=== PATIENT | female | born 1945 | race Caucasian/White ===

== ENCOUNTER 2016-10-07 10:53 | Emergency (ER) | payer MEDICARE ==
[~2016-10-07 10:53] MED LIST: BACL20TA PO; Baclofen PO; CARV3.12 PO; CARV6.252 PO; CHOL4POW2 PO; CHOL5POW MC; CIPR500T PO; DABI150C PO; ENOX60DI3 SQ; FURO40TA4 PO; HYDR-2758 PO; LEVE500T56 PO; LISI-338 PO; MAGN400T22 PO; METH5TAB4 PO; MICONAZOLE NITRATE TOP; Nicotine TD; OLAN2.5T3 PO; OLAN5TAB9 PO; PARO20TA99 PO; PARO40TA61 PO; POTA20TA12 PO; POTA20TA4 PO; RIVA10TA PO; TIOT18CA IH; VANC125S PO; VANC250C11 PO; VANC500V PO; Vancomycin Hcl PO; eloquist; vancomycin susp PO
--- NOTE | 2016-10-07 11:57 | PHYS DOC ---
Past History Past Medical History: Hypertension, UTI, Other Past Surgical History: Other Alcohol Use: None Drug Use: None Adult General Chief Complaint Chief Complaint: URINE CATHETER PROBLEM HPI HPI 70-year-old female with a history of multiple sclerosis presenting to the emergency department after her urinary catheter fell out. This occurred at most 6 hours ago. She presents today to have it replaced. Onset today. Location tract. Duration intermittent. No alleviating factors present. She reports having a placed approximately 2 years ago and thinks it may have been a 16 Georgian catheter. Review of systems is negative for chest pain abdominal pain nausea vomiting fevers or chills. All other review of systems is negative unless otherwise noted in history of present illness. Review of Systems Review of Systems SEE ABOVE. Allergies Allergies Allergies Coded Allergies Type Severity Reaction Last Updated Verified I S O L A T I O N *CONTACT* Allergy Unknown 11/24/15 Yes NKMA Allergy Unknown 11/24/15 Yes Physical Exam Physical Exam Constitutional: Well developed, well nourished, no acute distress, non-toxic appearance. HENT: Normocephalic, atraumatic, bilateral external ears normal, oropharynx moist, no oral exudates, nose normal. [] Eyes: PERRLA, EOMI, conjunctiva normal, no discharge. Neck: Normal range of motion, no tenderness, supple, no stridor. [] Cardiovascular:Heart rate regular rhythm, no murmur Lungs & Thorax: Bilateral breath sounds clear to auscultation [] Abdomen: Bowel sounds normal, soft, no tenderness, no masses, no pulsatile masses. Suprapubic ostomy present without evidence of cellulitis or erythema. Skin: Warm, dry, no erythema, no rash. Back: No tenderness, no CVA tenderness. [] Extremities: No tenderness, no cyanosis, no clubbing, ROM intact, no edema. [] Neurologic: Alert and oriented X 3, normal motor function, normal sensory function, no focal deficits noted. Psychologic: Affect normal, judgement normal, mood normal. [] Current Patient Data Vital Signs Vital Signs Date Time Temp Pulse Resp B/P (MAP) Pulse Ox O2 Delivery O2 Flow Rate FiO2 10/07/16 10:53 97.4 63 18 96 Room Air EKG EKG [] Radiology/Procedures Radiology/Procedures [] Course & Med Decision Making Course & Med Decision Making Pertinent Labs and Imaging studies reviewed. (See chart for details) [] 70-year-old female presenting to the emergency department after having her urinary catheter fall out. Unfortunately we're unable to place a 16 Georgian urinary catheter in the suprapubic ostomy site however we were able to place a 12 Georgian urinary catheter. Upon placement of the catheter clear urine came out. 10 mL of saline was placed in the balloon and the catheter was connected to a leg bag. She was subsequent discharged home to follow-up with her primary care physician for possibly serial increasing in size of the catheters. The patient was then discharged home in stable condition to follow up with their primary care physician over the next 2-3 days. They were to return if their symptoms worsened or if they were concerned for any reason. [id number] discharge instructions and return precautions were given. Patient's questions were answered to their satisfaction. Patient is comfortable plan. Dragon Disclaimer Dragon Disclaimer This chart was dictated in whole or in part using Voice Recognition software in a busy, high-work load, and often noisy Emergency Department environment. It may contain unintended and wholly unrecognized errors or omissions. Departure Departure: Impression: Primary Impression: Suprapubic catheter dysfunction Disposition: 01 HOME, SELF-CARE Condition: STABLE Referrals: GRACIE OLIVARES MD (PCP) Patient Instructions: Suprapubic Catheter Home Guide, Suprapubic Catheter Replacement, Care After Additional Instructions: Thank you for allowing us to participate in your care today. Follow-up with your primary care provider or urologist for replacement of the urinary catheter. You will likely need a larger catheter size which can be changed in clinic. Followup with your primary care physician in 3 days if your symptoms do not improve. If you do not have a primary care provider you can ask for a list of our primary care providers. Return to the emergency department you have any new or concerning findings. This should be evaluated by the primary care physician and any necessary consulting services for continued management within a few days after discharge. Return to emergency room if you have any new or concerning symptoms including but not limited to fever, chills, nausea, vomiting, intractable pain, any new rashes, chest pain, shortness of air, uncontrolled bleeding, difficulty breathing, and/or vision loss. MARGARET MURILLO MD October 07, 2016 11:57
[2016-10-07 12:13] VITALS: BP 143/86
== END 2016-10-07 12:13 | disposition home or self-care (01) ==
LOC: ER 10:53
DX: T83.028A Displacement of other urinary catheter, initial encounter (principal); I10 Essential (primary) hypertension; Z87.440 Personal history of urinary (tract) infections; Z91.041 Radiographic dye allergy status
CPT/HCPCS: 51702; 99284-25

== ENCOUNTER 2016-11-29 16:15 | Inpatient (IN) | payer MEDICARE ==
[~2016-11-29] VITALS: Ht 177.8 cm; Wt 60.0 kg
[2016-11-29] MEDS ORDERED: IV NORMAL SALINE 1,000ML 1,000 ML IV SCH (16:30)
[2016-11-29] MEDS ORDERED: 0.9 % SODIUM CHLORIDE 10 ML DISP.SYRIN. IV PRN (16:30)
[2016-11-29] MEDS ORDERED: ONDANSETRON PF 4 MG/2 ML VIAL. IV ONE (16:30)
--- NOTE | 2016-11-29 16:30 | PHYS DOC ---
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 Patient is presently living by herself as her family is out of town on vacation she noted increased bouts of nausea with retching. She is attempted to take meclizine at home without much in the way of improvement symptoms. She is also noted increased stooling frequency described as watery, malodorous, and mucousy which is very reminiscent of her prior C. difficile colitis. She does have a history of prior fecal transplantation 2. She denies any fevers, chills, recent antibiotics, sick contacts or travel. She denies any consumption of raw foods handling of poultry or reptiles. Patient admits she has minimal abdominal pain only pain when she attempts to retch. She denies any blood in her stool blood in her vomit or other symptoms. Review of Systems Review of Systems Constitutional: Denies fever or chills [] Eyes: Denies change in visual acuity, redness, or eye pain [] HENT: Denies nasal congestion or sore throat [] Respiratory: Denies cough or shortness of breath [] Cardiovascular: No additional information not addressed in HPI [] GI: He does complain of abdominal pain with retching nausea without vomiting she has diarrhea with mucus and a malodorous discharge. : Denies dysuria or hematuria [] Musculoskeletal: Denies back pain or joint pain [] Integument: Denies rash or skin lesions [] Neurologic: Denies headache, generally her legs feel weak below the knee which is chronic for her MS. Endocrine: Denies polyuria or polydipsia [] Allergies Allergies Allergies Coded Allergies Type Severity Reaction Last Updated Verified I S O L A T I O N *CONTACT* Allergy Unknown 11/24/15 Yes NKMA Allergy Unknown 11/24/15 Yes Physical Exam Physical Exam Vital signs reviewed. Noted hypertension without hypoxia. She is not hypoxic or tachypnea. Constitutional: Well developed, well nourished, no acute distress, non-toxic appearance. [] HENT: Normocephalic, atraumatic, bilateral external ears normal, mucous murmurings no oral exudates. Eyes: PERRLA, EOMI, conjunctiva normal, no discharge. [] Neck: Normal range of motion, no tenderness, supple, no stridor. [] Cardiovascular:Heart rate regular rhythm, no murmur [] Lungs & Thorax: Bilateral breath sounds clear to auscultation [] Abdomen: Bowel sounds normal, soft, no tenderness, no masses, no pulsatile masses. No guarding rebound or organomegaly. [] Skin: Warm, dry, no erythema, no rash. [] Back: No tenderness, no CVA tenderness. [] Extremities: No tenderness, no cyanosis, no clubbing, ROM intact, no edema. [] Neurologic: Alert and oriented X 3, normal motor function, normal sensory function, no focal deficits noted. [] Psychologic: Affect normal, judgement normal, mood normal. [] Current Patient Data Vital Signs Laboratory Tests Test 11/29/16 17:10 11/30/16 05:15 White Blood Count 9.9 x10^3/uL (4.0-11.0) 8.1 x10^3/uL (4.0-11.0) Red Blood Count 5.30 x10^6/uL (3.50-5.40) 4.94 x10^6/uL (3.50-5.40) Hemoglobin 15.4 g/dL (12.0-15.5) 14.3 g/dL (12.0-15.5) Hematocrit 45.9 % (36.0-47.0) 42.9 % (36.0-47.0) Mean Corpuscular Volume 87 fL (79-100) 87 fL (79-100) Mean Corpuscular Hemoglobin 29 pg (25-35) 29 pg (25-35) Mean Corpuscular Hemoglobin Concent 34 g/dL (31-37) 33 g/dL (31-37) Red Cell Distribution Width 17.2 % (11.5-14.5) H 17.0 % (11.5-14.5) H Platelet Count 385 x10^3/uL (140-400) 362 x10^3/uL (140-400) Neutrophils (%) (Auto) 72 % (31-73) 63 % (31-73) Lymphocytes (%) (Auto) 19 % (24-48) L 25 % (24-48) Monocytes (%) (Auto) 6 % (0-9) 8 % (0-9) Eosinophils (%) (Auto) 2 % (0-3) 3 % (0-3) Basophils (%) (Auto) 1 % (0-3) 1 % (0-3) Neutrophils # (Auto) 7.1 x10^3uL (1.8-7.7) 5.1 x10^3uL (1.8-7.7) Lymphocytes # (Auto) 1.9 x10^3/uL (1.0-4.8) 2.0 x10^3/uL (1.0-4.8) Monocytes # (Auto) 0.6 x10^3/uL (0.0-1.1) 0.6 x10^3/uL (0.0-1.1) Eosinophils # (Auto) 0.2 x10^3/uL (0.0-0.7) 0.3 x10^3/uL (0.0-0.7) Basophils # (Auto) 0.1 x10^3/uL (0.0-0.2) 0.1 x10^3/uL (0.0-0.2) Urine Collection Type Unknown Urine Color Roseann Urine Clarity Cloudy Urine pH 6.5 Urine Specific [place] 1.010 Urine Protein Trace (NEG-TRACE) Urine Glucose (UA) Neg mg/dL (NEG) Urine Ketones (Stick) Neg mg/dL (NEG) Urine Blood Large (NEG) Urine Nitrite Neg (NEG) Urine Bilirubin Neg (NEG) Urine Urobilinogen Dipstick 0.2 mg/dL (0.2 mg/dL) Urine Leukocyte Esterase Mod (NEG) Urine RBC 11-20 /HPF (0-2) Urine WBC 11-20 /HPF (0-4) Urine Squamous Epithelial Cells None /LPF Urine Bacteria Few /HPF (0-FEW) Urine Yeast Present /HPF Sodium Level 135 mmol/L (136-145) L 139 mmol/L (136-145) Potassium Level 3.6 mmol/L (3.5-5.1) 3.8 mmol/L (3.5-5.1) Chloride Level 100 mmol/L (98-107) 104 mmol/L (98-107) Carbon Dioxide Level 26 mmol/L (21-32) 27 mmol/L (21-32) Anion Gap 9 (6-14) 8 (6-14) Blood Urea Nitrogen 9 mg/dL (7-20) 12 mg/dL (7-20) Creatinine 0.6 mg/dL (0.6-1.0) 0.5 mg/dL (0.6-1.0) L Estimated GFR (Cockcroft-Gault) 98.3 121.3 Glucose Level 96 mg/dL (70-99) 88 mg/dL (70-99) Calcium Level 8.6 mg/dL (8.5-10.1) 8.0 mg/dL (8.5-10.1) L Magnesium Level 1.9 mg/dL (1.8-2.4) Total Bilirubin 0.4 mg/dL (0.2-1.0) 0.4 mg/dL (0.2-1.0) Direct Bilirubin 0.1 mg/dL (0.0-0.2) Aspartate Amino Transferase (AST) 24 U/L (15-37) 19 U/L (15-37) Alanine Aminotransferase (ALT) 40 U/L (14-59) 32 U/L (14-59) Alkaline Phosphatase 91 U/L (46-116) 80 U/L (46-116) Troponin I Quantitative < 0.017 ng/mL (0-0.055) Total Protein 6.5 g/dL (6.4-8.2) 5.8 g/dL (6.4-8.2) L Albumin 3.4 g/dL (3.4-5.0) 2.9 g/dL (3.4-5.0) L Lipase 152 U/L (73-393) BUN/Creatinine Ratio 24 (6-20) H Albumin/Globulin Ratio 1.0 (1.0-1.7) EKG EKG EKG timed 5:40 PM 11/29/2016 demonstrates normal sinus rhythm with a heart rate of 68 is a low voltage EKG with there is a decreased QRS, but is voltage with as well as some T-wave flattening in the inferior leads. There is no obvious evidence of acute coronary ischemia with ST segment elevation. Read by Dr. Hernandez. [] Radiology/Procedures Radiology/Procedures [] Course & Med Decision Making Course & Med Decision Making Pertinent Labs and Imaging studies reviewed. (See chart for details) she presents living by herself at this time as her family's, vacation. I'm concerned with her history of MS as well as increased weakness in her lower extremities bilaterally which is typical for her MS exacerbations also been dehydrated, no appetite, any history due to C. difficile colitis increasing stool volume. Asked to be admitted to the hospital given her generalized weakness and her inability tolerate food and fluids given her decreased appetite. I will screen her for status or colitis other infectious diarrheas as well as ischemic bowel. She will also have a screening for cardiac ischemia to ensure that nausea and weakness is not from some other issue. This point she is receiving antiemetics, pain meds if needed and fluids. We will attempt to collect a stool sample if she produces one here in the ER. Spoke with at 5:30 pm who says that he does not admit his own patients. Please Call security professionals hospitalist Locomotive Oiler note: Internal medicine Locomotive Oiler called at of the service: Dr. Lentz initially called at 1534 Consult called back at 1535 Discussed the case I presented and they agreed with admission. Time of acceptance of 1536 Impression: Diarrhea likely C. difficile colitis, nausea, dehydration, UTI Disposition: Admission to the hospital for IV therapy and observation. [] Dragon Disclaimer Dragon Disclaimer This chart was dictated in whole or in part using Voice Recognition software in a busy, high-work load, and often noisy Emergency Department environment. It may contain unintended and wholly unrecognized errors or omissions. Departure Departure: Impression: Primary Impression: Dehydration Additional Impressions: Nausea & vomiting Recurrent Clostridium difficile diarrhea UTI (urinary tract infection) Disposition: ADMITTED INPATIENT Admitting Physician: Kristi Lentz Condition: GUARDED Referrals: GRACIE OLIVARES MD (PCP) Problem Qualifiers MEGAN HERNANDEZ MD Nov 29, 2016 16:30
[2016-11-29 17:32] LABS: BASO # 0.1 x10^3/uL (0.0-0.2); BASO % 1 % (0-3); EOS # 0.2 x10^3/uL (0.0-0.7); EOS % 2 % (0-3); HEMATOCRIT 45.9 % (36.0-47.0); HEMOGLOBIN 15.4 g/dL (12.0-15.5); LYMPH # 1.9 x10^3/uL (1.0-4.8); LYMPH % 19 % (24-48); MEAN CORPUSCULAR HEMOGLOBIN 29 pg (25-35); MEAN CORPUSCULAR HGB CONC 34 g/dL (31-37); MEAN CORPUSCULAR VOLUME 87 fL (79-100); MONO # 0.6 x10^3/uL (0.0-1.1); MONO % 6 % (0-9); NEUT # 7.1 x10^3uL (1.8-7.7); NEUT % 72 % (31-73); PLATELET COUNT 385 x10^3/uL (140-400); RED CELL DISTRIBUTION WIDTH 17.2 % (11.5-14.5); WHITE BLOOD COUNT 9.9 x10^3/uL (4.0-11.0)
[2016-11-29 17:35] LABS: COLOR,URINE AMBER
[2016-11-29 17:36] LABS: BACTERIA,URINE FEW /HPF (0-FEW); BILIRUBIN,URINE NEG (NEG); CLARITY,URINE CLOUDY; GLUCOSE,URINE NEG (NEG); NITRITE,URINE NEG (NEG); UROBILINOGEN,URINE 0.2 mg/dL (0.2 mg/dL)
[2016-11-29 17:38] LABS: YEAST,URINE PRESENT /HPF
[2016-11-29] MEDS: IV NORMAL SALINE 1,000ML 1,000 ML IV SCH (17:39)
[2016-11-29 17:43] LABS: ALBUMIN 3.4 g/dL (3.4-5.0); CALCIUM 8.6 mg/dL (8.5-10.1); CREATININE 0.6 mg/dL (0.6-1.0); DIRECT BILIRUBIN 0.1 mg/dL (0.0-0.2); GFR 98.3; POTASSIUM 3.6 mmol/L (3.5-5.1); TOTAL BILIRUBIN 0.4 mg/dL (0.2-1.0); TOTAL PROTEIN 6.5 g/dL (6.4-8.2)
--- NOTE | 2016-11-29 17:43 | EKG ---
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
[2016-11-29] MEDS ORDERED: fentaNYL PF 100 MCG/2 ML VIAL IV PRN (17:45)
[2016-11-29 18:58] VITALS: BP 135/75
[2016-11-29] MEDS ORDERED: HYDROcodone/APAP 5/325MG 1 TAB TABLET PO PRN (22:30)
[2016-11-30] MEDS: IV NORMAL SALINE 1,000ML 1,000 ML IV SCH ×2 (03:39→17:54)
[2016-11-30] MEDS: VANCOMYCIN 125 MG/2.5 ML ORAL SOLUTION. PO SCH ×4 (04:51→22:05)
[2016-11-30] MEDS: BACLOFEN 20 MG TABLET PO SCH ×3 (04:52→22:03)
[2016-11-30 05:41] LABS: BASO # 0.1 x10^3/uL (0.0-0.2); BASO % 1 % (0-3); EOS # 0.3 x10^3/uL (0.0-0.7); EOS % 3 % (0-3); HEMATOCRIT 42.9 % (36.0-47.0); HEMOGLOBIN 14.3 g/dL (12.0-15.5); LYMPH % 25 % (24-48); MEAN CORPUSCULAR HEMOGLOBIN 29 pg (25-35); MEAN CORPUSCULAR HGB CONC 33 g/dL (31-37); MEAN CORPUSCULAR VOLUME 87 fL (79-100); MONO # 0.6 x10^3/uL (0.0-1.1); MONO % 8 % (0-9); NEUT # 5.1 x10^3uL (1.8-7.7); NEUT % 63 % (31-73); PLATELET COUNT 362 x10^3/uL (140-400); RED BLOOD COUNT 4.94 x10^6/uL (3.50-5.40); WHITE BLOOD COUNT 8.1 x10^3/uL (4.0-11.0)
[2016-11-30 05:52] LABS: ALBUMIN 2.9 g/dL (3.4-5.0); CREATININE 0.5 mg/dL (0.6-1.0); GFR 121.3; POTASSIUM 3.8 mmol/L (3.5-5.1); TOTAL BILIRUBIN 0.4 mg/dL (0.2-1.0); TOTAL PROTEIN 5.8 g/dL (6.4-8.2)
[2016-11-30 06:27] VITALS: BP 125/65
[2016-11-30] MEDS ORDERED: PANTOPRAZOLE 40 MG TABLET. PO SCH (07:30)
[2016-11-30] MEDS: PARoxetine 20 MG TABLET PO SCH (08:09)
[2016-11-30] MEDS: CARVEDILOL 6.25 MG TABLET PO SCH ×2 (08:10→19:53)
[2016-11-30] MEDS: POTASSIUM CHLORIDE 20 MEQ TABLET.ER. PO SCH (08:10)
[2016-11-30] MEDS: MVI, ADULT NO.4 WITH VIT K 10 ML, FOLIC ACID 1 MG, THIAMINE 100 MG in IV DEXTROSE 5 %-0... IV SCH ×4 (08:17)
[2016-11-30] MEDS: NICOTINE 21MG PATCH. TD SCH (08:26)
[2016-11-30] MEDS ORDERED: FAMOTIDINE 20 MG/2 ML VIAL IVP ONE (09:00)
[2016-11-30] MEDS ORDERED: LISINOPRIL 5 MG TABLET. PO SCH (09:00)
[2016-11-30] MEDS ORDERED: FUROSEMIDE 40 MG TABLET PO SCH (09:00)
[2016-11-30] MEDS ORDERED: FAMOTIDINE 20 MG/2 ML VIAL IVP SCH (09:00)
[2016-11-30] MEDS ORDERED: NICOTINE 21MG PATCH. TD ONE (09:15)
[2016-11-30] MEDS: ONDANSETRON PF 4 MG/2 ML VIAL. IV PRN ×2 (09:21→13:16)
[2016-11-30] MEDS ORDERED: FLUCONAZOLE 100 MG TABLET. PO SCH (11:15)
[2016-11-30] MEDS: HYDROcodone/APAP 5/325MG 1 TAB TABLET PO SCH ×4 (12:05→23:53)
[2016-11-30] MEDS ORDERED: HYDROcodone/APAP 5/325MG 1 TAB TABLET PO PRN (13:00)
--- NOTE | 2016-11-30 13:11 | PDOC1 ---
History of Present Illness Reason for Visit: nausea, diarrhea History of Present Illness This is a 71-year-old female long-standing history of C. difficile colitis. She presented to the emergency room yesterday with a 3 day history of nausea and diarrhea which she describes as watery and mucousy. She took some meclizine without relief. No vomiting just nausea. 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 See HPI for pertinent positives and negative responses, other reis all other systems are negative, non pertinent or non contributory Constitutional: Weakness, Malaise Eyes: No: Blurry vision, Decreased vision, Double vision, Dry eyes, Excessive tearing, Eye Pain, Itchy Eyes, Loss of vision, Photophobia, Scotomata, Uses contacts, Uses glasses ENT: No: Ear pain, Ear discharge, Nose pain, Nose discharge, Nose congestion, Mouth pain, Mouth swelling, Throat pain, Throat swelling Respiratory: No: Cough, Hemoptysis, Orthopnea, Pleuritic Pain, Shortness of breath, SOB with excertion, Sputum Changes, Stridor, Tachypnea, Wheezing Gastrointestinal: YES: Nausea, Diarrhea Genitourinary: No: Change in Menstrual Cycle, Dysmenorrhea, Dyspareunia, Dysuria, Flank Pain, Genital Discharge, Genital Ulcers, Henaturia, Incontinence , Irregular/heavy Menses, Nocturia, Pelvic Pain, Scrotal Mass/pain, Slowing Urinary Stream, Urinary Frequency/urgency, Vulvar/vaginal Symptoms Musculoskeletal: YES: Muscular Weakness Neurological: YES: Weakness Allergies: Coded Allergies: I S O L A T I O N *CONTACT* (Verified Allergy, Unknown, 11/24/15) chronic C.diff NKMA (Verified Allergy, Unknown, 11/24/15) Medications Current Medications Sodium Chloride 1,000 ml @ 1,000 mls/hr Q1H IV Last administered on 11/29/16 17:20; Start 11/29/16 at 16:30; Stop 11/29/16 at 17:29; Status DC Sodium Chloride (Normal Saline Flush) 10 ml QSHIFT PRN IV AFTER MEDS AND BLOOD DRAWS; Start 11/29/16 at 16:30 Ondansetron HCl (Zofran) 4 mg 1X ONCE IV Last administered on 11/29/16 17:20; Start 11/29/16 at 16:30; Stop 11/29/16 at 16:36; Status DC Ondansetron HCl (Zofran) 4 mg PRN Q4HRS PRN IV NAUSEA/VOMITING Last administered on 11/30/16 09:21; Start 11/29/16 at 17:45; Stop 11/30/16 at 17:44 Fentanyl Citrate (Fentanyl 2ml Vial) 50 mcg PRN Q2HR PRN IV PAIN; Start at 17:45; Stop 11/30/16 at 17:44 Sodium Chloride 1,000 ml @ 100 mls/hr Q10H IV ; Start 11/29/16 at 17:39; Stop at 17:38 Baclofen (Lioresal) 20 mg Q8HRS PO Last administered on 11/30/16 08:15; Start 11/30/16 at 06:00 Carvedilol (Coreg) 6.25 mg BID PO Last administered on 11/30/16 08:10; Start at 09:00 Furosemide (Lasix) 40 mg DAILY PO ; Start 11/30/16 at 09:00; Status Future Hold Lisinopril (Prinivil) 80 mg DAILY PO ; Start 11/30/16 at 09:00; Status Future Hold Potassium Chloride (Klor-Con) 20 meq DAILY PO Last administered on 11/30/16 08: 10; Start 11/30/16 at 09:00 Paroxetine HCl (Paxil) 40 mg DAILY PO Last administered on 11/30/16 08:09; Start 11/30/16 at 09:00 Vancomycin HCl 125 mg Q6HRS PO Last administered on 11/30/16 12:06; Start at 06:00 Nicotine (Nicoderm Cq 21mg) 1 patch DAILY TD ; Start 11/30/16 at 09:00 Acetaminophen/ Hydrocodone Bitart (Lortab 5/325) 1 tab PRN QID PRN PO PAIN Last administered on 11/30/16 08:15; Start 11/29/16 at 22:30; Stop 11/30/16 at 12: 00; Status DC Multivitamins/ Minerals 10 ml/ Folic Acid 1 mg/ Thiamine HCl 100 mg/Dextrose/ Sodium Chloride 1,011.2 ml @ 100.009 mls/hr DAILY IV Last administered on 08:17; Start 11/30/16 at 09:00 Pantoprazole Sodium (Protonix) 40 mg DAILYAC PO ; Start 11/30/16 at 07:30; Stop 11/30/16 at 07:36; Status DC Famotidine (Pepcid) 20 mg BID IVP ; Start 11/30/16 at 09:00; Stop 11/30/16 at 09: 00; Status DC Famotidine (Pepcid) 20 mg 1X ONCE IVP Last administered on 11/30/16 08:09; Start 11/30/16 at 09:00; Stop 11/30/16 at 09:01; Status DC Nicotine (Nicoderm Cq 21mg) 1 patch 1X ONCE TD Last administered on 11/30/16 09:21; Start 11/30/16 at 09:15; Stop 11/30/16 at 09:16; Status DC Acetaminophen/ Hydrocodone Bitart (Lortab 5/325) 1 tab Q4HRS PO Last administered on 11/30/16 12:05; Start 11/30/16 at 12:00 Fluconazole (Diflucan) 100 mg DAILY PO Last administered on 11/30/16 12:05; Start 11/30/16 at 11:15; Stop 12/08/16 at 11:14 Famotidine (Pepcid) 20 mg BID PO ; Start 11/30/16 at 21:00 Active Scripts Active Ciprofloxacin Hcl 500 Mg Tablet 1 Tab PO BID [Nicotine] 1 PATCH Patch 1 Patch TD DAILY Mag-Oxide (Magnesium Oxide) 400 Mg Tablet 400 Mg PO DAILY Reported Vancomycin HCl 125 Mg/2.5 Ml Syringe 125 Mg PO Q6HRS LAST DOSE GIVEN: DATE: TODAY TIME: 1PM NEXT DOSE DUE: DATE: TODAY TIME: 7PM Klor-Con M20 (Potassium Chloride) 20 Meq Tab.er.prt 1 Tab PO DAILY LAST DOSE GIVEN: DATE: TIME: AM NEXT DOSE DUE: DATE: TOMORROW TIME: AM Furosemide 40 Mg Tablet 1 Tab PO DAILY LAST DOSE GIVEN: DATE: TODAY TIME: AM NEXT DOSE DUE: DATE: TOMORROW TIME: AM Carvedilol 6.25 Mg Tablet 1 Tab PO BID LAST DOSE GIVEN: DATE: TIME: AM NEXT DOSE DUE: DATE: TODAY TIME: PM Lisinopril 5 Mg Tablet 80 Mg PO DAILY High blood pressure LAST DOSE GIVEN: DATE: TIME: AM NEXT DOSE DUE: DATE: ORR TIME: AM Hydrocodone-Apap 5-325 (Hydrocodone Bit/Acetaminophen) 1 Each Tablet 1 Tab PO Q6HRS PRN As needed for pain LAST DOSE GIVEN: DATE: TODAY TIME: 2:30 PM NEXT DOSE DUE: DATE: TODAY TIME: AFTER 8:30 PM Paxil (Paroxetine Hcl) 40 Mg Tablet 40 Mg PO DAILY Depression LAST DOSE GIVEN: DATE: TODAY TIME: AM NEXT DOSE DUE: DATE: TOMORROW TIME: AM Baclofen 20 Mg Tablet 20 Mg PO Q8HRS Muscle spasm LAST DOSE GIVEN: DATE: TIME: 2PM NEXT DOSE DUE: DATE: TODAY TIME: 8PM Exam Vital Signs Vital Signs Date Time Temp Pulse Resp B/P (MAP) Pulse Ox O2 Delivery O2 Flow Rate FiO2 11/30/16 12:05 16 95 11/30/16 09:15 Room Air 11/30/16 08:26 75 125/65 11/30/16 06:27 98.6 General Appearance: Other (fatigued) HEENT: Atraumatic, PERRLA, Mucous membr. moist/pink Respiratory: Clear to auscultation, Normal air movement Heart: Regular rate, Normal S1, Normal S2, No murmurs BREASTS: Not examined Abdominal: Normal bowel sounds, No tenderness Extremities: No clubbing, No tenderness/swelling Skin: No rashes, No breakdown, No significant lesion Neuro: Other (paraplegic-functional) Psych/Mental Status: Mental status NL, Mood NL Assessment/Plan Assessment/Plan #1 nausea and diarrhea that has not had diarrhea since hospitalization will do a C. difficile if it recurs #2 multiple sclerosis with functional paraplegia #3 tobacco use disorder #4 multiple episodes of C differential colitis including 2 fecal transplants #5 hypertension #6 protein calorie malnutrition #7 chronic use of narcotics #8History of DVT 9 yeast UTI Plan: IV fluids, Diflucan for yeast uti, await the results of the urinary culture before starting any more antibiotics in lieu of her risk of C. difficile. Get a C. difficile if she should have any more diarrhea. She seems to be doing well now after some IV fluids., She continues on her Vancomycin po chronically. she will not quit smoking.Will use nicotine patch. COURSE Allergies Coded Allergies Type Severity Reaction Last Updated Verified I S O L A T I O N *CONTACT* Allergy Unknown 11/24/15 Yes NKMA Allergy Unknown 11/24/15 Yes Laboratory Tests Test 11/29/16 17:10 11/30/16 05:15 White Blood Count 9.9 x10^3/uL (4.0-11.0) 8.1 x10^3/uL (4.0-11.0) Red Blood Count 5.30 x10^6/uL (3.50-5.40) 4.94 x10^6/uL (3.50-5.40) Hemoglobin 15.4 g/dL (12.0-15.5) 14.3 g/dL (12.0-15.5) Hematocrit 45.9 % (36.0-47.0) 42.9 % (36.0-47.0) Mean Corpuscular Volume 87 fL (79-100) 87 fL (79-100) Mean Corpuscular Hemoglobin 29 pg (25-35) 29 pg (25-35) Mean Corpuscular Hemoglobin Concent 34 g/dL (31-37) 33 g/dL (31-37) Red Cell Distribution Width 17.2 % (11.5-14.5) 17.0 % (11.5-14.5) Platelet Count 385 x10^3/uL (140-400) 362 x10^3/uL (140-400) Neutrophils (%) (Auto) 72 % (31-73) 63 % (31-73) Lymphocytes (%) (Auto) 19 % (24-48) 25 % (24-48) Monocytes (%) (Auto) 6 % (0-9) 8 % (0-9) Eosinophils (%) (Auto) 2 % (0-3) 3 % (0-3) Basophils (%) (Auto) 1 % (0-3) 1 % (0-3) Neutrophils # (Auto) 7.1 x10^3uL (1.8-7.7) 5.1 x10^3uL (1.8-7.7) Lymphocytes # (Auto) 1.9 x10^3/uL (1.0-4.8) 2.0 x10^3/uL (1.0-4.8) Monocytes # (Auto) 0.6 x10^3/uL (0.0-1.1) 0.6 x10^3/uL (0.0-1.1) Eosinophils # (Auto) 0.2 x10^3/uL (0.0-0.7) 0.3 x10^3/uL (0.0-0.7) Basophils # (Auto) 0.1 x10^3/uL (0.0-0.2) 0.1 x10^3/uL (0.0-0.2) Urine Collection Type Unknown Urine Color Roseann Urine Clarity Cloudy Urine pH 6.5 Urine Specific Crowell 1.010 Urine Protein Trace (NEG-TRACE) Urine Glucose (UA) Neg mg/dL (NEG) Urine Ketones (Stick) Neg mg/dL (NEG) Urine Blood Large (NEG) Urine Nitrite Neg (NEG) Urine Bilirubin Neg (NEG) Urine Urobilinogen Dipstick 0.2 mg/dL (0.2 mg/dL) Urine Leukocyte Esterase Mod (NEG) Urine RBC 11-20 /HPF (0-2) Urine WBC 11-20 /HPF (0-4) Urine Squamous Epithelial Cells None /LPF Urine Bacteria Few /HPF (0-FEW) Urine Yeast Present /HPF Sodium Level 135 mmol/L (136-145) 139 mmol/L (136-145) Potassium Level 3.6 mmol/L (3.5-5.1) 3.8 mmol/L (3.5-5.1) Chloride Level 100 mmol/L (98-107) 104 mmol/L (98-107) Carbon Dioxide Level 26 mmol/L (21-32) 27 mmol/L (21-32) Anion Gap 9 (6-14) 8 (6-14) Blood Urea Nitrogen 9 mg/dL (7-20) 12 mg/dL (7-20) Creatinine 0.6 mg/dL (0.6-1.0) 0.5 mg/dL (0.6-1.0) Estimated GFR (Cockcroft-Gault) 98.3 121.3 Glucose Level 96 mg/dL (70-99) 88 mg/dL (70-99) Calcium Level 8.6 mg/dL (8.5-10.1) 8.0 mg/dL (8.5-10.1) Magnesium Level 1.9 mg/dL (1.8-2.4) Total Bilirubin 0.4 mg/dL (0.2-1.0) 0.4 mg/dL (0.2-1.0) Direct Bilirubin 0.1 mg/dL (0.0-0.2) Aspartate Amino Transf (AST/SGOT) 24 U/L (15-37) 19 U/L (15-37) Alanine Aminotransferase (ALT/SGPT) 40 U/L (14-59) 32 U/L (14-59) Alkaline Phosphatase 91 U/L (46-116) 80 U/L (46-116) Troponin I Quantitative < 0.017 ng/mL (0-0.055) Total Protein 6.5 g/dL (6.4-8.2) 5.8 g/dL (6.4-8.2) Albumin 3.4 g/dL (3.4-5.0) 2.9 g/dL (3.4-5.0) Lipase 152 U/L (73-393) BUN/Creatinine Ratio 24 (6-20) Albumin/Globulin Ratio 1.0 (1.0-1.7) Current Medications Medications (Trade) Dose Ordered Sig/Riki Route PRN Reason Start Time Stop Time Status Last Admin Dose Admin Sodium Chloride 1,000 ml @ 1,000 mls/hr Q1H IV 11/29/16 16:30 11/29/16 17:29 DC 11/29/16 17:20 Sodium Chloride (Normal Saline Flush) 10 ml QSHIFT PRN IV AFTER MEDS AND BLOOD DRAWS 11/29/16 16:30 Ondansetron HCl (Zofran) 4 mg 1X ONCE IV 11/29/16 16:30 11/29/16 16:36 DC 11/29/16 17:20 Ondansetron HCl (Zofran) 4 mg PRN Q4HRS PRN IV NAUSEA/VOMITING 11/29/16 17:45 11/30/16 17:44 11/30/16 09:21 Fentanyl Citrate (Fentanyl 2ml Vial) 50 mcg PRN Q2HR PRN IV PAIN 11/29/16 17:45 11/30/16 17:44 Sodium Chloride 1,000 ml @ 100 mls/hr Q10H IV 11/29/16 17:39 11/30/16 17:38 Baclofen (Lioresal) 20 mg Q8HRS PO 11/30/16 06:00 11/30/16 08:15 Carvedilol (Coreg) 6.25 mg BID PO 11/30/16 09:00 11/30/16 08:10 Furosemide (Lasix) 40 mg DAILY PO 11/30/16 09:00 Future Hold Lisinopril (Prinivil) 80 mg DAILY PO 11/30/16 09:00 Future Hold Potassium Chloride (Klor-Con) 20 meq DAILY PO 11/30/16 09:00 11/30/16 08:10 Paroxetine HCl (Paxil) 40 mg DAILY PO 11/30/16 09:00 11/30/16 08:09 Vancomycin HCl 125 mg Q6HRS PO 11/30/16 06:00 11/30/16 12:06 Nicotine (Nicoderm Cq 21mg) 1 patch DAILY TD 11/30/16 09:00 Acetaminophen/ Hydrocodone Bitart (Lortab 5/325) 1 tab PRN QID PRN PO PAIN 11/29/16 22:30 11/30/16 12:00 DC 11/30/16 08:15 Multivitamins/ Minerals 10 ml/ Folic Acid 1 mg/ Thiamine HCl 100 mg/Dextrose/ Sodium Chloride 1,011.2 ml @ 100.009 mls/hr DAILY IV 11/30/16 09:00 11/30/16 08:17 Pantoprazole Sodium (Protonix) 40 mg DAILYAC PO 11/30/16 07:30 11/30/16 07:36 DC Famotidine (Pepcid) 20 mg BID IVP 11/30/16 09:00 11/30/16 09:00 DC Famotidine (Pepcid) 20 mg 1X ONCE IVP 11/30/16 09:00 11/30/16 09:01 DC 11/30/16 08:09 Nicotine (Nicoderm Cq 21mg) 1 patch 1X ONCE TD 11/30/16 09:15 11/30/16 09:16 DC 11/30/16 09:21 Acetaminophen/ Hydrocodone Bitart (Lortab 5/325) 1 tab Q4HRS PO 11/30/16 12:00 11/30/16 12:05 Fluconazole (Diflucan) 100 mg DAILY PO 11/30/16 11:15 12/08/16 11:14 11/30/16 12:05 Famotidine (Pepcid) 20 mg BID PO 11/30/16 21:00 I & O 11/30/16 00:00 Intake Total 1001 ml Balance 1001 ml Orders Procedure Category Date Status Time Vital Signs ER 11/29/16 Transmitted 16:30 Saline Lock ER 11/29/16 Transmitted 16:30 Cbc W Autodiff LAB 11/29/16 Complete 16:30 Ua, Cult If Indicated LAB 11/29/16 Complete 16:30 Lipase LAB 11/29/16 Complete 16:30 Basic Metabolic Panel LAB 11/29/16 Complete 16:30 Hepatic Panel LAB 11/29/16 Complete 16:30 Troponin I LAB 11/29/16 Complete 16:30 12 Lead Ekg EKG 11/29/16 Complete 16:30 Pulse Oximetry: FITO 11/29/16 In Process Standing Order 16:30 Iv Normal Saline PHA 11/29/16 Complete 1,000ml (Iv Sodium 16:30 0.9 % Sodium Chloride PHA 11/29/16 In Process (Normal Saline Flu 16:30 Ondansetron Pf PHA 11/29/16 Complete (Zofran) 16:30 Stool (Fecal) Culture CINTHYA 11/29/16 Uncollected 16:30 Stool Collect: FITO 11/29/16 In Process Standing Order 16:30 [place] Order ADT 11/29/16 Transmitted 17:39 Code Status CODE 11/29/16 Transmitted 17:39 Vital Signs, Per FITO 11/29/16 In Process Protocol 17:39 Advance Diet As FITO 11/29/16 In Process Tolerated 17:39 Ambulate With FITO 11/29/16 In Process Assistance 17:39 Ondansetron Pf PHA 11/29/16 In Process (Zofran) 17:45 Fentanyl Pf (Fentanyl PHA 11/29/16 In Process 2ml Vial) 17:45 Iv Normal Saline PHA 11/29/16 In Process 1,000ml (Iv Sodium 17:39 Urine Culture CINTHYA 11/29/16 In Process 17:50 Magnesium LAB 11/29/16 Complete 18:31 Baclofen (Lioresal) PHA 11/30/16 In Process 06:00 Carvedilol (Coreg) PHA 11/30/16 In Process 09:00 Furosemide Tablet PHA 11/30/16 In Process (Lasix) 09:00 Lisinopril (Prinivil) PHA 11/30/16 In Process 09:00 Potassium Chloride PHA 11/30/16 In Process (Klor-Con) 09:00 Paroxetine (Paxil) PHA 11/30/16 In Process 09:00 Vancomycin Oral PHA 11/30/16 In Process Solution 06:00 Nicotine 21mg PHA 11/30/16 In Process (Nicoderm Cq 21mg) 09:00 Hydrocodone/Apap PHA 11/29/16 Complete 5/325mg (Lortab 5/325) 22:30 Cbc W Autodiff LAB 11/30/16 Complete 01:25 Comprehensive LAB 11/30/16 Complete Metabolic Panel 01:25 Mvi, Adult No.4 With PHA 11/30/16 In Process Vit K (Infuvite Jonah 09:00 Pantoprazole PHA 11/30/16 Complete (Protonix) 07:30 Famotidine Pf (Pepcid) PHA 11/30/16 Complete 09:00 Famotidine Pf (Pepcid) PHA 11/30/16 Complete 09:00 Nicotine 21mg PHA 11/30/16 Complete (Nicoderm Cq 21mg) 09:15 Hydrocodone/Apap PHA 11/30/16 In Process 5/325mg (Lortab 5/325) 12:00 Famotidine (Pepcid) PHA 11/30/16 In Process 21:00 Fluconazole (Diflucan) PHA 11/30/16 In Process 11:15 Hydrocodone/Apap PHA 11/30/16 Transmitted 5/325mg (Lortab 5/325) 13:00 Magnesium Oxide PHA 12/01/16 Transmitted (Magnesium Oxide) 09:00 Vital Signs Date Time Temp Pulse Resp B/P (MAP) Pulse Ox O2 Delivery O2 Flow Rate FiO2 11/30/16 12:05 16 95 11/30/16 09:15 Room Air 11/30/16 08:26 75 125/65 11/30/16 06:27 98.6 MOISES DON DO Nov 30, 2016 13:11
--- NOTE | 2016-11-30 14:16 | ACF ---
Admission Criteria Forms GENERAL ADMISSION CRITERIA (Place 'X' for any and all applicable criteria): Admission is indicated for ANY ONE of the following: [ ]I. Hemodynamic instability as indicated by ANY ONE of the following(1)(2) (3)(4)(5): [ ]a) Vital sign abnormality not readily corrected by appropriate treatment within 12 to 24 hours indicated by ANY ONE of the following: [ ]i) Hypotension [ ]ii) Symptomatic Tachycardia unresponsive to treatment (eg , analgesia, fluids, sedation as indicated) [ ]iii) Orthostatic vital sign changes unresponsive to treatment (eg, fluids) [ ]b) Vital sign abnormality that is severe indicated by ANY ONE of the following: [ ]i) Inadequate perfusion indicated by ANY ONE of the following: [ ]1) Lactic acidosis (greater than 2 mmol/L) [ ]2) New abnormal capillary refill (greater than 3 seconds) [ ]3) Other metabolic acidosis (arterial pH less than 7.35) not otherwise explained [ ]4) Reduced urine output [ ]5) Altered mental status [ ]6) Myocardial Ischemia [ ]v) Mean arterial pressure[A] less than 60 mm Hg [ ]vi) Mean arterial pressure[A] less than 70 mm Hg after 30 minutes of appropriate treatment (eg, fluid resuscitation) [ ]vii) IV inotropic or vasopressor medication required to maintain adequate blood pressure or perfusion [ ]viii) Sustained heart rate greater than 120 beats per minute in adult or child 6 years or older[B]] [ ]II. Hypertension requiring inpatient treatment as indicated by ANY ONE of the following(6)(7)(8): [ ]a) SBP greater than 220 mm Hg or DBP greater than 120 mm Hg despite treatment [ ]b) SBP greater than 140 mm Hg or DBP greater than 100 mm Hg with evidence of acute end organ damage as indicated by ANY ONE of the following: [ ]i) Encephalopathy [ ]ii) Acute renal failure as indicated by new onset of ANY ONE of the following(9)(10)(11)(12)(13): [ ]1) A 3-fold rise in serum creatinine from baseline [ ]2) Serum creatinine greater than 4 mg/dL ( 354 micromoles/L) with acute rise greater than 0.5 mg/dL (44.2 micromoles/L) [ ]3) Reduction of more than 75% in estimated glomerular filtration rate from baseline [ ]4) Estimated glomerular filtration rate less than 35 mL/min/1.73m2 (0.59 mL/sec/1.73m2) in child up to 18 years of age [ ]5) Cessation of urine output indicated by ALL of the following: [ ]A. Adequate volume status [ ]B. Inadequate urine output as indicated by ANY ONE of the following: [ ]a. Urine output less than 0.3 mL/kg/hr for 24 hours [ ]b. Anuria (urine output less than 0.1 mL/kg/hr) for 12 hours [ ]iii) Aortic dissection [ ]iv) Myocardial ischemia [ ]v) Left ventricular heart failure [ ]vi) Retinal hemorrhage [ ]vii) Other significant finding [ ]c) Hypertension in child requiring inpatient treatment as indicated by ALL of the following(14)(15)(16): [ ]i) Outpatient treatment not effective, not available, or not appropriate [ ]ii) SBP or DBP greater than 95th percentile for age [ ]iii) Evidence of acute end organ damage as indicated by ANY ONE of the following: [ ]1) Altered mental status [ ]2) Acute renal failure as indicated by new onset of ANY ONE of the following(9)(10)(11)(12)(13): [ ]A. A 3-fold rise in serum creatinine from baseline [ ]B. Serum creatinine greater than 4 mg/dL (354 micromoles/L) with acute rise greater than 0.5 mg/dL (44.2 micromoles/L) [ ]C. Reduction of more than 75% in estimated glomerular filtration rate from baseline [ ]D. Estimated glomerular filtration rate less than 35 mL/min/1.73m2 (0.59 mL/sec/1.73m2)in child up to 18 years of age [ ]E. Cessation of urine output indicated by ALL of the following: [ ]a. Adequate volume status [ ]b. Inadequate urine output as indicated by ANY ONE of the following: [ ]1) Urine output less than 0.3 mL/kg/hr for 24 hours [ ]2) Anuria (urine output less than 0.1 mL/kg/hr) for 12 hours [ ]3) Severe headache [ ]4) Visual disturbance [ ]5) Retinal hemorrhage [ ]6) Other significant finding [ ]III. Acute cardiac or peripheral ischemia as indicated by ANY ONE of the following: [ ]a) Acute coronary syndrome(17)(18) [ ]b) Acute peripheral ischemia (eg, pulseless, cool, mottled, or cyanotic extremity)(19) [ ]IV. Cardiac arrhythmias or findings of immediate concern indicated by ANY ONE of the following(20)(21): [ ]a) Heart rhythms that are inherently dangerous or unstable indicated by ANY ONE of the following(22)(23)(24): [ ]i) Resuscitated ventricular fibrillation or cardiac arrest [ ]ii) Ventricular escape rhythm [ ]iii) Sustained ventricular tachycardia (30 seconds or more of ventricular rhythm at greater than 100 beats per minute) [ ]iv) Nonsustained ventricular tachycardia and ANY ONE of the following: [ ]1) Suspected cardiac ischemia as cause or consequence of ventricular tachycardia [ ]2) In setting of acute myocarditis [ ]b) Unstable cardiac conduction defects indicated by ANY ONE of the following(24)(25)(26): [ ]i) Type II second-degree atrioventricular block [ ]ii) Third-degree atrioventricular block [ ]iii) New-onset left bundle branch block with suspected myocardial ischemia [ ]c) Any heart rhythm and ANY ONE of the following(22)(23)(27)(28)( 29): [ ] i) Continuous long-term ECG monitoring needed (eg, initiation of drug requiring monitoring for more than 24 hours) [ ] ii) Patient has automatic implanted cardioverter defibrillator that is repeatedly firing, malfunctioning, or in need of immediate adjustment of settings beyond the scope of ambulatory or observation care. [ ]d) Heart rhythms of concern due to ANY ONE of the following: [ ]i) Hypotension [ ]ii) Respiratory distress [ ]iii) Association with other significant symptoms (eg, bradycardia with syncope or ongoing dizziness, supraventricular tachycardia with chest pain) (27)(28) (30) [ ] V. Severe heart failure as indicated by ANY ONE of the following ( 31)(32): [ ]a) Respiratory distress [ ]b) Hypotension [ ]c) Anasarca (refractory to outpatient therapy) [ ]d) Cardiac arrhythmias of immediate concern [ ]e) Myocardial ischemia [ ]. Respiratory abnormalities, including ANY ONE of the following(33)(34) (35)(36): [ ]a) Respiratory rate greater than 30 breaths per minute unresponsive to treatment [A] [ ]b) New saturation of arterial oxygen less than 90% [ ]c) New partial pressure of carbon dioxide greater than 44 mm Hg ( 5.9 kPa) [ ]d) Supplemental oxygen or respiratory treatments needed that are new or not performable at other levels of care [ ]e) New-onset cyanosis [ ]f) Inability to protect airway [ ]g) Chronic lung disease with severe deterioration (not responsive to emergency and observation care treatment as appropriate) as indicated by ANY ONE of the following(34)(36 ): [ ]i) SaO2 5% below baseline in patient with chronic hypoxemia [ ]ii) New requirement for supplemental oxygen to keep SaO2 at baseline or acceptable level [ ]iii) Required supplemental oxygen performable only in acute inpatient setting [ ]iv) Severe airflow or ventilation abnormalities [ ]v) Previously mobile patient unable to walk between rooms [ ]vi Inability to eat or sleep due to dyspnea [ ]vii) Rapid rate of exacerbation onset [ ]viii) Altered mental status ]VII. Severe airflow or ventilation abnormalities (not responsive to emergency and observation care treatment as appropriate) as indicated by ANY ONE of the following(33)(34)(35)(37): [ ]a) PCO2 greater than 42 mm Hg (5.6 kPa) and pH less than 7.35 (new ) [ ]b) Documented PCO2 increased more than 5 mm Hg (0.7 kPa) from disease baseline [ ]c) Airflow measurements [B] less than 60% of previous best or predicted (eg, peak expiratory flow rate less than 300 L/minute) despite intensive emergent treatment [C] [ ]d) Required respiratory treatments that are performable only in acute inpatient setting [ ]VIII. Impending or actual respiratory arrest ( Also use Respiratory Failure GRG for severe respiratory disease and long-term mechanical ventilation patients) [ ]IX. Neurologic abnormalities, including ANY ONE of the following: [ ]a) New findings that suggest ANY ONE of the following: [ ]i) BOTTLE CLEANER infection(38) [ ]ii) Cerebral bleeding, ischemia, or vasospasm(39)(40) [ ]iii) Increased intracranial pressure, hydrocephalus, or cerebral edema(41)(42)(43) [ ]iv) Spinal cord injury(44) [ ]b) Uncontrolled seizures(45) [ ]c) New-onset coma (eg, Vivek coma scale score less than 9) or unexplained abnormal mental status (eg, Vivek coma scale score less than 14) [D](41)(46)(47) [ ]X. New-onset severe neurologic findings requiring inpatient care; examples include(42)(48)(49): [ ]a) Papilledema [ ]b) Cerebral edema [ ]c) Mass effect on CT scan [ ]XI. Suspected acute intra-abdominal process with peritoneal signs, abdominal mass, or similar findings (50)(51)(52) [X]XII. Severe physiologic disorder remaining after emergency or observation level care (as appropriate) as indicated by ANY ONE of the following (53): [X]a) Significant dehydration [ ]b) Diabetic ketoacidosis [ ]c) Hyperglycemic hyperosmolar state (eg, osmolality greater than 320 mOsm/kg (mmol/kg) [ ]d) Hypoglycemia [ ]e) Other (new) acid-base disorder with pH less than 7.35 or greater than 7.5(54) [ ]f) Thyroid storm (55) [ ]g) Myxedema coma (55) [ ]XIII. Abdominal abnormalities with ANY ONE of the following(56)(57): [ ]a) Absent bowel sounds with complete ileus [ ]b) Signs of intestinal obstruction or peritonitis [E] [ ]c) Nausea and vomiting that cannot be controlled with outpatient or observation care [ ]XIV. Acute renal failure as indicated by new onset of ANY ONE of the following(9)(10)(11)(12)(13): [ ]a) A 3-fold rise in serum creatinine from baseline [ ]b) Serum creatinine greater than 4 mg/dL (354 micromoles/L) with acute rise greater than 0.5 mg/dL (44.2 micromoles/L) [ ]c) Reduction of more than 75% in estimated glomerular filtration rate from baseline [ ]d) Estimated glomerular filtration rate less than 35 mL/min/ 1.73m2 (0.59 mL/sec/1.73m2) in child up to 18 years of age [ ]e) Cessation of urine output indicated by ALL of the following: [ ]i) Adequate volume status [ ]ii) Inadequate urine output as indicated by ANY ONE of the following: [ ]1) Urine output less than 0.3 mL/kg/hr for 24 hours [ ]2) Anuria (urine output less than 0.1 mL/kg/hr) for 12 hours [ ]XV. Significant uremic complications as indicated by ANY ONE of the following(58)(59)(60): [ ]a) Outpatient therapy is ineffective or not feasible for ANY ONE of the following: [ ]i) Severe heart failure [ ]ii) Severehypertension [ ]iii) Pleural effusion [ ]iv) Pericarditis or pericardial effusion [ ]b) Cardiac arrhythmias of immediate concern [ ]c) Intractable nausea or vomiting [ ]d) Recurrent seizures [ ]e) Encephalopathy [ ]f) Bleeding abnormalities (eg, platelet dysfunction) with active (eg, gastrointestinal) bleeding [ ]g) Dialysis indicated before long-term access or ambulatory arrangements can be made [ ]h) Significant metabolic or electrolyte abnormalities (eg, severe acidosis or hyperkalemia) [ ]XVI. High fever or other high-risk infection situation as indicated by ANY ONE of the following(61)(62)(63)(64): [ ]a) Outpatient and observation care antimicrobial treatment unavailable, not effective, or not appropriate [ ]b) Documented bacteremia [ ]c) Temperature greater than 40.5 degrees C (104.9 degrees F) ( oral) [ ]d) Temperature greater than 39.5 degrees C (103.1 degrees F) ( oral) or less than 36 degrees C (96.8 degrees F) (rectal) that does not respond to e treatment and observation care [ ] XVII. Temperature less than 95 degrees F (35 degrees C)(rectal)(65) [ ] XVIII. Severe nutritional abnormalities as indicated by ALL of the following (66)(67): [ ]a) Inability to tolerate or establish sufficient oral or other enteral nutrition in outpatient setting [ ]b) Parenteral nutrition regimen need that must be implemented on inpatient basis [ ] XIX. Severe electrolyte abnormalities indicated by ALL of the following(68) (69)(70): [ ]a) Electrolytes and associated findings are not as expected for patient baseline or acceptable treatment effects. [ ]b) Severe abnormalities indicated by ANY ONE of the following: [ ]i) Sodium less than 130 mEq/L (mmol/L) (new) [ ]ii)Sodium less than 135 mEq/L (mmol/L) with ANY ONE of the following: [ ]1) Uncorrectable (to near normal or chronic baseline) after trial of outpatient and emergency treatment [ ]2) Altered mental status [ ]3) Seizures [ ]4) Severe medical etiology requiring inpatient management (eg, heart failure, hypovolemia) [ ]iii) Sodium greater than 155 mEq/L (mmol/L) [ ]iv) Sodium greater than 150 mEq/L (mmol/L) with ANY ONE of the following: [ ]1) Uncorrectable (to near normal or chronic baseline) with outpatient and emergency treatment [ ]2) Altered mental status [ ]3) Seizures [ ]4) Severe medical etiology (eg, hypovolemia, diabetes insipidus) [ ]v) Potassium less than 2.5 mEq/L (mmol/L) despite outpatient and emergency treatment [ ]vi) Potassium less than 3 mEq/L (mmol/L) with ANY ONE of the following: [ ]1) Weakness [ ]2) Cardiac abnormality (eg, arrhythmia, conduction disturbance) [ ]3) Cardiac ischemia [ ]4) Ileus [ ]5) Ongoing medical cause requiring inpatient management (eg, acute renal wasting or SIADH) [ ]6) Other severe symptoms [ ]vii) Potassium greater than 6.5 mEq/L (mmol/L) [ ]viii) Potassium greater than 5 mEq/L (mmol/L) with ANY ONE of the following: [ ]1) Uncorrectable (to near normal or chronic baseline) with outpatient and emergency treatment [ ]2) Severe ECG findings [F] [ ]3) Acute worsening of renal failure (creatinine greater than 2.5 mg/dL (221 micromoles/L) or significant elevation for age and size) [ ]4) Severe weakness [ ]5) Severe medical etiology (eg, hemolysis, infection, drug overdose) [ ]ix) Calcium less than 7 mg/dL (1.75 mmol/L) despite outpatient and emergency treatment (72) [ ]x) Calcium less than 8 mg/dL (2 mmol/L) with significant symptoms or findings; examples include(72): [ ]1) Altered mental status [ ]2) Muscle spasms [ ]3) Seizures [ ]4) Breathing difficulty [ ]5) Cardiac abnormality (eg, arrhythmia or conduction disturbance) [ ]xi) Calcium greater than 14 mg/dL (3.5 mmol/L)(72) [ ]xii) Calcium greater than 12 mg/dL (3 mmol/L) with ANY ONE of the following(72): [ ]1) Uncorrectable (to near normal or chronic baseline) with outpatient and emergency treatment [ ]2) Significant dehydration or hypovolemia as indicated by ALL of the following(70)(73)(74): [ ]A. Not resolved with initial treatments [ ]B. Clinically significant dehydration as indicated by ANY ONE of the following: [ ]a. Vomiting refractory to outpatient treatment (ie, precluding oral rehydration) [ ]b. Inability to drink [ ]c. Hypernatremia or other electrolyte abnormality unable to be corrected with outpatient and emergency treatment [ ]d. Failure to remain hydrated with outpatient therapy [ ]e. Reduced urine output [ ]f. Hypotension [ ]g. Serious cause for dehydration requiring acute hospitalization (eg, bowel obstruction, increased intracranial pressure, infectious cause) [ ]h. Child with ANY ONE of the following(75): [ ]1) Severe abdominal tenderness [ ]2) Adequate care not available at home [ ]3) Severe dehydration ( greater than 9% loss of body weight) [ ]4) Significant symptoms or findings; examples include: [ ]A. Altered mental status [ ]B. Cardiac abnormality (eg, arrhythmia, conduction disturbance) [ ]C. Malignant etiology requiring inpatient treatment [ ]xiii) Phosphorus less than 1 mg/dL (0.32 mmol/L) [ ]xiv) Phosphorus less than 1.5 mg/dL (0.48 mmol/L) with ANY ONE of the following: [ ]1) Patient unresponsive to outpatient and emergency treatment [ ]2) Significant symptoms or findings; examples include: [ ]A. Weakness [ ]B. Altered mental status [ ]C. Breathing difficulty [ ]D. Seizures [ ]E. Rhabdomyolysis [ ]xv) Phosphorus greater than 10 mg/dL (3.2 mmol/L) [ ]xvi) Phosphorus greater than 4.5 mg/dL (1.45 mmol/L) (new) with ANY ONE of the following: [ ]1) Severe medical etiology (eg, crush injury, acute renal failure) [ ]2) Associated hypocalcemia with significant findings; examples include: [ ]A. Neurologic symptoms [ ]B. Altered mental status [ ]C. Muscle spasms [ ]D. Seizures [ ]E. Breathing difficulty [ ]F. Cardiac abnormality (eg, arrhythmia, conduction disturbance) [ ]xvii) Magnesium less than 1 mg/dL (0.41 mmol/L) [ ]xviii) Magnesium less than 1.5 mg/dL (0.62 mmol/L) with ANY ONE of the following: [ ]1) Patient unresponsive to outpatient and emergency treatment [ ]2) Associated hypocalcemia with significant findings; examples include: [ ]A. Altered mental status [ ]B. Muscle spasms [ ]C. Seizures [ ]D. Breathing difficulty [ ]E. Cardiac abnormality (eg, arrhythmia , conduction disturbance) [ ]3) Associated hypokalemia (potassium less than 3 mEq/L (mmol/L)) with risk of arrhythmia [ ]xix) Magnesium greater than 4 mEq/L (2 mmol/L) [ ]xx) Magnesium greater than 2.5 mEq/L (1.25 mmol/L) with significant symptoms or findings; examples include: [ ]1) Weakness [ ]2) Altered mental status [ ]3) Cardiac abnormality (eg, arrhythmia, conduction disturbance) [ ]4) Breathing difficulty [ ]5) Severe medical etiology (eg, renal failure, hypovolemia) [ ]xxi) Uric acid greater than 20 mg/dL (1190 micromoles/L)(76) [ ]xxii) Uric acid greater than 8 mg/dL (476 micromoles/L) with significant symptoms or findings of tumor lysis syndrome; examples include(76): [ ]1) Creatinine greater than 1.5 times upper limit of normal [ ]2) Cardiac abnormality (eg, arrhythmia, conduction disturbance) [ ]3) Seizure [ ]XX. Acute blood loss causing significant abnormality as indicated by ANY ONE of the following(77)(78): [ ]a) Hemoglobin less than 10 g/dL (100 g/L) (not baseline) [ ]b) Hematocrit less than 30% (0.30) (not baseline) [ ]c) Repeat hematocrit decreased more than 2% (0.02) [ ]d) Uncontrolled bleeding [ ]XXI. Severe anemia indicated by ANY ONE of the following(78)(79): [ ]a) Altered mental status [ ]b) Chest pain [ ]c) Exertional dyspnea [ ]d) Syncope [ ]e) Other findings suggesting inadequate perfusion [ ]f) Treatment with transfusion or volume replacement is ineffective at resolving ANY ONE of the following [G]: [ ]i) Tachycardia for age [ ]ii) Orthostatic vital sign changes as indicated by ANY ONE of the following(80): [ ]1) Fall in SBP of 20 mm Hg or more 1 to 3 minutes after patient sits or stands from recumbent position [ ]2) Fall in DBP of 10 mm Hg or more 1 to 3 minutes after patient sits or stands from recumbent position [ ]XXII. High-risk low platelet count as indicated by ANY ONE of the following( 81)(82): [ ]a) Severe or life-threatening bleeding (eg, intracranial, major gastrointestinal, or extensive mucosal bleeding), with any reduced platelet count [ ]b) Platelet count less than 20,000/mm3 (20 x109/L) with any active bleeding [ ]c) Platelet count less than 10,000/mm3 (10 x109/L) with minor purpura or petechiae [ ]d) Platelet count less than 5000/mm3 (5 x109/L) [ ]e) Low platelet count with hemolytic anemia [ ]XXIII. Disseminated intravascular coagulation(77)(83) [ ]XXIV. Severe adverse drug or systemic toxin reaction requiring inpatient treatment; examples include(84)(85): [ ]a) Serotonin syndrome(86) [ ]b) Neuroleptic malignant syndrome(86) [ ]c) Cholinergic syndrome with severe symptoms (eg, bronchorrhea, weakness, mental status changes, seizures) [ ]d) Sympathetic syndrome with severe symptoms (eg, seizures, mental status changes, cardiac dysrhythmias) [ ]e) Anticholinergic syndrome [ ]XXV. Severe pain requiring acute inpatient management as indicated by ALL of the following (87)(88)(89): [ ]a) Continuous or frequent (eg, every 2 to 4 hours) parenteral analgesics required [H] [ ]b) Rapid improvement expected from treatment or acute intervention (eg, surgery, anesthesia procedure) [ ]XXVI.Severe behavioral health issues judged unmanageable at a lower level of care (eg, residential) in a patient who is ANY ONE of the following(91) [ ]a) Acutely suicidal [ ]b) A danger to self (eg, self-mutilating or suicidal behavior) [ ]c) A danger to others (eg, assaultive or homicidal behavior) [ ]d) Incapacitated because of grave disability (eg, inability to provide for self at lower level of care) (92) [ ]XXVII. Inpatient monitoring needed; examples include(1)(3)(87)(93)(94)(95)(96 ): [ ]a) Vital signs, neurologic signs, or vascular checks more frequently than every 4 hours [ ]b) Cardiac or respiratory monitoring beyond the scope (eg, over 24 hours) of observation care [ ]c) Pulmonary artery catheter monitoring [ ]d) Suspected compartment syndrome(97) (98) [ ]e) Cerebral bleeding, hydrocephalus, or vasospasm monitoring [ ]f) Increased intracranial pressure or cerebral edema monitoring [ ]g) monitoring [ ]XXVIII. Treatment requiring inpatient care; examples include: [ ]a) IV fluid to replace significant ongoing losses (greater than 3 L/m2 per day)(53) [ ]b) High concentration oxygen (greater than 40%)(33)(99)(100) [ ]c) Frequent respiratory therapy (more frequently than every 4 hours) to maintain airflow rates greater than 60% of baseline(33)(99)(100) [ ]d) Epidural analgesia(87) [ ]e) IV anticoagulation, vasoactive, or antiarrhythmic medication(19 )(23) [ ]f) Acute thrombolytics (generally require 24 hours of observation )(101)(102) [ ]XXIX. Emergency procedures needed; examples include: [ ]a) Emergency inpatient surgery [ ]b) Temporary pacemaker placement(103) [ ]c) Chest tube placement with active evacuation (eg, suction, drainage)(104) [ ]d) Emergent cardioversion(105) [ ]e) Emergent cardiac or vascular procedures (eg, cardiac catheterization, angioplasty) (17)(18) [ ]f) Emergent dialysis access placement and institution(10)(106) [ ]g) Emergent pericardiocentesis(107) [ ]h) Emergent plasmapheresis or leukapheresis(83) [ ]i) Emergent tracheostomy The original [employer] content created by [employer] has been revised. The portions of the content which have been revised are identified through the use of italic text or in bold, and [employer] has neither reviewed nor approved the modified material. All other unmodified content is copyright [employer]. Please see references footnoted in the original [employer] edition 2016 Admission Criteria Met?: Yes DONATO ANGELES Nov 30, 2016 14:16
[2016-11-30 15:58] VITALS: BP 127/72
[2016-11-30] MEDS ORDERED: PYRIDOXINE 100 MG/ML VIAL. IV ONE (17:00)
[2016-11-30 19:08] VITALS: BP 146/73
[2016-11-30] MEDS: FAMOTIDINE 20 MG TABLET PO SCH (19:53)
[2016-11-30 22:22] VITALS: BP 132/70
[2016-12-01] MEDS: HYDROcodone/APAP 5/325MG 1 TAB TABLET PO SCH ×4 (04:00→16:45)
[2016-12-01 05:13] VITALS: BP 171/72
[2016-12-01] MEDS: BACLOFEN 20 MG TABLET PO SCH ×2 (05:47→14:20)
[2016-12-01] MEDS: VANCOMYCIN 125 MG/2.5 ML ORAL SOLUTION. PO SCH ×3 (05:47→16:47)
[2016-12-01 06:14] LABS: BASO # 0.1 x10^3/uL (0.0-0.2); BASO % 1 % (0-3); EOS # 0.4 x10^3/uL (0.0-0.7); EOS % 4 % (0-3); HEMATOCRIT 41.2 % (36.0-47.0); HEMOGLOBIN 13.7 g/dL (12.0-15.5); LYMPH # 2.5 x10^3/uL (1.0-4.8); LYMPH % 26 % (24-48); MEAN CORPUSCULAR HEMOGLOBIN 29 pg (25-35); MEAN CORPUSCULAR HGB CONC 33 g/dL (31-37); MEAN CORPUSCULAR VOLUME 87 fL (79-100); MONO # 0.7 x10^3/uL (0.0-1.1); MONO % 7 % (0-9); NEUT # 5.7 x10^3uL (1.8-7.7); NEUT % 61 % (31-73); PLATELET COUNT 334 x10^3/uL (140-400); RED BLOOD COUNT 4.73 x10^6/uL (3.50-5.40); RED CELL DISTRIBUTION WIDTH 17.2 % (11.5-14.5); WHITE BLOOD COUNT 9.4 x10^3/uL (4.0-11.0)
[2016-12-01 06:32] LABS: ALBUMIN 2.7 g/dL (3.4-5.0); CREATININE 0.7 mg/dL (0.6-1.0); GFR 82.3; MAGNESIUM 1.8 mg/dL (1.8-2.4); POTASSIUM 4.3 mmol/L (3.5-5.1); TOTAL BILIRUBIN 0.3 mg/dL (0.2-1.0); TOTAL PROTEIN 5.5 g/dL (6.4-8.2)
[2016-12-01] MEDS ORDERED: MAGNESIUM OXIDE 400 MG TABLET PO SCH (09:00)
[2016-12-01] MEDS: MVI, ADULT NO.4 WITH VIT K 10 ML, FOLIC ACID 1 MG, THIAMINE 100 MG in IV DEXTROSE 5 %-0... IV SCH ×4 (09:13)
[2016-12-01] MEDS: CARVEDILOL 6.25 MG TABLET PO SCH (09:15)
[2016-12-01] MEDS: POTASSIUM CHLORIDE 20 MEQ TABLET.ER. PO SCH (09:15)
[2016-12-01] MEDS: PARoxetine 20 MG TABLET PO SCH (09:16)
[2016-12-01] MEDS: FAMOTIDINE 20 MG TABLET PO SCH (09:16)
[2016-12-01] MEDS: NICOTINE 21MG PATCH. TD SCH (09:16)
[2016-12-01 10:59] VITALS: BP 160/78
[2016-12-01 14:40] VITALS: BP 143/72
--- NOTE | 2016-12-01 15:21 | PDOC3 ---
Discharge Summary Visit Information Date of Admission: Nov 29, 2016 Date of Discharge: Dec 01, 2016 Admitting Diagnosis: acute gastroenteritis Final Diagnosis Problems Medical Problems: (1) Dehydration Status: Acute (2) Nausea & vomiting Status: Acute (3) Recurrent Clostridium difficile diarrhea Status: Acute (4) UTI (urinary tract infection) Status: Acute Problems: Brief Hospital Course Allergies Allergies Coded Allergies Type Severity Reaction Last Updated Verified I S O L A T I O N *CONTACT* Allergy Unknown 11/24/15 Yes NKMA Allergy Unknown 11/24/15 Yes Vital Signs Vital Signs Date Time Temp Pulse Resp B/P (MAP) Pulse Ox O2 Delivery O2 Flow Rate FiO2 12/01/16 14:40 98.5 67 20 143/72 (95) 98 Room Air Lab Results Laboratory Tests Test 11/29/16 17:10 11/30/16 05:15 12/01/16 05:35 White Blood Count 9.9 x10^3/uL (4.0-11.0) 8.1 x10^3/uL (4.0-11.0) 9.4 x10^3/uL (4.0-11.0) Red Blood Count 5.30 x10^6/uL (3.50-5.40) 4.94 x10^6/uL (3.50-5.40) 4.73 x10^6/uL (3.50-5.40) Hemoglobin 15.4 g/dL (12.0-15.5) 14.3 g/dL (12.0-15.5) 13.7 g/dL (12.0-15.5) Hematocrit 45.9 % (36.0-47.0) 42.9 % (36.0-47.0) 41.2 % (36.0-47.0) Mean Corpuscular Volume 87 fL (79-100) 87 fL (79-100) 87 fL (79-100) Mean Corpuscular Hemoglobin 29 pg (25-35) 29 pg (25-35) 29 pg (25-35) Mean Corpuscular Hemoglobin Concent 34 g/dL (31-37) 33 g/dL (31-37) 33 g/dL (31-37) Red Cell Distribution Width 17.2 % (11.5-14.5) 17.0 % (11.5-14.5) 17.2 % (11.5-14.5) Platelet Count 385 x10^3/uL (140-400) 362 x10^3/uL (140-400) 334 x10^3/uL (140-400) Neutrophils (%) (Auto) 72 % (31-73) 63 % (31-73) 61 % (31-73) Lymphocytes (%) (Auto) 19 % (24-48) 25 % (24-48) 26 % (24-48) Monocytes (%) (Auto) 6 % (0-9) 8 % (0-9) 7 % (0-9) Eosinophils (%) (Auto) 2 % (0-3) 3 % (0-3) 4 % (0-3) Basophils (%) (Auto) 1 % (0-3) 1 % (0-3) 1 % (0-3) Neutrophils # (Auto) 7.1 x10^3uL (1.8-7.7) 5.1 x10^3uL (1.8-7.7) 5.7 x10^3uL (1.8-7.7) Lymphocytes # (Auto) 1.9 x10^3/uL (1.0-4.8) 2.0 x10^3/uL (1.0-4.8) 2.5 x10^3/uL (1.0-4.8) Monocytes # (Auto) 0.6 x10^3/uL (0.0-1.1) 0.6 x10^3/uL (0.0-1.1) 0.7 x10^3/uL (0.0-1.1) Eosinophils # (Auto) 0.2 x10^3/uL (0.0-0.7) 0.3 x10^3/uL (0.0-0.7) 0.4 x10^3/uL (0.0-0.7) Basophils # (Auto) 0.1 x10^3/uL (0.0-0.2) 0.1 x10^3/uL (0.0-0.2) 0.1 x10^3/uL (0.0-0.2) Urine Collection Type Unknown Urine Color Roseann Urine Clarity Cloudy Urine pH 6.5 Urine Specific Isabella 1.010 Urine Protein Trace (NEG-TRACE) Urine Glucose (UA) Neg mg/dL (NEG) Urine Ketones (Stick) Neg mg/dL (NEG) Urine Blood Large (NEG) Urine Nitrite Neg (NEG) Urine Bilirubin Neg (NEG) Urine Urobilinogen Dipstick 0.2 mg/dL (0.2 mg/dL) Urine Leukocyte Esterase Mod (NEG) Urine RBC 11-20 /HPF (0-2) Urine WBC 11-20 /HPF (0-4) Urine Squamous Epithelial Cells None /LPF Urine Bacteria Few /HPF (0-FEW) Urine Yeast Present /HPF Sodium Level 135 mmol/L (136-145) 139 mmol/L (136-145) 140 mmol/L (136-145) Potassium Level 3.6 mmol/L (3.5-5.1) 3.8 mmol/L (3.5-5.1) 4.3 mmol/L (3.5-5.1) Chloride Level 100 mmol/L (98-107) 104 mmol/L (98-107) 107 mmol/L (98-107) Carbon Dioxide Level 26 mmol/L (21-32) 27 mmol/L (21-32) 29 mmol/L (21-32) Anion Gap 9 (6-14) 8 (6-14) 4 (6-14) Blood Urea Nitrogen 9 mg/dL (7-20) 12 mg/dL (7-20) 9 mg/dL (7-20) Creatinine 0.6 mg/dL (0.6-1.0) 0.5 mg/dL (0.6-1.0) 0.7 mg/dL (0.6-1.0) Estimated GFR (Cockcroft-Gault) 98.3 121.3 82.3 Glucose Level 96 mg/dL (70-99) 88 mg/dL (70-99) 86 mg/dL (70-99) Calcium Level 8.6 mg/dL (8.5-10.1) 8.0 mg/dL (8.5-10.1) 8.0 mg/dL (8.5-10.1) Magnesium Level 1.9 mg/dL (1.8-2.4) 1.8 mg/dL (1.8-2.4) Total Bilirubin 0.4 mg/dL (0.2-1.0) 0.4 mg/dL (0.2-1.0) 0.3 mg/dL (0.2-1.0) Direct Bilirubin 0.1 mg/dL (0.0-0.2) Aspartate Amino Transf (AST/SGOT) 24 U/L (15-37) 19 U/L (15-37) 18 U/L (15-37) Alanine Aminotransferase (ALT/SGPT) 40 U/L (14-59) 32 U/L (14-59) 26 U/L (14-59) Alkaline Phosphatase 91 U/L (46-116) 80 U/L (46-116) 67 U/L (46-116) Troponin I Quantitative < 0.017 ng/mL (0-0.055) Total Protein 6.5 g/dL (6.4-8.2) 5.8 g/dL (6.4-8.2) 5.5 g/dL (6.4-8.2) Albumin 3.4 g/dL (3.4-5.0) 2.9 g/dL (3.4-5.0) 2.7 g/dL (3.4-5.0) Lipase 152 U/L (73-393) BUN/Creatinine Ratio 24 (6-20) 13 (6-20) Albumin/Globulin Ratio 1.0 (1.0-1.7) 1.0 (1.0-1.7) Brief Hospital Course Ms. Rey is a 71 old [sex] who presented with [ ] Discharge Information Condition at Discharge: Improved Follow Up: As Needed Disposition/Orders: D/C to Home w/ HH Dischare Medications Current Medications Sodium Chloride 1,000 ml @ 1,000 mls/hr Q1H IV Last administered on 11/29/16 17:20; Start 11/29/16 at 16:30; Stop 11/29/16 at 17:29; Status DC Sodium Chloride (Normal Saline Flush) 10 ml QSHIFT PRN IV AFTER MEDS AND BLOOD DRAWS; Start 11/29/16 at 16:30 Ondansetron HCl (Zofran) 4 mg 1X ONCE IV Last administered on 11/29/16 17:20; Start 11/29/16 at 16:30; Stop 11/29/16 at 16:36; Status DC Ondansetron HCl (Zofran) 4 mg PRN Q4HRS PRN IV NAUSEA/VOMITING Last administered on 11/30/16 13:16; Start 11/29/16 at 17:45; Stop 11/30/16 at 17:44; Status DC Fentanyl Citrate (Fentanyl 2ml Vial) 50 mcg PRN Q2HR PRN IV PAIN; Start at 17:45; Stop 11/30/16 at 17:44; Status DC Sodium Chloride 1,000 ml @ 100 mls/hr Q10H IV Last administered on 11/30/16 17 :54; Start 11/29/16 at 17:39; Stop 11/30/16 at 17:38; Status DC Baclofen (Lioresal) 20 mg Q8HRS PO Last administered on 12/01/16 14:20; Start 11/30/16 at 06:00 Carvedilol (Coreg) 6.25 mg BID PO Last administered on 12/01/16 09:15; Start at 09:00 Furosemide (Lasix) 40 mg DAILY PO ; Start 11/30/16 at 09:00; Status Future Hold Lisinopril (Prinivil) 80 mg DAILY PO ; Start 11/30/16 at 09:00; Status Future Hold Potassium Chloride (Klor-Con) 20 meq DAILY PO Last administered on 12/01/16 09: 15; Start 11/30/16 at 09:00 Paroxetine HCl (Paxil) 40 mg DAILY PO Last administered on 12/01/16 09:16; Start 11/30/16 at 09:00 Vancomycin HCl 125 mg Q6HRS PO Last administered on 12/01/16 11:43; Start at 06:00 Nicotine (Nicoderm Cq 21mg) 1 patch DAILY TD Last administered on 12/01/16 09: 16; Start 11/30/16 at 09:00 Acetaminophen/ Hydrocodone Bitart (Lortab 5/325) 1 tab PRN QID PRN PO PAIN Last administered on 11/30/16 08:15; Start 11/29/16 at 22:30; Stop 11/30/16 at 12: 00; Status DC Multivitamins/ Minerals 10 ml/ Folic Acid 1 mg/ Thiamine HCl 100 mg/Dextrose/ Sodium Chloride 1,011.2 ml @ 100.009 mls/hr DAILY IV Last administered on 09:13; Start 11/30/16 at 09:00 Pantoprazole Sodium (Protonix) 40 mg DAILYAC PO ; Start 11/30/16 at 07:30; Stop 11/30/16 at 07:36; Status DC Famotidine (Pepcid) 20 mg BID IVP ; Start 11/30/16 at 09:00; Stop 11/30/16 at 09: 00; Status DC Famotidine (Pepcid) 20 mg 1X ONCE IVP Last administered on 11/30/16 08:09; Start 11/30/16 at 09:00; Stop 11/30/16 at 09:01; Status DC Nicotine (Nicoderm Cq 21mg) 1 patch 1X ONCE TD Last administered on 11/30/16 09:21; Start 11/30/16 at 09:15; Stop 11/30/16 at 09:16; Status DC Acetaminophen/ Hydrocodone Bitart (Lortab 5/325) 1 tab Q4HRS PO Last administered on 12/01/16 11:42; Start 11/30/16 at 12:00 Fluconazole (Diflucan) 100 mg DAILY PO Last administered on 11/30/16 12:05; Start 11/30/16 at 11:15; Stop 11/30/16 at 15:54; Status DC Famotidine (Pepcid) 20 mg BID PO Last administered on 12/01/16 09:16; Start 11/30/16 at 21:00 Acetaminophen/ Hydrocodone Bitart (Lortab 5/325) 1 tab PRN Q6HRS PRN PO PAIN Last administered on 12/01/16 05:51; Start 11/30/16 at 13:00 Magnesium Oxide (Magnesium Oxide) 400 mg DAILY PO Last administered on 09:16; Start 12/01/16 at 09:00 Pyridoxine HCl (Vitamin B6) 100 mg 1X ONCE IV Last administered on 11/30/16 17 :55; Start 11/30/16 at 17:00; Stop 11/30/16 at 17:01; Status DC Active Scripts Active Ciprofloxacin Hcl 500 Mg Tablet 1 Tab PO BID [Nicotine] 1 PATCH Patch 1 Patch TD DAILY Mag-Oxide (Magnesium Oxide) 400 Mg Tablet 400 Mg PO DAILY Reported Vancomycin HCl 125 Mg/2.5 Ml Syringe 125 Mg PO Q6HRS LAST DOSE GIVEN: DATE: TODAY TIME: 1PM NEXT DOSE DUE: DATE: TODAY TIME: 7PM Klor-Con M20 (Potassium Chloride) 20 Meq Tab.er.prt 1 Tab PO DAILY LAST DOSE GIVEN: DATE: TODAY TIME: AM NEXT DOSE DUE: DATE: TOMORROW TIME: AM Furosemide 40 Mg Tablet 1 Tab PO DAILY LAST DOSE GIVEN: DATE: TODAY TIME: AM NEXT DOSE DUE: DATE: TOMORROW TIME: AM Carvedilol 6.25 Mg Tablet 1 Tab PO BID LAST DOSE GIVEN: DATE: TODAY TIME: AM NEXT DOSE DUE: DATE: TODAY TIME: PM Lisinopril 5 Mg Tablet 80 Mg PO DAILY High blood pressure LAST DOSE GIVEN: DATE: TIME: AM NEXT DOSE DUE: DATE: TOMORROW TIME: AM Hydrocodone-Apap 5-325 (Hydrocodone Bit/Acetaminophen) 1 Each Tablet 1 Tab PO Q6HRS PRN As needed for pain LAST DOSE GIVEN: DATE: TODAY TIME: 2:30 PM NEXT DOSE DUE: DATE: TODAY TIME: AFTER 8:30 PM Paxil (Paroxetine Hcl) 40 Mg Tablet 40 Mg PO DAILY Depression LAST DOSE GIVEN: DATE: TODAY TIME: AM NEXT DOSE DUE: DATE: TOMORROW TIME: AM Baclofen 20 Mg Tablet 20 Mg PO Q8HRS Muscle spasm LAST DOSE GIVEN: DATE: TODAY TIME: 2PM NEXT DOSE DUE: DATE: TODAY TIME: 8PM Patient Instructions Patient Instuctions continue all home medications Given a prescription for TERESE Purdy MD Dec 01, 2016 15:21
[2016-12-01] MEDS ORDERED: ONDA4TAB12 PO (15:23)
--- NOTE | 2016-12-01 17:35 | NUR ---
Pt's IV removed w/out incident, catheter tip intact, direct pressure applied, Pt given d/c instructions, all personal belongings, pt discharged via w/c A&Ox4 with family member
== END 2016-12-01 17:30 | disposition home health service (06) | DRG 641 ==
LOC: ER 16:15 → 1 SOUTH 17:39
PROVIDERS: ADMIT Family Medicine; ATTEND Family Medicine
DX: E86.0 Dehydration (principal); Z68.1 Body mass index [BMI] 19.9 or less, adult; N39.0 Urinary tract infection, site not specified; E44.1 Mild protein-calorie malnutrition; K52.9 Noninfective gastroenteritis and colitis, unspecified; F44.4 Conversion disorder with motor symptom or deficit; I10 Essential (primary) hypertension; G35 Multiple sclerosis; F17.210 Nicotine dependence, cigarettes, uncomplicated; Z79.891 Long term (current) use of opiate analgesic; Z86.19 Personal history of other infectious and parasitic diseases
CPT/HCPCS: 36415; 80048; 80053; 80076; 81001; 83690; 83735; 84484; 85027; 87086; 87186; 93005; 96361; 96374; J2405; J3415; S0028; 99285-25; J7030

== ENCOUNTER → 2018-07-01 | Outpatient (CLI) | payer MEDICARE ==
[~2018-07-01] MED LIST changes: +APIX5TAB3 PO; +ASPI-630 PO; -CARV6.252 PO; +CARV6.2541 PO; +GUAI600T47 PO; +HYDR-2155 PO; -HYDR-2758 PO; +HYDR-2868 PO; +LISI20TA PO; +LOPE2CAP PO; +MECL12.52 PO; +MIRT15TA PO; +MULT1TAB52 PO; +NYST15CR TP; +ONDA4TAB12 PO; +SILV20CR14 TP; +TRAZ-85 PO; +VANC250C2 PO
--- NOTE | 2018-07-01 16:18 | RAD ---
Right Lower extremity venous Doppler. 07/01/2018 HISTORY: Right calf swelling and edema, history of DVT. COMPARISON: Bilateral lower extremity venous Doppler 06/18/2016 FINDINGS: Grayscale, Color and Doppler analysis of the Right Lower extremity deep venous system was performed with serial graded compression and augmentation. Linear echogenic, partially occlusive, filling defect in the common femoral vein which is new from the prior examination. No focal expansion to suggest acute thrombus. Visualized portions of the deep femoral vein are patent with normal color Doppler imaging. The femoral and popliteal veins are patent with normal color Doppler imaging. Evaluation of the right calf is significantly limited due to some today's edema, however no evidence of DVT. There is moderate diffuse subcutaneous edema throughout the right lower extremity, greatest in the calf. IMPRESSION: 1. Development of linear echogenic filling defects in the right common femoral vein most consistent with chronic nonocclusive thrombus. 2. Otherwise, no evidence of acute DVT in the right lower extremity. 3. Right lower extremity subcutaneous edema. Electronically signed by: Willi Nicholson MD (07/01/2018 4:13 PM) [facility]
== END | disposition home or self-care (01) ==
LOC: RAD 12:56
PROVIDERS: ATTEND Family Medicine
DX: R60.0 Localized edema (principal); Z86.718 Personal history of other venous thrombosis and embolism
CPT/HCPCS: 93971

== ENCOUNTER 2018-07-02 13:27 | Inpatient (IN) | payer MEDICARE ==
[~2018-07-02] VITALS: Ht 175.3 cm; Wt 62.7 kg
[~2018-07-02 13:27] MED LIST changes: -APIX5TAB3 PO; -ASPI-630 PO; -GUAI600T47 PO; -HYDR-2868 PO; -LISI20TA PO; -LOPE2CAP PO; -MECL12.52 PO; -MIRT15TA PO; -MULT1TAB52 PO; -NYST15CR TP; -SILV20CR14 TP; -TRAZ-85 PO; -VANC250C2 PO
--- NOTE | 2018-07-02 14:00 | EKG ---
[address] [address] Test Date: 2018-07-02 Test Time: 13:53:42 Pat Name: SERGIO PISANO Department: Room: Gender: F Supervisor Loading: : 1945 Requested By: ROEL BEE Order Number: [id number] Reading MD: Topher Arroyo Measurements Intervals Lapel Rate: 72 P: 0 MT: 122 QRS: 20 QRSD: 90 T: 84 QT: 420 QTc: 462 Interpretive Statements SINUS RHYTHM ATRIAL PREMATURE COMPLEX(ES) NONSPECIFIC ST-T WAVE CHANGES. Electronically Signed On 07-05-2018 9:50:24 SUPERVISOR QUILTING by Topher Arroyo
--- NOTE | 2018-07-02 14:01 | RAD ---
EXAM: Chest, single view. HISTORY: Edema. COMPARISON: 07/01/2016 FINDINGS: A frontal view of the chest is obtained. There is stable diffuse increased interstitial opacity. There is no consolidation, pleural effusion or pneumothorax. The heart is normal in size. IMPRESSION: Stable mild diffuse increased initial opacity suggesting trace congestion. This may be superimposed on chronic interstitial changes. Electronically signed by: Xiomara Suh MD (07/02/2018 1:57 PM) [place] [id number]
[2018-07-02 14:12] LABS: BASO # 0.1 x10^3/uL (0.0-0.2); BASO % 1 % (0-3); EOS # 0.2 x10^3/uL (0.0-0.7); EOS % 3 % (0-3); HEMATOCRIT 39.4 % (36.0-47.0); HEMOGLOBIN 12.7 g/dL (12.0-15.5); LYMPH # 1.2 x10^3/uL (1.0-4.8); LYMPH % 13 % (24-48); MEAN CORPUSCULAR HEMOGLOBIN 28 pg (25-35); MEAN CORPUSCULAR HGB CONC 32 g/dL (31-37); MEAN CORPUSCULAR VOLUME 88 fL (79-100); MONO # 0.8 x10^3/uL (0.0-1.1); MONO % 9 % (0-9); NEUT % 75 % (31-73); PLATELET COUNT 555 x10^3/uL (140-400); RED CELL DISTRIBUTION WIDTH 15.5 % (11.5-14.5); WHITE BLOOD COUNT 9.3 x10^3/uL (4.0-11.0)
--- NOTE | 2018-07-02 14:19 | PHYS DOC ---
Past History Past Medical History: DVT, Hypertension, Seizure, UTI, Other Past Surgical History: Other Alcohol Use: None Drug Use: None Adult General Chief Complaint Chief Complaint: LOWER EXTREMITY EDEMA HPI HPI 72-year-old female presents with right lower extremity swelling and erythema. Patient states she has had worsening edema for the last 2 weeks. Last few days it is much worse and she noticed that the skin is very erythematous. Patient is not sure when the redness started. She was ultrasounded for DVT yesterday and was reported to be negative. She was placed on an oral antibiotic but is unsure which one. She denies fever or chills. He has had some nausea. She is also reporting very loose stools but they are loose baseline. She has a chronic suprapubic catheter. Review of Systems Review of Systems Constitutional: Denies fever or chills [] Eyes: Denies change in visual acuity, redness, or eye pain [] HENT: Denies nasal congestion or sore throat [] Respiratory: Denies cough or shortness of breath [] Cardiovascular: No additional information not addressed in HPI [] GI: Denies abdominal pain, nausea, vomiting, bloody stools or diarrhea [] : Denies dysuria or hematuria [] Musculoskeletal: Denies back pain or joint pain [] Integument: Erythematous right lower extremity[] Neurologic: Denies headache, focal weakness or sensory changes [] Endocrine: Denies polyuria or polydipsia [] All other systems were reviewed and found to be within normal limits, except as documented in this note. Allergies Allergies Allergies Coded Allergies Type Severity Reaction Last Updated Verified I S O L A T I O N *CONTACT* Allergy Unknown 11/24/15 Yes NKMA Allergy Unknown 11/24/15 Yes Physical Exam Physical Exam Constitutional: Well developed, well nourished, no acute distress, non-toxic appearance. [] HENT: Normocephalic, atraumatic, bilateral external ears normal, oropharynx moist, no oral exudates, nose normal. [] Eyes: PERRLA, EOMI, conjunctiva normal, no discharge. [] Neck: Normal range of motion, no tenderness, supple, no stridor. [] Cardiovascular:Heart rate regular rhythm, no murmur [] Lungs & Thorax: Bilateral breath sounds clear to auscultation [] Abdomen: Bowel sounds normal, soft, no tenderness, no masses, no pulsatile masses. [] Skin: Grade 2 decubitus ulcers on the buttocks bilaterally. Erythematous, warm lower extremity on the right below the knee. [] Back: No tenderness, no CVA tenderness. [] Extremities: No tenderness, no cyanosis, no clubbing, ROM intact. 3+ pitting edema on the right below the knee.[] Neurologic: Alert and oriented X 3, normal motor function, normal sensory function, no focal deficits noted. [] Psychologic: Affect normal, judgement normal, mood normal. [] Current Patient Data Vital Signs Vital Signs Date Time Temp Pulse Resp B/P (MAP) Pulse Ox O2 Delivery O2 Flow Rate FiO2 07/02/18 13:48 97.9 74 18 93 Room Air EKG EKG [] Radiology/Procedures Radiology/Procedures [] Course & Med Decision Making Course & Med Decision Making Pertinent Labs and Imaging studies reviewed. (See chart for details) Patient appears to have cellulitis of the right lower extremity. I will treat her with vancomycin and Zosyn. She also has stage II ulcers on her buttocks the need to be managed by wound care and follow-up care plan needs to be established for her at home. I discussed the patient with Dr. Nuno and he has accepted the patient for admission. [] Dragon Disclaimer Dragon Disclaimer This electronic medical record was generated, in whole or in part, using a voice recognition dictation system. Departure Departure: Impression: Primary Impression: Cellulitis of lower extremity Additional Impressions: Pressure ulcer of left buttock, stage 2 Pressure ulcer of right buttock, stage 2 Disposition: 09 ADMITTED INPATIENT Condition: STABLE Referrals: GRACIE OLIVARES MD (PCP) Problem Qualifiers Primary Impression: Cellulitis of lower extremity Laterality: right Qualified Codes: L03.115 - Cellulitis of right lower limb ROEL BEE DO Jul 02, 2018 14:19
[2018-07-02 14:33] LABS: ALBUMIN 2.8 g/dL (3.4-5.0); ALBUMIN/GLOBULIN RATIO 0.7 (1.0-1.7); CALCIUM 8.7 mg/dL (8.5-10.1); CREATININE 0.7 mg/dL (0.6-1.0); POTASSIUM 4.6 mmol/L (3.5-5.1); TOTAL BILIRUBIN 0.5 mg/dL (0.2-1.0); TOTAL PROTEIN 6.6 g/dL (6.4-8.2)
[2018-07-02 14:35] LABS: BILIRUBIN,URINE NEG (NEG); CLARITY,URINE CLOUDY; COLOR,URINE YELLOW; GLUCOSE,URINE NEG (NEG); NITRITE,URINE NEG (NEG); UROBILINOGEN,URINE 1 mg/dL (0.2 mg/dL)
[2018-07-02] MEDS ORDERED: VANCOMYCIN 1.5 GM in IV NORMAL SALINE 500ML 500 ML IV ONE (15:00)
[2018-07-02] MEDS ORDERED: IV NORMAL SALINE 50ML 50 ML ONE (15:00)
[2018-07-02] MEDS ORDERED: PIPERACILLIN/TAZOBACTAM 3.375 GM in IV NORMAL SALINE 50ML 50 ML IV ONE (15:00)
[2018-07-02] MEDS ORDERED: PIPERACILLIN/TAZOBACTAM 3.375 GM VIAL IV ONE (15:01)
[2018-07-02] MEDS ORDERED: ONDANSETRON PF 4 MG/2 ML VIAL. IV PRN (16:00)
[2018-07-02 19:14] VITALS: BP 96/52
[2018-07-02] MEDS ORDERED: MECL12.52 PO (19:45)
[2018-07-02] MEDS ORDERED: MIRT15TA PO (19:45)
[2018-07-02] MEDS ORDERED: TRAZ-120 PO (19:45)
[2018-07-02] MEDS ORDERED: LISI20TA PO (19:45)
[2018-07-02] MEDS ORDERED: APIX5TAB3 PO (19:45)
[2018-07-02] MEDS ORDERED: LOPE2CAP PO (19:45)
[2018-07-02] MEDS ORDERED: SILV20CR14 TP (19:45)
[2018-07-02] MEDS ORDERED: ASPI-630 PO (19:45)
[2018-07-02] MEDS ORDERED: VANC250C3 PO (19:45)
[2018-07-02] MEDS ORDERED: HYDR-2868 PO (19:45)
[2018-07-02] MEDS ORDERED: MULT1TAB52 PO (19:45)
[2018-07-02] MEDS ORDERED: GUAI600T47 PO (19:45)
[2018-07-02] MEDS ORDERED: NYST15CR TP (19:45)
[2018-07-02] MEDS: HYDROcodone/APAP 5/325MG 1 TAB TABLET PO PRN (20:17)
[2018-07-02] MEDS ORDERED: LOPERAMIDE 2 MG CAPSULE PO PRN (20:30)
[2018-07-02] MEDS ORDERED: MECLIZINE 12.5 MG TABLET. PO PRN (20:30)
[2018-07-02] MEDS: VANCOMYCIN PER PHARMACY MC PRN (20:32)
[2018-07-02] MEDS: hydrALAZINE 25 MG TABLET PO SCH (20:52)
[2018-07-02] MEDS: traZODone 50 MG TABLET. PO SCH (20:52)
[2018-07-02] MEDS: NICOTINE 21MG PATCH. TD SCH (20:52)
[2018-07-02] MEDS: BACLOFEN 20 MG TABLET PO SCH (20:52)
[2018-07-02] MEDS: APIXABAN 5 MG TABLET. PO SCH (20:52)
[2018-07-02] MEDS: MIRTAZAPINE 15 MG TABLET PO SCH (20:52)
[2018-07-02] MEDS: CARVEDILOL 6.25 MG TABLET PO SCH (20:52)
[2018-07-02] MEDS: VANCOMYCIN 125 MG/2.5 ML ORAL SOLUTION. PO SCH (21:00)
[2018-07-02] MEDS: NYSTATIN 100,000 UNIT/GM TOPICAL CREAM 15GM TUBE. TP SCH (21:00)
[2018-07-02] MEDS: silver sulfADIAZINE 1% CREAM 50GM JAR. TP SCH (21:00)
[2018-07-02 22:17] VITALS: BP 95/56
[2018-07-02] MEDS: PIPERACILLIN/TAZOBACTAM 3.375 GM in IV NORMAL SALINE 50ML 50 ML IV SCH (22:33)
[2018-07-03] MEDS: oxyCODONE IR 5 MG TABLET PO PRN ×3 (02:31→21:22)
[2018-07-03] MEDS: PIPERACILLIN/TAZOBACTAM 3.375 GM in IV NORMAL SALINE 50ML 50 ML IV SCH ×3 (05:16→21:22)
[2018-07-03] MEDS: BACLOFEN 20 MG TABLET PO SCH ×3 (05:16→21:22)
[2018-07-03 05:44] VITALS: BP 129/72
[2018-07-03] MEDS: PARoxetine 20 MG TABLET PO SCH (08:37)
[2018-07-03] MEDS: APIXABAN 5 MG TABLET. PO SCH ×2 (08:37→21:30)
[2018-07-03] MEDS: NICOTINE 21MG PATCH. TD SCH (08:37)
[2018-07-03] MEDS: ASCORBIC ACID 500 MG TABLET PO SCH (08:37)
[2018-07-03] MEDS: ASPIRIN 81 MG TAB.CHEW PO SCH (08:38)
[2018-07-03] MEDS: MULTIVITAMIN with MINERAL TABLET. PO SCH (08:38)
[2018-07-03] MEDS: VANCOMYCIN 125 MG/2.5 ML ORAL SOLUTION. PO SCH ×4 (08:46→21:23)
[2018-07-03] MEDS: CARVEDILOL 6.25 MG TABLET PO SCH ×2 (08:46→21:08)
[2018-07-03] MEDS: hydrALAZINE 25 MG TABLET PO SCH ×3 (08:46→21:09)
[2018-07-03] MEDS: POTASSIUM CHLORIDE 20 MEQ TABLET.ER. PO SCH (08:46)
[2018-07-03] MEDS: LISINOPRIL 20 MG TABLET PO SCH (08:46)
[2018-07-03] MEDS: FUROSEMIDE 40 MG TABLET PO SCH (08:46)
[2018-07-03] MEDS: HYDROcodone/APAP 5/325MG 1 TAB TABLET PO PRN ×2 (08:53→17:03)
[2018-07-03] MEDS: silver sulfADIAZINE 1% CREAM 50GM JAR. TP SCH ×2 (09:00→21:24)
[2018-07-03] MEDS: NYSTATIN 100,000 UNIT/GM TOPICAL CREAM 15GM TUBE. TP SCH ×3 (09:00→21:24)
[2018-07-03] MEDS ORDERED: NICOTINE TD SCH (09:00)
[2018-07-03 10:41] VITALS: BP 110/61
--- NOTE | 2018-07-03 12:11 | PN ---
DATE: 07/03/2018 SUBJECTIVE: The patient is resting flat, comfortably, in no apparent distress. On questioning her, she continued to complain of pain in her right leg that is definitely more swollen with a lump in the outer aspect of her right leg that reflect indicating that she might either has subcutaneous hematoma and/or an abscess. Her right foot definitely more swollen than the left and she has also some scabbing wounds some of the toes of her right foot. She also has erythema obviously and was admitted for right lower extremity cellulitis; however, I am concerned that she might broke her right tibia and fibula. PHYSICAL EXAMINATION: GENERAL: When I examined her this afternoon, she looked well and was clearly in no apparent respiratory distress. She was somewhat pale, very cachectic, but no jaundice, cyanosis, or thyromegaly. No jugular venous distension. She does have bilateral limb edema, more so on the right than left. VITAL SIGNS: Her heart rate was 86, blood pressure was 110/61, temperature was 98.4, respiratory rate 20, and oxygen saturation was 89%. HEAD, EYES, EARS, NOSE AND THROAT: Showed normocephalic, atraumatic. NECK: Supple. HEART: Showed normal first and second heart sounds. No gallop, rub or murmur. CHEST: Clear to auscultation. No crepitation or rhonchi. ABDOMEN: Distended, soft, nontender. NEUROLOGIC: She is awake, alert, responding appropriately. All cranial nerves intact. She moves all extremities without difficulty. She has functional paraplegia, neurogenic bladder requiring suprapubic catheter. She has multiple wounds in both stage 2 gluteal decubitus ulcer on both sides. Her right lower extremity is definitely more swollen than left with some scabbing wounds on some of her toes. The right lower extremity is also more swollen than left with a lump on the outer aspect of the right leg that is fluctuant indicating either subcutaneous hematoma or an abscess. PLAN: We will continue obviously with oral and IV antibiotic. I will arrange for her to have x-ray of her right tibia and fibula as well as x-ray of the right foot. We might have to do also CT scan of the right lower extremity and eventually we might have to discontinue her Eliquis. She almost certain that she must have bled there. If she has a fracture, then we might have to transfer her to [facility] to consult the orthopedic surgeon. TERESE ALEMAN MD DR: MADELINE/beata JOB#: [id number] / [id number]
--- NOTE | 2018-07-03 12:42 | RAD ---
EXAM: AP, oblique and lateral views of the right foot DATE: 07/03/2018 11:01 AM INDICATION: right foot pain with swelling x 3-4 days COMPARISON: No Prior FINDINGS: Decreased bone mineral density.No evidence of acute fracture or dislocation. Mild periosteal reaction along the fourth metatarsal. Moderate soft tissue swelling about the right midfoot and hindfoot. Soft tissue swelling seen about the right lower leg as well. IMPRESSION: 1. No evidence of acute fracture or dislocation. 2. Periosteal thickening about the fourth metatarsal may be seen with chronic stress reaction. 3. Decreased bone mineral density. 4. Diffuse soft tissue swelling about the right lower leg and foot. Electronically signed by: Abhijit Cooley MD (07/03/2018 12:37 PM) [facility]
--- NOTE | 2018-07-03 12:47 | RAD ---
EXAM: AP and lateral views of the right lower leg DATE: 07/03/2018 11:05 AM INDICATION: right tib/fib pain and swelling 3-4 days COMPARISON: No Prior FINDINGS: There is no evidence for acute fracture or dislocation. Diffusely decreased bone mineral density. Marked soft tissue swelling overlying the proximal shaft of the right lower leg. IMPRESSION: 1. No evidence of acute fracture or dislocation. 2. Diffuse right lower cavity swelling with focal swelling at the proximal anterior aspect of the right lower leg. If this needs to be further characterized, MRI is recommended. Electronically signed by: Abhijit Cooley MD (07/03/2018 12:42 PM) [facility]
--- NOTE | 2018-07-03 13:18 | HP ---
ADMIT DATE: 07/02/2018 HISTORY OF PRESENT ILLNESS: The patient is a 72-year-old female patient who came to the Emergency Room with a complaint of right lower extremity swelling and erythema. She stated that she has had worsening erythema over the last 2 weeks and over the last few days, it is much worse and she noted that her skin is very erythematous. She is not sure when the redness started. She was ultrasounded for DVT yesterday and reported to be negative. She was placed on oral antibiotic, but is unsure which one. She denied any fever or chills. She has some nausea. She is also reporting very loose stools. She is known to have chronic C. diff colitis. She was evaluated in the Emergency Room and was admitted with right lower extremity cellulitis. She also has a pressure ulcer on her left buttock stage 2 and pressure ulcer in the right buttock stage 2, and was admitted to continue with IV vancomycin and Zosyn. When I asked, the patient said that she might have trauma to her right foot with laceration with scabbed wound on multiple toes in her right foot. She also has marked swelling of her right lower extremity compared to the left with a lump on the outer aspect of the right leg consistent either with a hematoma or an abscess. PAST MEDICAL HISTORY: Significant for longstanding multiple sclerosis with functional paraplegia. She is mostly wheelchair bound, but she used to manage to transfer. She lives at the basement of her son's house. She is also known to have recurrent continuous chronic Clostridium difficile colitis, for which she is on continuous treatment with vancomycin. 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 She has known chronic pain syndrome, chronic spasticity, in bed mobility and functionality. She has suprapubic catheter for neurogenic bladder. She also COPD, has also stroke and seizure. PAST SURGICAL HISTORY: Significant for suprapubic catheter placement and IVC filter placement. FAMILY HISTORY: Positive for breast cancer in her mother and her mother at the age of 51. Her father of myocardial infarction at the age of 76. She has 2 brothers that are older and apparently healthy. SOCIAL HISTORY: She is , lives at her son's basement. She has 2 sons. She smokes a pack a day for more than 20 years. She does not drink alcohol or use any recreational drugs. REVIEW OF SYSTEMS: As per history of present illness. MEDICATIONS: She is currently on following medications: She is on vancomycin 250 mg p.o. 4 times a day, baclofen 20 mg every 8 hours, apixaban 5 mg twice a day, hydralazine 25 mg 3 times a day, carvedilol 6.25 mg twice a day, lisinopril 20 mg once a day, aspirin 81 mg once a day, hydrocodone/APAP 5/325 one tablet every 6 hours, mirtazapine 50 mg at bedtime, paroxetine for Paxil 40 mg daily, trazodone 50 mg at bedtime, potassium chloride 20 mEq once a day, furosemide 40 mg daily. She is on Mucinex 600 mg every 12 hours, magnesium oxide 400 mg daily. She is on loperamide 2 mg every 4 hours as needed for diarrhea. She is on meclizine 12.5 mg 3 times a day, ondansetron 4 mg every 6-8 hours, nystatin cream topically 3 times a day, silver sulfadiazine cream applied topically twice a day, multivitamin 1 tablet once a day, and Nicoderm patch topically daily. PHYSICAL EXAMINATION: GENERAL: On arrival to the Emergency Room, the patient was somewhat pale, but no jaundice, cyanosis, or thyromegaly. No jugular venous distension. No lower limb edema. VITAL SIGNS: Her heart rate was 74, blood pressure was 130/78, temperature was 97.9, respiratory rate was 18 and oxygen saturation was 93% on room air. HEAD, EYES, EARS, NOSE AND THROAT: Showed normocephalic, atraumatic. NECK: Supple. HEART: Showed normal first and second sounds. No gallop, rub or murmur. CHEST: Clear to auscultation. No crepitation or rhonchi. ABDOMEN: Distended, soft, nontender. NEUROLOGIC: She was awake, alert, responding appropriately. Cranial nerves are intact. She moves upper extremities without difficulty. She has functional paraplegia with neurogenic bladder requiring catheter. She is mostly bed bound, wheelchair bound. EXTREMITIES: Examination of the left lower extremity showed that it is much more swollen than the ____ lower extremity, has some scabbing of the wounds on multiple toes in the right foot and she has a lump in the outer aspect of the right leg that is fluctuant. LABORATORY AND DIAGNOSTIC DATA: On admission showed a white cell count of 9300, hemoglobin 12.7, hematocrit 39, MCV 88 and platelet count 555,000. Her chemistry showed serum sodium 138, potassium 4.6, chloride 103, bicarbonate 27, anion gap of 8, BUN 15, creatinine 0.7, estimated GFR was 82 mL per minute. Her glucose was 93, calcium was 8.7. Total bilirubin, AST, ALT were normal. Alkaline phosphatase slightly elevated. Troponin was less than 0.017. Her beta natriuretic peptide was 476. Total protein was 6.6 and albumin was 2.8. Her urinalysis was essentially unremarkable. The urine was yellow, cloudy with a pH of 7, specific gravity of 1.020. There was trace of protein, negative for glucose, ketones, blood, nitrite, and leukocyte esterase. Her chest x-ray showed there is stable diffuse increased interstitial opacity. There is no consolidation, pleural effusion or pneumothorax. Heart size is normal. ASSESSMENT AND PLAN: In summary, this is a 72-year-old female patient with longstanding multiple sclerosis with functional paraplegia, neurogenic bladder requiring suprapubic catheter. She has chronic Clostridium difficile colitis. She has apparently sustained some trauma to her right foot with markedly swollen erythematous right lower extremity for which she has had an ultrasound done the day before that showed no evidence of deep vein thrombosis. She was started on IV vancomycin and Zosyn; continued with all other medications including oral vancomycin. We did start her also on her Nicoderm patch, as she is a heavy smoker. TERESE ALEMAN MD DR: MADELINE/beata JOB#: [id number] / [id number]
[2018-07-03 15:45] VITALS: BP 133/62
[2018-07-03] MEDS: VANCOMYCIN 1 GM in IV NORMAL SALINE 250ML 250 ML IV SCH (17:04)
[2018-07-03 19:38] VITALS: BP 114/62
--- NOTE | 2018-07-03 20:46 | RAD ---
CT right calf without contrast dated 07/03/2018. Comparison made to ultrasound dated same day. Clinical indication: Redness and swelling.. TECHNIQUE: Contiguous axial imaging of the right calf performed without the administration of intravenous contrast. Thin cut coronal and sagittal reconstructions obtained. One or more of the following individualized dose reduction techniques were utilized for this examination: 1. Automated exposure control 2. Adjustment of the mA and/or kV according to patient size 3. Use of iterative reconstruction technique. FINDINGS: There is extensive edema throughout the subcutaneous tissues of the right calf. A large curvilinear hyperdense subcutaneous fluid collection extends along the fascial plane of the lateral aspect of the calf musculature. The collection is somewhat heterogeneous and measures approximately 7.8 x 2.9 x 13.3 cm AP, transverse and craniocaudal dimensions. No associated soft tissue gas. There is generalized muscle atrophy. No intramuscular fluid collection is identified. There is a small joint effusion at the knee. Small popliteal cyst. Mild tricompartmental degenerative changes at the knee. The ligaments and menisci are not well evaluated. Diffuse vascular calcinosis. IMPRESSION: 1. Large hyperdense fluid collection along the fascial margin of the lateral musculature of the mid calf measuring up to 13.3 cm maximum dimension. This is indeterminate in etiology but most likely represents a hematoma. Underlying hemorrhagic mass or other complex fluid collection considered less likely. Correlate clinically. Follow-up imaging may be warranted to ensure resolution. 2. Extensive edema throughout the subcutaneous tissues, nonspecific. This could be related to generalized cellulitis. Neurological or vascular causes of edema are also possible. 3. Small knee joint effusion and small popliteal cyst. Electronically signed by: Eliceo Wylie MD (07/03/2018 8:41 PM) [place] [id number]
[2018-07-03] MEDS: traZODone 50 MG TABLET. PO SCH (21:07)
[2018-07-03] MEDS: LACTOBACILLUS RHAMNOSUS GG 1 CAPSULE. PO SCH (21:07)
[2018-07-03] MEDS: MIRTAZAPINE 15 MG TABLET PO SCH (21:09)
[2018-07-03 22:58] VITALS: BP 87/45
--- NOTE | 2018-07-03 23:16 | RAD ---
Right lower extremity arterial Doppler dated 07/03/2018. No comparison available. CLINICAL INDICATION: Right lower leg pain and swelling. Can't find pulse. FINDINGS: Grayscale, color-flow and spectral waveform analysis performed. Mild luminal irregularity consistent with atherosclerotic plaquing. There is triphasic flow within the common femoral artery, superficial femoral artery and popliteal artery. Monophasic flow within the posterior tibial artery, peroneal artery and anterior tibial arteries of the calf. No focal velocity elevation is demonstrated. IMPRESSION: There is monophasic flow within the calf arteries and triphasic flow proximally. A discrete stenosis is not visualized on this exam but given the waveform pattern, a stenosis of the popliteal artery cannot be excluded. If indicated, a CTA could better evaluate. Electronically signed by: Eliceo Wylie MD (07/03/2018 11:11 PM) [facility]
[2018-07-04] MEDS: BACLOFEN 20 MG TABLET PO SCH ×3 (05:15→22:30)
[2018-07-04] MEDS: PIPERACILLIN/TAZOBACTAM 3.375 GM in IV NORMAL SALINE 50ML 50 ML IV SCH ×3 (05:16→22:31)
[2018-07-04] MEDS: HYDROcodone/APAP 5/325MG 1 TAB TABLET PO PRN ×4 (05:16→18:06)
[2018-07-04 05:58] VITALS: BP 129/80
[2018-07-04 07:48] LABS: BASO # 0.1 x10^3/uL (0.0-0.2); BASO % 1 % (0-3); EOS # 0.5 x10^3/uL (0.0-0.7); EOS % 5 % (0-3); HEMATOCRIT 35.5 % (36.0-47.0); HEMOGLOBIN 11.6 g/dL (12.0-15.5); LYMPH # 1.9 x10^3/uL (1.0-4.8); LYMPH % 21 % (24-48); MEAN CORPUSCULAR HEMOGLOBIN 29 pg (25-35); MEAN CORPUSCULAR HGB CONC 33 g/dL (31-37); MEAN CORPUSCULAR VOLUME 88 fL (79-100); MONO # 0.7 x10^3/uL (0.0-1.1); MONO % 8 % (0-9); NEUT # 5.8 x10^3uL (1.8-7.7); NEUT % 65 % (31-73); PLATELET COUNT 548 x10^3/uL (140-400); RED BLOOD COUNT 4.04 x10^6/uL (3.50-5.40); RED CELL DISTRIBUTION WIDTH 15.1 % (11.5-14.5); WHITE BLOOD COUNT 8.8 x10^3/uL (4.0-11.0)
[2018-07-04 08:02] LABS: ALBUMIN 2.1 g/dL (3.4-5.0); ALBUMIN/GLOBULIN RATIO 0.7 (1.0-1.7); CALCIUM 7.9 mg/dL (8.5-10.1); CREATININE 0.7 mg/dL (0.6-1.0); POTASSIUM 4.2 mmol/L (3.5-5.1); TOTAL BILIRUBIN 0.3 mg/dL (0.2-1.0); TOTAL PROTEIN 5.3 g/dL (6.4-8.2)
[2018-07-04] MEDS: ASCORBIC ACID 500 MG TABLET PO SCH (08:39)
[2018-07-04] MEDS: PARoxetine 20 MG TABLET PO SCH (08:39)
[2018-07-04] MEDS: CARVEDILOL 6.25 MG TABLET PO SCH ×2 (08:39→21:08)
[2018-07-04] MEDS: hydrALAZINE 25 MG TABLET PO SCH ×3 (08:39→21:08)
[2018-07-04] MEDS: ASPIRIN 81 MG TAB.CHEW PO SCH (08:39)
[2018-07-04] MEDS: LACTOBACILLUS RHAMNOSUS GG 1 CAPSULE. PO SCH ×2 (08:40→21:07)
[2018-07-04] MEDS: LISINOPRIL 20 MG TABLET PO SCH (08:40)
[2018-07-04] MEDS: NICOTINE 21MG PATCH. TD SCH (08:40)
[2018-07-04] MEDS: FUROSEMIDE 40 MG TABLET PO SCH (08:40)
[2018-07-04] MEDS: POTASSIUM CHLORIDE 20 MEQ TABLET.ER. PO SCH (08:40)
[2018-07-04] MEDS: silver sulfADIAZINE 1% CREAM 50GM JAR. TP SCH ×2 (08:41→21:12)
[2018-07-04] MEDS: NYSTATIN 100,000 UNIT/GM TOPICAL CREAM 15GM TUBE. TP SCH ×3 (08:41→21:12)
[2018-07-04] MEDS: MULTIVITAMIN with MINERAL TABLET. PO SCH (08:43)
[2018-07-04] MEDS: oxyCODONE IR 5 MG TABLET PO PRN ×3 (10:36→22:30)
[2018-07-04] MEDS: VANCOMYCIN 125 MG/2.5 ML ORAL SOLUTION. PO SCH ×4 (10:37→21:07)
[2018-07-04 11:04] VITALS: BP 118/55
--- NOTE | 2018-07-04 11:36 | RAD ---
KUB supine: Reason for examination: IVC filter placement. Abdominal pain. IVC filter is present to the right of vertebral bodies at the level of the L3 and L4 vertebral bodies. There is no gross organomegaly. Psoas muscles are symmetric. Bowel gas pattern is nonspecific with large amount of air present in the small and large bowel. No obstruction is evident. No abnormal calcifications are seen. IMPRESSION: IVC filter present at the level of the L3 and L4 vertebral bodies. Nonspecific gas pattern with diffuse small and large intestinal air but no apparent obstruction. Electronically signed by: Elmira Carrillo MD (07/04/2018 11:32 AM) [facility] [place]
--- NOTE | 2018-07-04 14:17 | PN ---
DATE: 07/04/2018 SUBJECTIVE: The patient is resting, slightly propped up in bed, in no apparent respiratory distress. Awake, alert, denied any complaint. The nursing staff did not voice any concern and stated that she had an uneventful night. We did x-ray of her foot and showed no evidence of acute fracture or dislocation. There is periosteal thickening about the fourth metatarsal may be seen with chronic stress reaction, decreased bone mineral density, diffuse soft tissue swelling about the right lower leg and foot. Her arterial duplex ultrasound showed there is no monophasic flow within the calf arteries on triphasic flow approximately discrete stenosis, not visualized in this exam, but given the waveform pattern, ____ artery cannot be excluded. If indicated, CT angio could better evaluate. She did have a CT scan of her right leg, which showed that the patient has large hyperdense fluid collection along the fascial margin of the lateral musculature of the mid calf measuring up to 13.3 cm in maximum dimension. This is indeterminate etiology, but most likely represents a hematoma. Underlying hemorrhagic mass or other complex fluid collection considered less likely. Correlate clinically. Followup imaging may be warranted to ensure resolution, extensive edema throughout the subcutaneous tissue, nonspecific, this could be related to generalized cellulitis. Neurological or vascular causes of edema are also possible, small knee joint effusion and small popliteal cyst. PHYSICAL EXAMINATION: GENERAL: When I examined her this morning, she looked well and was clearly in no apparent respiratory distress. No pallor, jaundice, cyanosis or thyromegaly. No jugular venous distention. Marked bilateral lower limb edema, more so on the right than left. VITAL SIGNS: Her heart rate was 71, blood pressure was 129/80, temperature was 98.4, respiratory rate was 20, and oxygen saturation was 91% on room air. HEAD, EYES, EARS, NOSE AND THROAT: Showed normocephalic, atraumatic. NECK: Supple. HEART: Showed normal first and second heart sounds with no gallop, rub or murmur. CHEST: Clear to auscultation. No crepitation or rhonchi. ABDOMEN: Scaphoid, soft, nontender. NEUROLOGIC: She is awake, alert, responding appropriately. Cranial nerves intact. She moves all extremities without difficulty. She has longstanding multiple sclerosis with paraplegia and neurogenic bladder requiring suprapubic catheter. She has multiple wounds in her both gluteal areas and wounds of the toes of her right foot as well as hematoma on the outer aspect of the right leg with generalized cellulitis. Her intake over the last 24 hours was 650, output was 750. LABORATORY DATA: As of this morning showed a white cell count of 8800, hemoglobin 11.6, hematocrit 35.5, MCV 88 and platelet count of 548,000. Her chemistry showed serum sodium 142, potassium 4.2, chloride 108, bicarbonate 27, anion gap of 7, BUN 13, creatinine 0.7, estimated GFR was 82 mL per minute. Her glucose was 76, calcium was 7.9. Total bilirubin, AST, ALT, alkaline phosphatase were normal. Her total protein was 5.3, albumin was 2.1. ASSESSMENT: 1. Right lower extremity cellulitis. 2. Stage 2 gluteal decubitus ulcer on both sides. 3. Subcutaneous hematoma on the outer aspect of the right leg. 4. Longstanding multiple sclerosis. 5. Functional paraplegia with neurogenic bladder, requiring suprapubic catheter. 6. Chronic obstructive pulmonary disease with continued tobacco abuse disorder. 7. Cerebrovascular accident as well as seizure disorder. PLAN: My plan is to continue with IV antibiotic. I will arrange for her to have a KUB to confirm that the patient has an inferior vena cava as I discontinued her Eliquis. I would also consult the orthopedic surgeon regarding drainage of the subcutaneous hematoma. TERESE ALEMAN MD DR: MADELINE/beata JOB#: [id number] / [id number]
[2018-07-04 15:04] VITALS: BP 107/65
[2018-07-04 18:47] LABS: VANC TR 5.4 mcg/mL (10.0-20.0)
[2018-07-04 19:46] VITALS: BP 145/75
[2018-07-04] MEDS: MIRTAZAPINE 15 MG TABLET PO SCH (21:08)
[2018-07-04] MEDS: traZODone 50 MG TABLET. PO SCH (21:08)
[2018-07-04] MEDS: VANCOMYCIN 1 GM in IV NORMAL SALINE 250ML 250 ML IV SCH (21:10)
[2018-07-04 23:23] VITALS: BP 88/45
[2018-07-04] MEDS: VANCOMYCIN PER PHARMACY MC PRN (23:58)
[2018-07-05] MEDS: HYDROcodone/APAP 5/325MG 1 TAB TABLET PO PRN ×3 (00:38→17:22)
[2018-07-05 05:39] VITALS: BP 122/66
[2018-07-05] MEDS: BACLOFEN 20 MG TABLET PO SCH ×3 (06:13→21:59)
[2018-07-05] MEDS: PIPERACILLIN/TAZOBACTAM 3.375 GM in IV NORMAL SALINE 50ML 50 ML IV SCH ×3 (06:14→23:10)
[2018-07-05] MEDS: silver sulfADIAZINE 1% CREAM 50GM JAR. TP SCH ×3 (09:00→21:00)
[2018-07-05] MEDS: NYSTATIN 100,000 UNIT/GM TOPICAL CREAM 15GM TUBE. TP SCH ×4 (09:00→21:00)
[2018-07-05] MEDS: VANCOMYCIN 1 GM in IV NORMAL SALINE 250ML 250 ML IV SCH ×2 (09:26→21:58)
[2018-07-05] MEDS: PARoxetine 20 MG TABLET PO SCH (09:26)
[2018-07-05] MEDS: ASPIRIN 81 MG TAB.CHEW PO SCH (09:26)
[2018-07-05] MEDS: hydrALAZINE 25 MG TABLET PO SCH ×3 (09:27→22:00)
[2018-07-05] MEDS: NICOTINE 21MG PATCH. TD SCH (09:28)
[2018-07-05] MEDS: POTASSIUM CHLORIDE 20 MEQ TABLET.ER. PO SCH (09:28)
[2018-07-05] MEDS: CARVEDILOL 6.25 MG TABLET PO SCH ×2 (09:28→21:59)
[2018-07-05] MEDS: ASCORBIC ACID 500 MG TABLET PO SCH (09:29)
[2018-07-05] MEDS: MULTIVITAMIN with MINERAL TABLET. PO SCH (09:29)
[2018-07-05] MEDS: FUROSEMIDE 40 MG TABLET PO SCH (09:29)
[2018-07-05] MEDS: LACTOBACILLUS RHAMNOSUS GG 1 CAPSULE. PO SCH ×2 (09:30→21:59)
[2018-07-05] MEDS: LISINOPRIL 20 MG TABLET PO SCH (09:30)
[2018-07-05] MEDS: VANCOMYCIN 125 MG/2.5 ML ORAL SOLUTION. PO SCH ×4 (09:33→21:58)
[2018-07-05 11:00] VITALS: BP 114/66
[2018-07-05] MEDS: oxyCODONE IR 5 MG TABLET PO PRN ×2 (14:12→21:58)
[2018-07-05 15:00] VITALS: BP 100/57
--- NOTE | 2018-07-05 16:47 | PN ---
DATE: 07/05/2018 SUBJECTIVE: The patient is resting, slightly propped up in bed, in no apparent respiratory distress. She is awake, alert. On questioning her, denied any complaint. I did speak with Dr. Foster regarding the large hematoma on the outer aspect of the right leg and he did not recommend any surgical intervention or drainage unless it becomes infected. OBJECTIVE: GENERAL: When I examined her, she looked pale, cachectic, but no jaundice, cyanosis, or thyromegaly. No jugular venous distention, but bilateral lower limb edema, right more than left. VITAL SIGNS: Her heart rate was 63, blood pressure 122/66, temperature was 98.5, respiratory rate 20, and oxygen saturation was 92% on room air. The rest of clinical examination is unremarkable. Her intake over the last 24 hours was 1650, output was 1725. LABORATORY DATA: Showed a white cell count of 8800, hemoglobin 11.6, hematocrit 35.5, MCV 88 and platelet count 548,000. Her chemistry showed serum sodium of 142, potassium 4.2, chloride 108, bicarbonate 27, anion gap of 7, BUN 13, creatinine 0.7, estimated GFR was 82 mL per minute. Her glucose was 76, calcium was 7.9. Total bilirubin, AST, ALT, alkaline phosphatase were normal. Her total protein 5.3, albumin 2.1. Urinalysis is unremarkable. Her urine culture showed yeast isolated and her wound culture was so far negative. ASSESSMENT: 1. Right lower extremity cellulitis. 2. Stage II gluteal decubitus ulcer on both sides. 3. Subcutaneous hematoma on the outer aspect of the right leg for which she consulted the orthopedic surgeon who did not recommend any surgical intervention. 4. Longstanding multiple sclerosis. 5. Functional paraplegia with neurogenic bladder requiring suprapubic catheter. 6. Chronic obstructive pulmonary disease with continued tobacco use disorder. 7. Cerebrovascular accident as well as seizure disorder. 8. Chronic C. diff colitis. PLAN: Continue with IV antibiotic. Continue with oral vancomycin. Continue with Lactobacillus acidophilus. Continue with all her other medications. TERESE ALEMAN MD DR: MADELINE/beata JOB#: [id number] / [id number]
[2018-07-05 19:10] VITALS: BP 160/74
[2018-07-05] MEDS: MIRTAZAPINE 15 MG TABLET PO SCH (21:59)
[2018-07-05] MEDS: traZODone 50 MG TABLET. PO SCH (21:59)
[2018-07-05 23:05] VITALS: BP 103/54
[2018-07-06] MEDS: BACLOFEN 20 MG TABLET PO SCH ×3 (05:21→22:15)
[2018-07-06] MEDS: HYDROcodone/APAP 5/325MG 1 TAB TABLET PO PRN ×3 (05:22→20:37)
[2018-07-06] MEDS: PIPERACILLIN/TAZOBACTAM 3.375 GM in IV NORMAL SALINE 50ML 50 ML IV SCH ×3 (06:06→22:16)
[2018-07-06 06:13] VITALS: BP 164/64
[2018-07-06] MEDS: POTASSIUM CHLORIDE 20 MEQ TABLET.ER. PO SCH (08:15)
[2018-07-06] MEDS: ASPIRIN 81 MG TAB.CHEW PO SCH (08:15)
[2018-07-06] MEDS: LACTOBACILLUS RHAMNOSUS GG 1 CAPSULE. PO SCH ×2 (08:15→20:37)
[2018-07-06] MEDS: MULTIVITAMIN with MINERAL TABLET. PO SCH (08:15)
[2018-07-06] MEDS: hydrALAZINE 25 MG TABLET PO SCH ×3 (08:16→20:37)
[2018-07-06] MEDS: LISINOPRIL 20 MG TABLET PO SCH (08:16)
[2018-07-06] MEDS: PARoxetine 20 MG TABLET PO SCH (08:16)
[2018-07-06] MEDS: ASCORBIC ACID 500 MG TABLET PO SCH (08:16)
[2018-07-06] MEDS: FUROSEMIDE 40 MG TABLET PO SCH (08:16)
[2018-07-06] MEDS: VANCOMYCIN 125 MG/2.5 ML ORAL SOLUTION. PO SCH ×4 (08:17→20:35)
[2018-07-06] MEDS: NICOTINE 21MG PATCH. TD SCH (08:17)
[2018-07-06 08:56] LABS: VANC TR 16.5 mcg/mL (10.0-20.0)
[2018-07-06] MEDS: CARVEDILOL 6.25 MG TABLET PO SCH ×2 (09:00→20:37)
[2018-07-06] MEDS: VANCOMYCIN 1 GM in IV NORMAL SALINE 250ML 250 ML IV SCH ×2 (09:45→20:36)
[2018-07-06] MEDS: silver sulfADIAZINE 1% CREAM 50GM JAR. TP SCH ×2 (09:46→20:38)
[2018-07-06] MEDS: NYSTATIN 100,000 UNIT/GM TOPICAL CREAM 15GM TUBE. TP SCH ×3 (09:46→20:38)
[2018-07-06] MEDS: VANCOMYCIN PER PHARMACY MC PRN (10:09)
[2018-07-06 10:27] VITALS: BP 102/55
[2018-07-06 15:04] VITALS: BP 119/67
[2018-07-06] MEDS: oxyCODONE IR 5 MG TABLET PO PRN (16:37)
--- NOTE | 2018-07-06 18:40 | PDOC ---
Exam Note: Javier Note: Please also refer to the separate dictated note~for this date of service dictated separately.~Patient seen individually. Discussed the patient with Nursing staff reviewed the chart.~Reviewed interim history and current functioning. Reviewed vital signs,~Labs/ Radiology~and current medications noted below. Continue current treatment with the changes noted in the dictated addendum note Assessment: Vital Signs: Vital Signs Date Time Temp Pulse Resp B/P (MAP) Pulse Ox O2 Delivery O2 Flow Rate FiO2 07/06/18 15:04 98.6 88 20 119/67 (84) 92 Room Air I&O Intake and Output 07/06/18 07:01 Intake Total 1554.34 ml Output Total 2750 ml Balance -1195.66 ml Intake Oral 710 ml IV Total 844.34 ml Output Urine Total 2750 ml # Bowel Movements 1 Labs: Laboratory Tests Test 07/06/18 08:32 Vancomycin Level Trough 16.5 mcg/mL (10.0-20.0) Vancomycin Last Dose Date 07/05/18 Vancomycin Last Dose Time 2100 Current Medications: Meds: Current Medications Vancomycin HCl 1.5 gm/Sodium Chloride 500 ml @ 250 mls/hr 1X ONCE IV Last administered on 07/02/18at 18:40; Start 07/02/18 at 15:00; Stop 07/02/18 at 16:59; Status DC Piperacillin Sod/ Tazobactam Sod 3.375 gm/Sodium Chloride 50 ml @ 100 mls/hr 1X ONCE IV Last administered on 07/02/18at 15:05; Start 07/02/18 at 15:00; Stop 07/02/18 at 15:30; Status DC Sodium Chloride 50 ml @ As Directed STK-MED ONCE .ROUTE ; Start 07/02/18 at 15:00 ; Stop 07/02/18 at 15:02; Status DC Piperacillin Sod/ Tazobactam Sod (Zosyn) 3.375 gm STK-MED ONCE IV ; Start at 15:01; Stop 07/02/18 at 15:03; Status DC Ondansetron HCl (Zofran) 4 mg PRN Q4HRS PRN IV NAUSEA/VOMITING; Start 07/02/18 at 16:00; Stop 07/03/18 at 15:59; Status DC Ascorbic Acid (Vitamin C) 500 mg DAILY PO Last administered on 07/06/18 08:16; Start 07/03/18 at 09:00 Acetaminophen/ Hydrocodone Bitart (Lortab 5/325) 1 tab PRN Q6HRS PRN PO PAIN Last administered on 07/06/18 12:11; Start 07/02/18 at 20:00 Oxycodone HCl (Roxicodone) 10 mg PRN Q4HRS PRN PO PAIN Last administered on 07/06 16:37; Start 07/02/18 at 20:00 Vancomycin HCl (Vanco Per Pharmacy) 1 each PRN DAILY PRN MC SEE COMMENTS Last administered on 07/06/18 10:09; Start 07/02/18 at 20:00 Piperacillin Sod/ Tazobactam Sod 3.375 gm/Sodium Chloride 50 ml @ 100 mls/hr Q8HRS IV Last administered on 07/06/18 14:28; Start 07/02/18 at 22:00 Nicotine (Nicoderm Cq 21mg) 1 patch DAILY TD Last administered on 07/06/18 08: 17; Start 07/02/18 at 20:30 Baclofen (Lioresal) 20 mg Q8HRS PO Last administered on 07/06/18 14:29; Start 07/02/18 at 22:00 Carvedilol (Coreg) 6.25 mg BID PO Last administered on 07/05/18 21:59; Start at 21:00 Guaifenesin (Mucinex Er) 600 mg PRN Q12HR PRN PO CONGESTION; Start 07/02/18 at 20:00 Lisinopril (Prinivil) 20 mg DAILY PO Last administered on 07/06/18 08:16; Start 07/03/18 at 09:00 Potassium Chloride (Klor-Con) 20 meq DAILY PO Last administered on 07/06/18 08: 15; Start 07/03/18 at 09:00 Silver Sulfadiazine (Silvadene) 1 michael BID TP Last administered on 07/06/18 09: 46; Start 07/02/18 at 21:00 Apixaban (Eliquis) 5 mg BID PO Last administered on 07/03/18 08:37; Start at 21:00; Stop 07/03/18 at 21:32; Status DC Aspirin (Children'S Aspirin) 81 mg DAILYWBKFT PO Last administered on 07/06/18 08:15; Start 07/03/18 at 08:00 Furosemide (Lasix) 40 mg DAILY PO Last administered on 07/06/18 08:16; Start at 09:00 Hydralazine HCl (Apresoline) 25 mg TID PO Last administered on 07/06/18 08:16; Start 07/02/18 at 21:00 Loperamide HCl (Imodium) 2 mg PRN Q4HRS PRN PO DIARRHEA; Start 07/02/18 at 20:30 Meclizine HCl (Antivert) 12.5 mg PRN TID PRN PO DIZZINESS; Start 07/02/18 at 20: 30 Mirtazapine (Remeron) 15 mg QHS PO Last administered on 07/05/18 21:59; Start 07/02/18 at 21:00 Multivitamins/ Calcium (Thera-M Plus) 1 tab DAILY PO Last administered on 08:15; Start 07/03/18 at 09:00 Nystatin (Mycostatin) 1 michael TID TP Last administered on 07/03/18 09:00; Start 07/02/18 at 21:00; Stop 07/03/18 at 16:03; Status DC Paroxetine HCl (Paxil) 40 mg DAILY PO Last administered on 07/06/18 08:16; Start 07/03/18 at 09:00 Trazodone HCl (Desyrel) 50 mg QHS PO Last administered on 07/05/18 21:59; Start 07/02/18 at 21:00 Vancomycin HCl (Vancomycin Oral Solution) 250 mg [id number] PO Last administered on 07/06/18 17:26; Start 07/02/18 at 21:00 Non-Formulary Medication ([Nicotine] ) 1 patch DAILY TD ; Start 07/03/18 at 09:00 ; Stop 07/03/18 at 09:00; Status DC Vancomycin HCl 1 gm/Sodium Chloride 250 ml @ 250 mls/hr Q24H IV Last administered on 07/04/18 21:10; Start 07/03/18 at 18:30; Stop 07/05/18 at 01:00; Status DC Vancomycin HCl (Vancomycin Trough Level) 1 each 1X ONCE MC ; Start 07/04/18 at 18:00; Stop 07/04/18 at 18:01; Status DC Lactobacillus Rhamnosus (Culturelle) 1 cap BID PO Last administered on at 08:15; Start 07/03/18 at 21:00 Nystatin (Mycostatin) 1 michael TID TP Last administered on 07/06/18at 14:35; Start 07/03/18 at 16:03 Vancomycin HCl 1 gm/Sodium Chloride 250 ml @ 250 mls/hr Q12H IV Last administered on 07/06/18at 09:45; Start 07/05/18 at 09:00 Vancomycin HCl (Vancomycin Trough Level) 1 each 1X ONCE MC ; Start 07/06/18 at 08:30; Stop 07/06/18 at 08:32; Status DC Vancomycin HCl (Vancomycin Trough Level) 1 each 1X ONCE MC ; Start 07/08/18 at 08:30; Stop 07/08/18 at 08:31 Active Scripts Active Ondansetron Odt (Ondansetron) 4 Mg Tab.rapdis 1 Tab PO PRN Q6-8HRS 30 Days [Nicotine] 1 PATCH Patch 1 Patch TD DAILY Mag-Oxide (Magnesium Oxide) 400 Mg Tablet 400 Mg PO DAILY Reported Nystatin 15 Gm Cream..g. 1 Michael TP TID Silvadene (Silver Sulfadiazine) 20 Gm Cream..g. 1 Michael TP BID Loperamide (Loperamide Hcl) 2 Mg Capsule 2 Mg PO PRN Q4HRS PRN Meclizine Hcl 12.5 Mg Tablet 12.5 Mg PO PRN TID Mucinex (Guaifenesin) 600 Mg Tablet.er 600 Mg PO PRN Q12HR PRN Multivitamins (Multivitamin) 1 Each Tablet 1 Each PO DAILY Aspirin 81 Mg Tab.chew 81 Mg PO DAILY Hydralazine Hcl 25 Mg Tablet 25 Mg PO TID Remeron (Mirtazapine) 15 Mg Tablet 15 Mg PO QHS Eliquis (Apixaban) 5 Mg Tablet 5 Mg PO BID Trazodone Hcl 50 Mg Tablet 50 Mg PO QHS Prinivil (Lisinopril) 20 Mg Tablet 20 Mg PO DAILY PRN Vancomycin Hcl 250 Mg Capsule 250 Mg PO QID Klor-Con M20 (Potassium Chloride) 20 Meq Tab.er.prt 1 Tab PO DAILY LAST DOSE GIVEN: DATE: TODAY TIME: AM NEXT DOSE DUE: DATE: TOMORROW TIME: AM Furosemide 40 Mg Tablet 1 Tab PO DAILY LAST DOSE GIVEN: DATE: TODAY TIME: AM NEXT DOSE DUE: DATE: TOMORROW TIME: AM Carvedilol (Carvedilol) 6.25 Mg Tablet 1 Tab PO BID LAST DOSE GIVEN: DATE: TIME: AM NEXT DOSE DUE: DATE: TODAY TIME: PM Hydrocodone-Apap 5-325 (Hydrocodone Bit/Acetaminophen) 1 Each Tablet 1 Tab PO Q6HRS PRN As needed for pain LAST DOSE GIVEN: DATE: TODAY TIME: 2:30 PM NEXT DOSE DUE: DATE: TODAY TIME: AFTER 8:30 PM Paxil (Paroxetine Hcl) 40 Mg Tablet 40 Mg PO DAILY Depression LAST DOSE GIVEN: DATE: TIME: AM NEXT DOSE DUE: DATE: TOMORROW TIME: AM Baclofen 20 Mg Tablet 20 Mg PO Q8HRS Muscle spasm LAST DOSE GIVEN: DATE: TODAY TIME: 2PM NEXT DOSE DUE: DATE: TODAY TIME: 8PM I have reviewed the current psychotropics carefully including drug interactions. Risk benefit ratio favors no change other than as noted in my dictated progress note. Diagnosis: Problems: (1) Anxiety disorder (2) Major depressive disorder, recurrent episode (3) Multiple sclerosis LIZ LOMBARDI MD Jul 06, 2018 18:40
[2018-07-06] MEDS: traZODone 50 MG TABLET. PO SCH (20:36)
[2018-07-06] MEDS: MIRTAZAPINE 15 MG TABLET PO SCH (20:37)
[2018-07-06 20:50] VITALS: BP 133/72
--- NOTE | 2018-07-06 23:27 | PN ---
DATE: 07/06/2018 SUBJECTIVE: The patient is resting slightly propped up in bed, in no apparent distress, awake, alert. On questioning her, she wanted her antidepressant medication to be adjusted or increased as she is feeling very depressed. However, she denied any pain, shortness of breath, cough, phlegm or hemoptysis; denied chills, rigors, or fever. PHYSICAL EXAMINATION: GENERAL: When I examined her, she looked pale, not jaundiced, cyanosis, or thyromegaly. No jugular venous distention. No limb edema. VITAL SIGNS: Heart rate was 84, blood pressure was 102/55, temperature was 98.5, respiratory rate was 18, and oxygen saturation was 98% on room air. HEENT: Examination of the head, eyes, ears, nose, and throat was normocephalic, atraumatic. NECK: Supple. HEART: Showed normal first and second heart sounds. No gallop, rub, or murmur. CHEST: Clear to auscultation. No crepitation or rhonchi. ABDOMEN: Scaphoid, soft, nontender. NEUROLOGIC: She is awake, alert, responding appropriately. Her cranial nerves are intact. EXTREMITIES: She moves extremities without difficulty. She has longstanding multiple sclerosis with functional paraplegia and neurogenic bladder requiring a suprapubic catheter. She has multiple decubitus ulcers on her gluteal area, wounds in her toes, a large subcutaneous hematoma on the outer aspect of the right leg, and cellulitis of the right lower extremity. Her intake over the last 24 hours was 1550, output was ____. LABORATORY DATA: Her most recent lab work available showed serum sodium 142, potassium 4.2, chloride 108, bicarbonate 27, anion gap of 7, BUN 13, creatinine 0.7. Her white cell count was 8800, hemoglobin 11.6, hematocrit 35.5, MCV 88, and platelet count of 548,000. ASSESSMENT: 1. Right lower extremity cellulitis. 2. Stage 2 gluteal decubitus ulcer on both sides. 3. Subcutaneous hematoma on the outer aspect of the right leg for which we consulted the orthopedic surgeon who did not recommend any surgical intervention. 4. Longstanding multiple sclerosis. 5. Functional paraplegia with neurogenic bladder requiring suprapubic catheter. 6. Chronic obstructive pulmonary disease. Unfortunately, she continues to smoke. 7. Cerebrovascular accident as well as seizure disorder. 8. Chronic Clostridium difficile colitis. 9. Depression. PLAN: Plan is to continue IV antibiotic. Continue with oral vancomycin. Continue with lactobacillus acidophilus. Continue with all the medication. I will consult Dr. Loving to evaluate and adjust her antidepressant medication. TERESE ALEMAN MD DR: MADELINE/beata JOB#: [id number] / [id number]
[2018-07-06 23:35] VITALS: BP 100/61
[2018-07-07] MEDS: BACLOFEN 20 MG TABLET PO SCH (05:36)
[2018-07-07] MEDS: PIPERACILLIN/TAZOBACTAM 3.375 GM in IV NORMAL SALINE 50ML 50 ML IV SCH (05:36)
[2018-07-07] MEDS: oxyCODONE IR 5 MG TABLET PO PRN (05:37)
[2018-07-07 05:45] VITALS: BP 137/77
[2018-07-07] MEDS: VANCOMYCIN 1 GM in IV NORMAL SALINE 250ML 250 ML IV SCH (08:37)
[2018-07-07] MEDS: ASPIRIN 81 MG TAB.CHEW PO SCH (08:41)
[2018-07-07] MEDS: VANCOMYCIN 125 MG/2.5 ML ORAL SOLUTION. PO SCH (08:41)
[2018-07-07] MEDS: MULTIVITAMIN with MINERAL TABLET. PO SCH (08:41)
[2018-07-07] MEDS: FUROSEMIDE 40 MG TABLET PO SCH (08:42)
[2018-07-07] MEDS: POTASSIUM CHLORIDE 20 MEQ TABLET.ER. PO SCH (08:42)
[2018-07-07] MEDS: LACTOBACILLUS RHAMNOSUS GG 1 CAPSULE. PO SCH (08:42)
[2018-07-07] MEDS: hydrALAZINE 25 MG TABLET PO SCH (08:42)
[2018-07-07] MEDS: CARVEDILOL 6.25 MG TABLET PO SCH (08:42)
[2018-07-07] MEDS: PARoxetine 20 MG TABLET PO SCH (08:42)
[2018-07-07] MEDS: LISINOPRIL 20 MG TABLET PO SCH (08:42)
[2018-07-07] MEDS: ASCORBIC ACID 500 MG TABLET PO SCH (08:42)
[2018-07-07] MEDS: NYSTATIN 100,000 UNIT/GM TOPICAL CREAM 15GM TUBE. TP SCH (08:43)
[2018-07-07] MEDS: NICOTINE 21MG PATCH. TD SCH (08:43)
[2018-07-07] MEDS: silver sulfADIAZINE 1% CREAM 50GM JAR. TP SCH (08:43)
[2018-07-07 10:41] VITALS: BP 131/73
--- NOTE | 2018-07-08 01:41 | CONS ---
DATE OF CONSULTATION: 07/06/2018 This is a late entry for date of service 07/06/2018 and covers elements not covered in my initial note of 07/06/2018. IDENTIFYING DATA: The patient is a 72-year-old female who is seen in bed [address] [place] [address] for a psychiatric consult as requested by Dr. Nuno on account of the patient's depression. The patient was seen individually, discussed with nursing staff, reviewed the chart. Reportedly, the patient has a history of multiple sclerosis and has been admitted with cellulitis. She has been living at home in the basement of her son's home. She does have paraplegia and cares have been increasingly difficult lately. From a psychiatric standpoint, she has been noted to be depressed and that is the reason for this consult. CHIEF COMPLAINT: "Yes, I've been depressed." HISTORY OF PRESENT ILLNESS: The patient presented to the Emergency Room with complaint of right lower extremity swelling and erythema. This has been worsening for about 2 weeks. DVT ultrasound was negative. She was placed on oral antibiotics, admitted inpatient. From a psychiatric standpoint, she relates being increasingly depressed, feeling hopeless and worthless, somewhat more anxious, irritable at times. She states she has been treated outpatient by Dr. Butterfield and has been on Paxil for an extended period of time. No clear psychotic symptoms, suicidal or homicidal ideation. No clear symptoms of bipolar disorder. PAST PSYCHIATRIC HISTORY: As noted above. PAST MEDICAL HISTORY: Positive for multiple sclerosis, paraplegia. She is mainly wheelchair bound. She has recurrent continuous chronic C. diff colitis and is on continuous vancomycin for this. 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 She also has a chronic pain syndrome, chronic spasticity and suprapubic catheter for neurogenic bladder, COPD, history of CVA and seizure disorder. She has also had IVC placement. DRUG ALLERGIES: Negative. CURRENT PSYCHOTROPICS: Remeron 15 mg p.o. at bedtime, Paxil 40 mg a day, trazodone 50 mg p.o. at bedtime. FAMILY HISTORY: Noncontributory. 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 As noted above, she lives in the basement of her son's home. She states her son comes down to help her with the showers and to get her into the [employer]da chair during the day and the other son helps as well. No alcohol or drug abuse history. MENTAL STATUS EXAMINATION: The patient was seen individually evening of 07/06/2018. She is reasonably oriented, very pleasant, verbal. Speech is coherent. Abstraction fair, computation impaired, language function intact. Intellect average. Insight good. Judgment intact. Mood is somewhat depressed, anxious. Affect is mood congruent. No suicidal or homicidal ideation. IMPRESSION: Major depressive disorder, recurrent; anxiety disorder, unspecified. Rest diagnoses as above. PLAN: From a psychiatric standpoint, given her chronic pain and failure of treatment on Paxil, I feel she would do better on Cymbalta, which would help her pain symptoms as well. Additionally, this serotonin-norepinephrine reuptake inhibitor would be more effective antidepressant-antianxiety agent. Additionally, the some of the sedation she may experience on the Paxil would be helped by this as well. Would suggest reducing the Paxil by 10 mg a day every 7 days till it is discontinued and starting Cymbalta 30 mg a day for 2 weeks, increasing to 60 mg a day thereafter with a plan to increase to 90 mg a day if the lower dosage is ineffective. She could continue on the rest of the psychotropics. I leave this as suggestions for Dr. Nuno to consider. Dr. Nuno, thank you for the opportunity to participate in your patient's care. We will follow with you. LIZ LOMBARDI MD DR: MAGALY/beata JOB#: [id number] / [id number]
--- NOTE | 2018-07-08 11:42 | EKG ---
[address] [address] Test Date: 2018-07-02 Test Time: 13:53:42 Pat Name: SERGIO PISANO Department: Room: 122 A Gender: F Cook Pie: : 1945 Requested By: TERESE ALEMAN Order Number: [id number] Reading MD: Topher Arroyo Measurements Intervals [place] Rate: 72 P: 0 [place]: 122 QRS: 20 QRSD: 90 T: 84 QT: 420 QTc: 462 Interpretive Statements SINUS RHYTHM ATRIAL PREMATURE COMPLEX(ES) NONSPECIFIC ST-T WAVE CHANGES. Electronically Signed On 07-13-2018 18:34:18 [employer]EMMER by Topher Arroyo
--- NOTE | 2018-08-05 12:20 | DS ---
DATE OF DISCHARGE: 07/07/2018 DISCHARGE TRANSFER SUMMARY: HOSPITAL COURSE: The patient is a 72-year-old female patient who was admitted to [facility] complaining of pain, redness in her right leg that is definitely more swollen than the left leg. She has also a lump on the outer aspect of right leg that was investigated and found to have right subcutaneous hematoma. She was admitted with the right lower extremity cellulitis and we did x-ray of her right foot, and right tibia and fibula showed no evidence of fracture. She was started treatment with IV vancomycin and Zosyn. We discontinued her Xarelto. She has large hematoma following fall at her house and she required treatment with antibiotic and she has stage 3 sacral decubitus ulcer. She requires also nutritional support. She has severe protein-calorie malnutrition. A decision was made to discharge her to [facility] to continue with antibiotic, wound care and nutritional support. PHYSICAL EXAMINATION: GENERAL: On the day of discharge, she looked well and was clearly in no apparent respiratory distress. She was pale, cachectic, but no jaundice, cyanosis or thyromegaly. No jugular venous distension. No lower limb edema. VITAL SIGNS: Her heart rate was 75, blood pressure 131/73, temperature was 98.5, respiratory rate was 18 and oxygen saturation was 93%. HEAD, EYES, EARS, NOSE, AND THROAT: Showed normocephalic, atraumatic. NECK: Supple. CARDIAC: Normal first and second heart sounds. No gallop, rub or murmur. CHEST: Clear to auscultation. No crepitation or rhonchi. ABDOMEN: Scaphoid, soft with suprapubic catheter in place. NEUROLOGIC: She is awake, alert, responding appropriately. All cranial nerves intact. She moves all extremities without difficulty. She has progressive longstanding multiple sclerosis with functional paraplegia, neurogenic bladder. EXTREMITIES: She has stage 4 sacral decubitus ulcer. The wounds in her right foot are healing nicely. She has a large subcutaneous hematoma on the outer aspect of the right leg. LABORATORY DATA: Her lab work on the day of discharge showed a white cell count of 8800, hemoglobin 11, hematocrit 35, MCV 88 and platelet count 548,000. Her BUN is 13, creatinine 0.7. DISCHARGE MEDICATIONS: She was discharged to [facility] to continue with IV vancomycin as well as Zosyn. Continue with wound care. FINAL DISCHARGE DIAGNOSES: 1. Right lower extremity cellulitis. 2. Stage 3 gluteal decubitus ulcer. 3. Subcutaneous hematoma on the outer aspect of the right leg, which we consulted; the orthopedic surgeon did not recommend any surgical intervention. 4. Longstanding multiple sclerosis. 5. Functional paraplegia with neurogenic bladder requiring suprapubic catheter. 6. Chronic obstructive pulmonary disease. 7. Cerebrovascular accident as well as seizure disorder. 8. Chronic Clostridium difficile colitis. 9. Depression. TERESE ALEMAN MD DR: MADELINE/beata JOB#: [id number] / [id number]
== END 2018-07-07 11:38 | DRG 602 ==
LOC: ER 13:27 → UNDOADMIN 15:42 → 1 SOUTH 15:42
PROVIDERS: ADMIT Internal Medicine; ATTEND Internal Medicine
DX: L03.115 Cellulitis of right lower limb (principal); E43 Unspecified severe protein-calorie malnutrition; A04.72 Enterocolitis due to Clostridium difficile, not specified as recurrent; F33.9 Major depressive disorder, recurrent, unspecified; L89.322 Pressure ulcer of left buttock, stage 2; L89.312 Pressure ulcer of right buttock, stage 2; G40.909 Epilepsy, unspecified, not intractable, without status epilepticus; J44.9 Chronic obstructive pulmonary disease, unspecified; N31.9 Neuromuscular dysfunction of bladder, unspecified; F41.9 Anxiety disorder, unspecified; F17.210 Nicotine dependence, cigarettes, uncomplicated; G35 Multiple sclerosis; G89.4 Chronic pain syndrome; I10 Essential (primary) hypertension; M71.20 Synovial cyst of popliteal space [Baker], unspecified knee; Z80.3 Family history of malignant neoplasm of breast; Z82.49 Family history of ischemic heart disease and other diseases of the circulatory system; Z86.73 Personal history of transient ischemic attack (TIA), and cerebral infarction without residual deficits; Z99.3 Dependence on wheelchair; Z93.59 Other cystostomy status; Z87.440 Personal history of urinary (tract) infections; F44.4 Conversion disorder with motor symptom or deficit
CPT/HCPCS: 36415; 71045; 73590; 73630; 73700; 74018; 80053; 80202; 81003; 83880; 84484; 85025; 87071; 87075; 87086; 93005; 93926; 93971; 96365; 99406; J2543; J3370; J7040; J7050; 99285-25

== ENCOUNTER 2018-07-30 17:07 | Inpatient (IN) | payer MEDICARE ==
[~2018-07-30] VITALS: Ht 175.3 cm; Wt 56.5 kg
[~2018-07-30 17:07] MED LIST changes: +APIX5TAB3 PO; +ASPI-630 PO; +GUAI600T47 PO; +HYDR-2868 PO; +LISI20TA PO; +LOPE2CAP PO; +MECL12.52 PO; +MIRT15TA PO; +MULT1TAB52 PO; +NYST15CR TP; +SILV20CR14 TP; +TRAZ-120 PO; +VANC250C3 PO
--- NOTE | 2018-07-30 17:53 | PHYS DOC ---
Past History Past Medical History: DVT, Hypertension, Seizure, UTI, Other (REY VELASQUEZ MD) Past Surgical History: Other (REY VELASQUEZ MD) Alcohol Use: None Drug Use: None (REY VELASQUEZ MD) Adult General Chief Complaint Chief Complaint: WEAKNESS/GENERALIZED HPI HPI Patient is a 72 year old female who presents with feeling of generalized weakness and increasing episodes of diarrhea. Patient has history of MS and indwelling suprapubic catheter for more than 2 years and bedridden condition with recent hospitalization because of cellulitis. Patient also had chronic C.Diff on oral vancomycin. Patient discharged from rehabilitation and seen by home health care for the last 5 days. Patient complaining of increasing of generalized weakness without fever and chills, new focal neuro deficit, vomiting , chest pain, shortness of breath. (REY VELASQUEZ MD) Review of Systems Review of Systems Constitutional: Denies fever or chills [] Eyes: Denies change in visual acuity, redness, or eye pain [] HENT: Denies nasal congestion or sore throat [] Respiratory: Denies cough or shortness of breath [] Cardiovascular: No additional information not addressed in HPI [] GI: Denies abdominal pain, vomiting, reports nausea and diarrhea [] : Denies dysuria or hematuria [] Musculoskeletal: Denies back pain or joint pain [] Integument: Denies rash or skin lesions [] Neurologic: Denies headache, focal weakness or sensory changes [] Endocrine: Denies polyuria or polydipsia [] All other systems were reviewed and found to be within normal limits, except as documented in this note. (REY VELASQUEZ MD) Allergies Allergies Allergies Coded Allergies Type Severity Reaction Last Updated Verified I S O L A T I O N *CONTACT* Allergy Unknown 07/30/18 Yes NKMA Allergy Unknown 07/30/18 Yes (REY VELASQUEZ MD) Physical Exam Physical Exam Constitutional: Well developed, mild distress, non-toxic appearance. [] HENT: Normocephalic, atraumatic, oropharynx moist, no oral exudates, nose normal. [] Eyes: PERRLA, EOMI, conjunctiva normal, no discharge. [] Neck: Normal range of motion, no tenderness, supple, no stridor. [] Cardiovascular:Heart rate regular rhythm, no murmur [] Lungs & Thorax: Bilateral breath sounds clear to auscultation [] Abdomen: Bowel sounds normal, soft, no tenderness, no masses, no pulsatile masses, mild distention with air, indwelling suprapubic catheter in place with non-cloudy urine in the bag. Skin: Warm, dry, no erythema, no rash. [] Back: No tenderness, no CVA tenderness. [] Extremities: No tenderness, no cyanosis, no clubbing, ROM intact, no edema. [] Neurologic: Alert and oriented X 3, bilateral lower extremity weakness Psychologic: Affect normal, judgement normal, mood normal. [] (REY VELASQUEZ MD) EKG EKG [] (REY VELASQUEZ MD) Radiology/Procedures Radiology/Procedures [] (REY VELASQUEZ MD) Course & Med Decision Making Course & Med Decision Making Pertinent Labs are pending. Evaluation of patient in ER showed 72-year-old female patient with history of MS and several chronic medical problem brought in because of increasing chronic diarrhea and generalized weakness. Patient has indwelling suprapubic catheter concern for infection. Patient care transferred to Dr. Hunt at 1800. (REY VELASQUEZ MD) Course & Med Decision Making Impression: 1. Weakness 2. UTI 3. MS exacerbation 4. HTN 5. Hx Diarrhea ( Past Hx. of C-dif) Admitted to Dr. Nuno for further eval. and tx. (KIRSTY HUNT MD) Dragon Disclaimer Dragon Disclaimer This electronic medical record was generated, in whole or in part, using a voice recognition dictation system. (REY VELASQUEZ MD) Departure Departure: Impression: Primary Impression: Generalized weakness Referrals: GRACIE OLIVARES MD (PCP) Dragon Disclaimer This chart was dictated in whole or in part using Voice Recognition software in a busy, high-work load, and often noisy Emergency Department environment. It may contain unintended and wholly unrecognized errors or omissions. (KIRSTY HUNT MD) Discharge Summary Visit Information Final Diagnosis Problems Medical Problems: (1) Altered mental status Status: Acute (2) Generalized weakness Status: Acute (3) Urinary tract infection Status: Acute (KIRSTY HUNT MD) Brief Hospital Course Allergies Allergies Coded Allergies Type Severity Reaction Last Updated Verified I S O L A T I O N *CONTACT* Allergy Unknown 07/30/18 Yes NKMA Allergy Unknown 07/30/18 Yes Vital Signs Vital Signs Date Time Temp Pulse Resp B/P (MAP) Pulse Ox O2 Delivery O2 Flow Rate FiO2 07/30/18 22:20 97.8 73 20 108/65 (79) 95 Room Air Lab Results Laboratory Tests Test 07/30/18 17:40 07/30/18 17:48 White Blood Count 9.8 x10^3/uL (4.0-11.0) Red Blood Count 4.93 x10^6/uL (3.50-5.40) Hemoglobin 13.9 g/dL (12.0-15.5) Hematocrit 41.5 % (36.0-47.0) Mean Corpuscular Volume 84 fL (79-100) Mean Corpuscular Hemoglobin 28 pg (25-35) Mean Corpuscular Hemoglobin Concent 34 g/dL (31-37) Red Cell Distribution Width 16.0 % (11.5-14.5) Platelet Count 706 x10^3/uL (140-400) Neutrophils (%) (Auto) 66 % (31-73) Lymphocytes (%) (Auto) 21 % (24-48) Monocytes (%) (Auto) 8 % (0-9) Eosinophils (%) (Auto) 4 % (0-3) Basophils (%) (Auto) 1 % (0-3) Neutrophils # (Auto) 6.4 x10^3uL (1.8-7.7) Lymphocytes # (Auto) 2.0 x10^3/uL (1.0-4.8) Monocytes # (Auto) 0.8 x10^3/uL (0.0-1.1) Eosinophils # (Auto) 0.4 x10^3/uL (0.0-0.7) Basophils # (Auto) 0.1 x10^3/uL (0.0-0.2) Segmented Neutrophils % 63 % (35-66) Band Neutrophils % 1 % (0-9) Lymphocytes % 23 % (24-48) Atypical Lymphocytes % (Manual) 1 % (0-0) Monocytes % 8 % (0-10) Eosinophils % 1 % (0-5) Basophils % 3 % (0-3) Toxic Granulation Present Platelet Estimate Increased (ADEQUATE) Large Platelets Few Giant Platelets Occ Polychromasia Present Anisocytosis Present Erythrocyte Sedimentation Rate 15 (0-25) Prothrombin Time 10.6 SEC (9.4-11.4) Prothromb Time International Ratio 1.1 (0.9-1.1) Sodium Level 136 mmol/L (136-145) Potassium Level 3.9 mmol/L (3.5-5.1) Chloride Level 100 mmol/L (98-107) Carbon Dioxide Level 29 mmol/L (21-32) Anion Gap 7 (6-14) Blood Urea Nitrogen 16 mg/dL (7-20) Creatinine 0.6 mg/dL (0.6-1.0) Estimated GFR (Cockcroft-Gault) 98.0 BUN/Creatinine Ratio 27 (6-20) Glucose Level 94 mg/dL (70-99) Lactic Acid Level 1.0 mmol/L (0.4-2.0) Calcium Level 8.9 mg/dL (8.5-10.1) Total Bilirubin 0.3 mg/dL (0.2-1.0) Aspartate Amino Transf (AST/SGOT) 37 U/L (15-37) Alanine Aminotransferase (ALT/SGPT) 41 U/L (14-59) Alkaline Phosphatase 118 U/L (46-116) Creatine Kinase 321 U/L (26-192) Troponin I Quantitative < 0.017 ng/mL (0-0.055) Total Protein 6.9 g/dL (6.4-8.2) Albumin 3.0 g/dL (3.4-5.0) Albumin/Globulin Ratio 0.8 (1.0-1.7) Lipase 144 U/L (73-393) Urine Collection Type Unknown Urine Color Yellow Urine Clarity Cloudy Urine pH 7.0 Urine Specific Clay 1.010 Urine Protein Neg (NEG-TRACE) Urine Glucose (UA) Neg mg/dL (NEG) Urine Ketones (Stick) Neg mg/dL (NEG) Urine Blood Neg (NEG) Urine Nitrite Pos (NEG) Urine Bilirubin Neg (NEG) Urine Urobilinogen Dipstick 0.2 mg/dL (0.2 mg/dL) Urine Leukocyte Esterase Large (NEG) Urine RBC 1-2 /HPF (0-2) Urine WBC >40 /HPF (0-4) Urine Squamous Epithelial Cells Few /LPF Urine Transitional Epithelial Cells Occ /LPF Urine Bacteria Mod /HPF (0-FEW) Urine Mucus Slight /LPF Brief Hospital Course Ms. Rey is a 72 old female who presented with complaints to weakness. Admitted Dr. Nuno. (KIRSTY HUNT MD) Discharge Information Condition at Discharge: Improved, Stable Dischare Medications Current Medications Lactated Ringer's 1,000 ml @ 100 mls/hr 1X ONCE IV Last administered on at 19:07; Start 07/30/18 at 18:30; Stop 07/31/18 at 04:29 Oxycodone/ Acetaminophen (Percocet 5/325) 1 tab PRN Q6HRS PRN PO pain Last administered on 07/30/18at 19:12; Start 07/30/18 at 19:00 Ceftriaxone Sodium 1 gm/ Sodium Chloride 50 ml @ 100 mls/hr 1X ONCE IV Last administered on 07/30/18at 19:56; Start 07/30/18 at 20:00; Stop 07/30/18 at 20:29; Status DC Sodium Chloride 50 ml @ As Directed STK-MED ONCE .ROUTE ; Start 07/30/18 at 19:53 ; Stop 07/30/18 at 19:54; Status DC Ceftriaxone Sodium (Rocephin) 1 gm STK-MED ONCE .ROUTE ; Start 07/30/18 at 19:53 ; Stop 07/30/18 at 19:54; Status DC Active Scripts Active Ondansetron Odt (Ondansetron) 4 Mg Tab.rapdis 1 Tab PO PRN Q6-8HRS 30 Days [Nicotine] 1 PATCH Patch 1 Patch TD DAILY Mag-Oxide (Magnesium Oxide) 400 Mg Tablet 400 Mg PO DAILY Reported Nystatin 15 Gm Cream..g. 1 Michael TP TID Silvadene (Silver Sulfadiazine) 20 Gm Cream..g. 1 Michael TP BID Loperamide (Loperamide Hcl) 2 Mg Capsule 2 Mg PO PRN Q4HRS PRN Meclizine Hcl 12.5 Mg Tablet 12.5 Mg PO PRN TID Mucinex (Guaifenesin) 600 Mg Tablet.er 600 Mg PO PRN Q12HR PRN Multivitamins (Multivitamin) 1 Each Tablet 1 Each PO DAILY Aspirin 81 Mg Tab.chew 81 Mg PO DAILY Hydralazine Hcl 25 Mg Tablet 25 Mg PO TID Remeron (Mirtazapine) 15 Mg Tablet 15 Mg PO QHS Eliquis (Apixaban) 5 Mg Tablet 5 Mg PO BID Trazodone Hcl 50 Mg Tablet 50 Mg PO QHS Prinivil (Lisinopril) 20 Mg Tablet 20 Mg PO DAILY PRN Vancomycin Hcl 250 Mg Capsule 250 Mg PO QID Klor-Con M20 (Potassium Chloride) 20 Meq Tab.er.prt 1 Tab PO DAILY LAST DOSE GIVEN: DATE: TODAY TIME: AM NEXT DOSE DUE: DATE: TOMORROW TIME: AM Furosemide 40 Mg Tablet 1 Tab PO DAILY LAST DOSE GIVEN: DATE: TODAY TIME: AM NEXT DOSE DUE: DATE: TOMORROW TIME: AM Carvedilol (Carvedilol) 6.25 Mg Tablet 1 Tab PO BID LAST DOSE GIVEN: DATE: TODAY TIME: AM NEXT DOSE DUE: DATE: TODAY TIME: PM Hydrocodone-Apap 5-325 (Hydrocodone Bit/Acetaminophen) 1 Each Tablet 1 Tab PO Q6HRS PRN As needed for pain LAST DOSE GIVEN: DATE: TODAY TIME: 2:30 PM NEXT DOSE DUE: DATE: TODAY TIME: AFTER 8:30 PM Paxil (Paroxetine Hcl) 40 Mg Tablet 40 Mg PO DAILY Depression LAST DOSE GIVEN: DATE: TODAY TIME: AM NEXT DOSE DUE: DATE: TOMORROW TIME: AM Baclofen 20 Mg Tablet 20 Mg PO Q8HRS Muscle spasm LAST DOSE GIVEN: DATE: TODAY TIME: 2PM NEXT DOSE DUE: DATE: TODAY TIME: 8PM (KIRSTY HUNT MD) REY VELASQUEZ MD Jul 30, 2018 17:53 KIRSTY HUNT MD Jul 31, 2018 01:58
[2018-07-30 18:08] LABS: BASO # 0.1 x10^3/uL (0.0-0.2); BASO % 1 % (0-3); EOS # 0.4 x10^3/uL (0.0-0.7); EOS % 4 % (0-3); HEMATOCRIT 41.5 % (36.0-47.0); HEMOGLOBIN 13.9 g/dL (12.0-15.5); LYMPH % 21 % (24-48); MEAN CORPUSCULAR HEMOGLOBIN 28 pg (25-35); MEAN CORPUSCULAR HGB CONC 34 g/dL (31-37); MEAN CORPUSCULAR VOLUME 84 fL (79-100); MONO # 0.8 x10^3/uL (0.0-1.1); MONO % 8 % (0-9); NEUT # 6.4 x10^3uL (1.8-7.7); NEUT % 66 % (31-73); PLATELET COUNT 706 x10^3/uL (140-400); RED BLOOD COUNT 4.93 x10^6/uL (3.50-5.40); WHITE BLOOD COUNT 9.8 x10^3/uL (4.0-11.0)
[2018-07-30 18:15] LABS: ALBUMIN/GLOBULIN RATIO 0.8 (1.0-1.7); CALCIUM 8.9 mg/dL (8.5-10.1); CREATININE 0.6 mg/dL (0.6-1.0); POTASSIUM 3.9 mmol/L (3.5-5.1); TOTAL BILIRUBIN 0.3 mg/dL (0.2-1.0); TOTAL PROTEIN 6.9 g/dL (6.4-8.2)
[2018-07-30 18:28] LABS: BILIRUBIN,URINE NEG (NEG); CLARITY,URINE CLOUDY; COLOR,URINE YELLOW; GLUCOSE,URINE NEG (NEG)
[2018-07-30 18:29] LABS: BACTERIA,URINE MOD /HPF (0-FEW); NITRITE,URINE POS (NEG); SQUAMOUS EPITHELIAL CELL,UR FEW /LPF; UROBILINOGEN,URINE 0.2 mg/dL (0.2 mg/dL); WBC,URINE >40 /HPF (0-4)
[2018-07-30] MEDS ORDERED: IV RINGERS SOLUTION,LACTATED 1,000 ML IV ONE (18:30)
[2018-07-30] MEDS: oxyCODONE/APAP 5/325 1 TAB TABLET PO PRN (19:12)
[2018-07-30] MEDS ORDERED: IV NORMAL SALINE 50ML 50 ML ONE (19:53)
[2018-07-30] MEDS ORDERED: cefTRIAXone SODIUM 1 GM VIAL ONE (19:53)
[2018-07-30] MEDS ORDERED: VANCOMYCIN PER PHARMACY MC PRN (20:30)
[2018-07-30] MEDS ORDERED: VANCOMYCIN 1 GM in IV NORMAL SALINE 250ML 250 ML IV ONE (20:30)
[2018-07-30] MEDS ORDERED: MORPHINE SULFATE 2 MG/ML DISP.SYRIN. IV PRN (20:30)
[2018-07-30 20:54] LABS: % ATYL 1 % (0-0); % BANDS 1 % (0-9); % BASOS 3 % (0-3); % EOS 1 % (0-5); % LYMPHS 23 % (24-48); % MONOS 8 % (0-10); % SEGS 63 % (35-66)
[2018-07-30 20:55] LABS: PLT ESTIMATE INCREASED (ADEQUATE); TOXIC GRANULATION PRESENT
[2018-07-30 20:56] LABS: ANISOCYTOSIS PRESENT; POLYCHROMASIA PRESENT
[2018-07-30] MEDS: IV RINGERS SOLUTION,LACTATED 1,000 ML IV SCH (21:00)
[2018-07-30] MEDS ORDERED: VANCOMYCIN 1.5 GM in IV NORMAL SALINE 500ML 500 ML IV ONE (21:00)
--- NOTE | 2018-07-30 21:39 | EKG ---
[address] [address] Test Date: 2018-07-30 Test Time: 18:55:32 Pat Name: SERGIO PISANO Department: Room: Gender: F [employer] [address] Security: [place] : 1945 Requested By: KIRSTY BECKFORD Order Number: [id number] Reading MD: Damian Dobson MD Measurements Intervals [place] Rate: 74 P: 59 DC: 128 QRS: 4 QRSD: 84 T: 28 QT: 406 QTc: 451 Interpretive Statements SINUS RHYTHM Electronically Signed On 08-03-2018 10:14:29 [employer] by Damian Dobson MD
[2018-07-30 22:20] VITALS: BP 108/65
[2018-07-31] MEDS: oxyCODONE/APAP 5/325 1 TAB TABLET PO PRN ×3 (02:53→17:43)
[2018-07-31 06:05] VITALS: BP 128/66
[2018-07-31 06:27] LABS: BASO % 0 % (0-3); EOS # 0.4 x10^3/uL (0.0-0.7); EOS % 4 % (0-3); HEMATOCRIT 37.5 % (36.0-47.0); HEMOGLOBIN 12.3 g/dL (12.0-15.5); LYMPH % 22 % (24-48); MEAN CORPUSCULAR HEMOGLOBIN 28 pg (25-35); MEAN CORPUSCULAR HGB CONC 33 g/dL (31-37); MEAN CORPUSCULAR VOLUME 85 fL (79-100); MONO # 0.9 x10^3/uL (0.0-1.1); MONO % 10 % (0-9); NEUT # 5.9 x10^3uL (1.8-7.7); NEUT % 64 % (31-73); PLATELET COUNT 622 x10^3/uL (140-400); RED BLOOD COUNT 4.41 x10^6/uL (3.50-5.40); RED CELL DISTRIBUTION WIDTH 15.7 % (11.5-14.5); WHITE BLOOD COUNT 9.2 x10^3/uL (4.0-11.0)
[2018-07-31 06:35] LABS: CALCIUM 8.3 mg/dL (8.5-10.1); CREATININE 0.6 mg/dL (0.6-1.0); POTASSIUM 3.9 mmol/L (3.5-5.1)
[2018-07-31] MEDS: IV RINGERS SOLUTION,LACTATED 1,000 ML IV SCH ×3 (07:24→20:32)
[2018-07-31] MEDS ORDERED: MORPHINE SULFATE 4 MG/ML DISP.SYRIN. IV PRN (07:32)
[2018-07-31] MEDS: ONDANSETRON PF 4 MG/2 ML VIAL. IV PRN ×3 (07:36→17:42)
[2018-07-31] MEDS: LACTOBACILLUS RHAMNOSUS GG 1 CAPSULE. PO SCH ×2 (09:52→20:32)
[2018-07-31 11:18] VITALS: BP 108/63
[2018-07-31] MEDS ORDERED: LISINOPRIL 20 MG TABLET PO PRN (12:00)
[2018-07-31] MEDS ORDERED: HYDROcodone/APAP 5/325MG 1 TAB TABLET PO PRN (12:00)
[2018-07-31] MEDS ORDERED: LOPERAMIDE 2 MG CAPSULE PO PRN (13:00)
[2018-07-31] MEDS: VANCOMYCIN 125 MG/2.5 ML ORAL SOLUTION. PO SCH ×3 (13:00→21:00)
[2018-07-31] MEDS ORDERED: MECLIZINE 12.5 MG TABLET. PO PRN (13:00)
[2018-07-31] MEDS ORDERED: ONDANSETRON ODT 4 MG TAB.RAPDIS PO PRN (13:00)
[2018-07-31] MEDS: BACLOFEN 20 MG TABLET PO SCH ×2 (13:11→21:56)
[2018-07-31] MEDS: PARoxetine 20 MG TABLET PO SCH (13:11)
[2018-07-31] MEDS: POTASSIUM CHLORIDE 20 MEQ TABLET.ER. PO SCH (13:12)
[2018-07-31] MEDS: FUROSEMIDE 40 MG TABLET PO SCH (13:12)
[2018-07-31] MEDS: MAGNESIUM OXIDE 400 MG TABLET PO SCH (13:12)
[2018-07-31] MEDS: hydrALAZINE 25 MG TABLET PO SCH ×2 (13:13→20:33)
[2018-07-31] MEDS: NYSTATIN 100,000 UNIT/GM TOPICAL CREAM 15GM TUBE. TP SCH ×2 (14:00→20:37)
[2018-07-31] MEDS: NICOTINE 21MG PATCH. TD SCH (14:01)
--- NOTE | 2018-07-31 14:08 | HP ---
ADMIT DATE: 07/30/2018 HISTORY OF00 PRESENT ILLNESS: The patient is a 72-year-old female patient who presented to the Emergency Room with a complaint of generalized weakness, increasing episode of diarrhea as well as nausea, but no vomiting. The patient has a history of progressive multiple sclerosis with functional paraplegia and neurogenic bladder, requiring suprapubic catheter. For more than 2 years now, she has been mostly bedbound, wheelchair bound. She was recently admitted to [facility] and from here [facility] continue treatment of her stage 3 coccygeal decubitus ulcer as well as cellulitis of the lower extremity. The patient has chronic C. diff and her Clostridium difficile colitis flares up whenever she was started on antibiotic. When she arrived to the Emergency Room yesterday, she was pale, extremely cachectic, but no jaundice, cyanosis, or thyromegaly. She was extensively investigated and her lab works were unremarkable; however, her urine was yellow, cloudy with a pH of 7, specific gravity 1.010. There was large amount of leukocyte esterase, positive for nitrite. There were more than 40 wbc's and moderate amount of bacteria. The urine was sent for culture and sensitivity, and the patient was admitted with generalized weakness, UTI, chronic C. diff colitis, hypertension, and multiple sclerosis exacerbation. She was started on IV Rocephin. We will continue all her other medication. PAST MEDICAL HISTORY: Significant for longstanding progressive multiple sclerosis with functional paraplegia and neurogenic bladder requiring suprapubic catheter. She is mostly bed bound, wheelchair bound and she currently lives at the basement of her son's house. She is known to have recurrent Clostridium difficile colitis for which she is on continuous treatment with vancomycin. 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 She has a flare up of her C. diff colitis whenever she was started on antibiotics. She is known to have chronic pain syndrome, chronic spasticity, poor mobility and functionality. She has suprapubic catheter for neurogenic bladder. She also has COPD, has had a stroke and seizure. PAST SURGICAL HISTORY: Significant for suprapubic catheter placement and IVC filter placement. FAMILY HISTORY: Positive for breast cancer in her mother and her mother at the age of 51. Her father of myocardial infarction at the age of 76. She has 2 brothers that are older and apparently healthy. SOCIAL HISTORY: She is , lives at her son's basement. She has 2 sons. She smokes a pack a day for more than 20 years. She does not drink alcohol or use any recreational drugs. REVIEW OF SYSTEMS: As per history of present illness. PHYSICAL EXAMINATION: GENERAL: On arrival to the Emergency Room, she was pale, cachectic, but no jaundice, cyanosis, or thyromegaly. No jugular venous distension. No lower limb edema. VITAL SIGNS: Her heart rate was 74, blood pressure was 118/63, temperature was 97.7, respiratory rate was 20, and oxygen saturation was 94% on room air. HEAD, EYES, EARS, NOSE, AND THROAT: Showed normocephalic, atraumatic. NECK: Supple. HEART: Showed normal first and second heart sounds. No gallop, rub or murmur. CHEST: Clear to auscultation. No crepitation or rhonchi. ABDOMEN: Scaphoid, soft with suprapubic catheter in place. There is no guarding or rigidity. No organomegaly. All hernial orifices intact. Bowel sounds normal. NEUROLOGIC: She is awake, alert, responding appropriately. All her cranial nerves are intact. She moves upper extremities to much good extent than her lower extremities. She is mostly bedbound, chair bound. She has stage 3 coccygeal decubitus ulcer. She has also subcutaneous hematoma on the outer aspect of left leg that is actually much smaller in size. LABORATORY DATA: Her lab work on arrival to the Emergency Room showed a white cell count of 9800, hemoglobin 13.9, hematocrit 41.5, MCV 84, and platelet count of 706,000 with normal manual differential. Her chemistry showed a serum sodium 136, potassium 3.9, chloride 100, bicarbonate 29, anion gap of 7, BUN 16, creatinine 0.6, estimated GFR was 98 mL per minute. Her glucose was 94, calcium was 8.9. Total bilirubin, AST, ALT were normal. Alkaline phosphatase slightly elevated. Her CK was 321. Total protein was 6.9, albumin 3. Her amylase and lipase are normal. Her prothrombin time was 10.6, INR 1.1. Urinalysis showed the urine was yellow, cloudy with a pH of 6, specific gravity 1.010. The urine was positive for nitrite and large amount of leukocyte esterase, 1-2 rbc's, and more than 40 wbc's, and moderate amount of bacteria. IMPRESSION: In summary, this is a 72-year-old female patient with progressive longstanding multiple sclerosis with functional paraplegia, neurogenic bladder requiring suprapubic catheter. She is coming with generalized weakness, fatigue, and nausea, but no vomiting. She has also recurrent bouts of diarrhea. She was diagnosed with a urinary tract infection, chronic C. diff colitis. She has also stage 3 coccygeal decubitus ulcer. PLAN: To continue with oral vancomycin. Continue with IV ceftriaxone, pain medication. I will reconcile all her medication and started also Nicoderm patches, she has nicotine, she is heavy smoker. TERESE ALEMAN MD DR: MADELINE/beata JOB#: [id number] / [id number]
[2018-07-31 15:14] VITALS: BP 113/62
[2018-07-31 19:25] VITALS: BP 127/71
[2018-07-31] MEDS: traZODone 50 MG TABLET. PO SCH (20:32)
[2018-07-31] MEDS: CARVEDILOL 6.25 MG TABLET PO SCH (20:33)
[2018-07-31] MEDS: silver sulfADIAZINE 1% CREAM 50GM JAR. TP SCH (20:38)
[2018-07-31] MEDS ORDERED: MIRTAZAPINE 15 MG TABLET PO SCH (21:00)
[2018-07-31] MEDS: VANCOMYCIN 1 GM in IV NORMAL SALINE 250ML 250 ML IV SCH (21:58)
[2018-07-31 22:05] VITALS: BP 100/51
[2018-07-31 23:50] VITALS: BP 130/84
--- NOTE | 2018-08-01 00:18 | PN ---
DATE: 07/31/2018 SUBJECTIVE: The patient is resting slightly propped up in bed, in no apparent distress. She is awake, alert, continued to complain of generalized weakness. She states she has at least 3 episodes of diarrhea every day. Denied any chills, rigors, or fever. PHYSICAL EXAMINATION: GENERAL: When I examined her this afternoon, she looked pale, cachectic, no jaundice, cyanosis or thyromegaly. No jugular venous distention. No limb edema. VITAL SIGNS: Her heart rate was 79, blood pressure was 108/63, temperature was 98.3, respiratory rate 20, and oxygen saturation was 92% on room air. HEAD, EYES, EARS, NOSE, AND THROAT: Showed normocephalic, atraumatic. NECK: Supple. HEART: Showed normal first and second heart sounds. No gallop, rub, or murmur. CHEST: Showed central trachea, equal bilateral expansion, air entry, vesicular sounds. No crepitation or rhonchi. ABDOMEN: Distended, soft, nontender. No guarding or rigidity. No organomegaly. All hernial orifices intact. Bowel sounds normal. She has suprapubic catheter in place. NEUROLOGIC: She is awake, alert, responding appropriately. All cranial nerves intact. She moves upper extremities to much greater extent than her lower extremities. She has marked muscle wasting and weakness. She has stage 3 coccygeal decubitus ulcer. Her intake over the last 24 hours was 1060, output was 900. LABORATORY DATA: As of this morning showed a serum sodium 139, potassium 3.9, chloride 105, bicarbonate 26, anion gap of 8, BUN 15, creatinine 0.6, estimated GFR was 98 mL per minute. Her glucose was 78, calcium was 8.3. Her lactic acid was only 1. Her white cell count was 9200, hemoglobin 12, hematocrit 37, MCV 85, and platelet count of 622,000. ASSESSMENT: This is a 72-year-old female patient who was admitted with weakness and generalized tiredness, nausea, and has had diarrhea about 3 times a day. She was diagnosed with: 1. Urinary tract infection for which she is currently on IV Rocephin. 2. Chronic relapsing Clostridium difficile colitis, which she is on oral vancomycin. 3. 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 She is known to have hypertension, chronic obstructive pulmonary disease, seizure disorder and an episode of cerebrovascular accident. The patient was actually on Vimpat that she discontinued her own. She has deep venous thrombosis and pulmonary embolism for which she has an inferior vena cava filter. She was on Xarelto that was discontinued. She has large hematoma on the outer aspect of the right leg. PLAN: To continue with IV Rocephin. Continue with oral vancomycin. We will reconcile all her medication. We will follow her closely and decide on further management accordingly. I will ask Dr. Estrada to see her. I am not sure how to distinguish weakness due to infection from excerebration of her multiple sclerosis. TERESE ALEMAN MD DR: MADELINE/beata JOB#: [id number] / [id number]
[2018-08-01 04:51] VITALS: BP 147/64
[2018-08-01] MEDS: BACLOFEN 20 MG TABLET PO SCH ×4 (05:59→21:38)
[2018-08-01 07:12] LABS: CALCIUM 8.2 mg/dL (8.5-10.1); CREATININE 0.6 mg/dL (0.6-1.0); POTASSIUM 3.9 mmol/L (3.5-5.1)
[2018-08-01] MEDS: ASPIRIN 81 MG TAB.CHEW PO SCH (08:38)
[2018-08-01] MEDS: ONDANSETRON PF 4 MG/2 ML VIAL. IV PRN ×2 (08:39→19:56)
[2018-08-01] MEDS: oxyCODONE/APAP 5/325 1 TAB TABLET PO PRN ×3 (08:39→21:07)
[2018-08-01] MEDS: hydrALAZINE 25 MG TABLET PO SCH ×3 (08:39→21:07)
[2018-08-01] MEDS: POTASSIUM CHLORIDE 20 MEQ TABLET.ER. PO SCH (08:39)
[2018-08-01] MEDS: NICOTINE 21MG PATCH. TD SCH (08:40)
[2018-08-01] MEDS: PARoxetine 20 MG TABLET PO SCH (08:40)
[2018-08-01] MEDS: MULTIVITAMIN with MINERAL TABLET. PO SCH (08:40)
[2018-08-01] MEDS: CARVEDILOL 6.25 MG TABLET PO SCH ×2 (08:40→21:08)
[2018-08-01] MEDS: FUROSEMIDE 40 MG TABLET PO SCH (08:40)
[2018-08-01] MEDS: MAGNESIUM OXIDE 400 MG TABLET PO SCH (08:40)
[2018-08-01] MEDS: VANCOMYCIN 125 MG/2.5 ML ORAL SOLUTION. PO SCH ×4 (08:48→21:00)
[2018-08-01] MEDS: IV RINGERS SOLUTION,LACTATED 1,000 ML IV SCH ×3 (08:54→19:54)
[2018-08-01] MEDS ORDERED: NICOTINE 21MG PATCH. TD SCH (09:00)
[2018-08-01] MEDS: LACTOBACILLUS RHAMNOSUS GG 1 CAPSULE. PO SCH ×2 (09:00→21:07)
[2018-08-01] MEDS: NYSTATIN 100,000 UNIT/GM TOPICAL CREAM 15GM TUBE. TP SCH ×3 (09:01→21:00)
[2018-08-01] MEDS: silver sulfADIAZINE 1% CREAM 50GM JAR. TP SCH ×2 (09:02→21:00)
[2018-08-01 10:45] VITALS: BP 133/74
[2018-08-01 15:53] VITALS: BP 127/88
--- NOTE | 2018-08-01 18:24 | PN ---
DATE: 08/01/2018 SUBJECTIVE: The patient is resting, slightly propped up in bed, sleeping comfortably in no apparent distress. On questioning her, she denied any complaints except that her Prozac and Remeron were adjusted by ____ she was at [facility] and apparently that change had not carried over here. She is in fact on 50 mg of paroxetine and 30 mg mirtazapine. Her sacral decubitus ulcers are healing nicely with no surrounding erythema, tenderness or discharge. Has had no fever; however, continued to have loose bowel movement. PHYSICAL EXAMINATION: GENERAL: When I examined her, she looked pale, cachectic, no jaundice, cyanosis, or thyromegaly. No jugular venous distension. No lower limb edema. The hematoma on the outer aspect of the right leg is getting smaller. VITAL SIGNS: Her heart rate was 87, blood pressure 133/74, temperature was 97.4, respiratory rate was 18, and oxygen saturation was 92% on room air. HEAD, EYES, EARS, NOSE AND THROAT: Showed normocephalic, atraumatic. NECK: Supple. HEART: Showed normal first and second heart sounds with no gallop, rub or murmur. CHEST: Clear to auscultation. No crepitation or rhonchi. ABDOMEN: Distended, soft, nontender with suprapubic in place. NEUROLOGIC: She was awake, alert, responding appropriately. All cranial nerves are intact. She moves upper extremities to a much good extent than lower extremities where she has progressive multiple sclerosis with functional paraplegia and neurogenic bladder. She has sacral decubitus ulcer covered with dressing. Her intake over the last 24 hours was 1050, output was 900. LABORATORY DATA: Showed a serum sodium 143, potassium 3.9, chloride 109, bicarbonate 27, anion gap of 7, BUN 13, creatinine 0.6, estimated GFR was 98 mL per minute. Her glucose was 90, calcium was 8.2. Her white cell count was 9200, hemoglobin 12, hematocrit 37, MCV 85 and platelet count of 622,000. ASSESSMENT: 1. Generalized weakness and tiredness, nausea as well as diarrhea attributed to urinary tract infection for which she is currently on IV Rocephin. Her blood cultures are so far negative. Urine culture is still pending. 2. She have chronic relapsing Clostridium difficile colitis for which she is on oral vancomycin. 3. 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 4. Hypertension. 5. Chronic obstructive pulmonary disease. 6. Seizure disorder. 7. Episode of cerebrovascular accident for which she was on Vimpat that she continued on her own. 8. She has deep vein thrombosis and pulmonary embolism for which she has an inferior vena cava filter. She used to be on Xarelto that was discontinued. She has a large hematoma on the outer aspect of the right leg. PLAN: To continue with IV Rocephin. Continue with oral vancomycin. I have increased her paroxetine to 50 mg once a day and mirtazapine to 30 mg at bedtime as recommended by the psychiatrist. TERESE ALEMAN MD DR: MADELINE/beata JOB#: [id number] / [id number]
[2018-08-01 19:43] VITALS: BP 131/68
[2018-08-01] MEDS: MIRTAZAPINE 30 MG TABLET PO SCH (21:07)
[2018-08-01] MEDS: traZODone 50 MG TABLET. PO SCH (21:07)
[2018-08-01] MEDS: VANCOMYCIN 1 GM in IV NORMAL SALINE 250ML 250 ML IV SCH (21:39)
[2018-08-01 22:01] LABS: VANC TR 6.4 mcg/mL (10.0-20.0)
[2018-08-01 23:29] VITALS: BP 132/65
[2018-08-01] MEDS ORDERED: methylPREDNISolone SOD SUCC PF 40 MG/ML VIAL. IV ONE (23:30)
--- NOTE | 2018-08-02 04:34 | CONS ---
DATE OF CONSULTATION: 08/01/2018 NEUROLOGY CONSULTATION REFERRING PHYSICIAN: Dr. Nuno. REASON FOR CONSULTATION: Generalized weakness, rule out exacerbation of multiple sclerosis. HISTORY OF PRESENT ILLNESS: This is a 72-year-old right-handed female who was admitted through Emergency Room on 07/30/2018 on account of generalized weakness, nausea and worsening of diarrhea. According to the patient, she has had multiple sclerosis diagnosed 15 years ago and she has been recently bed bound and wheelchair bound in the last 2 years. The patient does not remember whether she was seen by a neurologist in the past or place on medication for multiple sclerosis. She describes a generalized weakness, which has been worsened in the last 2 months. As a result of progressive multiple sclerosis, the patient has had neurogenic bladder requiring permanent suprapubic urinary catheterization. She also complains of episode of frequent diarrhea related to C. difficile colitis. She denies headaches, visual disturbances, diplopia, dysphasia or dysarthria. The patient was recently diagnosed with urinary tract infections and she has been on antibiotics since admission. The patient has not had any neuro imaging at this institution. PAST MEDICAL HISTORY: Significant for progressive multiple sclerosis resulted in severe weakness of the lower extremities - paraplegia with neurogenic bladder requiring suprapubic catheter, frequent Clostridium difficile colitis, COPD, chronic pain syndrome, history of stroke, seizure, deep venous thrombosis, required Xarelto, GERD, recurrent urinary tract infections with incontinence, arthritis, depression, anxiety, clotting disorders and pressure ulcer. PAST SURGICAL HISTORY: Significant for suprapubic catheter placement and IVC filter placement. SOCIAL HISTORY: The patient lives with her son. She has been smoking 1 pack of cigarettes daily for the last 20 years. She denies alcohol drinking or illicit drug use. FAMILY HISTORY: Mother had breast cancer and at age of 51. Father had myocardial infarction and at 76. Her siblings of 2 brothers are healthy. CURRENT HOME MEDICATIONS: Aspirin, baclofen, carvedilol, furosemide, Mucinex, hydralazine, hydrocodone/acetaminophen, Prinivil, Imodium p.r.n., meclizine, mirtazapine, multivitamins, Paxil, potassium, trazodone. ALLERGIES: No known drug allergies. PHYSICAL EXAMINATION: GENERAL: A well-developed, but cachectic thin female, not in acute distress. VITAL SIGNS: Blood pressure 131/68, respiratory rate 18, pulse is 83, temperature 98.6, oxygen saturation 92% on room air. HEENT: Normocephalic, atraumatic, otherwise unremarkable. NECK: Supple. Negative for carotid bruit, lymphadenopathy, JVD or thyromegaly. LUNGS: With diminished breath sounds. No rales or wheezing. CARDIOVASCULAR: Regular rate and rhythm. Normal S1, S2. ABDOMEN: Soft. Bowel sounds are positive. EXTREMITIES: Negative for cyanosis, clubbing but positive for pitting edema bilaterally and swelling of the right mid leg. NEUROLOGIC: 1. Mental Status: The patient is alert and oriented x 3. Speech is fluent. There is no language dysfunction. Memory, judgment, and abstracting thinking are normal. The patient denies hallucination or delusion. 2. Cranial Nerves: Visual castellanos are full. The pupils are reactive to light and accommodation. The extraocular movements are intact. There is no nystagmus. There is no facial motor or sensory deficit. Hearing is intact bilaterally. The palate is elevated symmetrically. Sternocleidomastoid muscles are powerful bilaterally. The patient shrugs her shoulders symmetrically, protrudes her tongue in the midline without fasciculation or atrophy. 3. Motor Examination: No focal muscle bulk is seen. The tone is normal. The strength is 4/5 in the upper extremity and 2/5 in the lower extremities with marked right footdrop. 4. Sensory Examination: Revealed diminished pinprick and light touch senses in the patchy distributions in both lower extremities. Deep tendon reflexes were asymmetric and active without pathologic responses. Gait not tested. LABORATORY DATA: CBC from 07/31/2018 revealed white blood cells of 9.2, hemoglobin 12.3, hematocrit 37.5, platelet count 622,000. Chemistry from 08/01/2018 revealed sodium of 143, potassium 3.9, chloride 109, CO2 of 27, BUN 13, creatinine 0.6, glucose 90, calcium 8.2. Troponin level is normal. Urinalysis is positive for urinary tract infection with positive urinary leukocyte esterase. DIAGNOSTIC DATA: Right lower extremity arterial Doppler revealed possible stenosis of popliteal artery. CT of the right lower extremity, mainly the right calf revealed large hypodense fluid collection at the right mid-calf of unknown etiology probably represents hematoma or fluid collection versus cellulitis and small knee joint fusion. X-ray of the right foot revealed no fracture of and possible fourth metatarsal chronic stress reaction. X-ray of the right tibia and fibula revealed no evidence of fracture or dislocation and swelling of the right calf. Chest x-ray is suggestive of trace congestion. Head CT scan from 2017 revealed no acute intracranial process and evidence of chronic small vessel ischemic changes. IMPRESSION: 1. History of progressive multiple sclerosis with possible exacerbation of generalized weakness. 2. Multiple medical problems include frequent diarrhea due to Clostridium difficile colitis, hypertension, depressions, anxiety, chronic obstructive pulmonary disease, gastroesophageal reflux disease, arthritis and urinary tract infections. 3- Bilateral pitting edema and right mid leg swelling. RECOMMENDATIONS: 1. We will continue with current management initiated by Dr. Nuno and await for urine culture. 2. We will start the patient on Solu-Medrol intravenously for possible exacerbation of multiple sclerosis. M Ladonna LEMUS MD DR: MAR/beata JOB#: [id number] / [id number] EDUAR
[2018-08-02] MEDS: BACLOFEN 20 MG TABLET PO SCH ×3 (06:08→22:05)
[2018-08-02] MEDS: methylPREDNISolone SOD SUCC PF 40 MG/ML VIAL. IV SCH ×3 (06:09→22:04)
[2018-08-02 06:26] VITALS: BP 130/67
[2018-08-02 07:03] LABS: CALCIUM 8.5 mg/dL (8.5-10.1); CREATININE 0.6 mg/dL (0.6-1.0); POTASSIUM 4.5 mmol/L (3.5-5.1)
[2018-08-02] MEDS: oxyCODONE/APAP 5/325 1 TAB TABLET PO PRN (08:08)
[2018-08-02] MEDS: MAGNESIUM OXIDE 400 MG TABLET PO SCH (08:08)
[2018-08-02] MEDS: NICOTINE 21MG PATCH. TD SCH (08:08)
[2018-08-02] MEDS: FUROSEMIDE 40 MG TABLET PO SCH (08:09)
[2018-08-02] MEDS: MULTIVITAMIN with MINERAL TABLET. PO SCH (08:09)
[2018-08-02] MEDS: LISINOPRIL 20 MG TABLET PO SCH (08:09)
[2018-08-02] MEDS: POTASSIUM CHLORIDE 20 MEQ TABLET.ER. PO SCH (08:09)
[2018-08-02] MEDS: LACTOBACILLUS RHAMNOSUS GG 1 CAPSULE. PO SCH ×2 (08:09→20:53)
[2018-08-02] MEDS: ASPIRIN 81 MG TAB.CHEW PO SCH (08:09)
[2018-08-02] MEDS: CARVEDILOL 6.25 MG TABLET PO SCH ×2 (08:10→20:53)
[2018-08-02] MEDS: PARoxetine 20 MG TABLET PO SCH (08:10)
[2018-08-02] MEDS: hydrALAZINE 25 MG TABLET PO SCH ×3 (08:10→20:54)
[2018-08-02] MEDS: NYSTATIN 100,000 UNIT/GM TOPICAL CREAM 15GM TUBE. TP SCH ×3 (08:11→22:07)
[2018-08-02] MEDS: silver sulfADIAZINE 1% CREAM 50GM JAR. TP SCH ×2 (08:11→22:07)
[2018-08-02] MEDS: VANCOMYCIN 125 MG/2.5 ML ORAL SOLUTION. PO SCH ×4 (09:14→22:04)
[2018-08-02 10:41] VITALS: BP 150/74
[2018-08-02] MEDS: HYDROcodone/APAP 5/325MG 1 TAB TABLET PO PRN ×3 (13:16→22:18)
--- NOTE | 2018-08-02 13:41 | PN ---
DATE: SUBJECTIVE: The patient denies any new neurological complaints. She was started on Solu-Medrol last night and she received first dose. She also complains of more foot swelling on the left side. OBJECTIVE: GENERAL: Cachectic female, not in acute distress. VITAL SIGNS: Blood pressure 130/67, respiratory rate 16, pulse is 72 and regular, temperature is 98.6, and oxygen saturation is 93% on room air. HEENT: Normocephalic, atraumatic, otherwise unremarkable. NECK: Supple. Negative for carotid bruit, lymphadenopathy or thyromegaly. LUNGS: Diminished breath sounds, mainly over the left base. However, I did not hear any wheezing or rales. CARDIOVASCULAR: Regular rate and rhythm, normal S1, S2. ABDOMEN: Soft. Bowel sounds positive. EXTREMITIES: Positive for pitting edema bilaterally with swelling of the mid right lower extremity. NEUROLOGICAL EXAM: Mental Status: The patient is alert and oriented x3. The speech is fluent. There is no language dysfunction, otherwise unremarkable. The cranial nerves are intact. Motor Examination: No focal muscle bulk was seen. The tone was normal. The strength was 4/5 in the upper extremities and 2/5 in the lower extremities with marked right foot drop. Sensory examination revealed diminished pinprick and light touch senses in patchy distributions in both lower extremities. Deep tendon reflexes were symmetric and active without pathology responses. Gait not tested as the patient is bed and wheelchair bound. IMPRESSION: 1. Generalized weakness and possible multiple sclerosis exacerbation. 2. Urinary tract infections. 3. Multiple medical problems include hypertension, recurrent Clostridium difficile colitis, depression, anxiety, chronic obstructive pulmonary disease and gastroesophageal reflux disease. RECOMMENDATIONS: Continue with current management and with intravenous steroid. M Ladonna LEMUS MD DR: MAR/beata JOB#: [id number] / [id number]
[2018-08-02 14:58] VITALS: BP 126/65
--- NOTE | 2018-08-02 18:47 | PN ---
DATE: 08/02/2018 SUBJECTIVE: The patient is resting slightly propped up in bed, in no apparent respiratory distress. On questioning her, she would like to increase her pain medication frequency to every 4 hours, the last one about 4-1/2 hours and she started having severe pain. She did grow Proteus mirabilis. Unfortunately, the sensitivity is still pending at the time of this dictation. We have had a lengthy discussion with her as she has been in and out of multiple hospitals and retirement and she is clearly failing to be able to live at home on her own. Surprisingly, she was agreeable and our bilingual case manager is working to place her in one of the long-term care facilities in [place]. PHYSICAL EXAMINATION: GENERAL: When I saw her today, she was pale, cachectic, but no jaundice, cyanosis, or thyromegaly. No jugular venous distension. No limb edema. VITAL SIGNS: Her heart rate was 88, blood pressure 150/74, temperature was 97.8, respiratory rate was 20, and oxygen saturation was 93% on room air. HEAD, EYES, EARS, NOSE AND THROAT: Showed normocephalic, atraumatic. NECK: Supple. HEART: Showed normal first and second sounds. No gallop, rub or murmur. CHEST: Clear to auscultation. No crepitation or rhonchi. ABDOMEN: Scaphoid, soft. Suprapubic catheter in place. There is no guarding or rigidity. No organomegaly. All hernial orifices intact. Bowel sounds normal. NEUROLOGIC: She was awake, alert, responding appropriately. She moves her upper extremities to much good extent than lower extremities. She has progressive multiple sclerosis with functional paraplegia and neurogenic bladder requiring suprapubic catheter. She has stage IV sacral decubitus ulcer with a clean base without any surrounding erythema or tenderness. She has a large hematoma on the outer aspect of the right leg. Her intake over the last 24 hours was 2100 and output was 1200. LABORATORY DATA: As of this morning, her white cell count was 9200, hemoglobin 12, hematocrit 37, MCV 85 and platelet count of 622,000. Her chemistry showed a serum sodium 142, potassium 4.5, chloride 109, bicarbonate 28, anion gap of 5, BUN of 11, creatinine 0.6, estimated GFR was 98 mL per minute. Her glucose 120 and her calcium was 8.7. ASSESSMENT: 1. Generalized weakness and tiredness together with nausea as well as diarrhea attributed to #1. Urinary tract infection for which she is currently on IV Rocephin. 2. Chronic relapsing Clostridium difficile colitis, which she is on continuous oral vancomycin. 3. Chronic progressive multiple sclerosis with functional paraplegia and neurogenic bladder, requiring suprapubic catheter. 4. Hypertension. 5. Chronic obstructive pulmonary disease. 6. Seizure disorder. 7. Episode of cerebrovascular accident after which she developed a seizure and was on Vimpat that she discontinued in her own. 8. She has deep vein thrombosis and pulmonary emboli for which she has an inferior vena cava filter. She was on Xarelto that was discontinued after she developed large hematoma on the outer aspect of her right leg. PLAN: My plan is to discontinue IV fluids, discontinue IV vancomycin. Meanwhile, we will continue with IV Rocephin and oral vancomycin. I did increase her mirtazapine to 30 mg at bedtime. Await the result of culture and sensitivity and we are working to place the patient in a detention facility as she can no longer take care of herself at home. TERESE ALEMAN MD DR: MADELINE/beata JOB#: [id number] / [id number]
[2018-08-02 19:27] VITALS: BP 138/70
[2018-08-02] MEDS: MIRTAZAPINE 30 MG TABLET PO SCH (20:53)
[2018-08-02] MEDS: traZODone 50 MG TABLET. PO SCH (20:54)
[2018-08-02 22:42] VITALS: BP 134/70
[2018-08-03 05:33] VITALS: BP 132/64
[2018-08-03] MEDS: methylPREDNISolone SOD SUCC PF 40 MG/ML VIAL. IV SCH (06:11)
[2018-08-03] MEDS: BACLOFEN 20 MG TABLET PO SCH ×3 (06:11→22:21)
[2018-08-03] MEDS: HYDROcodone/APAP 5/325MG 1 TAB TABLET PO PRN ×4 (06:24→19:33)
[2018-08-03 06:56] LABS: CALCIUM 8.8 mg/dL (8.5-10.1); CREATININE 0.7 mg/dL (0.6-1.0); POTASSIUM 4.5 mmol/L (3.5-5.1)
[2018-08-03 07:01] LABS: HEMATOCRIT 39.1 % (36.0-47.0); HEMOGLOBIN 12.8 g/dL (12.0-15.5); RED BLOOD COUNT 4.61 x10^6/uL (3.50-5.40); RED CELL DISTRIBUTION WIDTH 16.1 % (11.5-14.5); WHITE BLOOD COUNT 16.5 x10^3/uL (4.0-11.0)
[2018-08-03] MEDS: MAGNESIUM OXIDE 400 MG TABLET PO SCH (08:01)
[2018-08-03] MEDS: LACTOBACILLUS RHAMNOSUS GG 1 CAPSULE. PO SCH ×2 (08:01→21:18)
[2018-08-03] MEDS: MULTIVITAMIN with MINERAL TABLET. PO SCH (08:01)
[2018-08-03] MEDS: LISINOPRIL 20 MG TABLET PO SCH (08:02)
[2018-08-03] MEDS: CARVEDILOL 6.25 MG TABLET PO SCH ×2 (08:02→21:18)
[2018-08-03] MEDS: FUROSEMIDE 40 MG TABLET PO SCH (08:02)
[2018-08-03] MEDS: POTASSIUM CHLORIDE 20 MEQ TABLET.ER. PO SCH (08:02)
[2018-08-03] MEDS: ASPIRIN 81 MG TAB.CHEW PO SCH (08:02)
[2018-08-03] MEDS: hydrALAZINE 25 MG TABLET PO SCH ×3 (08:02→21:18)
[2018-08-03] MEDS: VANCOMYCIN 125 MG/2.5 ML ORAL SOLUTION. PO SCH ×4 (08:03→21:19)
[2018-08-03] MEDS: NICOTINE 21MG PATCH. TD SCH (08:03)
[2018-08-03] MEDS: PARoxetine 20 MG TABLET PO SCH (08:03)
[2018-08-03] MEDS: silver sulfADIAZINE 1% CREAM 50GM JAR. TP SCH ×2 (08:04→21:19)
[2018-08-03] MEDS: NYSTATIN 100,000 UNIT/GM TOPICAL CREAM 15GM TUBE. TP SCH ×3 (08:04→21:19)
--- NOTE | 2018-08-03 12:02 | PN ---
DATE: SUBJECTIVE: The patient states she feels better today. She denied any new medical or neurological complaints. She eats and drinks well. OBJECTIVE: GENERAL: Well-developed female, not in acute distress. VITAL SIGNS: Blood pressure 132/64, respiratory rate 18, pulse is 79, oxygen saturation is 94, and temperature 98.5. HEENT: Normocephalic and atraumatic, otherwise unremarkable. NECK: Supple. Negative for carotid bruit, lymphadenopathy or thyromegaly. LUNGS: Clear to A and P. CARDIOVASCULAR: Regular rhythm, normal S1, S2. ABDOMEN: Soft. Bowel sounds positive. EXTREMITIES: Positive for pitting edema and swelling of the right calf related to previous hematoma as a result of anticoagulation, Xarelto. NEUROLOGICAL EXAM: Mental Status: The patient is alert and oriented x 3. The speech is fluent. There is no language dysfunction. Cranial nerves are otherwise unremarkable. Cranial nerves are intact. Motor examination revealed no focal muscle bulk was seen. The strength is 4/5 in the upper extremities and 2/5 in the lower extremities. Sensory examination revealed diminished pinprick and light touch senses in patchy distribution. Deep tendon reflexes were symmetric and active without pathology responses. LABORATORY DATA: CBC revealed white blood cells of 16,500, hemoglobin 12.8, hematocrit 39.1, and platelet count 669,000. Chemistry revealed sodium 143, potassium 4.5, chloride 108, CO2 of 28, BUN 17, creatinine 0.7, calcium 8.8 and glucose 132. IMPRESSION: 1. Generalized weakness, probably multifactorial including urinary tract infections, immobility due to progressive multiple sclerosis versus possible exacerbation. 2. Multiple medical problems include hypertension, recurrent Clostridium difficile colitis, depression, anxiety, chronic obstructive pulmonary disease and gastroesophageal reflux disease. RECOMMENDATIONS: Continue with current management initiated by Dr. Nuno. Leukocytosis and hyperglycemia, possible due to steroid effect. However, it is not clear whether steroid has been helping the patient at this time. M Ladonna LEMUS MD DR: MAR/beata JOB#: [id number] / [id number]
[2018-08-03] MEDS ORDERED: FUROSEMIDE 40 MG/4 ML VIAL IVP ONE (15:00)
[2018-08-03 15:55] VITALS: BP 150/61
[2018-08-03 18:51] VITALS: BP 130/76
--- NOTE | 2018-08-03 20:15 | PN ---
DATE: 08/03/2018 SUBJECTIVE: The patient is resting, slightly propped up in bed, in no apparent respiratory distress. She is awake, alert, clearly very depressed. She realized that she cannot live on her own anymore and she needs to go for long-term care facility. PHYSICAL EXAMINATION: GENERAL: When I examined her, she looked pale, somewhat cachectic, but no jaundice, cyanosis, or thyromegaly. No jugular venous distension. No limb edema. VITAL SIGNS: Her heart rate was 79, blood pressure 132/64, temperature was 98.5, respiratory rate was 18 and oxygen saturation was 94%. HEAD, EYES, EARS, NOSE AND THROAT: Normocephalic, atraumatic. NECK: Supple. HEART: Showed normal first and second heart sounds with no gallop, rub or murmur. CHEST: Clear to auscultation. No crepitation or rhonchi. ABDOMEN: Distended, soft, nontender. No guarding or rigidity. No organomegaly. She has suprapubic catheter in place. NEUROLOGIC: She is awake, alert, responding appropriately. She moves her upper extremities to much good extent than lower extremities, although she has marked muscle wasting and weakness. She has progressive longstanding multiple sclerosis with functional paraplegia, neurogenic bladder requiring indwelling Lynch catheter. She has stage 3 sacral decubitus ulcer. She has a large hematoma on the outer aspect of right leg. Her intake over the last 24 hours was 2500, output was 1775. LABORATORY WORK: As of this morning showed a serum sodium 143, potassium 4.5, chloride 108, bicarbonate 28, anion gap of 7, BUN 17, creatinine 0.7, estimated GFR was 82 mL per minute. Her glucose was 132 and prothrombin time was 10.6, INR 1.1. Her white cell count was 16,500, hemoglobin 12.8, hematocrit 39, MCV 85 and platelet count 669,000. ASSESSMENT: 1. Generalized weakness and tiredness together with nausea as well as diarrhea. 2. Urinary tract infection for which she is currently on IV Rocephin. She was seen also by Dr. Estrada for possible multiple sclerosis exacerbation and she is now on steroids. 3. Chronic relapsing Clostridium difficile colitis for which she is on continuous oral vancomycin. 4. Chronic progressive multiple sclerosis, functional paraplegia and neurogenic bladder requiring suprapubic catheter. 5. Hypertension. 6. Chronic obstructive pulmonary disease. 7. Seizure disorder. 8. Episode of cerebrovascular accident after which she developed a seizure and was on Vimpat that she discontinued on her own. 9. She has deep vein thrombosis and pulmonary emboli for which she has an inferior vena cava filter. She was on Xarelto that was discontinued after she developed large hematoma on the outer aspect of her right leg. I have discontinued her IV fluid and IV vancomycin. We will continue with the IV steroids and her urine culture has grown more than 100,000 colony forming units per mL of Proteus mirabilis sensitive to ceftriaxone, Cipro as well as levofloxacin. PLAN: My plan is to discontinue IV Rocephin and start her on oral medication. If she gets accepted in a half-way facility, she will be discharged there tomorrow. TERESE ALEMAN MD DR: MADELINE/beata JOB#: [id number] / [id number]
[2018-08-03] MEDS: MIRTAZAPINE 30 MG TABLET PO SCH (21:17)
[2018-08-03] MEDS: traZODone 50 MG TABLET. PO SCH (21:18)
[2018-08-03] MEDS: CIPROFLOXACIN HCL 500 MG TABLET PO SCH (21:18)
[2018-08-03] MEDS: methylPREDNISolone SOD SUCC PF 125 MG/2 ML VIAL. IV SCH (22:21)
[2018-08-03 22:35] VITALS: BP 140/78
[2018-08-04] MEDS: HYDROcodone/APAP 5/325MG 1 TAB TABLET PO PRN ×5 (00:45→20:27)
[2018-08-04 05:39] VITALS: BP 136/79
[2018-08-04] MEDS: methylPREDNISolone SOD SUCC PF 125 MG/2 ML VIAL. IV SCH ×3 (05:41→22:19)
[2018-08-04] MEDS: BACLOFEN 20 MG TABLET PO SCH ×3 (05:42→22:20)
[2018-08-04] MEDS: MULTIVITAMIN with MINERAL TABLET. PO SCH (08:48)
[2018-08-04] MEDS: FUROSEMIDE 40 MG TABLET PO SCH (08:48)
[2018-08-04] MEDS: POTASSIUM CHLORIDE 20 MEQ TABLET.ER. PO SCH (08:48)
[2018-08-04] MEDS: hydrALAZINE 25 MG TABLET PO SCH ×3 (08:48→21:22)
[2018-08-04] MEDS: NICOTINE 21MG PATCH. TD SCH (08:50)
[2018-08-04] MEDS: ASPIRIN 81 MG TAB.CHEW PO SCH (08:52)
[2018-08-04] MEDS: MAGNESIUM OXIDE 400 MG TABLET PO SCH (08:52)
[2018-08-04] MEDS: CIPROFLOXACIN HCL 500 MG TABLET PO SCH ×2 (08:52→21:21)
[2018-08-04] MEDS: LACTOBACILLUS RHAMNOSUS GG 1 CAPSULE. PO SCH ×2 (08:52→21:21)
[2018-08-04] MEDS: LISINOPRIL 20 MG TABLET PO SCH (08:52)
[2018-08-04] MEDS: VANCOMYCIN 125 MG/2.5 ML ORAL SOLUTION. PO SCH ×4 (08:53→21:00)
[2018-08-04] MEDS: CARVEDILOL 6.25 MG TABLET PO SCH ×2 (08:53→21:21)
[2018-08-04] MEDS: PARoxetine 20 MG TABLET PO SCH (08:53)
[2018-08-04] MEDS: silver sulfADIAZINE 1% CREAM 50GM JAR. TP SCH ×2 (08:55→22:21)
[2018-08-04] MEDS: NYSTATIN 100,000 UNIT/GM TOPICAL CREAM 15GM TUBE. TP SCH ×3 (08:55→22:21)
[2018-08-04 14:22] VITALS: BP 123/67
[2018-08-04 19:11] VITALS: BP 131/77
[2018-08-04] MEDS: MIRTAZAPINE 30 MG TABLET PO SCH (21:21)
--- NOTE | 2018-08-04 21:57 | PN ---
DATE: SUBJECTIVE: The patient continued to have generalized weakness. She denies any new medical or neurological complaints. OBJECTIVE: GENERAL: Well-developed, thin female, not in acute distress. VITAL SIGNS: Blood pressure 136/79, respiratory rate 20, pulse is 74, oxygen saturation is 91% on room air. HEENT: Normocephalic, atraumatic, otherwise unremarkable. NECK: Supple. Negative for carotid bruit, lymphadenopathy or thyromegaly. LUNGS: Clear to A and P. CARDIOVASCULAR: Regular rate and rhythm, normal S1, S2. There is no S3, S4, or murmur. ABDOMEN: Soft. Bowel sounds positive. EXTREMITIES: Positive for a bilateral pitting edema and swelling of the right mid calf, which has been old. Etiology uncertain, probably due to trauma versus hematomas due to anticoagulant therapy. NEUROLOGICAL: Mental status: The patient is alert and oriented x 3. Speech is clear. There is no language dysfunction. Memory, judgment and abstract thinking are normal. The patient denies hallucination or delusion. Cranial nerves are intact. Motor examination: No focal motor or sensory deficits. Strength was 4/5 in the upper extremities and 2/5 in the lower extremities. Sensory examination revealed no focal sensory deficit and diminished pinprick and light touch and patchy discretions in both lower extremities. Deep tendon reflexes were symmetric and active. Gait not tested because the patient has severe weakness of the lower extremities due to chronic and progressive multiple sclerosis. IMPRESSION: 1. Generalized weakness, probably multifactorial including underlying urinary tract infections, immobility due to progressive multiple sclerosis and possible recent exacerbations. 2. Multiple medical problems include chronic obstructive pulmonary disease, hypertension, recurrent Clostridium difficile colitis. 3. Urinary tract infection. RECOMMENDATIONS: Continue with current management, initiated by Dr. Nuno. PAIGE RODRIGUEZ MD DR: DAVONTE/beata JOB#: [id number] / [id number]
[2018-08-04] MEDS: traZODone 50 MG TABLET. PO SCH (22:19)
--- NOTE | 2018-08-05 00:47 | PN ---
DATE: 08/04/2018 SUBJECTIVE: The patient is resting, slightly propped up in bed, no apparent distress. On questioning her, denied any complaint. Nursing staff did not voice any concerns, stated she had an uneventful night. PHYSICAL EXAMINATION: GENERAL: When I examined her, she looked pale, somewhat cachectic, no jaundice, cyanosis or thyromegaly. No jugular venous distension. No lower limb edema. VITAL SIGNS: Her heart rate was 95, blood pressure was 123/67, temperature was 98.8, respiratory rate 20 and oxygen saturation was 91% on room air. The rest of clinical examination is stable. Her intake over the last 24 hours was 1620, output was 3150. LABORATORY DATA: Her lab work as of yesterday which showed the serum sodium 143, potassium 4.5, chloride 108, bicarbonate 28, anion gap of 7, BUN 17, creatinine 0.7, estimated GFR was 82 mL per minute. Her glucose 132, calcium was 8.8. White cell count was 16,500, hemoglobin 12.8, hematocrit 39, MCV 85 and platelet count of 669,000. ASSESSMENT: 1. Generalized weakness and tiredness, together with nausea as well as diarrhea, likely multifactorial including urinary tract infection for which she was treated with IV Rocephin and now on oral ciprofloxacin. 2. She was seen also Dr. Estrada for possible multiple sclerosis exacerbation. She is now on steroids. 3. Chronic relapsing Clostridium difficile colitis for which she is on continuous oral vancomycin. 4. 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 5. Hypertension. 6. Chronic obstructive pulmonary disease. 7. Seizure disorder. 8. Episode of cerebrovascular accident after which she developed seizure and was on Vimpat that has discontinued on her own. 9. 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 She used to be on Xarelto that was discontinued after she developed a large hematoma on the outer aspect of the right leg. PLAN: Plan is to continue with IV steroids, continue with oral Cipro and await the arrangement for placement. TERESE ALEMAN MD DR: MADELINE/beata JOB#: [id number] / [id number]
[2018-08-05] MEDS: HYDROcodone/APAP 5/325MG 1 TAB TABLET PO PRN ×3 (00:52→13:12)
[2018-08-05 01:01] VITALS: BP 125/57
[2018-08-05] MEDS: methylPREDNISolone SOD SUCC PF 125 MG/2 ML VIAL. IV SCH ×2 (06:15→14:00)
[2018-08-05] MEDS: BACLOFEN 20 MG TABLET PO SCH ×2 (06:15→13:13)
[2018-08-05 06:23] VITALS: BP 132/68
[2018-08-05] MEDS: PARoxetine 20 MG TABLET PO SCH (08:56)
[2018-08-05] MEDS: POTASSIUM CHLORIDE 20 MEQ TABLET.ER. PO SCH (08:56)
[2018-08-05] MEDS: CIPROFLOXACIN HCL 500 MG TABLET PO SCH (08:57)
[2018-08-05] MEDS: MULTIVITAMIN with MINERAL TABLET. PO SCH (08:57)
[2018-08-05] MEDS: MAGNESIUM OXIDE 400 MG TABLET PO SCH (08:57)
[2018-08-05] MEDS: LACTOBACILLUS RHAMNOSUS GG 1 CAPSULE. PO SCH (08:57)
[2018-08-05] MEDS: ASPIRIN 81 MG TAB.CHEW PO SCH (08:57)
[2018-08-05] MEDS: LISINOPRIL 20 MG TABLET PO SCH (08:58)
[2018-08-05] MEDS: hydrALAZINE 25 MG TABLET PO SCH ×2 (08:58→13:13)
[2018-08-05] MEDS: FUROSEMIDE 40 MG TABLET PO SCH (08:59)
[2018-08-05] MEDS: NICOTINE 21MG PATCH. TD SCH (08:59)
[2018-08-05] MEDS: CARVEDILOL 6.25 MG TABLET PO SCH (08:59)
[2018-08-05] MEDS: VANCOMYCIN 125 MG/2.5 ML ORAL SOLUTION. PO SCH ×2 (09:02→13:12)
[2018-08-05] MEDS: NYSTATIN 100,000 UNIT/GM TOPICAL CREAM 15GM TUBE. TP SCH ×2 (09:03→13:14)
[2018-08-05] MEDS: silver sulfADIAZINE 1% CREAM 50GM JAR. TP SCH (09:03)
--- NOTE | 2018-08-05 10:35 | PN ---
DATE: 08/05/2018 SUBJECTIVE: The patient continues to have swelling of the lower extremities and difficulty moving legs, mainly the right side. She denies headaches, visual disturbances, chest pain, shortness of breath, palpitation, dysarthria, or dysphagia. OBJECTIVE: GENERAL: Well-developed thin female, not in acute distress. VITAL SIGNS: Blood pressure 132/68, respiratory rate 16, pulse is 62 and regular, temperature 97.6, oxygen saturation 94% on room air. HEENT: Normocephalic, atraumatic, otherwise unremarkable. NECK: Supple. Negative for carotid bruit, lymphadenopathy, or thyromegaly. LUNGS: Clear to A and P. CARDIOVASCULAR: Regular rate and rhythm, normal S1, S2. ABDOMEN: Soft. Bowel sounds positive. EXTREMITIES: Positive for pitting edema and swelling of the right mid calf. NEUROLOGICAL: Mental status: The patient is alert and oriented x 3. Speech is fluent. There is no language dysfunction. Memory, judgment, and abstract thinking are normal. The patient denies hallucination or delusion. Cranial nerves are intact. Motor examination revealed marked weakness of the right lower extremity compared to that on the right side. The strength elsewhere was 5/5 in the upper extremities. Sensory examination revealed diminished pinprick and light touch senses in patchy distributions in both lower extremities. Deep tendon reflexes were hypoactive with absent Achilles responses bilaterally. Gait: The patient has severe weakness of the lower extremity secondary to chronic multiple sclerosis. IMPRESSION: 1. Generalized weakness, multifactorial and possible exacerbation of progressive multiple sclerosis. 2. Urinary tract infections may have contributed to generalized weakness, multifactorial and possible exacerbation of progressive multiple sclerosis. 3. Multiple medical problems include chronic obstructive pulmonary disease, hypertension, and recurrent C. difficile colitis. RECOMMENDATIONS: Continue with current management and care initiated by Dr. Nuno. M Ladonna LEMUS MD DR: MAR/beata JOB#: [id number] / [id number]
[2018-08-05 10:56] VITALS: BP 130/71
[2018-08-05 13:13] VITALS: BP 130/71
--- NOTE | 2018-09-02 15:36 | DS ---
DATE OF DISCHARGE: 08/05/2018 HOSPITAL COURSE: The patient is a 72-year-old female patient who was admitted with a complaint of generalized weakness, increasing episodes of diarrhea as well as nausea, but no vomiting. She is known to have progressive multiple sclerosis with functional paraplegia, neurogenic bladder requiring suprapubic catheter for more than 2 years she has been mostly bed bound, wheelchair bound. She was recently admitted to [facility] and from here she was transferred to [facility] to continue treatment of her stage 3 sacrococcygeal decubitus ulcer as well as her cellulitis of her lower extremity. She is also known to have chronic C. diff colitis and her C. diff flares up whenever she was started on antibiotic. On arrival to the Emergency Room, she was pale, extremely cachectic, but no jaundice, cyanosis. No thyromegaly. No jugular venous distention. She was extensively investigated and was found to have finding consistent with urinary tract infection and was treated with IV antibiotic. We continued her oral vancomycin. She was seen in consultation by the wound care team for her stage 3 coccygeal decubitus ulcer. While in the hospital, it became clear that the patient is unable to take care of herself and she requested admission to long-term care. Unfortunately, she does not qualify for Medicaid assistance. The patient has no skilled days available and financially unable to afford long-term care and therefore a private duty assistant professor of communication discussed, information and cost provided, arrange meeting for the patient with [facility] as well as [facility] and eventually the patient was discharged home with home health with private duty with [facility]; however, ____ low air loss mattress ordered and faxed to [facility]. Her son was contacted to transfer her back home. On the day of discharge, the patient was resting slightly propped up, in no apparent distress. She was clearly tearful. Unfortunately, her circumstances did not allow her to go to a long-term care facility as she cannot afford it and she does not qualify for Medicare assistance at least for the time being. PHYSICAL EXAMINATION: GENERAL: She was pale, cachectic, but no jaundice, cyanosis, or thyromegaly. No jugular venous distension. No limb edema. VITAL SIGNS: Her heart rate was 96, blood pressure was 130/71, temperature was 98.3, respiratory rate 20, and oxygen saturation was 92% on room air. HEAD, EYES, EARS, NOSE AND THROAT: Showed normocephalic, atraumatic. NECK: Supple. HEART: Showed normal first and second heart sounds. No gallop or murmur. CHEST: Clear to auscultation. No crepitation or rhonchi. ABDOMEN: Distended, soft, nontender. No guarding or rigidity. No organomegaly. All hernial orifices are intact. Bowel sounds are normal. NEUROLOGIC: She was awake, alert, responding appropriately. All her cranial nerves are intact. She moves upper extremities without difficulty. She has functional paraplegia due to progressive longstanding multiple sclerosis with neurogenic bladder requiring suprapubic catheter. EXTREMITIES: She has stage 3 sacral decubitus ulcer. LABORATORY WORK: On day of discharge showed a serum sodium 143, potassium 4.5, chloride 108, bicarbonate 28, anion gap of 7, BUN 17, creatinine 0.7, estimated GFR was 82 mL per minute. Her glucose was 132, calcium was 8.8. Her white cell count was high at 16.5, hemoglobin was 12.8, hematocrit 39, MCV 85 and platelet count of 669,000. Her prothrombin time was 10.6, INR 1.1. Urinalysis showed that the patient was positive for nitrite and leukocyte esterase with 1-2 rbc's and more than 40 wbc's, and moderate amount of bacteria. DISCHARGE MEDICATIONS: She was discharged to continue all her medication. FINAL DISCHARGE DIAGNOSES: 1. Generalized weakness and tiredness together with nausea as well as diarrhea, likely multifactorial including urinary tract infection for which she was treated with IV Rocephin. She is now on oral ciprofloxacin. 2. She was seen also by Dr. Estrada for possible multiple sclerosis exacerbation. She is now on a tapering course of steroids. 3. Chronic relapsing Clostridium difficile colitis for which she is on continuous oral vancomycin. 4. 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 5. Hypertension. 6. Chronic obstructive pulmonary disease. 7. Seizure disorder. 8. Episode cerebrovascular accident after which she developed a seizure and was on Vimpat that she discontinued on her own. 9. She developed a deep vein thrombosis and pulmonary emboli for which she has an inferior vena cava filter. She used to be on Xarelto that was discontinued after she developed a large hematoma on the outer aspect of the right leg. TERESE ALEMAN MD DR: MADELINE/beata JOB#: [id number] / [id number]
== END 2018-08-05 15:55 | disposition home health service (06) | DRG 58 ==
LOC: ER 17:07 → 1 SOUTH 20:00
PROVIDERS: ADMIT Internal Medicine; ATTEND Internal Medicine
DX: G35 Multiple sclerosis (principal); L89.153 Pressure ulcer of sacral region, stage 3; N39.0 Urinary tract infection, site not specified; A04.71 Enterocolitis due to Clostridium difficile, recurrent; R64 Cachexia; Z68.1 Body mass index [BMI] 19.9 or less, adult; N31.9 Neuromuscular dysfunction of bladder, unspecified; F44.4 Conversion disorder with motor symptom or deficit; J44.9 Chronic obstructive pulmonary disease, unspecified; I10 Essential (primary) hypertension; F17.210 Nicotine dependence, cigarettes, uncomplicated; F32.9 Major depressive disorder, single episode, unspecified; F41.9 Anxiety disorder, unspecified; G40.909 Epilepsy, unspecified, not intractable, without status epilepticus; G89.4 Chronic pain syndrome; K21.9 Gastro-esophageal reflux disease without esophagitis; B96.4 Proteus (mirabilis) (morganii) as the cause of diseases classified elsewhere; M19.90 Unspecified osteoarthritis, unspecified site; M34.9 Systemic sclerosis, unspecified; Z80.3 Family history of malignant neoplasm of breast; Z82.49 Family history of ischemic heart disease and other diseases of the circulatory system; Z86.73 Personal history of transient ischemic attack (TIA), and cerebral infarction without residual deficits; Z99.3 Dependence on wheelchair; Z74.01 Bed confinement status; Z86.718 Personal history of other venous thrombosis and embolism; Z86.711 Personal history of pulmonary embolism
CPT/HCPCS: 36415; 80048; 80053; 80202; 81001; 82550; 83605; 83690; 84484; 85007; 85025; 85027; 85610; 85651; 87040; 87086; 87186; 93005; 96361; 96365; J0696; J1940; J2270; J2405; J2920; J2930; J3370; J7040; J7050; J7120; 99285-25

== ENCOUNTER → 2018-08-25 | Outpatient (CLI) | payer MEDICARE ==
[2018-08-05 13:13] VITALS: BP 130/71
[2018-08-25 14:36] LABS: BILIRUBIN,URINE NEG (NEG); CLARITY,URINE HAZY; COLOR,URINE YELLOW; GLUCOSE,URINE NEG (NEG)
[2018-08-25 14:37] LABS: BACTERIA,URINE MANY /HPF (0-FEW); NITRITE,URINE POS (NEG); UROBILINOGEN,URINE 0.2 mg/dL (0.2 mg/dL); WBC,URINE >40 /HPF (0-4); YEAST,URINE PRESENT /HPF
== END | disposition home or self-care (01) ==
LOC: SPEC 14:18
PROVIDERS: ATTEND Family Medicine
DX: N39.0 Urinary tract infection, site not specified (principal)
CPT/HCPCS: 81001; 87086; 87186

== ENCOUNTER → 2018-10-20 | Outpatient (CLI) | payer MEDICARE ==
[2018-10-20 11:07] LABS: AMORPHOUS SEDIMENT,UR PRESENT /HPF; BACTERIA,URINE MANY /HPF (0-FEW); BILIRUBIN,URINE NEG (NEG); CLARITY,URINE HAZY; COLOR,URINE YELLOW; GLUCOSE,URINE NEG (NEG); NITRITE,URINE POS (NEG); RBC,URINE RARE /HPF (0-2); SQUAMOUS EPITHELIAL CELL,UR OCC /LPF; UROBILINOGEN,URINE 0.2 mg/dL (0.2 mg/dL)
== END | disposition home or self-care (01) ==
LOC: SPEC 10:42
PROVIDERS: ATTEND Family Medicine
DX: N39.0 Urinary tract infection, site not specified (principal)
CPT/HCPCS: 81001; 87086

== ENCOUNTER 2018-11-15 14:44 | Emergency (ER) | payer MEDICARE ==
[~2018-11-15] VITALS: Ht 175.3 cm; Wt 49.9 kg
--- NOTE | 2018-11-15 15:05 | PHYS DOC ---
Past History Past Medical History: COPD, CVA, DVT, Hypertension, UTI, Other Additional Past Medical Histor: multiple sclerosis Past Surgical History: Other Smoking: Cigarettes Alcohol Use: None Drug Use: None Adult General Chief Complaint Chief Complaint: PAIN ON URINATION HPI HPI Patient is a 73-year-old female presents with burning and discomfort at the urinary catheter site for the past weeks to months. She has an indwelling catheter for years due to MS. Last change out was approximately 2 weeks ago. She denies any blood in the urine. She denies any blood in her stool or when wiping. No fevers. No recent acute worsening in her MS symptoms. No back pain or flank pain.[] Review of Systems Review of Systems Constitutional: Denies fever or chills [] Eyes: Denies change in visual acuity, redness, or eye pain [] HENT: Denies nasal congestion or sore throat [] Respiratory: Denies cough or shortness of breath [] Cardiovascular: No chest pain or palpitations[] GI: Denies abdominal pain, vomiting, bloody stools or diarrhea. Patient has had long-standing nausea without any acute changes. Patient forgot to take her home antiemetics today. [] : See history of present illness[] Musculoskeletal: Denies back pain or joint pain [] Integument: Denies rash or skin lesions [] Neurologic: Denies headache, focal weakness or sensory changes [] Endocrine: Denies polyuria or polydipsia [] All other systems were reviewed and found to be within normal limits, except as documented in this note. Current Medications Current Medications Current Medications Medications (Trade) Dose Ordered Sig/[facility] Start Time Stop Time Status Last Admin Dose Admin Ondansetron HCl (Zofran Odt) 4 mg 1X ONCE 11/15/18 15:00 11/15/18 15:01 UNV Allergies Allergies Allergies Coded Allergies Type Severity Reaction Last Updated Verified I S O L A T I O N *CONTACT* Allergy Unknown 07/30/18 Yes NKMA Allergy Unknown 07/30/18 Yes Physical Exam Physical Exam Constitutional: Well developed, well nourished, no acute distress, non-toxic appearance. [] HENT: Normocephalic, atraumatic, bilateral external ears normal, oropharynx m oist, no oral exudates, nose normal. [] Eyes: PERRLA, EOMI, conjunctiva normal, no discharge. [] Neck: Normal range of motion, no tenderness, supple, no stridor. [] Cardiovascular:Heart rate regular rhythm, no murmur [] Lungs & Thorax: Bilateral breath sounds clear to auscultation [] Abdomen: Bowel sounds normal, soft, no tenderness, no masses, no pulsatile masses. [] Skin: Warm, dry, no erythema, no rash. [] Back: No tenderness, no CVA tenderness. [] Extremities: No tenderness, no cyanosis, no clubbing, ROM intact, no edema. [] Neurologic: Alert and oriented X 3, normal motor function, normal sensory function, no focal deficits noted. [] Psychologic: Affect normal, judgement normal, mood normal. [] EKG EKG [] Radiology/Procedures Radiology/Procedures [] Course & Med Decision Making Course & Med Decision Making Pertinent Labs and Imaging studies reviewed. (See chart for details) ED course: Patient arrived, was placed in bed, and tolerated exam well. She was given antiemetics which improved her nausea. After the return of laboratory studies, these were discussed with the patient voiced understanding. All questions were answered. She was discharged in improved condition. Medical decision making: Patient with continued irritation despite change in the catheter. Will cover for urinary tract infection. There is no evidence of tejal lonephritis. No evidence of worsening MS. No evidence of intractable nausea or vomiting.[] Dragon Disclaimer Dragon Disclaimer This electronic medical record was generated, in whole or in part, using a voice recognition dictation system. Departure Departure: Impression: Primary Impression: Multiple sclerosis Additional Impressions: UTI (urinary tract infection) Presence of indwelling urinary catheter Disposition: 01 HOME, SELF-CARE Condition: IMPROVED Referrals: GRACIE OLIVARES MD (PCP) Follow-up in 2 days Patient Instructions: Lynch Catheter Care, Adult, Urinary Tract Infection Additional Instructions: Follow-up with your regular doctor in 2 days. Scripts Ondansetron Hcl (ZOFRAN) 4 Mg Tablet 1 TAB PO Q6HRS for nausea or vomiting, #20 TAB Prov: PRIYANKA MOYA DO 11/15/18 Nitrofurantoin Monohyd/M-Cryst (MACROBID 100 MG CAPSULE) 100 Mg Capsule 1 CAP PO BID for urinary tract infection, #20 CAP Prov: PRIYANKA MOYA DO 11/15/18 Problem Qualifiers Additional Impressions: UTI (urinary tract infection) Urinary tract infection type: site unspecified Hematuria presence: without hematuria Qualified Codes: N39.0 - Urinary tract infection, site not specified PRIYANKA MOYA DO Nov 15, 2018 15:05
[2018-11-15] MEDS ORDERED: ONDANSETRON ODT 4 MG TAB.RAPDIS PO ONE (15:30)
[2018-11-15 15:35] LABS: BILIRUBIN,URINE NEG (NEG); CLARITY,URINE TURBID; COLOR,URINE AMBER; GLUCOSE,URINE NEG (NEG)
[2018-11-15 15:36] LABS: BACTERIA,URINE MOD /HPF (0-FEW); HYALINE CASTS, URINE OCC /HPF; NITRITE,URINE POS (NEG); SQUAMOUS EPITHELIAL CELL,UR OCC /LPF; UROBILINOGEN,URINE 0.2 mg/dL (0.2 mg/dL); WBC,URINE 20-40 /HPF (0-4)
[2018-11-15] MEDS ORDERED: ONDA4TAB7 PO (15:45)
[2018-11-15] MEDS ORDERED: NITR100C62 PO (15:45)
[2018-11-15 17:10] VITALS: BP 142/89
== END 2018-11-15 16:00 | disposition home or self-care (01) ==
LOC: ER 14:44
DX: N39.0 Urinary tract infection, site not specified (principal); G35 Multiple sclerosis; J44.9 Chronic obstructive pulmonary disease, unspecified; I10 Essential (primary) hypertension; F17.210 Nicotine dependence, cigarettes, uncomplicated; Z96.0 Presence of urogenital implants; Z87.440 Personal history of urinary (tract) infections; Z86.73 Personal history of transient ischemic attack (TIA), and cerebral infarction without residual deficits; Z86.718 Personal history of other venous thrombosis and embolism; Z91.041 Radiographic dye allergy status
CPT/HCPCS: 81001; 87086; 99284; Q0162

== ENCOUNTER 2019-01-26 12:55 | Emergency (ER) | payer MEDICARE ==
[~2019-01-26] VITALS: Ht 175.3 cm; Wt 56.2 kg
[~2019-01-26 12:55] MED LIST changes: +NITR100C62 PO; +ONDA4TAB7 PO
[2019-01-26] MEDS ORDERED: IV NORMAL SALINE 1,000ML 1,000 ML IV ONE (13:15)
--- NOTE | 2019-01-26 13:27 | EKG ---
[address] [address] Test Date: 2019-01-26 Test Time: 13:14:09 Pat Name: SERGIO PISANO Department: Room: Gender: F Histopathology Technician: : 1945 Requested By: ROEL BEE Order Number: [id number] Reading MD: Damian Dobson MD Measurements Intervals [place] Rate: 69 P: -35 [place]: 128 QRS: -11 QRSD: 80 T: 63 QT: 394 QTc: 424 Interpretive Statements SINUS RHYTHM Electronically Signed On 01-27-2019 14:13:40 CDT by Damian Dobson MD
[2019-01-26] MEDS ORDERED: ONDANSETRON PF 4 MG/2 ML VIAL. IV ONE (13:45)
[2019-01-26 13:47] LABS: BASO # 0.1 x10^3/uL (0.0-0.2); BASO % 1 % (0-3); EOS # 0.4 x10^3/uL (0.0-0.7); EOS % 4 % (0-3); HEMATOCRIT 44.1 % (36.0-47.0); HEMOGLOBIN 14.6 g/dL (12.0-15.5); LYMPH # 1.4 x10^3/uL (1.0-4.8); LYMPH % 16 % (24-48); MEAN CORPUSCULAR HEMOGLOBIN 29 pg (25-35); MEAN CORPUSCULAR HGB CONC 33 g/dL (31-37); MEAN CORPUSCULAR VOLUME 88 fL (79-100); MONO # 0.5 x10^3/uL (0.0-1.1); MONO % 6 % (0-9); NEUT % 72 % (31-73); PLATELET COUNT 458 x10^3/uL (140-400); RED BLOOD COUNT 5.03 x10^6/uL (3.50-5.40); RED CELL DISTRIBUTION WIDTH 17.6 % (11.5-14.5); WHITE BLOOD COUNT 8.3 x10^3/uL (4.0-11.0)
[2019-01-26 13:49] LABS: ALBUMIN 2.7 g/dL (3.4-5.0); ALBUMIN/GLOBULIN RATIO 0.8 (1.0-1.7); CALCIUM 8.9 mg/dL (8.5-10.1); CREATININE 0.6 mg/dL (0.6-1.0); GFR 97.7; POTASSIUM 3.9 mmol/L (3.5-5.1); TOTAL BILIRUBIN 0.3 mg/dL (0.2-1.0); TOTAL PROTEIN 6.1 g/dL (6.4-8.2)
[2019-01-26 14:15] LABS: BILIRUBIN,URINE NEG (NEG); CLARITY,URINE CLOUDY; COLOR,URINE AMBER; GLUCOSE,URINE NEG (NEG); NITRITE,URINE POS (NEG); UROBILINOGEN,URINE 0.2 mg/dL (0.2 mg/dL)
[2019-01-26 14:16] LABS: BACTERIA,URINE MANY /HPF (0-FEW); RBC,URINE RARE /HPF (0-2); SQUAMOUS EPITHELIAL CELL,UR FEW /LPF
--- NOTE | 2019-01-26 14:36 | PHYS DOC ---
Past History Past Medical History: CHF, COPD, CVA, Depression, DVT, Seizure, TIA, UTI, Other Additional Past Medical Histor: multiple sclerosis Past Surgical History: Other Smoking: Cigarettes Additional Smoking Information: PACK/DAY Alcohol Use: None Drug Use: None Adult General Chief Complaint Chief Complaint: WEAKNESS/GENERALIZED HPI HPI 73-year-old female presents via EMS with nausea, fatigue, general weakness. The patient states that when she feels like that she usually has urinary tract infection. She has a chronic Lynch catheter. She has had some minor chills, but no measured fever. She has lower abdominal discomfort. She denies any other complaints. Review of Systems Review of Systems Constitutional: Denies fever[] Eyes: Denies change in visual acuity, redness, or eye pain [] HENT: Denies nasal congestion or sore throat [] Respiratory: Denies cough or shortness of breath [] Cardiovascular: No additional information not addressed in HPI [] GI: Lower abdominal pain, nausea. Denies vomiting, bloody stools or diarrhea [] : Denies dysuria or hematuria [] Musculoskeletal: Denies back pain or joint pain [] Integument: Denies rash or skin lesions [] Neurologic: Denies headache, focal weakness or sensory changes [] Endocrine: Denies polyuria or polydipsia [] All other systems were reviewed and found to be within normal limits, except as documented in this note. Current Medications Current Medications Current Medications Medications (Trade) Dose Ordered Sig/[facility] Start Time Stop Time Status Last Admin Dose Admin Ceftriaxone Sodium 1 gm/ Sodium Chloride 50 ml @ 100 mls/hr 1X ONCE 01/26/19 14:30 01/26/19 14:59 Ondansetron HCl (Zofran) 4 mg 1X ONCE 01/26/19 13:45 01/26/19 13:46 DC 01/26/19 13:44 4 MG Sodium Chloride 1,000 ml @ 1,000 mls/hr 1X ONCE 01/26/19 13:15 01/26/19 14:14 DC 01/26/19 13:42 1,000 MLS/HR Allergies Allergies Allergies Coded Allergies Type Severity Reaction Last Updated Verified I S O L A T I O N *CONTACT* Allergy Unknown 07/30/18 Yes NKMA Allergy Unknown 07/30/18 Yes Physical Exam Physical Exam Constitutional: Well developed, well nourished, no acute distress, non-toxic appearance. [] HENT: Normocephalic, atraumatic, bilateral external ears normal, oropharynx moist, no oral exudates, nose normal. [] Eyes: PERRLA, EOMI, conjunctiva normal, no discharge. [] Neck: Normal range of motion, no tenderness, supple, no stridor. [] Cardiovascular:Heart rate regular rhythm, no murmur [] Lungs & Thorax: Bilateral breath sounds clear to auscultation [] Abdomen: Bowel sounds normal, soft, mild suprapubic tenderness, no masses, no pulsatile masses. Lynch catheter in place[] Skin: Warm, dry, no erythema, no rash. [] Back: No tenderness, no CVA tenderness. [] Extremities: No tenderness, no cyanosis, no clubbing, ROM intact, no edema. [] Neurologic: Alert and oriented X 3, normal motor function, normal sensory function, no focal deficits noted. [] Psychologic: Affect normal, judgement normal, mood normal. [] Current Patient Data Vital Signs Vital Signs Date Time Temp Pulse Resp B/P (MAP) Pulse Ox O2 Delivery O2 Flow Rate FiO2 01/26/19 12:55 98.6 72 20 93 Room Air Lab Results Laboratory Tests Test 01/26/19 13:15 01/26/19 13:16 White Blood Count 8.3 x10^3/uL (4.0-11.0) Red Blood Count 5.03 x10^6/uL (3.50-5.40) Hemoglobin 14.6 g/dL (12.0-15.5) Hematocrit 44.1 % (36.0-47.0) Mean Corpuscular Volume 88 fL (79-100) Mean Corpuscular Hemoglobin 29 pg (25-35) Mean Corpuscular Hemoglobin Concent 33 g/dL (31-37) Red Cell Distribution Width 17.6 % (11.5-14.5) H Platelet Count 458 x10^3/uL (140-400) H Neutrophils (%) (Auto) 72 % (31-73) Lymphocytes (%) (Auto) 16 % (24-48) L Monocytes (%) (Auto) 6 % (0-9) Eosinophils (%) (Auto) 4 % (0-3) H Basophils (%) (Auto) 1 % (0-3) Neutrophils # (Auto) 6.0 x10^3uL (1.8-7.7) Lymphocytes # (Auto) 1.4 x10^3/uL (1.0-4.8) Monocytes # (Auto) 0.5 x10^3/uL (0.0-1.1) Eosinophils # (Auto) 0.4 x10^3/uL (0.0-0.7) Basophils # (Auto) 0.1 x10^3/uL (0.0-0.2) Sodium Level 140 mmol/L (136-145) Potassium Level 3.9 mmol/L (3.5-5.1) Chloride Level 105 mmol/L (98-107) Carbon Dioxide Level 30 mmol/L (21-32) Anion Gap 5 (6-14) L Blood Urea Nitrogen 11 mg/dL (7-20) Creatinine 0.6 mg/dL (0.6-1.0) Estimated GFR (Cockcroft-Gault) 97.7 BUN/Creatinine Ratio 18 (6-20) Glucose Level 93 mg/dL (70-99) Calcium Level 8.9 mg/dL (8.5-10.1) Total Bilirubin 0.3 mg/dL (0.2-1.0) Aspartate Amino Transferase (AST) 36 U/L (15-37) Alanine Aminotransferase (ALT) 39 U/L (14-59) Alkaline Phosphatase 97 U/L (46-116) Total Protein 6.1 g/dL (6.4-8.2) L Albumin 2.7 g/dL (3.4-5.0) L Albumin/Globulin Ratio 0.8 (1.0-1.7) L Urine Collection Type Unknown Urine Color Roseann Urine Clarity Cloudy Urine pH 7.0 Urine Specific Silver 1.015 Urine Protein Trace (NEG-TRACE) Urine Glucose (UA) Neg mg/dL (NEG) Urine Ketones (Stick) Neg mg/dL (NEG) Urine Blood Trace (NEG) Urine Nitrite Pos (NEG) Urine Bilirubin Neg (NEG) Urine Urobilinogen Dipstick 0.2 mg/dL (0.2 mg/dL) Urine Leukocyte Esterase Mod (NEG) Urine RBC Rare /HPF (0-2) Urine WBC 11-20 /HPF (0-4) Urine Squamous Epithelial Cells Few /LPF Urine Bacteria Many /HPF (0-FEW) Urine Mucus Slight /LPF EKG EKG [] Radiology/Procedures Radiology/Procedures [] Course & Med Decision Making Course & Med Decision Making Pertinent Labs and Imaging studies reviewed. (See chart for details) Patient does have a UTI. I will treat her with 1 g of Rocephin in the ED. We long cobian look at her previous urine culture to help guide oral antibiotic therapy. The patient does not want treatment at the hospital. She would rather go home. I did not give the patient Rocephin as her previous urine cultures showed likely resistance to cephalosporins. I gave her meropenem instead. I will discharge her with 7 days of levofloxacin 750 mg tablets. [] Dragon Disclaimer Dragon Disclaimer This electronic medical record was generated, in whole or in part, using a voice recognition dictation system. Departure Departure: Impression: Primary Impression: UTI (urinary tract infection) Disposition: HOME, SELF-CARE Condition: STABLE Referrals: GRACIE OLIVARES MD (PCP) Patient Instructions: Urinary Tract Infection, [id number] Scripts Levofloxacin (LEVOFLOXACIN) 750 Mg Tablet 1 TAB PO DAILY for UTI, #7 TAB Prov: ROEL BEE DO 01/26/19 Problem Qualifiers Primary Impression: UTI (urinary tract infection) Urinary tract infection type: catheter-associated UTI Indwelling urinary catheter type: indwelling urethral catheter Encounter type: initial encounter Qualified Codes: T83.511A - Infection and inflammatory reaction due to indwelling urethral catheter, initial encounter; N39.0 - Urinary tract infection, site not specified ROEL BEE DO Jan 26, 2019 14:36
[2019-01-26 14:59] VITALS: BP 150/84
[2019-01-26] MEDS ORDERED: MEROPENEM 1 GM VIAL IV ONE (15:33)
[2019-01-26] MEDS ORDERED: IV NORMAL SALINE 100ML 100 ML ONE (15:33)
[2019-01-26] MEDS ORDERED: MEROPENEM 1 GM in IV NORMAL SALINE 100ML 100 ML IV ONE (15:45)
[2019-01-26] MEDS ORDERED: LEVO750T5 PO (15:53)
[2019-01-26] MEDS ORDERED: HYDROcodone/APAP 5/325MG 1 TAB TABLET PO ONE (16:00)
[2019-01-26] MEDS ORDERED: MEROPENEM 1 GM in IV NORMAL SALINE 100ML 100 ML IV SCH (22:00)
== END 2019-01-26 16:09 | disposition home or self-care (01) ==
LOC: ER 13:00
DX: T83.511A Infection and inflammatory reaction due to indwelling urethral catheter, initial encounter (principal); N39.0 Urinary tract infection, site not specified; I50.9 Heart failure, unspecified; J44.9 Chronic obstructive pulmonary disease, unspecified; Z86.718 Personal history of other venous thrombosis and embolism; Z86.73 Personal history of transient ischemic attack (TIA), and cerebral infarction without residual deficits; F17.210 Nicotine dependence, cigarettes, uncomplicated; Z91.041 Radiographic dye allergy status
CPT/HCPCS: 36415; 80053; 81001; 85025; 87086; 93005; 96365; 96375; 99285; J2185; J2405; J7030

== ENCOUNTER 2019-01-28 18:39 | Inpatient (IN) | payer MEDICARE ==
[~2019-01-28] VITALS: Ht 175.3 cm; Wt 54.4 kg
[~2019-01-28 18:39] MED LIST changes: +LEVO750T5 PO
--- NOTE | 2019-01-28 18:43 | ED.ADGEN ---
Past History Past Medical History: CHF, COPD, CVA, Depression, DVT, Seizure, TIA, UTI, Other Additional Past Medical Histor: multiple sclerosis Past Surgical History: Other Smoking: Cigarettes Alcohol Use: None Drug Use: None Adult General Chief Complaint Chief Complaint ".. I was in here Wed. for a UTI.. but the antibiotic they discharged me on does not seem to be working.. Levofloxacin.. 750.... I have MS for maybe 30 yrs.. so I get lots of UTI like complaints.. because of the knapp...and all..." [facility] HPI Patient is a 73 year old female who presents with above hx and complaints of increased weakness and dysuria since seen in the emergency room. Patient states she's been compliant with taking Levaquin daily. Patient states she still has pain with urination or in her pelvic. Does have a Knapp in place because a urinary retention secondary to her sclerosis. Patient is not on any immunosuppressive drugs currently. No history of travel. No history of specific ill contacts. Has had numerous urinary tract infections in the past. Follows with Dr. Butterfield Review of Systems Review of Systems Constitutional: Complaints of generalized malaise and myalgia Eyes: Denies change in visual acuity, redness, or eye pain [] HENT: Denies nasal congestion or sore throat [] Respiratory: Denies cough or shortness of breath [] Cardiovascular: No additional information not addressed in HPI [] GI: Denies abdominal pain, nausea, vomiting, bloody stools or diarrhea [] : Complains of dysuria and hematuria] Musculoskeletal: Denies back pain or joint pain []plaints of generalized weakness Integument: Denies rash or skin lesions [] Neurologic: Denies headache, focal weakness or sensory changes [] Endocrine: Denies polyuria or polydipsia [] All other systems were reviewed and found to be within normal limits, except as documented in this note. Family History Family History Noncontributory Current Medications Current Medications See nursing for home meds Allergies Allergies Allergies Coded Allergies Type Severity Reaction Last Updated Verified I S O L A T I O N *CONTACT* Allergy Unknown 07/30/18 Yes NKMA Allergy Unknown 07/30/18 Yes Physical Exam Physical Exam Constitutional: Moderate acute distress, non-toxic appearance. [] HENT: Normocephalic, atraumatic, bilateral external ears normal, oropharynx dry, no oral exudates, nose normal. [] Eyes: PERRLA, EOMI, conjunctiva normal, no discharge. [] Neck: Normal range of motion, no tenderness, supple, no stridor. [] Cardiovascular:Heart rate regular rhythm, no murmur []PMI slightly to the left Lungs & Thorax: Bilateral breath sounds equal at apex auscultation [] Abdomen: Bowel sounds normal, soft, no tenderness, no masses, no pulsatile masses. [] Knapp Skin: Warm, dry, no erythema, no rash. Poor turgor Back: No tenderness, no CVA tenderness. [] Extremities: No tenderness, no cyanosis, no clubbing, ROM intact, no edema. [] Arthritic changes and muscle wasting. Neurologic: Alert and oriented X 3, generalized motor motor weakness does have distal sensory, foot drop []Generalized weakness Psychologic: Affect anxious, judgement normal, mood normal. [] Current Patient Data Vital Signs Vital Signs Date Time Temp Pulse Resp B/P (MAP) Pulse Ox O2 Delivery O2 Flow Rate FiO2 01/28/19 19:53 69 20 141/79 (99) 92 Room Air 01/28/19 18:57 97.7 Lab Results Laboratory Tests Test 01/28/19 19:05 Urine Collection Type Unknown Urine Color Yellow Urine Clarity Cloudy Urine pH 7.0 Urine Specific Pierce 1.015 Urine Protein 30 mg/dl (NEG-TRACE) Urine Glucose (UA) Neg mg/dL (NEG) Urine Ketones (Stick) Neg mg/dL (NEG) Urine Blood Mod (NEG) Urine Nitrite Pos (NEG) Urine Bilirubin Neg (NEG) Urine Urobilinogen Dipstick 0.2 mg/dL (0.2 mg/dL) Urine Leukocyte Esterase Mod (NEG) Urine RBC 20-40 /HPF (0-2) Urine WBC >40 /HPF (0-4) Urine Squamous Epithelial Cells Occ /LPF Urine Bacteria Few /HPF (0-FEW) EKG EKG I interpretation EKG shows a sinus rhythm at 60 bpm. Low limb old age.[] Radiology/Procedures Radiology/Procedures [][address] [address] IMAGING REPORT Signed PATIENT: SERGIO PISANO MACCOUNT: [id number] : 1945 LOCATION: [address] [place] [address] AGE: 73 SEX: F EXAM STATUS: ADM IN ORD. PHYSICIAN: KIRSTY BECKFORD MD REASON: UTI, cough, MS, Fever PROCEDURE: PORTABLE CHEST 1V PORTABLE CHEST 1V INDICATION: Cough. COMPARISON STUDY: 07/02/2018. FINDINGS: Lungs: Normal lung volume. Similar prominent interstitial markings. No confluent consolidation Pleura: No pleural effusion or pneumothorax. Heart and Mediastinum: Stable cardiomediastinal silhouette and great vessels. IMPRESSION: Prominent interstitial markings, similar to the prior exam. This could represent interstitial edema and/or interstitial lung disease. Electronically signed by: Esme Topete MD (01/28/2019 11:21 PM) [facility] DICTATED AND SIGNED BY: ESME TOPETE MD DATE: 01/28/19 [id number] CC: GRACIE BUTTERFIELD MD; KIRSTY BECKFORD MD; NOREEN MARIA MD ~ Course & Med Decision Making Course & Med Decision Making Pertinent Labs and Imaging studies reviewed. (See chart for details) Discussed presentation, testing and treatment plan with , Will admit . [] Final Impression Final Impression 1. Hx.of UTI[]- Out pt. Tx. failure 2. Multiple sclerosis 3. Diabetes 4. Deconditioning 5. Malnutrition albumin 2.1 6. Elevated BNP 742 Dragon Disclaimer Dragon Disclaimer This electronic medical record was generated, in whole or in part, using a voice recognition dictation system. Dragon Disclaimer This chart was dictated in whole or in part using Voice Recognition software in a busy, high-work load, and often noisy Emergency Department environment. It may contain unintended and wholly unrecognized errors or omissions. Dragon Disclaimer This chart was dictated in whole or in part using Voice Recognition software in a busy, high-work load, and often noisy Emergency Department environment. It may contain unintended and wholly unrecognized errors or omissions. KIRSTY BECKFORD MD Jan 28, 2019 18:43
[2019-01-28 20:13] LABS: BILIRUBIN,URINE NEG (NEG); CLARITY,URINE CLOUDY; COLOR,URINE YELLOW; GLUCOSE,URINE NEG (NEG); NITRITE,URINE POS (NEG); RBC,URINE 20-40 /HPF (0-2); UROBILINOGEN,URINE 0.2 mg/dL (0.2 mg/dL)
[2019-01-28 20:14] LABS: BACTERIA,URINE FEW /HPF (0-FEW); SQUAMOUS EPITHELIAL CELL,UR OCC /LPF; WBC,URINE >40 /HPF (0-4)
[2019-01-28] MEDS ORDERED: IV RINGERS SOLUTION,LACTATED 1,000 ML IV SCH (20:33)
[2019-01-28] MEDS ORDERED: ACETAMINOPHEN 325 MG TABLET PO PRN (20:45)
[2019-01-28] MEDS ORDERED: PHENAZOPYRIDINE 200 MG TABLET. PO ONE (20:45)
[2019-01-28] MEDS ORDERED: ONDANSETRON PF 4 MG/2 ML VIAL. IV PRN (20:45)
[2019-01-28] MEDS ORDERED: IV NORMAL SALINE 50ML 50 ML ONE ×2 (21:00→21:05)
[2019-01-28] MEDS ORDERED: cefTRIAXone SODIUM 1 GM VIAL ONE (21:01)
--- NOTE | 2019-01-28 21:06 | EKG ---
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
[2019-01-28 21:09] LABS: BASO # 0.1 x10^3/uL (0.0-0.2); BASO % 1 % (0-3); EOS # 0.4 x10^3/uL (0.0-0.7); EOS % 4 % (0-3); HEMATOCRIT 44.3 % (36.0-47.0); HEMOGLOBIN 14.6 g/dL (12.0-15.5); LYMPH # 1.8 x10^3/uL (1.0-4.8); LYMPH % 20 % (24-48); MEAN CORPUSCULAR HEMOGLOBIN 29 pg (25-35); MEAN CORPUSCULAR HGB CONC 33 g/dL (31-37); MEAN CORPUSCULAR VOLUME 87 fL (79-100); MONO # 0.7 x10^3/uL (0.0-1.1); MONO % 7 % (0-9); NEUT % 67 % (31-73); PLATELET COUNT 454 x10^3/uL (140-400); RED CELL DISTRIBUTION WIDTH 17.1 % (11.5-14.5)
[2019-01-28 21:24] LABS: ALBUMIN 2.7 g/dL (3.4-5.0); CALCIUM 8.7 mg/dL (8.5-10.1); CREATININE 0.6 mg/dL (0.6-1.0); DIRECT BILIRUBIN 0.1 mg/dL (0.0-0.2); GFR 97.7; MAGNESIUM 1.8 mg/dL (1.8-2.4); POTASSIUM 3.7 mmol/L (3.5-5.1); TOTAL BILIRUBIN 0.3 mg/dL (0.2-1.0); TOTAL PROTEIN 6.1 g/dL (6.4-8.2)
[2019-01-28 22:17] LABS: SEDIMENTATION RATE 5 (0-25)
--- NOTE | 2019-01-28 23:24 | RAD ---
PORTABLE CHEST 1V INDICATION: Cough. COMPARISON STUDY: 07/02/2018. FINDINGS: Lungs: Normal lung volume. Similar prominent interstitial markings. No confluent consolidation Pleura: No pleural effusion or pneumothorax. Heart and Mediastinum: Stable cardiomediastinal silhouette and great vessels. IMPRESSION: Prominent interstitial markings, similar to the prior exam. This could represent interstitial edema and/or interstitial lung disease. Electronically signed by: Dov Topete MD (01/28/2019 11:21 PM) [facility]
[2019-01-29 00:33] VITALS: BP 152/70
[2019-01-29] MEDS ORDERED: COLL30OI TP (02:08)
[2019-01-29] MEDS ORDERED: CLOT15CR4 TP (02:10)
[2019-01-29] MEDS ORDERED: APIX5TAB3 PO (02:12)
[2019-01-29] MEDS ORDERED: IPRATRPIUM/ALBUTEROL 0.5/2.5MG 3 ML NEBU. NEB SCH (08:00)
[2019-01-29] MEDS ORDERED: MECLIZINE 12.5 MG TABLET. PO PRN (10:15)
[2019-01-29] MEDS ORDERED: LOPERAMIDE 2 MG CAPSULE PO PRN (10:15)
[2019-01-29] MEDS: CLOTRIMAZOLE 1% TOPICAL CREAM 30GM TUBE. TP SCH (10:30)
[2019-01-29] MEDS: silver sulfADIAZINE 1% CREAM 50GM JAR. TP SCH ×2 (10:30→21:28)
[2019-01-29 10:47] VITALS: BP 135/78
[2019-01-29] MEDS: APIXABAN 5 MG TABLET. PO SCH ×2 (11:04→20:59)
[2019-01-29] MEDS: HYDROcodone/APAP 10/325 1 TAB TABLET PO PRN ×3 (11:05→21:28)
[2019-01-29] MEDS: CARVEDILOL 6.25 MG TABLET PO SCH ×2 (11:05→16:31)
[2019-01-29] MEDS: LISINOPRIL 20 MG TABLET PO PRN (11:06)
[2019-01-29] MEDS: MULTIVITAMIN with MINERAL TABLET. PO SCH (11:07)
[2019-01-29] MEDS: hydrALAZINE 25 MG TABLET PO SCH ×3 (11:07→21:00)
[2019-01-29] MEDS: PARoxetine 20 MG TABLET PO SCH (11:07)
[2019-01-29] MEDS: ASPIRIN 81 MG TAB.CHEW PO SCH (11:08)
[2019-01-29] MEDS: VANCOMYCIN 125 MG/2.5 ML ORAL SOLUTION. PO SCH ×3 (13:08→21:27)
[2019-01-29] MEDS: BACLOFEN 20 MG TABLET PO SCH ×2 (13:08→21:28)
[2019-01-29] MEDS: NYSTATIN 100,000 UNIT/GM TOPICAL CREAM 15GM TUBE. TP SCH ×2 (13:08→21:28)
[2019-01-29 15:08] VITALS: BP 102/61
[2019-01-29 20:11] VITALS: BP 137/78
[2019-01-29] MEDS: MIRTAZAPINE 15 MG TABLET PO SCH (20:59)
[2019-01-29] MEDS: LACTOBACILLUS RHAMNOSUS GG 1 CAPSULE. PO SCH (20:59)
[2019-01-29] MEDS: traZODone 50 MG TABLET. PO SCH (20:59)
[2019-01-29 22:47] VITALS: BP 107/61
[2019-01-30] MEDS: HYDROcodone/APAP 10/325 1 TAB TABLET PO PRN ×5 (03:34→20:48)
[2019-01-30 05:36] VITALS: BP 141/73
[2019-01-30] MEDS: BACLOFEN 20 MG TABLET PO SCH ×4 (06:04→20:47)
[2019-01-30] MEDS: APIXABAN 5 MG TABLET. PO SCH ×2 (08:32→20:47)
[2019-01-30] MEDS: PARoxetine 20 MG TABLET PO SCH (08:32)
[2019-01-30] MEDS: ASPIRIN 81 MG TAB.CHEW PO SCH (08:32)
[2019-01-30] MEDS: hydrALAZINE 25 MG TABLET PO SCH ×3 (08:33→20:58)
[2019-01-30] MEDS: LACTOBACILLUS RHAMNOSUS GG 1 CAPSULE. PO SCH ×2 (08:33→20:47)
[2019-01-30] MEDS: MULTIVITAMIN with MINERAL TABLET. PO SCH (08:33)
[2019-01-30] MEDS: CARVEDILOL 6.25 MG TABLET PO SCH ×2 (08:33→17:00)
[2019-01-30] MEDS: silver sulfADIAZINE 1% CREAM 50GM JAR. TP SCH ×2 (08:34→20:51)
[2019-01-30] MEDS: CLOTRIMAZOLE 1% TOPICAL CREAM 30GM TUBE. TP SCH (08:34)
[2019-01-30] MEDS: NYSTATIN 100,000 UNIT/GM TOPICAL CREAM 15GM TUBE. TP SCH ×3 (08:34→20:49)
[2019-01-30] MEDS: NICOTINE 21MG PATCH. TD SCH (08:34)
[2019-01-30] MEDS ORDERED: COLLAGENASE 250 UNIT/GM TOPICAL OINTMENT 30GM TUBE. TP SCH (09:00)
[2019-01-30] MEDS: VANCOMYCIN 125 MG/2.5 ML ORAL SOLUTION. PO SCH ×4 (09:15→20:51)
[2019-01-30 11:25] VITALS: BP 122/68
--- NOTE | 2019-01-30 12:05 | HP ---
ADMIT DATE: ATTENDING PHYSICIAN: Dr. Maria. CHIEF COMPLAINT: Weakness. HISTORY OF PRESENT ILLNESS: The patient is a 73-year-old female who has end-stage multiple sclerosis. She lives in the basement apartment of her son's home. There is really not much care at home. She has had frequent UTIs due to a chronic indwelling suprapubic catheter. She has had weakness. The oral antibiotics are not working. I wonder whether she actually took the oral meds Levaquin. In any event, she presented back to the Emergency Department, she was very weak and she cannot ambulate. She has been nonambulatory for the last 4 years. She is admitted for IV antibiotics and further evaluation. PAST MEDICAL HISTORY: Significant for a 30-year history of MS. She has been bedridden in the last 4 years. She gets around the wheelchair. She currently lives in the basement apartment with her son. She has her son come by before work to get her out of bed and in the evening, he puts her back to bed. She gets around in the wheelchair. She does eat any breakfast. She has Meals on Wheels for lunch and then a [employer] dinner for supper. She also has history of DVT, hematoma, generalized weakness, major depression, COPD, recurrent Clostridium colitis and protein-calorie malnutrition. CURRENT MEDICINES: Include Eliquis, aspirin, baclofen, Coreg, Lasix, guaifenesin, hydralazine, hydrocodone, lisinopril, loperamide and Levaquin. FAMILY HISTORY: Noncontributory. SOCIAL HISTORY: She had been a smoker in the past. She has since quit smoking. Her has 8 years ago. She has been bedridden. Her son and other family members helped out to the best they can. REVIEW OF SYSTEMS: In the last year, she has noticed more in increased weakness and decrease in girth of her arms. She has not noticed in the legs because she is not able to walk anyways. She has had generalized weakness, some nausea. No fevers, no chills. All other systems reviewed and determined to be negative. PHYSICAL EXAMINATION: GENERAL: When I saw her, this is a pleasant, alert, but cachectic female. VITAL SIGNS: Her initial vital signs showed a blood pressure of 141/73, pulse of 72 and regular. She was afebrile. HEENT: Head is without trauma. Pupils are reactive. Sclerae nonicteric. Oropharynx clear. NECK: Supple. LUNGS: Clear with shallow respirations. CARDIOVASCULAR: Showed regular heart tones. No obvious gallops. Peripheral pulses are palpable and weak. ABDOMEN: Soft, scaphoid, nontender, chronically indwelling suprapubic catheter. EXTREMITIES: Show significant 3+ edema due to poor oncotic pressure. She is nonweightbearing. There is muscle wasting noted, most noticeable in her biceps and triceps area. PERTINENT LABORATORY STUDIES: Blood cultures have been ordered, pending. Hemoglobin 14.6 grams, white count of 9000. Electrolytes within range. Creatinine 0.6 mg/dL. ASSESSMENT: 1. A 73-year-old female with chronically indwelling catheter. 2. Urinary tract infection, refractory to outpatient care. Whether compliance is an issue, remains to be seen. 3. End-stage multiple sclerosis. 4. Generalized debilitation. She is nonambulatory and bedridden. 5. Essential hypertension. 6. History of recent Clostridium difficile colitis. 7. Protein-calorie malnutrition, severe. PLAN: 1. Admit to the inpatient unit. 2. IV antibiotics have been started and ordered in the ED. 3. Continue some home meds. 4. Encourage p.o. intake. 5. Discussions regarding subsequent care whether she can be managed at home, whether she needs a higher level of care. NOREEN MARIA MD DR: OSEAS/beata JOB#: [id number] / [id number] GRACIE Hdz MD
[2019-01-30 15:41] VITALS: BP 110/65
[2019-01-30 20:08] VITALS: BP 120/63
[2019-01-30] MEDS: MIRTAZAPINE 15 MG TABLET PO SCH (20:47)
[2019-01-30] MEDS: traZODone 50 MG TABLET. PO SCH (20:47)
--- NOTE | 2019-01-30 22:24 | PN ---
DATE: 01/30/2019 ATTENDING PHYSICIAN: Dr. Maria. CHIEF COMPLAINT: Weakness. SUBJECTIVE: The patient is better. She is more alert. She denies any further symptoms. She denied any pain or nausea. She is alert and oriented. She is nonambulatory, but has not walked for the last 4 years. PHYSICAL EXAMINATION: VITAL SIGNS: Her blood pressure today is 141/73. She is afebrile, pulse is 72 and regular, oxygen saturation 95% on room air. HEENT: Head is without trauma. Pupils are reactive. Sclerae nonicteric. Oropharynx is clear. NECK: Supple, no bruits. LUNGS: Clear. CARDIOVASCULAR: Showed regular heart tones. No gallops. ABDOMEN: Soft. EXTREMITIES: Showed 3+ pitting edema due to low oncotic pressure. She is nonambulatory. There is significant muscle wasting, specifically of her upper arms. SKIN: The skin is just hanging over a bone. LABORATORY DATA: Blood cultures no growth after 24 hours. Electrolytes and CBC noted. ASSESSMENT: 1. A 73-year-old female with a urinary tract infection refractory to outpatient management. 2. Generalized debilitation. 3. Protein-calorie malnutrition. 4. Advanced multiple sclerosis. The patient is nonambulatory. PLAN: 1. Continue IV antibiotics as ordered. 2. Home meds were restarted. 3. Encourage p.o. intake. 4. We had a long discussion regarding her ability to care for at home. I believe she has a negative nitrogen balance. She is not getting adequate calories and as a result her daily metabolic needs are forcing her body to breakdown, muscle mass causing more weakness. She does not want a feeding tube at this time. I did encourage oral intake. She will decide by tomorrow whether she is able to go back to her home living arrangements or whether she needs a higher level of care. NOREEN MARIA MD DR: OSEAS/beata JOB#: [id number] / [id number]
[2019-01-30 22:58] VITALS: BP 98/59
[2019-01-31] MEDS: HYDROcodone/APAP 10/325 1 TAB TABLET PO PRN ×4 (00:25→16:51)
[2019-01-31] MEDS: BACLOFEN 20 MG TABLET PO SCH ×2 (05:44→08:41)
[2019-01-31 06:04] VITALS: BP 119/57
[2019-01-31] MEDS: CARVEDILOL 6.25 MG TABLET PO SCH ×2 (08:40→16:51)
[2019-01-31] MEDS: NICOTINE 21MG PATCH. TD SCH (08:40)
[2019-01-31] MEDS: VANCOMYCIN 125 MG/2.5 ML ORAL SOLUTION. PO SCH ×3 (08:40→16:52)
[2019-01-31] MEDS: PARoxetine 20 MG TABLET PO SCH (08:41)
[2019-01-31] MEDS: ASPIRIN 81 MG TAB.CHEW PO SCH (08:41)
[2019-01-31] MEDS: hydrALAZINE 25 MG TABLET PO SCH ×2 (08:41→14:00)
[2019-01-31] MEDS: APIXABAN 5 MG TABLET. PO SCH (08:41)
[2019-01-31] MEDS: LISINOPRIL 20 MG TABLET PO PRN (08:42)
[2019-01-31] MEDS: MULTIVITAMIN with MINERAL TABLET. PO SCH (08:42)
[2019-01-31] MEDS: NYSTATIN 100,000 UNIT/GM TOPICAL CREAM 15GM TUBE. TP SCH ×2 (08:42→14:00)
[2019-01-31] MEDS: CLOTRIMAZOLE 1% TOPICAL CREAM 30GM TUBE. TP SCH (08:42)
[2019-01-31] MEDS: LACTOBACILLUS RHAMNOSUS GG 1 CAPSULE. PO SCH (08:42)
[2019-01-31] MEDS: silver sulfADIAZINE 1% CREAM 50GM JAR. TP SCH (08:43)
--- NOTE | 2019-01-31 10:46 | DS ---
DATE OF DISCHARGE: 01/31/2019 ATTENDING PHYSICIAN: Dr. Maria. FINAL DISCHARGE DIAGNOSES: 1. Recurrent UTI, refractory to outpatient care. 2. End-stage multiple sclerosis. The patient is bedridden. 3. History of seizure disorder. 4. Generalized debilitation. 5. Severe protein calorie malnutrition. 6. Chronically indwelling suprapubic catheter. 7. Recurrent Clostridium difficile diarrhea. HISTORY AND PHYSICAL: This is a 73-year-old female with end-stage MS. She has had UTIs due to chronic indwelling Lynch catheter. She has had several oral antibiotics without any improvement. She was admitted for further treatment and evaluation. Clinically, she was mildly dehydrated. She is also emaciated and in negative nitrogen balance with severe protein-calorie malnutrition. PHYSICAL EXAMINATION: Please see the dictated note. PERTINENT LABORATORY AND X-RAY STUDIES: Unfortunately, new cultures were not drawn due to the fact that the patient had already been on antibiotics. Her hemoglobin is 14.6 g/dL, white count 9000. Chemistry panel showed a total protein of 6.1, albumin of 2.7, creatinine was 0.6. Electrolytes within normal range. COURSE IN HOSPITAL: The patient was admitted. She was started on gentle IV hydration, intravenous Levaquin, and continuation of home meds. Oral meds were recommended. She did fairly well. She felt better with fluids. I examined her suprapubic catheter. It was functioning and draining. She received 3 full days of intravenous antibiotic. She really needs a higher level of care, but for now wants to go home to her living arrangement where her son comes by and lifts her in the morning and put her at the bed at the evening. She gets meals on wheels for lunchtime and supper at dinnertime. I recommended 7 more days of Levaquin 500 mg p.o. daily. We had a long discussion regarding why we should not prophylax for long-term antibiotics for chronic indwelling catheter and has to do with previous studies, which showed long-term antibiotic use for suppression, only selects out resistant bacteria which makes it difficult to treat for further urinary tract infections down the road. The patient is a DNR per advanced directives. Her other home meds are unchanged. She should continue her scheduled apixaban 5 mg b.i.d., aspirin 81 mg daily, baclofen 20 mg 3 times a day, Coreg 6.25 mg b.i.d., Santyl, Lasix 40 mg daily, hydralazine, hydrocodone p.r.n. pain, lisinopril 20 mg b.i.d., Remeron, multivitamin, nicotine patch, nystatin, Paxil 40 mg daily, trazodone and oral vancomycin to complete. Her prognosis is guarded. I did recommend a protein milkshakes and to increase her oral intake of calories. She was discharged from our hospital in stable condition with explicit instructions and followup care. Total discharge time spent 39 minutes. NOREEN MARIA MD DR: OSEAS/beata JOB#: [id number] / [id number]
[2019-01-31 11:00] VITALS: BP 164/82
[2019-01-31 14:48] VITALS: BP 157/68
[2019-01-31 16:51] VITALS: BP 157/68
== END 2019-01-31 17:14 | disposition home or self-care (01) | DRG 371 ==
LOC: ER 18:39 → 1 SOUTH 20:30
PROVIDERS: ADMIT Hospitalist; ATTEND Hospitalist
DX: A04.71 Enterocolitis due to Clostridium difficile, recurrent (principal); E43 Unspecified severe protein-calorie malnutrition; N39.0 Urinary tract infection, site not specified; Z68.1 Body mass index [BMI] 19.9 or less, adult; E86.0 Dehydration; G35 Multiple sclerosis; G40.909 Epilepsy, unspecified, not intractable, without status epilepticus; I11.0 Hypertensive heart disease with heart failure; I50.9 Heart failure, unspecified; F32.9 Major depressive disorder, single episode, unspecified; J44.9 Chronic obstructive pulmonary disease, unspecified; R33.8 Other retention of urine; Z74.01 Bed confinement status; Z86.718 Personal history of other venous thrombosis and embolism; Z86.73 Personal history of transient ischemic attack (TIA), and cerebral infarction without residual deficits; Z87.440 Personal history of urinary (tract) infections; Z87.891 Personal history of nicotine dependence; Z93.59 Other cystostomy status
CPT/HCPCS: 36415; 71045; 80048; 80053; 80076; 81001; 82947; 83605; 83735; 83880; 85025; 85651; 87040; 87086; 87186; 93005; 94640; 96365; 96366; J0696; J1956; J2405; J7120; P9612; 99285-25

== ENCOUNTER 2019-02-14 12:09 | Inpatient (IN) | payer MEDICARE ==
[~2019-02-14] VITALS: Ht 175.3 cm; Wt 56.3 kg
[~2019-02-14 12:09] MED LIST changes: +CLOT15CR4 TP; +COLL30OI TP
--- NOTE | 2019-02-14 12:26 | PHYS DOC ---
Past History Past Medical History: CHF, COPD, CVA, Depression, DVT, Seizure, TIA, UTI, Other Additional Past Medical Histor: multiple sclerosis Past Surgical History: Other Smoking: Cigarettes Alcohol Use: None Drug Use: None Adult General Chief Complaint Chief Complaint: PAIN ON URINATION [facility] HPI 73-year-old female presents via EMS for pelvic pain and concern for UTI. The patient has had multiple UTIs in the last few months. She has a suprapubic catheter for several years. Her most recent UTI was 2 weeks ago. Her catheter was changed out at that time. She took all of her advised as prescribed. The pain was better, but has come back again. She is also quite nauseated. She has not had fever at home. She denies any other symptoms. Review of Systems Review of Systems Constitutional: Denies fever or chills [] Eyes: Denies change in visual acuity, redness, or eye pain [] HENT: Denies nasal congestion or sore throat [] Respiratory: Denies cough or shortness of breath [] Cardiovascular: No additional information not addressed in HPI [] GI: Denies abdominal pain, nausea, vomiting, bloody stools or diarrhea [] : Dysuria[] Musculoskeletal: Denies back pain or joint pain [] Integument: Denies rash or skin lesions [] Neurologic: Denies headache, focal weakness or sensory changes [] Endocrine: Denies polyuria or polydipsia [] All other systems were reviewed and found to be within normal limits, except as documented in this note. Current Medications Current Medications Current Medications Medications (Trade) Dose Ordered Sig/[facility] Start Time Stop Time Status Last Admin Dose Admin Ondansetron HCl (Zofran) 4 mg 1X ONCE 02/14/19 12:30 02/14/19 12:31 Allergies Allergies Allergies Coded Allergies Type Severity Reaction Last Updated Verified I S O L A T I O N *CONTACT* Allergy Unknown 07/30/18 Yes NKMA Allergy Unknown 07/30/18 Yes Physical Exam Physical Exam Constitutional: Well developed, well nourished, no acute distress, non-toxic appearance. [] HENT: Normocephalic, atraumatic, bilateral external ears normal, oropharynx moist, no oral exudates, nose normal. [] Eyes: PERRLA, EOMI, conjunctiva normal, no discharge. [] Neck: Normal range of motion, no tenderness, supple, no stridor. [] Cardiovascular:Heart rate regular rhythm, no murmur [] Lungs & Thorax: Bilateral breath sounds clear to auscultation [] Abdomen: Bowel sounds normal, soft, no tenderness, no masses, no pulsatile masses. Suprapubic catheter in place with no signs of skin infection [] Skin: Warm, dry, no erythema, no rash. [] Back: No tenderness, no CVA tenderness. [] Extremities: No tenderness, no cyanosis, no clubbing, ROM intact, no edema. [] Neurologic: Alert and oriented X 3, normal motor function, normal sensory function, no focal deficits noted. [] Psychologic: Affect normal, judgement normal, mood normal. [] EKG EKG [] Radiology/Procedures Radiology/Procedures [] Course & Med Decision Making Course & Med Decision Making Pertinent Labs and Imaging studies reviewed. (See chart for details) Patient's labs are significant for urinary tract infection. I looked up her most recent urine culture and meropenem appears to be a good option for treatment. I will give the first dose in the ED. Her last infection was resistant or indeterminate to several other antibiotics. Her heart rate is normal. Her blood pressure is normal. Respiratory rate is normal. She is not altered mentally. The patient is NOT showing signs of sepsis. I discussed the patient with Dr. Nuno and he has accepted her for admission. [] Dragon Disclaimer Dragon Disclaimer This electronic medical record was generated, in whole or in part, using a voice recognition dictation system. Departure Departure: Impression: Primary Impression: UTI (urinary tract infection) Disposition: ADMITTED INPATIENT Admitting Physician: Ari Nuno Condition: STABLE Referrals: GRACEI OLIVARES MD (PCP) Problem Qualifiers Primary Impression: UTI (urinary tract infection) Urinary tract infection type: catheter-associated UTI Indwelling urinary catheter type: cystostomy catheter Encounter type: initial encounter Qualified Codes: T83.510A - Infection and inflammatory reaction due to cystostomy catheter, initial encounter; N39.0 - Urinary tract infection, site not specified ROEL BEE DO Feb 14, 2019 12:26
[2019-02-14] MEDS ORDERED: ONDANSETRON PF 4 MG/2 ML VIAL. IV ONE (12:30)
[2019-02-14 12:47] LABS: BASO # 0.1 x10^3/uL (0.0-0.2); BASO % 1 % (0-3); EOS # 0.2 x10^3/uL (0.0-0.7); EOS % 2 % (0-3); HEMATOCRIT 45.9 % (36.0-47.0); HEMOGLOBIN 15.3 g/dL (12.0-15.5); LYMPH # 1.4 x10^3/uL (1.0-4.8); LYMPH % 13 % (24-48); MEAN CORPUSCULAR HEMOGLOBIN 29 pg (25-35); MEAN CORPUSCULAR HGB CONC 33 g/dL (31-37); MEAN CORPUSCULAR VOLUME 88 fL (79-100); MONO # 0.6 x10^3/uL (0.0-1.1); MONO % 6 % (0-9); NEUT # 8.2 x10^3uL (1.8-7.7); NEUT % 79 % (31-73); PLATELET COUNT 486 x10^3/uL (140-400); RED BLOOD COUNT 5.24 x10^6/uL (3.50-5.40); RED CELL DISTRIBUTION WIDTH 16.2 % (11.5-14.5); WHITE BLOOD COUNT 10.4 x10^3/uL (4.0-11.0)
[2019-02-14 13:00] LABS: BACTERIA,URINE MOD /HPF (0-FEW); BILIRUBIN,URINE NEG (NEG); CLARITY,URINE CLOUDY; COLOR,URINE YELLOW; GLUCOSE,URINE NEG (NEG); NITRITE,URINE POS (NEG); RBC,URINE >40 /HPF (0-2); UROBILINOGEN,URINE 0.2 mg/dL (0.2 mg/dL)
[2019-02-14 13:01] LABS: AMORPHOUS SEDIMENT,UR PRESENT /HPF; SQUAMOUS EPITHELIAL CELL,UR OCC /LPF
[2019-02-14 13:04] LABS: ALBUMIN 2.9 g/dL (3.4-5.0); ALBUMIN/GLOBULIN RATIO 0.7 (1.0-1.7); CALCIUM 9.1 mg/dL (8.5-10.1); CREATININE 0.6 mg/dL (0.6-1.0); GFR 97.7; TOTAL BILIRUBIN 0.3 mg/dL (0.2-1.0); TOTAL PROTEIN 6.8 g/dL (6.4-8.2)
[2019-02-14] MEDS ORDERED: MEROPENEM 1 GM in IV NORMAL SALINE 100ML 100 ML IV STA (14:41)
[2019-02-14] MEDS ORDERED: HYDROcodone/APAP 5/325MG 1 TAB TABLET PO ONE (16:30)
[2019-02-14 17:25] VITALS: BP 139/81
[2019-02-14] MEDS ORDERED: LISINOPRIL 20 MG TABLET PO PRN (18:00)
[2019-02-14] MEDS ORDERED: HYDROcodone/APAP 5/325MG 1 TAB TABLET PO PRN (18:00)
[2019-02-14] MEDS ORDERED: PARO30TA3 PO (18:43)
[2019-02-14] MEDS ORDERED: PARO20TA3 PO (18:43)
[2019-02-14 19:00] VITALS: BP 110/70
[2019-02-14] MEDS: MEROPENEM 1 GM in IV NORMAL SALINE 100ML 100 ML IV SCH (19:11)
[2019-02-14] MEDS: POTASSIUM CL 20MEQ D5-0.9%NACL 1,000 ML IV SCH (19:11)
[2019-02-14] MEDS: ONDANSETRON PF 4 MG/2 ML VIAL. IV PRN (19:34)
[2019-02-14] MEDS: traZODone 50 MG TABLET. PO SCH (20:38)
[2019-02-14] MEDS: VANCOMYCIN 125 MG/2.5 ML ORAL SOLUTION. PO SCH (20:38)
[2019-02-14] MEDS: APIXABAN 5 MG TABLET. PO SCH (20:38)
[2019-02-14] MEDS: MIRTAZAPINE 15 MG TABLET PO SCH (20:38)
[2019-02-14] MEDS: LISINOPRIL 20 MG TABLET PO SCH (20:39)
[2019-02-14] MEDS: hydrALAZINE 25 MG TABLET PO SCH (20:39)
[2019-02-14] MEDS: CARVEDILOL 6.25 MG TABLET PO SCH (20:40)
[2019-02-14] MEDS: NYSTATIN 100,000 UNIT/GM TOPICAL CREAM 15GM TUBE. TP SCH (20:40)
[2019-02-14] MEDS: BACLOFEN 20 MG TABLET PO SCH (20:40)
[2019-02-14] MEDS ORDERED: silver sulfADIAZINE 1% CREAM 50GM JAR. TP SCH (21:00)
[2019-02-14 23:00] VITALS: BP_SYST 116; BP_SYST 86; BP_DIAS 53; BP_DIAS 64
[2019-02-15] MEDS: MEROPENEM 1 GM in IV NORMAL SALINE 100ML 100 ML IV SCH ×3 (04:52→19:28)
[2019-02-15 05:00] VITALS: BP 106/72
[2019-02-15] MEDS: BACLOFEN 20 MG TABLET PO SCH ×3 (06:00→20:32)
[2019-02-15 06:37] LABS: ALBUMIN 2.4 g/dL (3.4-5.0); ALBUMIN/GLOBULIN RATIO 0.8 (1.0-1.7); CALCIUM 8.4 mg/dL (8.5-10.1); CREATININE 0.7 mg/dL (0.6-1.0); GFR 81.8; TOTAL BILIRUBIN 0.3 mg/dL (0.2-1.0); TOTAL PROTEIN 5.6 g/dL (6.4-8.2)
[2019-02-15 06:39] LABS: HEMATOCRIT 43.1 % (36.0-47.0); HEMOGLOBIN 13.9 g/dL (12.0-15.5); RED BLOOD COUNT 4.88 x10^6/uL (3.50-5.40); RED CELL DISTRIBUTION WIDTH 16.4 % (11.5-14.5); WHITE BLOOD COUNT 8.5 x10^3/uL (4.0-11.0)
[2019-02-15] MEDS: PARoxetine 20 MG TABLET PO SCH (07:58)
[2019-02-15] MEDS: MULTIVITAMIN with MINERAL TABLET. PO SCH (07:58)
[2019-02-15] MEDS: CARVEDILOL 6.25 MG TABLET PO SCH ×2 (07:58→20:32)
[2019-02-15] MEDS: LISINOPRIL 20 MG TABLET PO SCH ×2 (07:59→20:33)
[2019-02-15] MEDS: APIXABAN 5 MG TABLET. PO SCH ×2 (07:59→20:31)
[2019-02-15] MEDS: hydrALAZINE 25 MG TABLET PO SCH ×3 (07:59→20:32)
[2019-02-15] MEDS: ASCORBIC ACID 500 MG TABLET PO SCH (07:59)
[2019-02-15] MEDS: ASPIRIN 81 MG TAB.CHEW PO SCH (08:00)
[2019-02-15] MEDS: FUROSEMIDE 40 MG TABLET PO SCH (08:00)
[2019-02-15] MEDS ORDERED: NICOTINE TD SCH (09:00)
[2019-02-15] MEDS ORDERED: COLLAGENASE 250 UNIT/GM TOPICAL OINTMENT 30GM TUBE. TP SCH (09:00)
[2019-02-15] MEDS: ONDANSETRON PF 4 MG/2 ML VIAL. IV PRN ×2 (09:01→19:27)
[2019-02-15] MEDS: POTASSIUM CL 20MEQ D5-0.9%NACL 1,000 ML IV SCH ×2 (09:01→20:31)
[2019-02-15] MEDS: NYSTATIN 100,000 UNIT/GM TOPICAL CREAM 15GM TUBE. TP SCH ×3 (09:03→20:36)
[2019-02-15] MEDS: VANCOMYCIN 125 MG/2.5 ML ORAL SOLUTION. PO SCH ×4 (09:07→20:31)
[2019-02-15] MEDS: HYDROcodone/APAP 5/325MG 1 TAB TABLET PO PRN ×3 (14:15→22:07)
--- NOTE | 2019-02-15 14:26 | HP ---
ADMIT DATE: 02/14/2019 HISTORY OF PRESENT ILLNESS: The patient is a 73-year-old female patient who to the Emergency Room with a complaint of pain in her pelvic area with concern for UTI. She does have a suprapubic catheter for several years. Most recent UTI was about 2 weeks ago. Her catheter was changed out at that time. She took all her medication as prescribed. Her pain has improved, but came back again. She is also quite nauseated, has not been able to eat or drink, has had no fever, however, denied any other symptoms. She continued to smoke. She was evaluated in the Emergency Room and her urinalysis showed the urine was positive for nitrite. There was large amount of leukocyte esterase, more than 40 rbc's and 11-20 wbc's, and moderate amount of bacteria were present, and she was admitted with another episode of urinary tract infection. She was also dehydrated. She was started on IV fluid. PAST MEDICAL HISTORY: Significant for advanced multiple sclerosis with functional paraplegia, neurogenic bladder requiring suprapubic catheter. She is mostly bedbound, wheelchair bound, and she currently lives at home with home health. She is known to have recurrent Clostridium difficile colitis for which she is on continuous treatment with vancomycin. 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 She has a flareup of her C. diff colitis whenever she was started on antibiotics. She is known to have chronic pain syndrome, chronic spasticity, poor mobility, and functionality. She is also known to have COPD, stroke, and seizures, and also DVT. PAST SURGICAL HISTORY: Significant for suprapubic catheter placement as well as IVC filter placement. FAMILY HISTORY: Positive for breast cancer in her mother and her mother at the age of 51. Her father of myocardial infarction at the age of 76. She has 2 brothers that are older and apparently healthy. SOCIAL HISTORY: She is , lives with her sons. She has 2 sons. She smokes a pack a day for more than 20 years. She does not drink alcohol or use any recreational drugs. REVIEW OF SYSTEMS: As per history of present illness. ALLERGIES: She has no known drug allergies. MEDICATIONS: She is currently on following medications: She is on vancomycin 250 mg p.o. q.i.d., baclofen 20 mg every 8 hours, apixaban 5 mg twice a day, hydralazine 25 mg 3 times a day, carvedilol 6.25 mg 3 times a day, lisinopril 20 mg once a day, aspirin 81 mg once a day, hydrocodone/APAP 5/325 one tablet every 6 hours, mirtazapine 15 mg at bedtime, paroxetine 30 mg daily, and trazodone 50 mg at bedtime. She is on furosemide 40 mg daily, Nystatin cream applied topically 2 times a day, multivitamin 1 tablet once a day. REVIEW OF SYSTEMS: As per history of present illness. PHYSICAL EXAMINATION: GENERAL: On arrival to the hospital, the patient was extremely cachectic, but there is no pallor, jaundice, cyanosis, or thyromegaly. No jugular venous distention. No limb edema. VITAL SIGNS: Her heart rate was 76, blood pressure was 139/81, temperature was 97.8, respiratory rate was 18, and oxygen saturation was 95%. HEAD, EYES, EARS, NOSE, AND THROAT: Normocephalic, atraumatic. NECK: Supple. HEART: Showed normal first and second heart sounds. No gallop or murmur. CHEST: Shows central trachea, equal bilateral expansion and air entry, vesicular sounds. No crepitation or rhonchi. ABDOMEN: Distended, soft, nontender. No guarding or rigidity. No organomegaly. All hernial orifice intact. Bowel sounds normal. NEUROLOGIC: She was awake, alert, responding appropriately. All cranial nerves intact. She has marked muscle wasting and weakness. She is still able to move her upper extremities to much good extent than lower extremities that she has functional paraplegia with neurogenic bladder requiring suprapubic catheter. She has decubitus ulcer on the sacral area and marked erythema and probably incontinence dermatitis. LABORATORY DATA: On arrival showed a white cell count of 10,400, hemoglobin 15, hematocrit 45, MCV 88, and platelet count of 486,000 with normal manual differential. Her chemistry showed a serum sodium 138, potassium 4, chloride 102, bicarbonate 27, anion gap of 9, BUN 10, creatinine 0.6, estimated GFR was 98 mL per minute. Her glucose was 92, calcium was 9.1. Total bilirubin, AST, ALT, alkaline phosphatase were normal. Her total protein was 6.8, albumin was 2.9. Urinalysis showed the urine was yellow, cloudy with a pH of 7, specific gravity of 1.015, small amount of protein, negative for glucose, as well as ketones. There was large amount of blood, positive for nitrite and large amount of leukocyte esterase. There were more than 40 rbc's, 11-20 wbc's, and moderate amount of bacteria. ASSESSMENT AND PLAN: The patient was admitted yet again with another episode of urinary tract infection. She was started on IV meropenem 1 gram IV q. 8 hourly and we continued all her medication including vancomycin as her Clostridium difficile flares up whenever she was started on antibiotic. I did start her also on IV fluid in the form of D5 half normal with 20 mEq of potassium chloride. We will monitor her labs closely and decide on further management accordingly. TERESE ALEMAN MD DR: MADELINE/beata JOB#: [id number] / [id number]
[2019-02-15 16:20] VITALS: BP 92/49
[2019-02-15 16:21] VITALS: BP 95/54
[2019-02-15] MEDS: NICOTINE 21MG PATCH. TD SCH (19:28)
[2019-02-15 19:35] VITALS: BP 112/68
[2019-02-15] MEDS: traZODone 50 MG TABLET. PO SCH (20:32)
[2019-02-15] MEDS: LACTOBACILLUS RHAMNOSUS GG 1 CAPSULE. PO SCH (20:32)
[2019-02-15] MEDS: MIRTAZAPINE 15 MG TABLET PO SCH (20:32)
--- NOTE | 2019-02-15 23:34 | PN ---
DATE: SUBJECTIVE: The patient was admitted yesterday with another episode of urinary tract infection. She was started on IV meropenem after sending urine for culture and sensitivity. She was also somewhat dehydrated and has nausea, so we started her on IV fluid. I saw her today. She continued to have some nausea, but no vomiting. She continued to have pain and would like to have her pain medication increased to every 4 hours. Otherwise, she is generally much improved. PHYSICAL EXAMINATION: GENERAL: When I examined her, she looked pale, cachectic, but no jaundice, cyanosis, or thyromegaly. No jugular venous distension. No lower limb edema. VITAL SIGNS: Her heart rate was 69, blood pressure was 106/72, temperature was 98, respiratory rate was 16 and oxygen saturation was 92% on 3 liters of oxygen by nasal cannula. HEAD, EYES, EARS, NOSE AND THROAT: Showed normocephalic, atraumatic. NECK: Supple. HEART: Showed normal first and second heart sounds. No gallop or murmur. CHEST: Clear to auscultation. No crepitation or rhonchi. ABDOMEN: Distended, soft, nontender. No guarding or rigidity. No organomegaly. All hernial orifice intact. Bowel sounds normal. NEUROLOGIC: She was awake, alert, responding appropriately. She has marked muscle wasting and weakness, but however, she is able to move her upper extremities to much good extent. EXTREMITIES: She has functional paraplegia with neurogenic bladder requiring suprapubic catheter. Her intake was 1400, output was 800. LABORATORY DATA: Her lab work this morning showed a white cell count of 8500, hemoglobin 14, hematocrit 43, MCV 88 and platelet count of 472,000. Her BUN is 10, creatinine 0.7. ASSESSMENT: Another episode of urinary tract infection for which she is on meropenem. The result of urine culture and sensitivity still pending at the time of this dictation. Advanced multiple sclerosis with functional paraplegia and neurogenic bladder, requiring suprapubic catheter. Chronic obstructive pulmonary disease, deep vein thrombosis and seizure disorder. TERESE ALEMAN MD DR: MADELINE/beata JOB#: [id number] / [id number]
[2019-02-15 23:50] VITALS: BP 93/55
[2019-02-16] MEDS: MEROPENEM 1 GM in IV NORMAL SALINE 100ML 100 ML IV SCH ×3 (04:11→20:07)
[2019-02-16] MEDS: HYDROcodone/APAP 5/325MG 1 TAB TABLET PO PRN ×4 (04:23→20:10)
[2019-02-16] MEDS: BACLOFEN 20 MG TABLET PO SCH ×3 (05:03→22:17)
[2019-02-16 05:30] VITALS: BP 147/65
[2019-02-16] MEDS: LACTOBACILLUS RHAMNOSUS GG 1 CAPSULE. PO SCH ×2 (08:09→20:10)
[2019-02-16] MEDS: CARVEDILOL 6.25 MG TABLET PO SCH ×2 (08:10→20:11)
[2019-02-16] MEDS: ASCORBIC ACID 500 MG TABLET PO SCH (08:10)
[2019-02-16] MEDS: FUROSEMIDE 40 MG TABLET PO SCH (08:10)
[2019-02-16] MEDS: APIXABAN 5 MG TABLET. PO SCH ×2 (08:10→20:10)
[2019-02-16] MEDS: ASPIRIN 81 MG TAB.CHEW PO SCH (08:10)
[2019-02-16] MEDS: MULTIVITAMIN with MINERAL TABLET. PO SCH (08:10)
[2019-02-16] MEDS: NICOTINE 21MG PATCH. TD SCH (08:11)
[2019-02-16] MEDS: PARoxetine 20 MG TABLET PO SCH (08:11)
[2019-02-16] MEDS: VANCOMYCIN 125 MG/2.5 ML ORAL SOLUTION. PO SCH ×4 (08:19→20:08)
[2019-02-16 08:35] VITALS: BP 164/84
[2019-02-16] MEDS: LISINOPRIL 20 MG TABLET PO SCH ×2 (08:37→20:11)
[2019-02-16] MEDS: hydrALAZINE 25 MG TABLET PO SCH ×3 (08:37→20:11)
[2019-02-16] MEDS: NYSTATIN 100,000 UNIT/GM TOPICAL CREAM 15GM TUBE. TP SCH ×3 (08:37→20:14)
[2019-02-16] MEDS: POTASSIUM CL 20MEQ D5-0.9%NACL 1,000 ML IV SCH ×2 (09:35→20:14)
[2019-02-16 09:47] VITALS: BP 117/65
[2019-02-16] MEDS: ONDANSETRON PF 4 MG/2 ML VIAL. IV PRN ×3 (10:56→20:10)
[2019-02-16 13:42] VITALS: BP 121/70
[2019-02-16] MEDS ORDERED: PROCHLORPERAZINE 10 MG/2 ML VIAL. IV PRN (14:15)
[2019-02-16 19:15] VITALS: BP 109/64
[2019-02-16] MEDS: traZODone 50 MG TABLET. PO SCH (20:09)
[2019-02-16] MEDS: MIRTAZAPINE 15 MG TABLET PO SCH (20:10)
[2019-02-16 22:39] VITALS: BP 98/63
[2019-02-17] MEDS: HYDROcodone/APAP 5/325MG 1 TAB TABLET PO PRN ×5 (00:13→21:51)
--- NOTE | 2019-02-17 00:19 | PN ---
DATE: 02/16/2019 SUBJECTIVE: The patient is resting, slightly propped up in bed, in no apparent distress. She is awake, alert, continued to complain of nausea. No vomiting. Nursing staff; however, did not voice any concern, had generally a good night sleep and an uneventful night. PHYSICAL EXAMINATION: GENERAL: When I examined her, she looked pale, cachectic, but not jaundiced, cyanosis or thyromegaly. No jugular venous distention or limb edema. VITAL SIGNS: Her heart rate was 83, blood pressure was 121/70, temperature was 98.2, respiratory rate 20, and oxygen saturation was 93% on room air. HEAD, EYES, EARS, NOSE AND THROAT: Showed normocephalic, atraumatic. NECK: Supple. HEART: Showed normal first and second heart sounds with no gallop, rub or murmur. CHEST: Clear to auscultation. No crepitation or rhonchi. ABDOMEN: Scaphoid, soft, nontender. Catheter in place. NEUROLOGIC: She is awake, alert, responding appropriately. All cranial nerves are intact. She moves upper extremities greater extent than lower extremities. She has functional paraplegia with neurogenic bladder requiring suprapubic catheter. She has incontinence dermatitis around the perianal area shows decubitus ulcer in the sacral area in the left side, more in the left side. Her intake over the last 24 hours was 600, output was 450. LABORATORY DATA: Yesterday showed a serum sodium 142, potassium 4, chloride 108, bicarbonate 28, anion gap of 6, BUN 10, creatinine 0.7. Her total protein was 5.6, albumin 2.4. White cell count was 8500, hemoglobin 14, hematocrit 43, MCV 88 and platelet count 472,000. ASSESSMENT AND PLAN: 1. Urinary tract infection for which she continues to be on IV meropenem. The result of culture and sensitivity still pending at the time of this dictation. 2. Multiple sclerosis, advanced, progressive. 3. Functional paraplegia with neurogenic bladder requiring suprapubic catheter. 4. Chronic obstructive pulmonary disease. 5. Deep vein thrombosis, status post inferior vena cava filter. She continued to be on Eliquis. 6. Seizure disorder. TERESE ALEMAN MD DR: MADELINE/beata JOB#: [id number] / [id number]
[2019-02-17] MEDS: MEROPENEM 1 GM in IV NORMAL SALINE 100ML 100 ML IV SCH ×2 (03:52→12:11)
[2019-02-17] MEDS: BACLOFEN 20 MG TABLET PO SCH ×3 (06:04→21:50)
[2019-02-17 06:18] VITALS: BP 153/70
[2019-02-17 06:46] LABS: ALBUMIN 2.1 g/dL (3.4-5.0); ALBUMIN/GLOBULIN RATIO 0.7 (1.0-1.7); CALCIUM 8.2 mg/dL (8.5-10.1); CREATININE 0.6 mg/dL (0.6-1.0); GFR 97.7; HEMATOCRIT 40.1 % (36.0-47.0); HEMOGLOBIN 13.1 g/dL (12.0-15.5); POTASSIUM 4.3 mmol/L (3.5-5.1); RED BLOOD COUNT 4.53 x10^6/uL (3.50-5.40); RED CELL DISTRIBUTION WIDTH 16.1 % (11.5-14.5); TOTAL BILIRUBIN 0.1 mg/dL (0.2-1.0); TOTAL PROTEIN 5.1 g/dL (6.4-8.2); WHITE BLOOD COUNT 7.9 x10^3/uL (4.0-11.0)
[2019-02-17] MEDS: NICOTINE 21MG PATCH. TD SCH (07:44)
[2019-02-17] MEDS: VANCOMYCIN 125 MG/2.5 ML ORAL SOLUTION. PO SCH ×4 (07:44→21:50)
[2019-02-17] MEDS: hydrALAZINE 25 MG TABLET PO SCH ×3 (07:45→21:49)
[2019-02-17] MEDS: MULTIVITAMIN with MINERAL TABLET. PO SCH (07:45)
[2019-02-17] MEDS: ASCORBIC ACID 500 MG TABLET PO SCH (07:45)
[2019-02-17] MEDS: NYSTATIN 100,000 UNIT/GM TOPICAL CREAM 15GM TUBE. TP SCH ×3 (07:45→21:50)
[2019-02-17] MEDS: APIXABAN 5 MG TABLET. PO SCH ×2 (07:45→21:50)
[2019-02-17] MEDS: PARoxetine 20 MG TABLET PO SCH (07:46)
[2019-02-17] MEDS: LISINOPRIL 20 MG TABLET PO SCH ×2 (07:46→21:49)
[2019-02-17] MEDS: CARVEDILOL 6.25 MG TABLET PO SCH ×2 (07:46→17:00)
[2019-02-17] MEDS: FUROSEMIDE 40 MG TABLET PO SCH (07:46)
[2019-02-17] MEDS: LACTOBACILLUS RHAMNOSUS GG 1 CAPSULE. PO SCH ×2 (07:46→21:49)
[2019-02-17] MEDS: ASPIRIN 81 MG TAB.CHEW PO SCH (07:47)
[2019-02-17 11:49] VITALS: BP 101/48
[2019-02-17] MEDS: POTASSIUM CL 20MEQ D5-0.9%NACL 1,000 ML IV SCH ×2 (12:10→23:58)
[2019-02-17] MEDS ORDERED: HYOSCYAMINE 0.125 MG TAB.RAPDIS PO PRN (15:45)
[2019-02-17] MEDS: FLUCONAZOLE 100MG/50ML PREMIX 50 ML IV SCH (16:37)
[2019-02-17] MEDS ORDERED: ZINC OXIDE 20% TOPICAL OINTMENT 28GM TUBE. TP PRN (19:15)
[2019-02-17 19:30] VITALS: BP 162/71
[2019-02-17] MEDS: MIRTAZAPINE 15 MG TABLET PO SCH (21:49)
[2019-02-17] MEDS: traZODone 50 MG TABLET. PO SCH (21:50)
--- NOTE | 2019-02-17 22:56 | PN ---
DATE: 02/17/2019 SUBJECTIVE: The patient is resting, slightly propped up in bed, in no apparent distress. She is complaining of severe pain, burning sensation around the perianal area and her right groin as the skin is very macerated. She was complaining of bladder spasm and her urine culture showed growth of more than 100,000 colony forming units per mL of yeast. The urine showed only mixed urogenital alexx of 10,000-25,000 colony forming units per mL, which is insignificant. I did discontinue her meropenem and started on Diflucan. For her bladder spasm she was started on Anaspaz. PHYSICAL EXAMINATION: GENERAL: When I examined her this afternoon, she looked well and was clearly in no apparent respiratory distress. No pallor, jaundice, cyanosis, or thyromegaly. No jugular venous distension or limb edema. VITAL SIGNS: Her heart rate was 66, blood pressure was 101/48, temperature was 97.9, respiratory rate was 18 and oxygen saturation was 95% on room air. HEAD, EYES, EARS, NOSE AND THROAT: Normocephalic, atraumatic. NECK: Supple. HEART: Showed normal first and second heart sounds. No gallop or murmur. CHEST: Clear to auscultation. No crepitation or rhonchi. ABDOMEN: Scaphoid, soft, nontender with suprapubic catheter in place. There is no guarding or rigidity. No organomegaly. All hernial orifice intact. Bowel sounds normal. NEUROLOGIC: She is awake, alert, responding appropriately. All cranial nerves intact. She moves her upper extremities to much good extent than lower extremities. She has longstanding multiple sclerosis, functional paraplegia. She has marked incontinence dermatitis with marked skin laceration, particularly at the perianal area and the right groin area. Her intake was 2600, output was 450. LABORATORY DATA: As of this morning, her white cell count was 7900, hemoglobin 13, hematocrit 40, MCV 89 and platelet count of 138,000. Her chemistry showed a serum sodium 142, potassium 4.3, chloride 108, bicarbonate 31, anion gap of 3, BUN 14, creatinine 0.6, estimated GFR was 98 mL per minute. Her glucose was 84, calcium was 8.2. Total bilirubin and alkaline phosphatase is normal. AST, ALT slightly elevated. Total protein was 5.1, albumin was 2.1. ASSESSMENT: 1. Yeast urinary tract infection for which I discontinued meropenem. I started her on Diflucan. 2. Bladder spasm for which I started her on Anaspaz. 3. Multiple sclerosis, advanced progressive. 4. Functional paraplegia and neurogenic bladder requiring suprapubic catheter. 5. Chronic obstructive pulmonary disease. 6. Deep vein thrombosis, status post inferior vena cava currently on Eliquis. 7. Seizure disorder. PLAN: Continue with IV Diflucan. Continue with pain management. She has severe incontinence dermatitis. We will attempt or discussed with the pharmacy and the Wound Care best strategies to prevent that and treat it. TERESE ALEMAN MD DR: MADELINE/beata JOB#: [id number] / [id number]
[2019-02-18 00:10] VITALS: BP 124/72
[2019-02-18] MEDS: HYDROcodone/APAP 5/325MG 1 TAB TABLET PO PRN ×5 (03:13→20:45)
[2019-02-18] MEDS: BACLOFEN 20 MG TABLET PO SCH ×3 (05:56→21:33)
[2019-02-18 06:16] VITALS: BP 152/72
[2019-02-18] MEDS: ASCORBIC ACID 500 MG TABLET PO SCH (07:45)
[2019-02-18] MEDS: LACTOBACILLUS RHAMNOSUS GG 1 CAPSULE. PO SCH ×2 (07:45→20:45)
[2019-02-18] MEDS: MULTIVITAMIN with MINERAL TABLET. PO SCH (07:45)
[2019-02-18] MEDS: VANCOMYCIN 125 MG/2.5 ML ORAL SOLUTION. PO SCH ×4 (07:45→20:44)
[2019-02-18] MEDS: PARoxetine 20 MG TABLET PO SCH (07:45)
[2019-02-18] MEDS: FUROSEMIDE 40 MG TABLET PO SCH (07:46)
[2019-02-18] MEDS: hydrALAZINE 25 MG TABLET PO SCH ×3 (07:46→20:46)
[2019-02-18] MEDS: ASPIRIN 81 MG TAB.CHEW PO SCH (07:46)
[2019-02-18] MEDS: CARVEDILOL 6.25 MG TABLET PO SCH ×2 (07:46→17:07)
[2019-02-18] MEDS: APIXABAN 5 MG TABLET. PO SCH ×2 (07:46→20:46)
[2019-02-18] MEDS: LISINOPRIL 20 MG TABLET PO SCH ×2 (07:47→20:45)
[2019-02-18] MEDS: NICOTINE 21MG PATCH. TD SCH (07:47)
[2019-02-18] MEDS: NYSTATIN 100,000 UNIT/GM TOPICAL CREAM 15GM TUBE. TP SCH ×3 (07:54→20:46)
[2019-02-18 10:51] VITALS: BP 123/76
[2019-02-18 15:30] VITALS: BP 122/69
[2019-02-18] MEDS: FLUCONAZOLE 100MG/50ML PREMIX 50 ML IV SCH (15:55)
[2019-02-18 19:26] VITALS: BP 105/52
[2019-02-18] MEDS: MIRTAZAPINE 15 MG TABLET PO SCH (20:45)
[2019-02-18] MEDS: traZODone 50 MG TABLET. PO SCH (20:46)
[2019-02-18] MEDS: POTASSIUM CL 20MEQ D5-0.9%NACL 1,000 ML IV SCH (20:49)
[2019-02-18 22:16] VITALS: BP 103/51
[2019-02-19] MEDS: HYDROcodone/APAP 5/325MG 1 TAB TABLET PO PRN ×3 (01:17→11:20)
--- NOTE | 2019-02-19 01:31 | PN ---
DATE: 02/18/2019 SUBJECTIVE: The patient is resting, slightly propped up in bed, no apparent respiratory distress. She continued to complain of severe burning sensation in perianal area and particular right groin area where the skin is very macerated because of incontinence and dermatitis. Her urine culture has grown more than 100,000 colony forming units of yeast, for which she is now on Diflucan. Continue to have also some spasm in her bladder, for which I started her on Anaspaz. PHYSICAL EXAMINATION: GENERAL: When I examined her, she looked well and was clearly in no apparent respiratory distress. No pallor, jaundice, cyanosis or thyromegaly. No jugular venous distention. No limb edema. VITAL SIGNS: Her heart rate was 81, blood pressure was 123/76, temperature was 97.7, respiratory rate was 20 and her oxygen saturation was 98% on room air. HEAD, EYES, EARS, NOSE AND THROAT: Showed normocephalic, atraumatic. NECK: Supple. HEART: Showed normal first and second heart sounds. No gallop or murmur. CHEST: Clear to auscultation. No crepitation or rhonchi. ABDOMEN: Scaphoid, soft, nontender with suprapubic catheter in place. NEUROLOGIC: She is awake, alert, responding appropriately. All cranial nerves intact. She moves upper extremities to much good extent than her lower extremities. She has functional paraplegia with neurogenic bladder requiring suprapubic catheter. She does have severe muscle wasting and weakness of all 4 limbs. SKIN: She has decubitus ulcer and severe incontinence dermatitis around the perianal area, both groins, more so on the right groin area. Her intake was 3100, output was 2600. LABORATORY DATA: As of yesterday, her white cell count was 7900, hemoglobin 13, hematocrit 40, MCV 89 and platelet count 438,000. Her chemistry showed a serum sodium 142, potassium 4.3, chloride 108, bicarbonate 31, anion gap of 3, BUN 14, creatinine 0.6, estimated GFR was 98 mL per minute. Her glucose was 84, calcium was 8.2. Total bilirubin is normal. AST, ALT slightly elevated. Alkaline phosphatase was normal. Total protein was 5.1, albumin 2.1. Her urine culture has grown more than 100 yeasts with more than 100,000 colony forming unit per mL were isolated. The identification is still pending at the time of this dictation. The urine also grew mixed urogenital alexx of 10,000, 25,000, clinically insignificant. I did discontinue her meropenem, started her on Diflucan. We added zinc oxide as a barrier for her incontinence and dermatitis and other issues include; 1. Multiple sclerosis, advanced progressive. 2. Functional paraplegia with neurogenic bladder, requiring suprapubic catheter. 3. Chronic obstructive pulmonary disease. 4. Deep vein thrombosis, status post inferior vena cava filter placement, currently on Eliquis. 5. She has also stroke and seizure disorder, although the patient discontinued her Keppra on her own. PLAN: To continue with wound care. Continue with Diflucan. Continue with pain management. Continue with nutritional support. TERESE ALEMAN MD DR: MADELINE/beata JOB#: [id number] / [id number]
[2019-02-19 05:27] VITALS: BP 151/73
[2019-02-19] MEDS: BACLOFEN 20 MG TABLET PO SCH (06:34)
[2019-02-19] MEDS: NYSTATIN 100,000 UNIT/GM TOPICAL CREAM 15GM TUBE. TP SCH (09:00)
[2019-02-19] MEDS: VANCOMYCIN 125 MG/2.5 ML ORAL SOLUTION. PO SCH (09:26)
[2019-02-19] MEDS: CARVEDILOL 6.25 MG TABLET PO SCH (09:26)
[2019-02-19] MEDS: APIXABAN 5 MG TABLET. PO SCH (09:26)
[2019-02-19] MEDS: NICOTINE 21MG PATCH. TD SCH (09:26)
[2019-02-19] MEDS: ASCORBIC ACID 500 MG TABLET PO SCH (09:26)
[2019-02-19] MEDS: FUROSEMIDE 40 MG TABLET PO SCH (09:27)
[2019-02-19] MEDS: LISINOPRIL 20 MG TABLET PO SCH (09:28)
[2019-02-19] MEDS: hydrALAZINE 25 MG TABLET PO SCH (09:28)
[2019-02-19] MEDS: PARoxetine 20 MG TABLET PO SCH (09:28)
[2019-02-19] MEDS: MULTIVITAMIN with MINERAL TABLET. PO SCH (09:28)
[2019-02-19] MEDS: ASPIRIN 81 MG TAB.CHEW PO SCH (09:29)
[2019-02-19] MEDS: LACTOBACILLUS RHAMNOSUS GG 1 CAPSULE. PO SCH (09:29)
[2019-02-19 09:54] VITALS: BP 165/67
[2019-02-19] MEDS: POTASSIUM CL 20MEQ D5-0.9%NACL 1,000 ML IV SCH (10:00)
--- NOTE | 2019-02-19 12:26 | DS ---
DATE OF DISCHARGE: 02/19/2019 DATE OF DISCHARGE: 02/19/2019 ATTENDING PHYSICIAN: Ari Nuno MD FINAL/DISCHARGE DIAGNOSES: 1. Recurrent urinary tract infection. 2. Advanced progressive multiple sclerosis. The patient is nonambulatory. 3. Functional paraplegia with neurogenic bladder. 4. Chronic suprapubic catheter. 5. Chronic obstructive pulmonary disease due to tobacco use. 6. History of deep venous thrombosis with previous inferior vena cava filter, currently on Eliquis. 7. Old stroke and seizure disorder. 8. Noncompliance with meds. 9. Chronic cachexia and protein-calorie malnutrition. 10. Recurrent Clostridium colitis. HISTORY AND PHYSICAL: This 73-year-old female well known to us was admitted with irritation, fevers and UTI due to chronic indwelling catheter due to her MS. Her culture did grow greater than 100,000 colonies of yeast. She is on Diflucan. PHYSICAL EXAMINATION: Please see the dictated note. PERTINENT LABORATORY AND X-RAY STUDIES: On admission, her hemoglobin in a hemoconcentrated state was 15.3 g/dL, repeated 3 days later was down to 13.1 g/dL with white count of 7900. Chemistry panel is stable for her with a BUN of 14, creatinine 0.6 mg/dL. Electrolytes within normal range. Bilirubin is normal. Total protein is 5.1 with albumin of 2.1. Cultures of the urine did grow out greater than 100,000 colonies of yeast. COURSE IN THE HOSPITAL: The patient was admitted to the inpatient service. She was started on intravenous meropenem as well as Diflucan. Symptoms improved. Diet was advanced. Home meds were continued. She did well as she possibly could. On the fifth hospital day, her vital signs were quite stable. Her blood pressure was adequate. She was afebrile. She was alert. She had no symptoms. She was ready for discharge. At this time, I recommend continuation of her Eliquis 5 mg b.i.d., aspirin 81 mg daily, baclofen 20 mg every 8 hours, Coreg 6.25 mg twice a day, lisinopril 20 mg b.i.d., Remeron 15 mg at bedtime, multivitamin, Paxil 30 mg daily and trazodone 50 mg at bedtime. For now, we held her Lasix, hydralazine, nystatin, and vancomycin doses. I did recommend 5 more days of Diflucan 100 mg p.o. daily. FOLLOWUP: With her regular PCP. Strong encouragement to increase oral intake and to avoid tobacco use whether or not she will quit smoking remains to be seen. She was discharged from our hospital in stable condition with explicit instructions and followup care. TOTAL DISCHARGE TIME SPENT: 39 minutes. NOREEN MARIA MD DR: OSEAS/beata JOB#: [id number] / [id number]
== END 2019-02-19 13:16 | disposition home or self-care (01) | DRG 698 ==
LOC: ER 12:09 → 1 SOUTH 15:10
PROVIDERS: ADMIT Internal Medicine; ATTEND Internal Medicine
DX: T83.510A Infection and inflammatory reaction due to cystostomy catheter, initial encounter (principal); E43 Unspecified severe protein-calorie malnutrition; N39.0 Urinary tract infection, site not specified; Z68.1 Body mass index [BMI] 19.9 or less, adult; N31.9 Neuromuscular dysfunction of bladder, unspecified; F44.4 Conversion disorder with motor symptom or deficit; J44.9 Chronic obstructive pulmonary disease, unspecified; G40.909 Epilepsy, unspecified, not intractable, without status epilepticus; G35 Multiple sclerosis; I50.9 Heart failure, unspecified; N32.89 Other specified disorders of bladder; Z99.3 Dependence on wheelchair; E86.0 Dehydration; G89.4 Chronic pain syndrome; L30.9 Dermatitis, unspecified; Z79.82 Long term (current) use of aspirin; Z79.899 Other long term (current) drug therapy; Z80.3 Family history of malignant neoplasm of breast; Z82.49 Family history of ischemic heart disease and other diseases of the circulatory system; Z86.73 Personal history of transient ischemic attack (TIA), and cerebral infarction without residual deficits; Z87.891 Personal history of nicotine dependence; Z95.828 Presence of other vascular implants and grafts; F32.9 Major depressive disorder, single episode, unspecified; Z86.718 Personal history of other venous thrombosis and embolism; Z88.8 Allergy status to other drugs, medicaments and biological substances; Z91.041 Radiographic dye allergy status; Z91.14 Patient's other noncompliance with medication regimen; Z87.440 Personal history of urinary (tract) infections; Y84.6 Urinary catheterization as the cause of abnormal reaction of the patient, or of later complication, without mention of misadventure at the time of the procedure; Z79.01 Long term (current) use of anticoagulants
CPT/HCPCS: 36415; 80053; 81001; 85025; 85027; 87086; 96374; J1450; J2185; J2405; J3010; 99285-25

== ENCOUNTER 2019-08-15 14:30 | Inpatient (IN) | payer MEDICARE ==
[~2019-08-15] VITALS: Ht 175.3 cm; Wt 54.9 kg
[~2019-08-15 14:30] MED LIST changes: -MECL12.52 PO; +MECL12.573 PO; +PARO20TA3 PO; +PARO30TA3 PO
--- NOTE | 2019-08-15 14:39 | PHYS DOC ---
Past History Past Medical History: CHF, COPD, CVA, Depression, DVT, Seizure, TIA, UTI, Other Additional Past Medical Histor: multiple sclerosis Past Surgical History: Other Smoking: Cigarettes Alcohol Use: None Drug Use: None Adult General Chief Complaint Chief Complaint: PAIN ON URINATION HPI HPI Patient is a 73-year-old female with documented history of multiple sclerosis, COPD, CHF, TIA/stroke; presents via EMS secondary to 2.5 weeks of progressive weakness secondary to concern for possible UTI and decrease urine output.. Patient reports no shortness of breath or chest pain. No fever or chills reported. Patient lives at home with her . Review of Systems Review of Systems All other systems were reviewed and found to be within normal limits, except as documented in this note. Allergies Allergies Allergies Coded Allergies Type Severity Reaction Last Updated Verified I S O L A T I O N *CONTACT* Allergy Unknown 07/30/18 Yes NKMA Allergy Unknown 07/30/18 Yes Physical Exam Physical Exam Constitutional: Frail, no acute distress, non-toxic appearance. [] HENT: Normocephalic, atraumatic, bilateral external ears normal, oropharynx moist, no oral exudates, nose normal. [] Eyes: PERRLA, EOMI, conjunctiva normal, no discharge. [] Neck: Normal range of motion, no tenderness, supple, no stridor. [] Cardiovascular:Heart rate regular rhythm, no murmur [] Lungs & Thorax: Bilateral breath sounds clear to auscultation [] Abdomen: Bowel sounds normal, soft, no tenderness, no masses, no pulsatile masses. [] Skin: Warm, dry, no erythema, no rash. [] Back: No tenderness, no CVA tenderness. [] Extremities: No tenderness, no cyanosis, no clubbing, ROM intact, no edema. [] Neurologic: Alert and oriented X 3, normal motor function, normal sensory function, no focal deficits noted. [] Psychologic: Affect normal, judgement normal, mood normal. [] EKG EKG [] Radiology/Procedures Radiology/Procedures [] Course & Med Decision Making Course & Med Decision Making Pertinent Labs and Imaging studies reviewed. (See chart for details) Patient seen for weakness and concern for UTI/decreased urine output. Will check labs including urinalysis and give a 1000 cc normal saline bolus. 1601: Work-up reveals urinary tract infection. Patient given Rocephin. Will admit for further treatment. Patient is a DNR. I spoke with the hospitalist who is finally with this patient and he states that her baseline oxygen saturation is 89 to 90% so this is not a new finding. Dragon Disclaimer Dragon Disclaimer This electronic medical record was generated, in whole or in part, using a voice recognition dictation system. Departure Departure: Impression: Primary Impression: UTI (urinary tract infection) Additional Impression: Urinary tract infection Disposition: 09 ADMITTED INPATIENT Admitting Physician: Alberto Sam Condition: STABLE Referrals: GRACIE OLIVARES MD (PCP) Problem Qualifiers JOSEPH ADLER DO Aug 15, 2019 14:39
[2019-08-15] MEDS ORDERED: IV NORMAL SALINE 1,000ML 1,000 ML IV ONE (14:45)
[2019-08-15 15:08] LABS: BILIRUBIN,URINE NEG (NEG); CLARITY,URINE TURBID; COLOR,URINE YELLOW; GLUCOSE,URINE NEG (NEG)
[2019-08-15 15:09] LABS: BACTERIA,URINE MANY /HPF (0-FEW); NITRITE,URINE POS (NEG); SQUAMOUS EPITHELIAL CELL,UR FEW /LPF; UROBILINOGEN,URINE 0.2 mg/dL (0.2 mg/dL)
--- NOTE | 2019-08-15 15:16 | RAD ---
Exam: Chest one view INDICATION: Weakness TECHNIQUE: Frontal view of the chest Comparisons: 01/28/2019 FINDINGS: The cardiomediastinal silhouette and pulmonary vessels are within normal limits. Mildly increased interstitial opacities predominantly at the lung bases. No pleural effusion. IMPRESSION: No significant change from prior study. Electronically signed by: Harinder Bauman MD (08/15/2019 3:12 PM) [id number]
[2019-08-15] MEDS ORDERED: cefTRIAXone SODIUM 1 GM VIAL ONE (15:19)
[2019-08-15] MEDS ORDERED: IV NORMAL SALINE 50ML 50 ML ONE (15:19)
[2019-08-15 15:26] LABS: BASO # 0.1 x10^3/uL (0.0-0.2); BASO % 1 % (0-3); EOS # 0.2 x10^3/uL (0.0-0.7); EOS % 1 % (0-3); HEMATOCRIT 43.8 % (36.0-47.0); HEMOGLOBIN 14.4 g/dL (12.0-15.5); LYMPH # 1.5 x10^3/uL (1.0-4.8); LYMPH % 10 % (24-48); MEAN CORPUSCULAR HEMOGLOBIN 29 pg (25-35); MEAN CORPUSCULAR HGB CONC 33 g/dL (31-37); MEAN CORPUSCULAR VOLUME 89 fL (79-100); MONO # 1.3 x10^3/uL (0.0-1.1); MONO % 9 % (0-9); NEUT # 12.2 x10^3uL (1.8-7.7); NEUT % 80 % (31-73); PLATELET COUNT 461 x10^3/uL (140-400); RED BLOOD COUNT 4.94 x10^6/uL (3.50-5.40); RED CELL DISTRIBUTION WIDTH 16.6 % (11.5-14.5); WHITE BLOOD COUNT 15.4 x10^3/uL (4.0-11.0)
[2019-08-15 15:33] LABS: CALCIUM 8.6 mg/dL (8.5-10.1); CREATININE 0.5 mg/dL (0.6-1.0); GFR 120.6; POTASSIUM 3.8 mmol/L (3.5-5.1)
[2019-08-15 16:08] LABS: % EOS 1 % (0-5); % LYMPHS 7 % (24-48); % MONOS 15 % (0-10); % SEGS 77 % (35-66); PLT ESTIMATE INCREASED (ADEQUATE)
[2019-08-15] MEDS: IV NORMAL SALINE 1,000ML 1,000 ML IV SCH (17:32)
[2019-08-15 17:56] VITALS: BP 144/80
--- NOTE | 2019-08-15 17:58 | NUR ---
NURSING NOTE ADMIT PT DIRECT ADMIT TO ROOM 111 VIA EMS ACCOMPANIED BY EMS PERSONNEL FOR DX OF UTI AND WEAKNESS. PT DOES NOT USE OXYGEN AT HOME BUT IS CURRENTLY ON 3L. PT HAS WOUNDS ON HER COCCYX, EVALUATED BY THIS NURSE AND WOUND CARE, PHOTOS OBTAINED. DR MARIA NOTIFIED OF PT ARRIVAL. ORDERS ENTERED ACCORDING. PT IS SETTLED IN ROOM. NO COMPLICATIONS. ALYSSA MCKENNA.
[2019-08-15] MEDS ORDERED: VANC250C3 PO (18:08)
[2019-08-15] MEDS ORDERED: HYDR-2868 PO (18:08)
[2019-08-15] MEDS ORDERED: HYDR-2155 PO (18:08)
[2019-08-15 19:03] VITALS: BP 140/87
[2019-08-15] MEDS: HYDROcodone/APAP 5/325MG 1 TAB TABLET PO PRN (19:41)
--- NOTE | 2019-08-15 20:18 | HP ---
ADMIT DATE: 08/15/2019 ATTENDING PHYSICIAN: Dr. Maria. CHIEF COMPLAINT: Burning sensation and nausea. HISTORY OF PRESENT ILLNESS: The patient is a 73-year-old female, well known to us from multiple previous admissions. She has advanced multiple sclerosis. She lies in bed most of the day. She is nonambulatory. She lives in the basement of her son's house. She has had numerous admissions for infection. She has a chronic indwelling Lynch catheter for urinary retention. She has had burning sensation, low-grade fevers and some nausea. She is also on other meds including blood pressure meds, anti-depression meds and chronic blood thinners. PAST MEDICAL HISTORY: Significant for seizure disorder, DVT, on chronic anticoagulation, hematoma on left thigh due to trauma, generalized weakness, gastroenteritis, anxiety disorder, major depression, chronic C. difficile colitis, chronic urinary tract infection, suprapubic catheter, advanced stage multiple sclerosis for many years, recurrent diarrhea, hypomagnesemia, long-term use of opiates and long-term use of anticoagulants. CURRENT MEDICINES: At home include Eliquis, aspirin, baclofen, Coreg, hydrocodone, Remeron, paroxetine, trazodone and oral vancomycin. ALLERGIES: She has no recorded drug allergies. SOCIAL HISTORY AND FAMILY HISTORY: She is a nonsmoker, nondrinker. Her mother at age 61 of breast cancer. Father at age 76 of heart disease. She is single. She lives with 1 son. Unfortunately, they cannot provide the care that she needs. We have tried to get her into assisted living in a higher level of care, she has declined. REVIEW OF SYSTEMS: Significant for the nausea, localized dysuria, low-grade fevers, dyspnea with minimal exertion. She is nonambulatory. All other systems reviewed and determined to be negative. PHYSICAL EXAMINATION: GENERAL: When I saw her, this is a pleasant, alert, but cachectic female. INITIAL VITAL SIGNS: Showed a blood pressure of 132/61, pulse is 69 and regular. She was afebrile, oxygen saturation 94% on 3 liters on nasal cannula. HEENT: Head is without trauma. Pupils are reactive. Sclerae nonicteric. Oropharynx is clear. NECK: Supple, no bruits identified. LUNGS: Shallow respirations. CARDIOVASCULAR: Showed distant heart tones. No obvious gallops. Peripheral pulses are palpable and full. ABDOMEN: Soft, scaphoid, nontender. No guarding or rebound tenderness. No masses palpated. There is a suprapubic catheter, which has been recently replaced. The site is clean without any drainage, redness or erythema. NEUROLOGIC: The patient has contraction of the lower extremities. She has some muscle wasting. She is nonambulatory due to the MS. Her speech is fluent. PERTINENT LABORATORY STUDIES: Her hemoglobin today is 14.4 g/dL in a hemoconcentrated state, white count 15,400. BUN is 14, creatinine 0.5. Troponin is adequate. BNP 237. Urine cultures are pending. ASSESSMENT: 1. A 73-year-old female with recurrent urinary tract infection. 2. Advanced multiple sclerosis with debility and paraparesis. 3. Essential hypertension. 4. Chronic anticoagulation. 5. Idiopathic seizure disorder. 6. Depression with anxiety. 7. Generalized debilitation. 8. There is a chronic decubitus ulcer of the sacrum. PLAN: 1. Admit to the inpatient unit. 2. Gentle IV fluids. 3. Home meds reviewed and continued. 4. We will hold her hydralazine for now. 5. Urine cultures. 6. Empiric Rocephin. 7. Continue oral vancomycin for chronic C. diff infection. NOREEN MARIA MD DR: OSEAS/beata JOB#: [id number] / [id number] TERESE Singh MD
[2019-08-15] MEDS ORDERED: CARVEDILOL 6.25 MG TABLET PO SCH (21:00)
[2019-08-15] MEDS: APIXABAN 5 MG TABLET. PO SCH (21:28)
[2019-08-15] MEDS: MIRTAZAPINE 15 MG TABLET PO SCH (21:28)
[2019-08-15] MEDS: VANCOMYCIN 125 MG/2.5 ML ORAL SOLUTION. PO SCH (21:29)
[2019-08-15] MEDS: traZODone 50 MG TABLET. PO SCH (21:29)
[2019-08-15] MEDS: BACLOFEN 20 MG TABLET PO SCH (21:29)
[2019-08-15 22:36] VITALS: BP 131/75
[2019-08-16] MEDS: IV NORMAL SALINE 1,000ML 1,000 ML IV SCH (05:08)
[2019-08-16 05:10] VITALS: BP 122/79
[2019-08-16] MEDS: BACLOFEN 20 MG TABLET PO SCH ×3 (06:01→22:12)
[2019-08-16] MEDS: HYDROcodone/APAP 5/325MG 1 TAB TABLET PO PRN ×3 (06:24→20:05)
[2019-08-16] MEDS: CARVEDILOL 6.25 MG TABLET PO SCH ×2 (08:16→16:59)
[2019-08-16] MEDS: APIXABAN 5 MG TABLET. PO SCH ×2 (08:16→20:05)
[2019-08-16] MEDS: PARoxetine 20 MG TABLET PO SCH (08:16)
[2019-08-16] MEDS: ASPIRIN 81 MG TAB.CHEW PO SCH (08:16)
[2019-08-16] MEDS: MULTIVITAMIN with MINERAL TABLET. PO SCH (08:16)
[2019-08-16] MEDS: VANCOMYCIN 125 MG/2.5 ML ORAL SOLUTION. PO SCH ×4 (08:17→20:06)
--- NOTE | 2019-08-16 10:10 | PN ---
DATE: 08/16/2019 SUBJECTIVE: The patient is better. Pain is controlled. She denied any fevers, chills, nausea. She ate all of her breakfast. OBJECTIVE FINDINGS: VITAL SIGNS: Her blood pressure today is 122/79, pulse 66 and regular. She is afebrile. Her oxygen saturation adequate on her standard 2 liters OF nasal cannula. HEENT: Head is without trauma. Pupils are reactive. Sclerae nonicteric. The oropharynx is clear. NECK: Supple, no bruits identified. LUNGS: Otherwise clear. CARDIOVASCULAR: Showed regular heart tones. No obvious gallops. Peripheral pulses are palpable and full. ABDOMEN: Soft, scaphoid, nontender, no organomegaly. Bowel sounds are hypoactive. EXTREMITIES: Showed a contraction with muscle wasting. She is nonambulatory. Urine cultures are pending. Indwelling suprapubic catheter is in place. ASSESSMENT: 1. A 73-year-old female with advanced multiple sclerosis. 2. Generalized debility with paraparesis. 3. Decubitus ulcer. 4. Urinary tract infection, frequent. 5. Chronic anticoagulation. PLAN: 1. Continue antibiotics as ordered. 2. Await urine cultures. 3. Diet as tolerated. 4. Home meds continued. NOREEN MARIA MD DR: OSEAS/beata JOB#: [id number] / [id number]
--- NOTE | 2019-08-16 10:22 | NUR ---
Wound Care Wound Care consult for buttock wounds. Pt is well known to WC team due to frequent visits to hospital. Pt has stage III PU to coccyx and left buttock. Rn pictured and measured wounds. Pt proximal coccyx wound has healed, old bandage removed. PU's dressed with skin prep, hydrocolloid and foam dressings, recommend to change every 3 days. No other wounds noted. WC will continue to follow for possible change. Pt educated on PU prevention, tq2h recommended, pt left on left side with heels floated.
[2019-08-16 11:03] VITALS: BP 105/54
--- NOTE | 2019-08-16 13:45 | NUR ---
IP: patient has documentation of chronic c diff, requires contact + precautions.
[2019-08-16] MEDS: NICOTINE 21MG PATCH. TD SCH (13:48)
[2019-08-16 15:57] VITALS: BP 141/78
--- NOTE | 2019-08-16 18:07 | NUR ---
NURSING NOTE PT IS A&O. PT IS COMPLIANT WITH MEDS AND CARES. PT HAD BED BATH TODAY. PT C/O CHRONIC PAIN AND WAS GIVEN PRN HYDROCODONE ONCE THIS SHIFT. PT C/O PAIN IN HER COCCYX WHERE HER SORE IS. PT REPOSITIONED Q2 HRS WITH PURPLE FOAM WEDGE AND PILLOWS. PT CURRENTLY GETTING IV ROCEPHIN DAILY FOR UTI. NO COMPLICATIONS. WILL CONTINUE TO MONITOR. ALYSSA MCKENNA.
[2019-08-16 19:11] VITALS: BP 112/64
[2019-08-16] MEDS: traZODone 50 MG TABLET. PO SCH (20:05)
[2019-08-16] MEDS: MIRTAZAPINE 15 MG TABLET PO SCH (20:05)
[2019-08-16] MEDS: LACTOBACILLUS RHAMNOSUS GG 1 CAPSULE. PO SCH (22:12)
[2019-08-16 23:37] VITALS: BP 92/56
[2019-08-17] MEDS ORDERED: PARO20TA3 PO (01:42)
[2019-08-17] MEDS ORDERED: MIRT30TA3 PO (01:42)
[2019-08-17] MEDS: HYDROcodone/APAP 5/325MG 1 TAB TABLET PO PRN (02:20)
[2019-08-17 05:09] VITALS: BP 126/63
[2019-08-17] MEDS ORDERED: HYDROcodone/APAP 10/325 1 TAB TABLET PO PRN (05:45)
[2019-08-17] MEDS: BACLOFEN 20 MG TABLET PO SCH ×3 (05:54→20:56)
[2019-08-17] MEDS: CARVEDILOL 6.25 MG TABLET PO SCH ×2 (07:56→17:09)
[2019-08-17] MEDS: LACTOBACILLUS RHAMNOSUS GG 1 CAPSULE. PO SCH ×2 (07:56→20:55)
[2019-08-17] MEDS: PARoxetine 20 MG TABLET PO SCH (07:58)
[2019-08-17] MEDS: MULTIVITAMIN with MINERAL TABLET. PO SCH (07:58)
[2019-08-17] MEDS: APIXABAN 5 MG TABLET. PO SCH ×2 (07:59→20:56)
[2019-08-17] MEDS: NICOTINE 21MG PATCH. TD SCH (07:59)
[2019-08-17] MEDS: ASPIRIN 81 MG TAB.CHEW PO SCH (07:59)
[2019-08-17] MEDS: VANCOMYCIN 125 MG/2.5 ML ORAL SOLUTION. PO SCH ×4 (08:01→20:55)
[2019-08-17] MEDS: MIRTAZAPINE 15 MG TABLET PO SCH ×2 (10:00→20:56)
[2019-08-17] MEDS: HYDROcodone/APAP 10/325 1 TAB TABLET PO PRN ×2 (10:43→17:09)
[2019-08-17] MEDS ORDERED: PARoxetine 20 MG TABLET PO ONE (11:00)
[2019-08-17 11:03] VITALS: BP 145/72
--- NOTE | 2019-08-17 14:11 | NUR ---
NURSING NOTE PT WAS IN SITTING UP IN BED THIS AM UPON ASSESSMENT AND MEDICATION ADMINISTRATION. PT IS A&O. DURING ROUNDS WITH DR MARIA, PT STATES SHE IS NOT FEELING READY TO GO HOME YET TODAY. DR MARIA SPOKE WITH PT ABOUT [facility] AND PT STATES SHE WANTS TO GO HOME. PT C/O CHRONIC PAIN. PT GIVEN PRN HYDROCODONE. PT OTHER MEDICATION DOSAGES WERE ADJUSTED TODAY. PT IS CALM AND COOPERATIVE WITH ALL CARES. PT VOICED THAT SHE HAD A BED BATH YESTERDAY. WILL CONTINUE TO MONITOR. ALYSSA MCKENNA.
[2019-08-17 15:50] VITALS: BP 128/69
[2019-08-17 19:15] VITALS: BP 132/72
[2019-08-17] MEDS: traZODone 50 MG TABLET. PO SCH (20:56)
--- NOTE | 2019-08-17 21:35 | PN ---
DATE: 08/17/2019 ATTENDING PHYSICIAN: Dr. Maria. SUBJECTIVE: The patient is still weak. She denied any fevers. She ate all her breakfast. Her main complaint is some torticollis and posterior neck muscle spasm causing headaches. OBJECTIVE FINDINGS: VITAL SIGNS: Showed she is afebrile, blood pressure and pulse are stable. Oxygen saturation is adequate on 2 liters of nasal cannula continuously. HEENT: Head is without trauma. Pupils are reactive. Sclerae nonicteric. Oropharynx clear. NECK: Supple. There are multiple trigger points in the muscle. LUNGS: Otherwise clear. CARDIOVASCULAR: Showed regular heart tones. No gallops. Peripheral pulses are palpable and full. ABDOMEN: Soft, scaphoid, nontender, no organomegaly. Bowel sounds are normoactive. EXTREMITIES: Showed contraction with muscle wasting. She is nonambulatory. SKIN: Noticeable chronic decubiti of the sacrum. MICROBIOLOGY: Urine cultures grew greater than 100,000 colonies of mixed urogenital alexx. ASSESSMENT: A 73-year-old female with: 1. Advanced multiple sclerosis. 2. Generalized debility with paraparesis. 3. Urinary tract infection, frequent. 4. Presence of suprapubic catheter. 5. Decubiti. 6. Chronic anticoagulation. PLAN: 1. Continue antibiotics as ordered. 2. Diet as tolerated. 3. Pain control. I offered her discharge. She is reluctant at this time. We had the same discussion again that she needs a higher level of care than can be provided. She did not go into detail. NOREEN MARIA MD DR: OSEAS/beata JOB#: [id number] / [id number]
[2019-08-17 22:58] VITALS: BP 148/76
[2019-08-18] MEDS: HYDROcodone/APAP 10/325 1 TAB TABLET PO PRN ×2 (01:36→11:37)
[2019-08-18] MEDS: VANCOMYCIN 125 MG/2.5 ML ORAL SOLUTION. PO SCH ×2 (08:56→14:15)
[2019-08-18] MEDS: ASPIRIN 81 MG TAB.CHEW PO SCH (08:56)
[2019-08-18] MEDS: CARVEDILOL 6.25 MG TABLET PO SCH (08:56)
[2019-08-18] MEDS: BACLOFEN 20 MG TABLET PO SCH ×2 (08:56→14:14)
[2019-08-18] MEDS: LACTOBACILLUS RHAMNOSUS GG 1 CAPSULE. PO SCH (08:56)
[2019-08-18] MEDS: MULTIVITAMIN with MINERAL TABLET. PO SCH (08:57)
[2019-08-18] MEDS: NICOTINE 21MG PATCH. TD SCH (08:57)
[2019-08-18] MEDS: APIXABAN 5 MG TABLET. PO SCH (08:57)
[2019-08-18] MEDS ORDERED: PARoxetine 20 MG TABLET PO SCH (09:00)
[2019-08-18 12:07] VITALS: BP 151/89
--- NOTE | 2019-08-18 14:03 | DS ---
DATE OF DISCHARGE: HOSPITAL COURSE: The patient is a 73-year-old female patient with longstanding multiple sclerosis and functional paraplegia, neurogenic bladder requiring suprapubic catheter, who presented to the Emergency Room with a complaint of dysuria. She has also had been complaining of progressive weakness. There was a concern about the possibility of a UTI decrease in urine output. However, she denied any shortness of breath or chest pain. No fever, chills or rigors. She lives at home with her son and she was basically admitted, started empirically on IV ceftriaxone together with oral vancomycin for her chronic C. difficile colitis. Her urine culture has finally showed growth of greater than 100,000 colony forming units per mL of mixed urogenital alexx. I have had a lengthy discussion with the patient and she basically wanted to go back home to live with her son. I discontinued her IV ceftriaxone as the urine culture showing mixed urogenital alexx and therefore, she remained hemodynamically stable and afebrile. Her white cell count was normal. A decision was made to discharge her back home to follow with her primary care physician, Dr. Butterfield. PHYSICAL EXAMINATION: GENERAL: When I examined her this afternoon, she looked well and was clearly in no apparent respiratory distress. She was extremely cachectic, but there is no pallor, jaundice, cyanosis or thyromegaly. No jugular venous distention. No limb edema. VITAL SIGNS: Her heart rate was 78, blood pressure was 151/89, temperature was 97.5, respiratory rate was 18 and oxygen saturation was 97%. HEAD, EYES, EARS, NOSE AND THROAT: Showed normocephalic, atraumatic. NECK: Supple. HEART: Showed normal first and second heart sounds. No gallop or murmur. CHEST: Clear to auscultation. No crepitation or rhonchi. ABDOMEN: Distended, soft, nontender. No guarding or rigidity. No organomegaly. All hernial orifice intact. Bowel sounds normal. NEUROLOGIC: She was awake, alert, responding appropriately. She is able to move her upper extremities to much good extent than lower extremities, although she has generalized muscular weakness and muscle wasting. She has neurogenic bladder, requiring suprapubic catheter. Her intake over the last 24 hours was 1640, output was 950. LABORATORY DATA: Her most recent lab work showed a white cell count 15,400, hemoglobin 14, hematocrit 43, MCV 89 and platelet count of 461,000. Serum sodium was 139, potassium 3.8, chloride 104, bicarbonate 29, anion gap of 6, BUN 14, creatinine 0.5, estimated GFR was 120 mL per minute. Her glucose was 87, calcium was 8.6. DISCHARGE MEDICATIONS: The patient was discharged back home to continue on apixaban 5 mg twice a day, aspirin 81 mg once a day, baclofen 20 mg every 8 hours as needed, carvedilol 6.25 mg twice a day, hydralazine 25 mg 3 times a day, hydrocodone/APAP 5/325 one tablet every 4 hours, lisinopril 20 mg twice a day, mirtazapine 30 mg at bedtime, multivitamin 1 tablet once a day, paroxetine total of 50 mg daily, trazodone 50 mg at bedtime and vancomycin 250 mg capsules 4 times a day. FINAL DISCHARGE DIAGNOSES: 1. Progressive multiple sclerosis. 2. Functional paraplegia. 3. Neurogenic bladder, requiring suprapubic catheter. 4. Chronic obstructive pulmonary disease. 5. She has chronic relapsing Clostridium difficile colitis, which she is on chronic suppressive therapy. 6. Chronic pain syndrome. 7. Poor mobility and functionality 8. History of stroke and seizure disorder. TERESE ALEMAN MD DR: MADELINE/beata JOB#: [id number] / [id number]
--- NOTE | 2019-08-18 15:19 | NUR ---
REVIEWED ALL DISCHARGE INSTRUCTIONS, MEDICATIONS, WOUND CARE WITH PT. IV DC'D WITHOUT COMPLICATION. PT WILL BE TRANSPORT HOME BY [facility]. CALL PLACED FOR TRANSFER.
[2019-08-18 15:20] VITALS: BP 138/73
--- NOTE | 2019-08-18 16:20 | NUR ---
EMS HERE FOR TRANSPORT. THIS RN ASSISTED EMS GETTING PT SETTLED ON EMS STRETCHER. THIS RN ALSO CALLED [facility] TO INFORM THEM OF DISCHARGE.
== END 2019-08-18 16:29 | disposition home or self-care (01) | DRG 58 ==
LOC: ER 14:30 → 1 SOUTH 15:59 → ER 16:35
PROVIDERS: ADMIT Hospitalist; ATTEND Internal Medicine
DX: G35 Multiple sclerosis (principal); L89.323 Pressure ulcer of left buttock, stage 3; L89.153 Pressure ulcer of sacral region, stage 3; N39.0 Urinary tract infection, site not specified; A04.72 Enterocolitis due to Clostridium difficile, not specified as recurrent; G82.20 Paraplegia, unspecified; I11.0 Hypertensive heart disease with heart failure; J44.9 Chronic obstructive pulmonary disease, unspecified; F32.9 Major depressive disorder, single episode, unspecified; F41.9 Anxiety disorder, unspecified; Z87.891 Personal history of nicotine dependence; Z86.73 Personal history of transient ischemic attack (TIA), and cerebral infarction without residual deficits; Z87.440 Personal history of urinary (tract) infections; Z79.01 Long term (current) use of anticoagulants; I50.9 Heart failure, unspecified; G40.909 Epilepsy, unspecified, not intractable, without status epilepticus; N31.9 Neuromuscular dysfunction of bladder, unspecified; G89.4 Chronic pain syndrome
CPT/HCPCS: 36415; 71045; 80048; 81001; 83880; 84484; 85007; 85025; 87086; 96365; 99406; J0696; P9612; 99285-25; J7030

== ENCOUNTER 2019-09-26 14:13 | Inpatient (IN) | payer MEDICARE ==
[~2019-09-26] VITALS: Ht 175.3 cm; Wt 54.8 kg
[~2019-09-26 14:13] MED LIST changes: +MIRT30TA3 PO
[2019-09-26] MEDS ORDERED: IV NORMAL SALINE 1,000ML 1,000 ML IV ONE (14:30)
[2019-09-26 14:54] LABS: BASO # 0.1 x10^3/uL (0.0-0.2); BASO % 1 % (0-3); EOS # 0.3 x10^3/uL (0.0-0.7); EOS % 2 % (0-3); HEMATOCRIT 44.4 % (36.0-47.0); HEMOGLOBIN 14.6 g/dL (12.0-15.5); LYMPH # 1.2 x10^3/uL (1.0-4.8); LYMPH % 10 % (24-48); MEAN CORPUSCULAR HEMOGLOBIN 29 pg (25-35); MEAN CORPUSCULAR HGB CONC 33 g/dL (31-37); MEAN CORPUSCULAR VOLUME 89 fL (79-100); MONO # 0.9 x10^3/uL (0.0-1.1); MONO % 7 % (0-9); NEUT # 10.2 x10^3uL (1.8-7.7); NEUT % 81 % (31-73); PLATELET COUNT 441 x10^3/uL (140-400); RED CELL DISTRIBUTION WIDTH 16.2 % (11.5-14.5); WHITE BLOOD COUNT 12.7 x10^3/uL (4.0-11.0)
--- NOTE | 2019-09-26 15:00 | PHYS DOC ---
Past History Past Medical History: Other Additional Past Medical Histor: MS Past Surgical History: Other Additional Past Surgical Histo: suprapubic cath Smoking: Cigarettes Alcohol Use: None Drug Use: None General Adult EDM: Chief Complaint: URINE CATHETER PROBLEM HPI: HPI: 73-year-old female presents via EMS with report of suprapubic abdominal discomfort and concern she may continue to have a urinary tract infection. Patient does have an indwelling suprapubic catheter. Reports was recently changed on Thursday by home health. Patient reports she was recently admitted to the hospital here at [facility] for an infection and thinks that she never got 100% better. Patient reports she was not discharged on any antibiotics. [facility] review notes patient's urine culture noted contamination and urogenital alexx. Patient denies any nausea or vomiting. Denies fever or chills. Patient does report some associated generalized weakness. Review of Systems: Review of Systems: Constitutional: Denies fever or chills Eyes: Denies redness or eye pain HENT: Denies nasal congestion or sore throat Respiratory: Denies cough or shortness of breath Cardiovascular: Denies chest pain or palpitations GI: Denies nausea or vomiting; reports suprapubic discomfort : Reports suprapubic catheter and cloudiness of urine Musculoskeletal: Denies back pain or joint pain Integument: Denies rash or skin lesions Neurologic: Denies headache, focal weakness or sensory changes; reports generalized weakness Complete systems were reviewed and found to be within normal limits, except as documented in this note. Current Medications: Current Meds: Current Medications Medications (Trade) Dose Ordered Sig/[facility] Start Time Stop Time Status Last Admin Dose Admin Sodium Chloride 1,000 ml @ 1,000 mls/hr 1X ONCE 09/26/19 14:30 09/26/19 15:29 09/26/19 14:42 1,000 MLS/HR Allergies: Allergies: Allergies Coded Allergies Type Severity Reaction Last Updated Verified I S O L A T I O N *CONTACT* Allergy Unknown 07/30/18 Yes NKMA Allergy Unknown 07/30/18 Yes Physical Exam: PE: Constitutional: Well developed, well nourished, no acute distress, non-toxic appearance HENT: Normocephalic, atraumatic, oropharynx moist Eyes: Conjunctiva normal, no discharge Neck: Normal range of motion, no tenderness, supple Cardiovascular: Heart rate normal, regular rhythm Lungs & Thorax: Bilateral breath sounds clear to auscultation, no wheezing Abdomen: Soft, suprapubic tenderness, no guarding/rebound tenderness/distention, suprapubic catheter in place with cloudiness noted to urine and down drain Skin: Warm, dry, no erythema, decubitus region with dressing Back: No tenderness, no CVA tenderness Extremities: No tenderness, ROM intact, no edema Neurologic: Alert and oriented X 3, no focal deficits noted Psychologic: Affect normal, judgment normal Current Patient Data: Labs: Laboratory Tests Test 09/26/19 14:37 White Blood Count 12.7 x10^3/uL (4.0-11.0) H Red Blood Count 5.00 x10^6/uL (3.50-5.40) Hemoglobin 14.6 g/dL (12.0-15.5) Hematocrit 44.4 % (36.0-47.0) Mean Corpuscular Volume 89 fL (79-100) Mean Corpuscular Hemoglobin 29 pg (25-35) Mean Corpuscular Hemoglobin Concent 33 g/dL (31-37) Red Cell Distribution Width 16.2 % (11.5-14.5) H Platelet Count 441 x10^3/uL (140-400) H Neutrophils (%) (Auto) 81 % (31-73) H Lymphocytes (%) (Auto) 10 % (24-48) L Monocytes (%) (Auto) 7 % (0-9) Eosinophils (%) (Auto) 2 % (0-3) Basophils (%) (Auto) 1 % (0-3) Neutrophils # (Auto) 10.2 x10^3uL (1.8-7.7) H Lymphocytes # (Auto) 1.2 x10^3/uL (1.0-4.8) Monocytes # (Auto) 0.9 x10^3/uL (0.0-1.1) Eosinophils # (Auto) 0.3 x10^3/uL (0.0-0.7) Basophils # (Auto) 0.1 x10^3/uL (0.0-0.2) Vital Signs: Vital Signs Date Time Temp Pulse Resp B/P (MAP) Pulse Ox O2 Delivery O2 Flow Rate FiO2 4/27/20 14:25 98.0 81 18 116/65 (82) 92 Room Air EKG: EKG: @1442 NSR at 72bpm, NO ST, QRS 78ms, QT/QTc 390/429ms Radiology/Procedures: Radiology/Procedures: [] Course & Med Decision Making: Course & Med Decision Making Pertinent Lab studies reviewed. (See chart for details) Elderly patient presents with concern for possible continued urinary tract infection. Patient does have a suprapubic catheter. History of recent admission for similar. Suprapubic catheter was replaced. UA obtained from new catheter with signs consistent for urinary tract infection. Other labs obtained and posted to chart. Patient offered discharge but feels safer being admitted to the hospital for further evaluation and treatment due to generalized weakness associated with UTI. Given UTI recurrence with complication of suprapubic catheter. Will admit patient for further evaluation and treatment. Discussed with Dr. Nuno (hospitalist) who is in agreement with admission. Discussed findings and plan with patient, who acknowledges understanding and agreement. Hugo Disclaimer: Hugo Disclaimer: This electronic medical record was generated, in whole or in part, using a voice recognition dictation system. Departure Departure: Impression: Primary Impression: Complicated UTI (urinary tract infection) Disposition: ADMITTED INPATIENT Admitting Physician: Ari Nuno Condition: STABLE Referrals: GRACIE OLIVARES MD (PCP) AUNDREA ALMEIDA DO Sep 26, 2019 14:59
[2019-09-26 15:06] LABS: CALCIUM 8.7 mg/dL (8.5-10.1); CREATININE 0.6 mg/dL (0.6-1.0); GFR 97.7; POTASSIUM 4.3 mmol/L (3.5-5.1)
[2019-09-26] MEDS ORDERED: ONDANSETRON PF 4 MG/2 ML VIAL. IVP ONE (15:15)
[2019-09-26 15:19] LABS: ALBUMIN 2.8 g/dL (3.4-5.0); ALBUMIN/GLOBULIN RATIO 0.8 (1.0-1.7); TOTAL BILIRUBIN 0.2 mg/dL (0.2-1.0); TOTAL PROTEIN 6.4 g/dL (6.4-8.2)
[2019-09-26 16:00] LABS: COLOR,URINE YELLOW
[2019-09-26 16:01] LABS: CLARITY,URINE CLOUDY
[2019-09-26 16:03] LABS: BILIRUBIN,URINE NEG (NEG); GLUCOSE,URINE NEG (NEG)
[2019-09-26 16:04] LABS: NITRITE,URINE POS (NEG); UROBILINOGEN,URINE 0.2 mg/dL (0.2 mg/dL)
[2019-09-26 16:05] LABS: BACTERIA,URINE MANY /HPF (0-FEW); RBC,URINE TNTC /HPF (0-2); SQUAMOUS EPITHELIAL CELL,UR OCC /LPF; WBC,URINE TNTC /HPF (0-4)
[2019-09-26] MEDS ORDERED: IV NORMAL SALINE 50ML 50 ML ONE (16:30)
[2019-09-26] MEDS ORDERED: cefTRIAXone SODIUM 1 GM VIAL ONE (16:30)
[2019-09-26] MEDS ORDERED: ONDANSETRON PF 4 MG/2 ML VIAL. IVP PRN (16:30)
[2019-09-26] MEDS ORDERED: ACETAMINOPHEN 325 MG TABLET PO PRN (16:45)
--- NOTE | 2019-09-26 16:52 | EKG ---
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
[2019-09-26 17:34] VITALS: BP 136/75
--- NOTE | 2019-09-26 17:50 | HP ---
ADMIT DATE: 09/26/2019 HISTORY OF PRESENT ILLNESS: The patient is a 73-year-old female patient who came to the Emergency Room complaining of generally unwell. She is known to have neurogenic bladder and has had suprapubic catheter and she is brought into recurrent urinary tract infection. She did complain of burning sensation, low-grade fever and some nausea and she was brought to the Emergency Room by EMS and her urinalysis showed that she has too numerous to count rbc's and wbc's, she has also many bacteria. There was large amount of leukocyte esterase and the urine was positive for nitrite. Urine was cloudy and therefore she was admitted for treatment of urinary tract infection. Her lab works are otherwise unremarkable. Her white cell count was slightly elevated 12,700 and therefore her urine was sent for culture and sensitivity and was admitted. She has received ceftriaxone and a liter of IV fluid and was admitted to continue IV fluid and IV antibiotic. PAST MEDICAL HISTORY: Significant for advanced multiple sclerosis with functional paraplegia, neurogenic bladder requiring suprapubic catheter. She is mostly bedbound, wheelchair bound and she is currently lives at home at the basement of her son's house. She is also known to have recurrent Clostridium difficile colitis for which she is on continuous treatment with vancomycin. 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 She has a flareup of her C. diff colitis soon ever she was started on antibiotic. She is known to have chronic pain syndrome, chronic spasticity, poor mobility and functionality. She is also known to have COPD, stroke, seizures and also DVT. PAST SURGICAL HISTORY: Significant for suprapubic catheter placement as well as IVC filter placement. FAMILY HISTORY: Positive for breast cancer in her mother, her mother in fact at the age of 51. Her father of myocardial infarction at the age of 76. She has 2 brothers, who are older and apparently healthy. SOCIAL HISTORY: She is , lives with her son. She has 2 sons. She smokes a pack a day for more than 20 years. She does not drink alcohol or use any recreational drugs. REVIEW OF SYSTEMS: As per history of present illness. PHYSICAL EXAMINATION: GENERAL: On arrival to the Emergency Room today, she was somewhat weak, but there is no pallor, jaundice, cyanosis or thyromegaly. No jugular venous distention. No limb edema. VITAL SIGNS: Her heart rate was 81, blood pressure was 116/65, temperature was 98, respiratory rate was 18, and oxygen saturation was 92%. HEAD, EYES, EARS, NOSE AND THROAT: Normocephalic and atraumatic. NECK: Supple. HEART: Showed normal first and second heart sounds. No gallop, rub or murmur. CHEST: Clear to auscultation. No crepitation or rhonchi. ABDOMEN: Scaphoid, soft, nontender with suprapubic catheter in place. There is no tenderness. No guarding or rigidity. No organomegaly. All hernial orifice intact. Bowel sounds normal. NEUROLOGIC: She is awake, alert, responding appropriately. All cranial nerves are intact. She has functional quadriplegia; however, she has retained some movement of her upper extremities. She has a neurogenic bladder with suprapubic catheter in place. LABORATORY DATA: Her lab work on arrival showed a white cell count 12,700; hemoglobin 14.6; hematocrit 44; MCV 89; and platelet count of 441,000. Her chemistry showed a serum sodium 137, potassium 4.3, chloride 102, bicarbonate 25, anion gap of 10, BUN 18, creatinine 0.6, estimated GFR was 97, and glucose was 93. Lactic acid was 0.8. Estimated GFR was 88.7, magnesium 2. Total bilirubin, AST, ALT, alkaline phosphatase were normal. Total protein was 6.4, albumin 2.8. Lipase 114. Her prothrombin time was 11.4, INR 1.1, aPTT was 27. Her urine culture showed the urine was yellow, cloudy with a pH of 7, specific gravity of 1.020, there was small amount of protein, the urine was negative for glucose. There was trace of ketones, large amount of blood, positive for nitrite, negative for bilirubin, large amount of leukocyte esterase, too numerous to count rbc's, too numerous to count wbc's, and many bacteria. ASSESSMENT AND PLAN: In summary, this is a 73-year-old female patient with longstanding multiple sclerosis, neurogenic bladder requiring suprapubic catheter, who comes again with another episode of urinary tract infection. Obviously, the urine was sent for culture and sensitivity as well as blood and she was given a liter of fluid, was started on IV Rocephin. We will reconcile all her medication and monitor her lab work on a daily basis and adjust antibiotic according to the result of culture and sensitivity. TERESE ALEMAN MD DR: MADELINE/beata JOB#: [id number] / [id number]
--- NOTE | 2019-09-26 18:01 | NUR ---
NURSING NOTE ADMIT PT DIRECT ADMIT FROM ED TO ROOM 105 FOR DX OF UTI. PT IS IN CONTACT PLUS ISOLATION FOR CHRONIC CDIFF. PT SUPRAPUBIC CATH CHANGED IN ED. PT HAS HEALING COCCYX WOUND, PHOTO OBTAINED. PT IS A&O. PT STATES SHE LIVES IN THE BASEMENT AT HOME WITH HER SON BUT HAS HOME HEALTH THAT IS CARING FOR HER WOUNDS. MEDICATIONS ARE REVIEWED IN COMPUTER WITH DR ALEMAN. WILL CONTINUE TO MONITOR.
[2019-09-26 19:34] VITALS: BP 105/58
[2019-09-26] MEDS ORDERED: CARVEDILOL 6.25 MG TABLET PO SCH (21:00)
[2019-09-26] MEDS ORDERED: MIRTAZAPINE 30 MG TABLET PO SCH (21:00)
[2019-09-26] MEDS: hydrALAZINE 25 MG TABLET PO SCH (21:07)
[2019-09-26] MEDS: BACLOFEN 20 MG TABLET PO SCH (21:08)
[2019-09-26] MEDS: traZODone 50 MG TABLET. PO SCH (21:08)
[2019-09-26] MEDS: APIXABAN 5 MG TABLET. PO SCH (21:08)
[2019-09-26] MEDS: VANCOMYCIN 125 MG/2.5 ML ORAL SOLUTION. PO SCH (21:11)
[2019-09-26] MEDS: HYDROcodone/APAP 5/325MG 1 TAB TABLET PO PRN (21:15)
[2019-09-26 23:04] VITALS: BP 99/52
[2019-09-27 05:24] VITALS: BP 130/71
[2019-09-27] MEDS: BACLOFEN 20 MG TABLET PO SCH ×3 (05:29→22:13)
[2019-09-27] MEDS: HYDROcodone/APAP 5/325MG 1 TAB TABLET PO PRN ×3 (05:29→22:21)
[2019-09-27 06:40] LABS: HEMATOCRIT 42.5 % (36.0-47.0); RED BLOOD COUNT 4.74 x10^6/uL (3.50-5.40); RED CELL DISTRIBUTION WIDTH 16.4 % (11.5-14.5); WHITE BLOOD COUNT 9.1 x10^3/uL (4.0-11.0)
[2019-09-27 06:45] LABS: ALBUMIN 2.5 g/dL (3.4-5.0); ALBUMIN/GLOBULIN RATIO 0.7 (1.0-1.7); CALCIUM 8.4 mg/dL (8.5-10.1); CREATININE 0.5 mg/dL (0.6-1.0); GFR 120.6; TOTAL BILIRUBIN 0.3 mg/dL (0.2-1.0); TOTAL PROTEIN 5.9 g/dL (6.4-8.2)
[2019-09-27] MEDS ORDERED: LACTOBACILLUS RHAMNOSUS GG 1 CAPSULE. PO SCH ×2 (09:00→21:00)
[2019-09-27] MEDS ORDERED: PARoxetine 20 MG TABLET PO SCH (09:00)
[2019-09-27] MEDS: MULTIVITAMIN with MINERAL TABLET. PO SCH (09:05)
[2019-09-27] MEDS: hydrALAZINE 25 MG TABLET PO SCH ×3 (09:05→21:00)
[2019-09-27] MEDS: CARVEDILOL 6.25 MG TABLET PO SCH ×2 (09:05→17:13)
[2019-09-27] MEDS: APIXABAN 5 MG TABLET. PO SCH ×2 (09:05→22:14)
[2019-09-27] MEDS: VANCOMYCIN 125 MG/2.5 ML ORAL SOLUTION. PO SCH ×3 (10:20→21:00)
[2019-09-27] MEDS: ASPIRIN CHEWABLE 81 MG TABLET. PO SCH (10:20)
[2019-09-27 11:00] VITALS: BP 93/31
--- NOTE | 2019-09-27 11:15 | NUR ---
SENIOR SOFTWARE ARCHITECT reports that patient's BP is 93/31 with automatic cuff. Small adult BP cuff obtained, manual BP taken, 92/52, right arm, patient lying on left side. She reports no symptoms. Will continue to monitor.
--- NOTE | 2019-09-27 13:42 | PN ---
DATE: 09/27/2019 SUBJECTIVE: The patient is resting, slightly propped up in bed, in no apparent distress. On questioning her, she denied any pain. Did complain of some nausea and also anorexia. PHYSICAL EXAMINATION: GENERAL: When I examined her, there was no pallor, jaundice, cyanosis or thyromegaly. No jugular venous distention. No lower limb edema. VITAL SIGNS: Her heart rate was 71, blood pressure was 93/31, temperature was 98.4, respiratory rate was 18 and oxygen saturation was 91% on 2 liters of oxygen. HEAD, EYES, EARS, NOSE AND THROAT: Showed normocephalic, atraumatic. NECK: Supple. CARDIAC: Normal first and second heart sounds. No gallop or murmur. CHEST: Shows central trachea, equal bilateral chest expansion, air entry, vesicular sounds. No crepitation or rhonchi. ABDOMEN: Distended, soft, nontender. She has a suprapubic catheter in place. NEUROLOGIC: She is awake, alert, responding appropriately. All cranial nerves intact. She has functional quadriplegia with marked muscle wasting and weakness. She has neurogenic bladder requiring suprapubic catheter. Her intake and output were incompletely recorded. LABORATORY DATA: Her lab work this morning showed a white cell count is down to 9100, hemoglobin 14, hematocrit 42, MCV 90 and platelet count 401,000. Her chemistry showed a serum sodium 142, potassium 4, chloride 106, bicarbonate 29, anion gap of 7, BUN 14, creatinine 0.5, estimated GFR was 120 mL per minute. Her glucose was 81, calcium was 8.4. Total bilirubin, AST, ALT, alkaline phosphatase were normal. Total protein was 5.9, albumin was 2.5. Her prothrombin time, INR and aPTT are normal. Urinalysis shows that it was positive for nitrite. The urine was cloudy with a pH of 7. There was large amount of leukocyte esterase, too numerous to count wbc's and many bacteria. The urine culture is still pending at the time of this dictation. ASSESSMENT: 1. The patient is a 73-year-old female patient who yet again came with another episode of urinary tract infection and she has longstanding progressive multiple sclerosis. 2. Neurogenic bladder requiring suprapubic catheter. She has multiple other medical problems including chronic obstructive pulmonary disease. She is known to have chronic relapsing Clostridium difficile colitis for which she is on a long-term suppressive therapy with vancomycin. She has a history of DVT for which she is on rivaroxaban, had had a stroke before and seizure disorders. She was actually on Keppra, but she decided to stop it and to the best of knowledge she has had no further episode of seizures. PLAN: My plan is to continue with IV antibiotic. Continue with IV fluid, continue with all her other medications and we will obviously adjust antibiotic according to the result of the urine culture. TERESE ALEMAN MD DR: MADELINE/beata JOB#: [id number] / [id number]
[2019-09-27] MEDS: IV NORMAL SALINE 1,000ML 1,000 ML IV SCH (14:14)
[2019-09-27] MEDS: METOCLOPRAMIDE HCL 10 MG/2 ML VIAL. IVP PRN (14:14)
[2019-09-27 15:36] VITALS: BP 114/69
[2019-09-27] MEDS ORDERED: MECLIZINE 12.5 MG TABLET. PO PRN (16:15)
--- NOTE | 2019-09-27 16:30 | NUR ---
Patient's home medication list received from her home health service. Medications updated per list.
[2019-09-27] MEDS ORDERED: ONDA4TAB12 PO (16:36)
[2019-09-27] MEDS ORDERED: GUAI600T6 PO (16:36)
[2019-09-27] MEDS ORDERED: ASCO500C PO (16:36)
[2019-09-27] MEDS ORDERED: LOPE2TAB27 PO (16:36)
[2019-09-27] MEDS ORDERED: LACT1CAP14 PO (16:36)
[2019-09-27] MEDS ORDERED: FURO40TA4 PO (16:36)
[2019-09-27] MEDS ORDERED: POTA20TA4 PO (16:36)
[2019-09-27] MEDS ORDERED: MECL12.573 PO (16:36)
[2019-09-27] MEDS ORDERED: LMFO1TAB PO (16:36)
[2019-09-27 20:33] VITALS: BP 99/50
[2019-09-27] MEDS: MIRTAZAPINE 15 MG TABLET PO SCH (22:13)
[2019-09-27] MEDS: LOPERAMIDE 2 MG CAPSULE PO PRN (22:13)
[2019-09-27] MEDS: LACTOBACILLUS RHAMNOSUS GG 1 CAPSULE. PO SCH (22:14)
[2019-09-27] MEDS: traZODone 50 MG TABLET. PO SCH (22:14)
[2019-09-27 22:58] VITALS: BP 113/66
[2019-09-28] MEDS: LOPERAMIDE 2 MG CAPSULE PO PRN ×2 (03:06→13:51)
[2019-09-28] MEDS: IV NORMAL SALINE 1,000ML 1,000 ML IV SCH ×3 (03:07→20:46)
[2019-09-28] MEDS: HYDROcodone/APAP 5/325MG 1 TAB TABLET PO PRN ×4 (05:08→20:46)
[2019-09-28 05:48] VITALS: BP 111/60
[2019-09-28 05:52] LABS: HEMATOCRIT 42.8 % (36.0-47.0); RED BLOOD COUNT 4.75 x10^6/uL (3.50-5.40); RED CELL DISTRIBUTION WIDTH 16.2 % (11.5-14.5); WHITE BLOOD COUNT 14.8 x10^3/uL (4.0-11.0)
[2019-09-28 06:00] LABS: CALCIUM 8.2 mg/dL (8.5-10.1); CREATININE 0.5 mg/dL (0.6-1.0); GFR 120.6; POTASSIUM 3.5 mmol/L (3.5-5.1)
--- NOTE | 2019-09-28 06:45 | NUR ---
Nursing Note The patient requested PRN Imodium for loose stools. The patient received PRN Imodium per PRN order @0347.
--- NOTE | 2019-09-28 06:46 | NUR ---
Nursing Note The patient complained of pain in her legs and feet. The patient requested PRN Lortab for leg and foot pain. The patient received PRN Lortab @0508 per PRN order.
--- NOTE | 2019-09-28 08:06 | NUR ---
IP: patient has chronic c diff diagnosis, requires contact + precautions. Is having some loose stools.
[2019-09-28] MEDS: ASPIRIN CHEWABLE 81 MG TABLET. PO SCH (08:33)
[2019-09-28] MEDS: LACTOBACILLUS RHAMNOSUS GG 1 CAPSULE. PO SCH ×2 (08:33→20:42)
[2019-09-28] MEDS: FUROSEMIDE 40 MG TABLET PO SCH (08:33)
[2019-09-28] MEDS: ASCORBIC ACID 500 MG TABLET PO SCH (08:33)
[2019-09-28] MEDS: BACLOFEN 20 MG TABLET PO SCH ×3 (08:34→20:42)
[2019-09-28] MEDS: LISINOPRIL 20 MG TABLET PO SCH (08:34)
[2019-09-28] MEDS: MULTIVITAMIN with MINERAL TABLET. PO SCH (08:34)
[2019-09-28] MEDS: VANCOMYCIN 125 MG/2.5 ML ORAL SOLUTION. PO SCH ×2 (08:35→20:42)
[2019-09-28] MEDS: APIXABAN 5 MG TABLET. PO SCH ×2 (08:35→20:42)
[2019-09-28] MEDS: CARVEDILOL 6.25 MG TABLET PO SCH ×2 (08:35→16:32)
[2019-09-28] MEDS: POTASSIUM CHLORIDE 20 MEQ TABLET.ER. PO SCH (08:35)
[2019-09-28] MEDS ORDERED: PARoxetine 20 MG TABLET PO SCH (09:00)
[2019-09-28] MEDS ORDERED: ACETYL PO SCH (09:00)
[2019-09-28] MEDS ORDERED: [UNRECOGNIZED DRUG - OTHER] PO SCH (09:00)
[2019-09-28] MEDS ORDERED: ALGAL OIL PO SCH (09:00)
[2019-09-28] MEDS: hydrALAZINE 25 MG TABLET PO SCH ×3 (09:00→20:47)
--- NOTE | 2019-09-28 10:30 | NUR ---
Patient complains of increased leg pain. Patient repositioned and provided PRN medication per eMAR, will continue to monitor.
[2019-09-28 10:43] VITALS: BP 116/71
--- NOTE | 2019-09-28 11:27 | PN ---
DATE: 09/28/2019 ATTENDING PHYSICIANS: Dr. Nuno and Dr. Maria. SUBJECTIVE: Still very weak. No nausea. She looks a little more cachectic from a month ago when I had her. OBJECTIVE FINDINGS: The urine cultures are still pending. I called the microbiology lab, there would not have any results till tomorrow. VITAL SIGNS: Temperature is 98.3 degrees Fahrenheit, blood pressure 111/60, oxygen saturation 91% on 2 liters by nasal cannula. HEENT: Head is without trauma. Pupils are reactive. Sclerae nonicteric. Oropharynx is clear. NECK: Supple, no bruits identified. LUNGS: Clear. ABDOMEN: Soft. Suprapubic catheter intact. EXTREMITIES: Show muscle wasting. She is nonambulatory. LABORATORY DATA: Hemoglobin is 14.0 g/dL, white count is 14,800. Chemistry panel showed a creatinine of 0.5 ____, potassium 3.5 mEq. Urine cultures again are still pending. ASSESSMENT: 1. Recurrent urinary tract infection. 2. Neurogenic bladder. 3. Protein-calorie malnutrition with cachexia, severe. 4. Longstanding progressive multiple sclerosis. 5. Generalized debilitation. 6. History of deep venous thrombosis, on rivaroxaban. PLAN: 1. Continue IV hydration. 2. Continue antibiotics as ordered. 3. Await urine cultures and sensitivity. She has had multiple infections in the past in dozens of cases. 4. I will try to arrange for discharge tomorrow. She is at high risk of significant morbidity and mortality should she get the COVID-19 coronavirus infection. She remains a DNR per advanced directives. NOREEN MARIA MD DR: OSEAS/beata JOB#: [id number] / [id number] TERESE Singh MD
--- NOTE | 2019-09-28 13:50 | NUR ---
Patient complains of nausea and requests for diarrhea medication. PRN medications provided per eMAR, will continue to monitor.
[2019-09-28] MEDS: METOCLOPRAMIDE HCL 10 MG/2 ML VIAL. IVP PRN (13:52)
[2019-09-28 15:15] VITALS: BP 118/67
[2019-09-28] MEDS: ONDANSETRON ODT 4 MG TAB.RAPDIS PO PRN ×2 (16:44→23:25)
--- NOTE | 2019-09-28 16:45 | NUR ---
Patient complains of lower back and bilateral leg pain with nausea; PRN medications provided per eMAR. Patient asked about mirtazapine, paroxetine, and vancomycin dosages. Per patient, all dosages are incorrect and she had her discharge instructions in her purse from a hospital visit in July. Called patient's home health service and message left to clarify medications. Will continue to monitor and report to oncoming shift.
--- NOTE | 2019-09-28 18:05 | NUR ---
Patient's home health service returned call, they were unable to explain discrepencies in patient's medication lists. Patient's PCP called, message left with answering service, patient's PCP will call tomorrow during their office hours. Will report to oncoming shift.
--- NOTE | 2019-09-28 18:18 | NUR ---
Patient's PCP office returned call and provided most recent prescriptions for the requested medications. Will update patient's home medication list.
[2019-09-28 19:24] VITALS: BP 115/71
[2019-09-28] MEDS: MIRTAZAPINE 15 MG TABLET PO SCH (20:42)
[2019-09-28] MEDS: traZODone 50 MG TABLET. PO SCH (20:42)
[2019-09-28 22:39] VITALS: BP 112/70
--- NOTE | 2019-09-29 03:25 | NUR ---
Pt slept decent during night, only awake when we turned her q 2hrs with purple wedge. Pt was given PRN Lortab at bedtime for c/o leg pain. Pt did require O2 at 2L NC after receiving HS medications and falling asleep, O2 sat down to 88% on room air. Pt with coccyx excoriation r/t frequent C-Diff incont stools, Calmoseptine applied often. Pt only had 1 stool during this shift.
[2019-09-29] MEDS: LOPERAMIDE 2 MG CAPSULE PO PRN (05:49)
[2019-09-29] MEDS: HYDROcodone/APAP 5/325MG 1 TAB TABLET PO PRN (05:49)
[2019-09-29 06:00] VITALS: BP 128/69
[2019-09-29] MEDS: LACTOBACILLUS RHAMNOSUS GG 1 CAPSULE. PO SCH (08:14)
[2019-09-29] MEDS: VANCOMYCIN 125 MG/2.5 ML ORAL SOLUTION. PO SCH ×2 (08:14→14:23)
[2019-09-29] MEDS: BACLOFEN 20 MG TABLET PO SCH ×2 (08:15→14:24)
[2019-09-29] MEDS: APIXABAN 5 MG TABLET. PO SCH (08:15)
[2019-09-29] MEDS: CARVEDILOL 6.25 MG TABLET PO SCH (08:15)
[2019-09-29] MEDS: ASPIRIN CHEWABLE 81 MG TABLET. PO SCH (08:18)
[2019-09-29] MEDS: ASCORBIC ACID 500 MG TABLET PO SCH (08:18)
[2019-09-29] MEDS: POTASSIUM CHLORIDE 20 MEQ TABLET.ER. PO SCH (08:18)
[2019-09-29] MEDS: hydrALAZINE 25 MG TABLET PO SCH ×2 (08:19→14:24)
[2019-09-29] MEDS: LISINOPRIL 20 MG TABLET PO SCH (08:19)
[2019-09-29] MEDS: FUROSEMIDE 40 MG TABLET PO SCH (08:20)
[2019-09-29] MEDS: MULTIVITAMIN with MINERAL TABLET. PO SCH (08:22)
[2019-09-29] MEDS ORDERED: PARoxetine 20 MG TABLET PO SCH (09:00)
--- NOTE | 2019-09-29 09:52 | DS ---
DATE OF DISCHARGE: 09/29/2019 ATTENDING PHYSICIAN: Dr. Nuno. FINAL DISCHARGE DIAGNOSES: 1. Recurrent complicated urinary tract infection. 2. Chronic indwelling catheter. 3. Neurogenic bladder. 4. Advanced stage multiple sclerosis. 5. Bedridden status, nonambulatory. 6. History of deep vein thrombosis, on anticoagulation. 7. Gastroenteritis. 8. Profound protein-calorie malnutrition. 9. Generalized debilitation. 10. Chronic pain syndrome. HISTORY OF PRESENT ILLNESS: This is a 73-year-old female with multiple admissions more frequently, averaging about once a month, for urinary tract infection due to her chronic indwelling catheter. She has end-stage multiple sclerosis with profound debilitation. We had talked about multiple times in the past sending her to a long term. She has declined. She lives in the basement of her son's home. She has Meals on Wheels as a primary meal. She is getting more cachectic. She has been reluctant to agree to go to a long term. She was admitted again for further treatment and evaluation of her UTI. PHYSICAL EXAMINATION: Please see the dictated note. PERTINENT LABORATORY AND X-RAY STUDIES: Urine cultures grew out greater than 100,000 colonies of gram-negative rods. ID and sensitivity are still pending at the time of discharge. Her hemoglobin was 14.0 g, white count 14,800. Chemistry panel: Creatinine 0.5 mg percent. Electrolytes within normal range. COURSE IN THE HOSPITAL: The patient was treated with 4 full days of intravenous Rocephin. She did better. We will continue her home meds. Diet was advanced. She is still reluctant to go to a higher level of care. On the fourth hospital day, she wanted to go home, which I felt was reasonable. I elected to give her oral substitution for Rocephin. She requested Cipro. I explained to her that sensitivities are not back yet and that Cipro has a very high rate of resistance. Nevertheless, she says this has worked for her other doctors have prescribed it. Therefore, I gave her a script for Cipro 500 mg b.i.d. for another 7 days. She will continue her home meds including the following: Eliquis, vitamin C, aspirin, baclofen, Coreg, Lasix, guaifenesin, hydralazine, hydrocodone p.r.n., Culturelle, Prinivil, loperamide, meclizine, Reglan, Remeron, multivitamin, Paxil, trazodone and oral vancomycin as prescribed. She is a DNR per advanced directive. Her prognosis is unfortunately poor as she is clearly in decline. NOREEN MARIA MD DR: OSEAS/beata JOB#: [id number] / [id number] bill Nuno Dr.
[2019-09-29 11:54] VITALS: BP 124/68
[2019-09-29 14:24] VITALS: BP 121/67
--- NOTE | 2019-09-29 16:09 | NUR ---
Nurses discharge note Patient was discharged with wheelchair to son who lift patient to vehicle. Patient has script for Cipro that she request from hospitalist. Hospitalist discussed at length with patient that cipro is not needed for her infection, another antibiotic would be better. Patient refused alternative and had script as requested. IV was removed with tip intact. Patient was given oral and printed instructions about discharge and education. Patient verbalized understanding of instructions. Deb Pearson RN
== END 2019-09-29 16:05 | disposition home or self-care (01) | DRG 689 ==
LOC: ER 14:13 → 1 SOUTH 16:25
PROVIDERS: ADMIT Internal Medicine; ATTEND Internal Medicine
DX: N39.0 Urinary tract infection, site not specified (principal); R53.2 Functional quadriplegia; E43 Unspecified severe protein-calorie malnutrition; R64 Cachexia; Z68.1 Body mass index [BMI] 19.9 or less, adult; A04.71 Enterocolitis due to Clostridium difficile, recurrent; G35 Multiple sclerosis; J44.9 Chronic obstructive pulmonary disease, unspecified; G89.4 Chronic pain syndrome; N31.9 Neuromuscular dysfunction of bladder, unspecified; Z66 Do not resuscitate; Z74.01 Bed confinement status; Z80.3 Family history of malignant neoplasm of breast; Z82.49 Family history of ischemic heart disease and other diseases of the circulatory system; Z86.718 Personal history of other venous thrombosis and embolism; Z86.73 Personal history of transient ischemic attack (TIA), and cerebral infarction without residual deficits; Z87.891 Personal history of nicotine dependence; Z87.440 Personal history of urinary (tract) infections; Z99.3 Dependence on wheelchair
CPT/HCPCS: 36415; 80048; 80053; 81001; 82553; 83605; 83690; 83735; 84484; 85025; 85027; 85610; 85730; 87086; 87186; 93005; 96361; 96365; 99406; J0696; J2405; J2765; P9612; Q0162; 99285-25; J7030

== ENCOUNTER → 2019-12-30 | Outpatient (CLI) | payer MEDICARE ==
[~2019-12-30] MED LIST changes: +ASCO500C PO; +CLOT15CR23 TP; -CLOT15CR4 TP; +GUAI600T6 PO; +LACT1CAP14 PO; +LMFO1TAB PO; +LOPE2TAB27 PO; +MULT-445 PO; -MULT1TAB52 PO
[2019-12-30 19:20] LABS: BILIRUBIN,URINE NEG (NEG); CLARITY,URINE CLOUDY; COLOR,URINE YELLOW; GLUCOSE,URINE NEG (NEG); NITRITE,URINE POS (NEG); UROBILINOGEN,URINE 0.2 mg/dL (0.2 mg/dL)
[2019-12-30 19:21] LABS: BACTERIA,URINE MANY /HPF (0-FEW)
== END | disposition home or self-care (01) ==
LOC: LAB 17:50
PROVIDERS: ATTEND Family Medicine
DX: N30.00 Acute cystitis without hematuria (principal)
CPT/HCPCS: 81001; 87077; 87086; 87186

== ENCOUNTER 2020-02-01 10:26 | Emergency (ER) | payer MEDICARE ==
[~2020-02-01] VITALS: Ht 175.3 cm; Wt 50.4 kg
[2020-02-01] MEDS ORDERED: IV NORMAL SALINE 1,000ML 1,000 ML IV ONE (10:45)
[2020-02-01] MEDS ORDERED: ONDANSETRON PF 4 MG/2 ML VIAL. IVP ONE (10:45)
--- NOTE | 2020-02-01 10:46 | PHYS DOC ---
Past History Past Medical History: Other Additional Past Medical Histor: MS Past Surgical History: Other Additional Past Surgical Histo: suprapubic cath Smoking: Cigarettes Alcohol Use: None Drug Use: None Adult General Chief Complaint Chief Complaint: NAUSEA/VOMITING/DIARRHEA HPI HPI Patient is a 74-year-old female who presents with chronic nausea. This is an acute on chronic problem. Nothing known makes better or worse. She has been able to tolerate p.o. intake without issue. Patient reports living in basement of son's house, reports majority of care is handled by son and home health. She is frail, suffers from MS, and essentially bedbound with chronic indwelling Lynch catheter placement for incontinence placed. She reports long history of recurrent UTIs, admits to recently finishing 5-day course of ciprofloxacin for this but continues to have burning and irritation. Reports being prescribed something for nausea in the past, has been taking this daily at home without significant relief prompting her to report to our ER for evaluation. Patient denies any reportable fever, no COVID-19 contacts, no chest pain, no shortness of breath, no abdominal pain, no emesis or changes in bowel function, reports next Lynch catheter exchange is scheduled next week, no motor or sensory changes past baseline, no other focal neurologic findings noted Review of Systems Review of Systems Fourteen body systems of review of systems have been reviewed. See HPI for pertinent positives and negative responses, other reis all other systems are negative, non-pertinent or non-contributory Allergies Allergies Allergies Coded Allergies Type Severity Reaction Last Updated Verified I S O L A T I O N *CONTACT* Allergy Unknown 07/30/18 Yes NKMA Allergy Unknown 07/30/18 Yes Physical Exam Physical Exam Constitutional: Frail-appearing, malnourished, bedbound,, no acute distress, non-toxic appearance. HENT: Normocephalic, atraumatic, bilateral external ears normal, oropharynx moist, no oral exudates, nose normal. Eyes: PERRLA, EOMI, conjunctiva normal, no discharge. Neck: Normal range of motion, no tenderness, supple, no stridor. Cardiovascular: Heart rate regular, sinus rhythm, no murmurs rubs or gallops Lungs & Thorax: Bilateral breath sounds clear to auscultation Abdomen: Bowel sounds normal, soft, no tenderness, no masses, no pulsatile masses. Nonsurgical abdomen, no peritoneal signs. Chronic indwelling Lynch in place Skin: Warm, dry, no erythema, no rash. Back: No tenderness, no CVA tenderness. Extremities: No tenderness, no cyanosis, no clubbing, ROM intact, no edema. Neurologic: Alert and oriented X 3, grossly normal motor & sensory function per patient's baseline, no focal deficits noted. Psychologic: Affect normal, judgement normal, mood normal. Current Patient Data Vital Signs Vital Signs Date Time Temp Pulse Resp B/P (MAP) Pulse Ox O2 Delivery O2 Flow Rate FiO2 02/01/20 11:32 71 24 129/99 (109) 94 Room Air 02/01/20 10:30 98.2 Lab Results Laboratory Tests Test 02/01/20 10:33 02/01/20 10:35 02/01/20 11:41 White Blood Count 8.0 x10^3/uL (4.0-11.0) Red Blood Count 5.04 x10^6/uL (3.50-5.40) Hemoglobin 15.1 g/dL (12.0-15.5) Hematocrit 45.2 % (36.0-47.0) Mean Corpuscular Volume 90 fL (79-100) Mean Corpuscular Hemoglobin 30 pg (25-35) Mean Corpuscular Hemoglobin Concent 33 g/dL (31-37) Red Cell Distribution Width 16.6 % (11.5-14.5) Platelet Count 493 x10^3/uL (140-400) Neutrophils (%) (Auto) 70 % (31-73) Lymphocytes (%) (Auto) 17 % (24-48) Monocytes (%) (Auto) 7 % (0-9) Eosinophils (%) (Auto) 5 % (0-3) Basophils (%) (Auto) 1 % (0-3) Neutrophils # (Auto) 5.6 x10^3uL (1.8-7.7) Lymphocytes # (Auto) 1.4 x10^3/uL (1.0-4.8) Monocytes # (Auto) 0.6 x10^3/uL (0.0-1.1) Eosinophils # (Auto) 0.4 x10^3/uL (0.0-0.7) Basophils # (Auto) 0.1 x10^3/uL (0.0-0.2) Urine Collection Type Unknown Urine Color Roseann Urine Clarity Cloudy Urine pH 7.5 Urine Specific Rotan 1.015 Urine Protein Neg (NEG-TRACE) Urine Glucose (UA) Neg mg/dL (NEG) Urine Ketones (Stick) Neg mg/dL (NEG) Urine Blood Neg (NEG) Urine Nitrite Neg (NEG) Urine Bilirubin Neg (NEG) Urine Urobilinogen Dipstick 0.2 mg/dL (0.2 mg/dL) Urine Leukocyte Esterase Mod (NEG) Urine RBC 1-2 /HPF (0-2) Urine WBC 11-20 /HPF (0-4) Urine Squamous Epithelial Cells Few /LPF Urine Amorphous Sediment Present /HPF Urine Bacteria Many /HPF (0-FEW) Urine Mucus Slight /LPF Sodium Level 137 mmol/L (136-145) Potassium Level 4.5 mmol/L (3.5-5.1) Chloride Level 103 mmol/L (98-107) Carbon Dioxide Level 27 mmol/L (21-32) Anion Gap 7 (6-14) Blood Urea Nitrogen 14 mg/dL (7-20) Creatinine 0.7 mg/dL (0.6-1.0) Estimated GFR (Cockcroft-Gault) 81.6 BUN/Creatinine Ratio 20 (6-20) Glucose Level 91 mg/dL (70-99) Calcium Level 8.4 mg/dL (8.5-10.1) Total Bilirubin 0.2 mg/dL (0.2-1.0) Aspartate Amino Transf (AST/SGOT) 44 U/L (15-37) Alanine Aminotransferase (ALT/SGPT) 59 U/L (14-59) Alkaline Phosphatase 123 U/L (46-116) Total Protein 6.4 g/dL (6.4-8.2) Albumin 2.7 g/dL (3.4-5.0) Albumin/Globulin Ratio 0.7 (1.0-1.7) EKG EKG EKG obtained and interpreted by myself at 1048 hrs. as normal sinus rhythm at 72 bpm, unremarkable intervals, no axis deviation, no acute ischemic findings, no fascicular blocks noted, no STEMI Radiology/Procedures Radiology/Procedures [] Course & Med Decision Making Course & Med Decision Making Essentially bedbound patient seen on immediate ER arrival ABCs grossly non-concerning Comprehensive history and physical exam obtained, subsequent diagnostic studies ordered IV access obtained, 1 L normal saline, 8 mg Zofran administered with near complete resolution in patient's nausea Patient reassessed several times by various bio medical technician throughout visit, remained grossly asymptomatic and well-appearing Diagnostic studies reviewed that were grossly non-concerning, specifically reviewed urinalysis in setting of patient reporting irritation in her urethra. I am not convinced this is an acute infection, she recently completed ciprofloxacin, reports numerous antibiotics in last 6 months Decision was made to change patient's indwelling Lynch catheter, I educated patient on complications of chronic indwelling Lynch catheter usage Ultimately, no emergent and/or surgical pathology found this admission, I do not feel there is need for antibiotics in this otherwise afebrile well-appearing patient Decision was made to discharge back home under care of son and home health services in stable condition Strict return precautions were discussed with good understanding, all questions and concerns addressed prior to ER departure uHgo Disclaimer Joanaon Disclaimer This electronic medical record was generated, in whole or in part, using a voice recognition dictation system. Departure Departure: Impression: Primary Impression: Presence of indwelling urinary catheter Additional Impression: History of dysuria Disposition: 01 HOME/RESIDENCE PRIOR TO ADM Condition: STABLE Referrals: GRACIE OLIVARES MD (PCP) Patient Instructions: Dysuria, Lynch Catheter Care, Adult Additional Instructions: You have been evaluated in the Emergency Department today for area irritation. Your evaluation was not suggestive of any emergent condition requiring medical intervention at this time. However, some genitourinary problems in patients such as yourself with chronic indwelling Lynch catheters might take more time to appear. Therefore, it is important for you to watch for any new symptoms or worsening of your current condition. Please follow-up with your primary care physician within upcoming 1 to 7 days for ER follow-up Return to the Emergency Department if you experience worsening pain, persistent fevers greater than 100.4, recurrent vomiting, blood in vomit, blood in stool, dark tarry stool, chest pain, difficulty breathing, or any other concerning symptoms. Justification of Admission: Justification of Admission: Justification of Admission Dx: N/A Problem Qualifiers SONAM LICONA DO Feb 01, 2020 10:46
[2020-02-01 10:56] LABS: BASO # 0.1 x10^3/uL (0.0-0.2); BASO % 1 % (0-3); EOS # 0.4 x10^3/uL (0.0-0.7); EOS % 5 % (0-3); HEMATOCRIT 45.2 % (36.0-47.0); HEMOGLOBIN 15.1 g/dL (12.0-15.5); LYMPH # 1.4 x10^3/uL (1.0-4.8); LYMPH % 17 % (24-48); MEAN CORPUSCULAR HEMOGLOBIN 30 pg (25-35); MEAN CORPUSCULAR HGB CONC 33 g/dL (31-37); MEAN CORPUSCULAR VOLUME 90 fL (79-100); MONO # 0.6 x10^3/uL (0.0-1.1); MONO % 7 % (0-9); NEUT # 5.6 x10^3uL (1.8-7.7); NEUT % 70 % (31-73); PLATELET COUNT 493 x10^3/uL (140-400); RED BLOOD COUNT 5.04 x10^6/uL (3.50-5.40); RED CELL DISTRIBUTION WIDTH 16.6 % (11.5-14.5)
[2020-02-01 11:26] LABS: BILIRUBIN,URINE NEG (NEG); CLARITY,URINE CLOUDY; COLOR,URINE AMBER; GLUCOSE,URINE NEG (NEG); UROBILINOGEN,URINE 0.2 mg/dL (0.2 mg/dL)
[2020-02-01 11:27] LABS: BACTERIA,URINE MANY /HPF (0-FEW); NITRITE,URINE NEG (NEG); SQUAMOUS EPITHELIAL CELL,UR FEW /LPF
[2020-02-01 11:28] LABS: AMORPHOUS SEDIMENT,UR PRESENT /HPF
--- NOTE | 2020-02-01 11:42 | RAD ---
AP chest. HISTORY: Nausea, short of breath AP view was taken of the chest. Comparison is made with a study from July. There are chronic interstitial changes in the lungs similar to the prior study. There is no pleural effusion. There is linear artifact. No acute infiltrates are noted. IMPRESSION: 1. Mild chronic interstitial lung disease. 2. No acute infiltrates. Electronically signed by: Alexis Sheridan MD (02/01/2020 11:38 AM) [id number]
[2020-02-01 12:06] LABS: CALCIUM 8.4 mg/dL (8.5-10.1); CREATININE 0.7 mg/dL (0.6-1.0); GFR 81.6; POTASSIUM 4.5 mmol/L (3.5-5.1)
[2020-02-01 12:10] LABS: ALBUMIN 2.7 g/dL (3.4-5.0); ALBUMIN/GLOBULIN RATIO 0.7 (1.0-1.7); TOTAL BILIRUBIN 0.2 mg/dL (0.2-1.0); TOTAL PROTEIN 6.4 g/dL (6.4-8.2)
--- NOTE | 2020-02-01 12:39 | EKG ---
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
[2020-02-01 12:59] VITALS: BP 100/53
== END 2020-02-01 13:45 | disposition home or self-care (01) ==
LOC: ER 10:26
DX: Z46.6 Encounter for fitting and adjustment of urinary device (principal); R30.0 Dysuria; R11.0 Nausea; G35 Multiple sclerosis; F17.210 Nicotine dependence, cigarettes, uncomplicated; Z87.442 Personal history of urinary calculi; Z88.8 Allergy status to other drugs, medicaments and biological substances
CPT/HCPCS: 36415; 71045; 80053; 81001; 85025; 87077; 87086; 87186; 93005; 96374; 99285; J2405; J7030

== ENCOUNTER 2020-09-14 12:39 | Emergency (ER) | payer MEDICARE ==
[~2020-09-14] VITALS: Ht 175.3 cm; Wt 57.3 kg
[~2020-09-14 12:39] MED LIST changes: -CIPR500T PO; +CIPR500T2 PO; -LISI-338 PO; +LISI-517 PO; -MECL12.573 PO; +MECL12.582 PO; +MIRT-37 PO; -MIRT15TA PO
[2020-09-14] MEDS ORDERED: ONDANSETRON PF 4 MG/2 ML VIAL. IVP ONE (13:00)
[2020-09-14] MEDS ORDERED: IV NORMAL SALINE 500ML 500 ML IV ONE (13:00)
--- NOTE | 2020-09-14 13:03 | PHYS DOC ---
Past History Past Medical History: Anxiety, CAD, High Cholesterol, Hypertension, Seizure, UTI, Other Additional Past Medical Histor: MS Past Surgical History: Other Additional Past Surgical Histo: suprapubic cath Smoking: Cigarettes Alcohol Use: None Drug Use: None General Adult EDM: Chief Complaint: WEAKNESS/GENERALIZED HPI: HPI: Patient is a 74-year-old female presents from [facility] for weakness and pain in legs and feet. Patient was recently diagnosed with a UTI and started antibiotics this morning. Patient states that pain in her legs and feet is a chronic issue. Denies any new pains. Patient does report that she is very nauseated. Denies fever. Denies taking anything for nausea at [facility]. Is alert and oriented x4. Patient has a history of a CVA and uses a motorized chair. Patient has history of MS, hypertension, anxiety. Review of Systems: Review of Systems: Constitutional: Denies fever or chills Eyes: Denies change in visual acuity HENT: Denies nasal congestion or sore throat Respiratory: Denies cough or shortness of breath Cardiovascular: Denies chest pain or edema GI: Denies abdominal pain, nausea, vomiting, bloody stools or diarrhea : Denies dysuria Musculoskeletal: Denies back pain, reports bilateral leg and feet pain Integument: Denies rash Neurologic: Denies headache, focal weakness or sensory changes Endocrine: Denies polyuria or polydipsia Lymphatic: Denies swollen glands Psychiatric: Denies depression or anxiety Allergies: Allergies: Allergies Coded Allergies Type Severity Reaction Last Updated Verified I S O L A T I O N *CONTACT* Allergy Unknown 07/30/18 Yes NKMA Allergy Unknown 07/30/18 Yes Physical Exam: PE: Constitutional: Well developed, well nourished, no acute distress, non-toxic appearance. [] HENT: Normocephalic, atraumatic, bilateral external ears normal, oropharynx moist, no oral exudates, nose normal. [] Eyes: PERRLA, EOMI, conjunctiva normal, no discharge. [] Neck: Normal range of motion, no tenderness, supple, no stridor. [] Cardiovascular:Heart rate regular rhythm, no murmur [] Lungs & Thorax: Bilateral breath sounds clear to auscultation [] Abdomen: Bowel sounds normal, soft, no tenderness, no masses, no pulsatile masses. [] Skin: Warm, dry, no erythema, no rash. [] Back: No tenderness, no CVA tenderness. [] Extremities: Bilateral leg tenderness, no cyanosis, no clubbing Neurologic: Alert and oriented X 3, normal motor function, normal sensory function, no focal deficits noted. [] Psychologic: Affect normal, judgement normal, mood normal. [] Current Patient Data: Vital Signs: Vital Signs Date Time Temp Pulse Resp B/P (MAP) Pulse Ox O2 Delivery O2 Flow Rate FiO2 09/14/20 12:43 98.5 83 18 136/57 (83) 92 Room Air EKG: EKG: [] Sinus rhythm. Heart rate 78 bpm. Radiology/Procedures: Radiology/Procedures: []XR CHEST 1V History: Reason: weakness / Spl. Instructions: / History: Comparison: February 01, 2020 Findings: Increased bilateral reticular interstitial opacities. No pleural effusion. No pneumothorax. Normal heart size. Impression: 1. Increased bilateral reticular interstitial opacities, may relate to chronic interstitial changes although superimposed infectious process or pulmonary edema is possible. Electronically signed by: Ye Mccormick DO (09/14/2020 1:02 PM) [id number] Heart Score: C/O Chest Pain: No Risk Factors: Risk Factors: DM, Current or recent (<one month) smoker, HTN, HLP, family history of CAD, obesity. Risk Scores: Score 0 - 3: 2.5% MACE over next 6 weeks - Discharge Home Score 4 - 6: 20.3% MACE over next 6 weeks - Admit for Clinical Observation Score 7 - 10: 72.7% MACE over next 6 weeks - Early Invasive Strategies Course & Med Decision Making: Course & Med Decision Making Pertinent Labs and Imaging studies reviewed. (See chart for details) [] Patient is being seen in the emergency room for nausea and UTI. Patient started antibiotics this morning. Patient is reporting leg and feet pain which is a chronic issue due to her MS. Patient is not mobile and uses a motorized cart to get around. Patient has a chronic history of UTIs and states "this is the same as she normally feels". Patient requesting to be seen emergency room she felt like the [facility] was not helping her. Will order patient Zofran for nausea. [facility] reported that she been running a fever and had an increase in weakness. Patient is afebrile in the emergency room. Hemodynamically stable. Alert and oriented x4. WBCs are negative. Lactic is 3.1. 500 NS bolus ordered to treat dehydration. Most likely just has symptoms from acute cystitis. Patient has only had 1 dose of her antibiotic. Patient is to continue taking antibiotic for UTI and I will send patient home also with Zofran. [facility] notified and contacting [facility] to transport back. Hugo Disclaimer: Hugo Disclaimer: This electronic medical record was generated, in whole or in part, using a voice recognition dictation system. Departure Departure: Impression: Primary Impression: UTI (urinary tract infection) Qualified Codes: N30.00 - Acute cystitis without hematuria Disposition: 03 [facility]ACILITY Condition: STABLE Referrals: GRACIE OLIVARES MD (PCP) Patient Instructions: Urinary Tract Infection, [id number] Additional Instructions: You are seen in the emergency room for nausea and weakness. You were diagnosed yesterday with a UTI and have had 1 dose of your antibiotic. Please continue taking antibiotics as prescribed. Take Tylenol and ibuprofen as needed for pain. Please return to the emergency room with worsening symptoms or concerns. EMERGENCY DEPARTMENT GENERAL DISCHARGE INSTRUCTIONS Thank you for coming to [facility] (ED) today and trusting us with you care. We trust that you had a positivie experience in our Emergency Department. If you wish to speak to the department management, you may call the director at [phone]. YOUR FOLLOW UP INSTRUCTIONS ARE FOLLOWS: 1. Do you have a private Doctor? If you do not have a private doctor, please ask for a resource list of physicians or clinics that may be able to assist you with follow up care. 2. The Emergency Physician has interpreted your x-rays. The X-Ray specialist will also review them. If there is a change in the findings, you will be notified in 48 hours when at all possible. 3. A lab test or culture has been done, your results will be reviewed and you will be notified if you need a change in treatment. ADDITIONAL INSTRUCTIONS AND INFORMATION: 1. Your care today has been supervised by a physician who is specially trained in emergency care. Many problems require more than one evaluation for a complete diagnosis and treatment. We recommend that you schedule your follow up appointment as recommended to ensure complete treatment of you illness or injury. If you are unable to obtain follow up care and continue to have a problem, or if your condition worsens, we recommend that you return to the ED. 2. We are not able to safely determine your condition over the phone nor are we able to give sound medical advice over the phone. For these safety reasons, if you call for medical advice we will ask you to come to the ED for further evaluation. 3. If you have any questions regarding these discharge instructions please call the ED at [phone]. SAFETY INFORMATION: In the interest of safety, wellness, and injury prevention; we encourage you to wear your sealbelt, if you smoke; quite smoking, and we encourage family to use a protective helmet for bicycling and other sporting events that present an increased risk for head injury. IF YOUR SYMPTOMS WORSEN OR NEW SYMPTOMS DEVELOP, OR YOU HAVE CONCERNS ABOUT YOUR CONDITION; OR IF YOUR CONDITION WORSENS WHILE YOU ARE WAITING FOR YOUR FOLLOW UP APPOINTMENT; EITHER CONTACT YOUR PRIMARY CARE DOCTOR, THE PHYSICIAN WHOSE NAME AND NUMBER YOU WERE GIVEN, OR RETURN TO THE ED IMMEDIATELY. Scripts Ondansetron Hcl (ZOFRAN) 4 Mg Tablet 4 MG PO TID PRN PRN for NAUSEA, #9 TAB Prov: RAVEN ANDUJAR APRN 09/14/20 RAVEN ANDUJAR APRN Sep 14, 2020 13:03
--- NOTE | 2020-09-14 13:08 | EKG ---
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
[2020-09-14 13:27] LABS: BASO # 0.1 x10^3/uL (0.0-0.2); BASO % 1 % (0-3); EOS # 0.4 x10^3/uL (0.0-0.7); EOS % 5 % (0-3); HEMATOCRIT 44.7 % (36.0-47.0); HEMOGLOBIN 14.6 g/dL (12.0-15.5); LYMPH # 1.4 x10^3/uL (1.0-4.8); LYMPH % 15 % (24-48); MEAN CORPUSCULAR HEMOGLOBIN 29 pg (25-35); MEAN CORPUSCULAR HGB CONC 33 g/dL (31-37); MEAN CORPUSCULAR VOLUME 88 fL (79-100); MONO # 0.6 x10^3/uL (0.0-1.1); MONO % 7 % (0-9); NEUT # 6.9 x10^3uL (1.8-7.7); NEUT % 73 % (31-73); PLATELET COUNT 450 x10^3/uL (140-400); RED BLOOD COUNT 5.11 x10^6/uL (3.50-5.40); RED CELL DISTRIBUTION WIDTH 15.2 % (11.5-14.5); WHITE BLOOD COUNT 9.4 x10^3/uL (4.0-11.0)
[2020-09-14 13:28] LABS: CALCIUM 8.9 mg/dL (8.5-10.1); CREATININE 0.7 mg/dL (0.6-1.0); GFR 81.6; POTASSIUM 3.8 mmol/L (3.5-5.1)
[2020-09-14 13:34] LABS: ALBUMIN/GLOBULIN RATIO 0.9 (1.0-1.7); TOTAL BILIRUBIN 0.4 mg/dL (0.2-1.0); TOTAL PROTEIN 6.4 g/dL (6.4-8.2)
[2020-09-14 14:23] LABS: CLARITY,URINE HAZY; COLOR,URINE YELLOW
[2020-09-14 14:24] LABS: BILIRUBIN,URINE NEG (NEG); GLUCOSE,URINE NEG (NEG); UROBILINOGEN,URINE 0.2 mg/dL (0.2 mg/dL)
[2020-09-14 14:25] LABS: NITRITE,URINE POS (NEG); RBC,URINE 0 /HPF (0-2)
[2020-09-14 14:26] LABS: BACTERIA,URINE MOD /HPF (0-FEW)
[2020-09-14 15:09] VITALS: BP 156/69
[2020-09-14] MEDS ORDERED: ONDA4TAB7 PO (15:20)
== END 2020-09-14 15:55 ==
LOC: ER 12:39
DX: N30.00 Acute cystitis without hematuria (principal); I10 Essential (primary) hypertension; E78.00 Pure hypercholesterolemia, unspecified; I25.10 Atherosclerotic heart disease of native coronary artery without angina pectoris; F17.210 Nicotine dependence, cigarettes, uncomplicated; Z91.041 Radiographic dye allergy status; Z88.8 Allergy status to other drugs, medicaments and biological substances
CPT/HCPCS: 36415; 71045; 80053; 81001; 83605; 85025; 87040; 87086; 93005; 96374; 99285; J2405; J7040; 87077; 87186

== ENCOUNTER 2020-11-17 22:30 | Emergency (ER) | payer MEDICARE ==
[~2020-11-17] VITALS: Ht 175.3 cm; Wt 57.3 kg
[2020-11-17 22:30] VITALS: BP 139/78
[~2020-11-17 22:30] MED LIST changes: +MIRT-8 PO; -MIRT30TA3 PO
--- NOTE | 2020-11-17 22:39 | PHYS DOC ---
Past History Past Medical History: Anxiety, CAD, High Cholesterol, Hypertension, Seizure, UTI, Other Additional Past Medical Histor: MS Past Surgical History: Other Additional Past Surgical Histo: suprapubic cath Smoking: Cigarettes Alcohol Use: None Drug Use: None General Adult HPI: HPI: "My supra pubic balloon broke.. " Patient is a 75 year old female who presents with above hx and complaints Review of Systems: Review of Systems: Constitutional: Denies fever or chills Eyes: Denies change in visual acuity HENT: Denies nasal congestion or sore throat Respiratory: Denies cough or shortness of breath Cardiovascular: Denies chest pain or edema GI: Denies abdominal pain, nausea, vomiting, bloody stools or diarrhea : Denies dysuria Musculoskeletal: Denies back pain or joint pain Integument: Denies rash Neurologic: Denies headache, focal weakness or sensory changes Endocrine: Denies polyuria or polydipsia Lymphatic: Denies swollen glands Psychiatric: Denies depression or anxiety Allergies: Allergies: Allergies Coded Allergies Type Severity Reaction Last Updated Verified I S O L A T I O N *CONTACT* Allergy Unknown 07/30/18 Yes NKMA Allergy Unknown 07/30/18 Yes Physical Exam: PE: Constitutional: Well developed, well nourished, no acute distress, non-toxic appearance. [] HENT: Normocephalic, atraumatic, bilateral external ears normal, oropharynx moist, no oral exudates, nose normal. [] Eyes: PERRLA, EOMI, conjunctiva normal, no discharge. [] Neck: Normal range of motion, no tenderness, supple, no stridor. [] Cardiovascular:Heart rate regular rhythm, no murmur [] Lungs & Thorax: Bilateral breath sounds clear to auscultation [] Abdomen: Bowel sounds normal, soft, no tenderness, no masses, no pulsatile masses. [] Skin: Warm, dry, no erythema, no rash. [] Back: No tenderness, no CVA tenderness. [] Extremities: No tenderness, no cyanosis, no clubbing, ROM intact, no edema. [] Neurologic: Alert and oriented X 3, normal motor function, normal sensory function, no focal deficits noted. [] Psychologic: Affect normal, judgement normal, mood normal. [] EKG: EKG: [] Radiology/Procedures: Radiology/Procedures: [] Heart Score: Risk Factors: Risk Factors: DM, Current or recent (<one month) smoker, HTN, HLP, family history of CAD, obesity. Risk Scores: Score 0 - 3: 2.5% MACE over next 6 weeks - Discharge Home Score 4 - 6: 20.3% MACE over next 6 weeks - Admit for Clinical Observation Score 7 - 10: 72.7% MACE over next 6 weeks - Early Invasive Strategies Course & Med Decision Making: Course & Med Decision Making Pertinent Labs and Imaging studies reviewed. (See chart for details) [] Dragon Disclaimer: Dragon Disclaimer: This electronic medical record was generated, in whole or in part, using a voice recognition dictation system. Departure Departure: Referrals: GRACIE OLIVARES MD (PCP) KIRSTY BECKFORD MD Nov 17, 2020 22:38
[2020-11-18 00:51] LABS: BILIRUBIN,URINE NEG (NEG); CLARITY,URINE CLOUDY; COLOR,URINE YELLOW; GLUCOSE,URINE NEG (NEG)
[2020-11-18 00:52] LABS: BACTERIA,URINE MANY /HPF (0-FEW); NITRITE,URINE POS (NEG); SQUAMOUS EPITHELIAL CELL,UR OCC /LPF; UROBILINOGEN,URINE 0.2 mg/dL (0.2 mg/dL); WBC,URINE >40 /HPF (0-4)
== END 2020-11-17 22:50 ==
LOC: ER 22:30
DX: T83.098A Other mechanical complication of other urinary catheter, initial encounter (principal); E78.5 Hyperlipidemia, unspecified; F17.210 Nicotine dependence, cigarettes, uncomplicated; F41.9 Anxiety disorder, unspecified; I10 Essential (primary) hypertension; Z87.440 Personal history of urinary (tract) infections
CPT/HCPCS: 81001; 87086; 99283-25

== ENCOUNTER 2020-11-21 13:59 | Emergency (ER) | payer MEDICARE ==
[~2020-11-21] VITALS: Ht 175.3 cm; Wt 57.3 kg
[2020-11-21 13:59] VITALS: BP 131/65
[2020-11-21] MEDS ORDERED: ONDANSETRON PF 4 MG/2 ML VIAL. IVP ONE (14:45)
--- NOTE | 2020-11-21 14:45 | PHYS DOC ---
Past History Past Medical History: Anxiety, CAD, High Cholesterol, Hypertension, Seizure, UTI, Other Additional Past Medical Histor: MS Past Surgical History: Other Additional Past Surgical Histo: suprapubic cath Smoking: Cigarettes Alcohol Use: None Drug Use: None General Adult EDM: Chief Complaint: NAUSEA/VOMITING/DIARRHEA HPI: HPI: Patient is a 35-year female coming for multiple complaints. Patient states in the past few days she has been nauseous and complaining of low abdominal cramping pain. Patient states she also has burning in her genital area. She has had decreased appetite but has her baseline fatigue. Patient has not had her vaccines. On examination her O2 sat is 97% on room air, patient denies any prior history of oxygen use. Review of Systems: Review of Systems: All other systems within normal limits except for as noted in the HPI Current Medications: Current Meds: Current Medications Medications (Trade) Dose Ordered Sig/Riki Start Time Stop Time Status Last Admin Dose Admin Ondansetron HCl (Zofran) 4 mg 1X ONCE 11/21/20 14:45 11/21/20 14:46 UNV Allergies: Allergies: Allergies Coded Allergies Type Severity Reaction Last Updated Verified I S O L A T I O N *CONTACT* Allergy Unknown 07/30/18 Yes NKMA Allergy Unknown 07/30/18 Yes Physical Exam: PE: Constitutional: Well developed, well nourished, no acute distress, non-toxic appearance. [] HENT: Normocephalic, atraumatic, bilateral external ears normal, nose normal. [] Eyes: PERRLA, conjunctiva normal, no discharge. [] Neck: No rigidity, supple, no stridor. [] Cardiovascular: Regular rate and rhythm, brisk cap refill [] Lungs & Thorax: Non labored symmetric respirations, no tachypnea or respiratory distress [] Abdomen: Soft, nondistended, suprapubic catheter in place. Skin: Warm, dry, no erythema, no rash. [] Back: Unremarkable Extremities: No deformities, range of motion grossly intact, no lower extremity edema [] Neurologic: Alert and oriented X 3, no focal deficits noted. [] Psychologic: Affect normal, judgement normal, mood normal. [] Current Patient Data: Vital Signs: Vital Signs Date Time Temp Pulse Resp B/P (MAP) Pulse Ox O2 Delivery O2 Flow Rate FiO2 11/21/20 13:59 98.6 85 17 131/65 (87) 87 Room Air EKG: EKG: Sinus rhythm, heart rate [address] elevation or depression, no ectopy global right axis deviation [] Radiology/Procedures: Radiology/Procedures: [address] [address] IMAGING REPORT Signed PATIENT: SERGIO PISANO MACCOUNT: [id number] : 1945 LOCATION: ER AGE: 75 SEX: F EXAM STATUS: REG ER ORD. PHYSICIAN: TORI PAGE MD REASON: hypoxia PROCEDURE: CHEST AP ONLY AP portable chest radiograph 11/21/2020 Clinical History: Hypoxia. An AP erect portable digital radiograph of the chest was obtained. Comparison study is dated 09/14/2020. The cardiac silhouette is borderline enlarged. The thoracic aorta is tortuous. Arthroscopic calcification of the thoracic aorta is seen. Emphysematous changes are seen involving both lungs. What appears to be a skinfold overlies the lateral aspect of the right mid and lower lung. No area of consolidation is seen. Areas of scarring seen involving both lower lobes, right greater than left the left upper lobe. No pleural effusion or obvious pneumothorax is seen. The osseous structures are unchanged. Impression: No area of consolidation is seen. Electronically signed by: Wilbur Gregg MD (11/21/2020 2:54 PM) [id number] DICTATED AND SIGNED BY: WILBUR GREGG MD DATE: 11/21/20 1452 CC: GRACIE OLIVARES MD; TORI PAGE MD ~MTH0 0 [] Heart Score: C/O Chest Pain: No Risk Factors: Risk Factors: DM, Current or recent (<one month) smoker, HTN, HLP, family history of CAD, obesity. Risk Scores: Score 0 - 3: 2.5% MACE over next 6 weeks - Discharge Home Score 4 - 6: 20.3% MACE over next 6 weeks - Admit for Clinical Observation Score 7 - 10: 72.7% MACE over next 6 weeks - Early Invasive Strategies Course & Med Decision Making: Course & Med Decision Making Pertinent Labs and Imaging studies reviewed. (See chart for details) Discussed inpatient versus outpatient treatment with patient, she states that she would like to try to treat her symptoms at home. States her suprapubic catheter was changed 3 days ago and does not want change it again. We will treat with Cipro, patient states that Zofran works for her. Advised not to take Cipro and Zofran at the same time. Per patient's ECG there is no signs of borderline or connie QT prolongation. [] Dragon Disclaimer: Dragon Disclaimer: This electronic medical record was generated, in whole or in part, using a voice recognition dictation system. Departure Departure: Impression: Primary Impression: Catheter-associated urinary tract infection Disposition: HOME / SELF CARE / HOMELESS Condition: STABLE Referrals: GRACIE OLIVARES MD (PCP) Patient Instructions: Nausea, Adult Additional Instructions: Follow-up with your urologist regarding frequent infections of suprapubic catheter. May take Zofran separate from Cipro antibiotic by at least 2 to 3 hours up to 3 times a day for nausea. Scripts Ondansetron (ONDANSETRON ODT) 4 Mg Tab.rapdis 1 TAB PO PRN Q6-8HRS PRN for NAUSEA, #16 TAB Prov: TORI PAGE MD 11/21/20 Ciprofloxacin Hcl (CIPRO) 500 Mg Tablet 1 TAB PO BID for antibiotic for 7 Days, #14 TAB 0 Refills Prov: TORI PAGE MD 11/21/20 TORI PAGE MD Nov 21, 2020 14:45
[2020-11-21 14:55] LABS: BASO # 0.2 x10^3/uL (0.0-0.2); BASO % 1 % (0-3); EOS # 0.3 x10^3/uL (0.0-0.7); EOS % 3 % (0-3); HEMATOCRIT 40.5 % (36.0-47.0); HEMOGLOBIN 13.2 g/dL (12.0-15.5); LYMPH # 1.3 x10^3/uL (1.0-4.8); LYMPH % 10 % (24-48); MEAN CORPUSCULAR HEMOGLOBIN 28 pg (25-35); MEAN CORPUSCULAR HGB CONC 33 g/dL (31-37); MEAN CORPUSCULAR VOLUME 85 fL (79-100); MONO # 0.8 x10^3/uL (0.0-1.1); MONO % 7 % (0-9); NEUT # 10.2 x10^3uL (1.8-7.7); NEUT % 79 % (31-73); PLATELET COUNT 405 x10^3/uL (140-400); RED BLOOD COUNT 4.75 x10^6/uL (3.50-5.40); RED CELL DISTRIBUTION WIDTH 16.5 % (11.5-14.5); WHITE BLOOD COUNT 12.8 x10^3/uL (4.0-11.0)
--- NOTE | 2020-11-21 14:56 | RAD ---
AP portable chest radiograph 11/21/2020 Clinical History: Hypoxia. An AP erect portable digital radiograph of the chest was obtained. Comparison study is dated 09/14/2020. The cardiac silhouette is borderline enlarged. The thoracic aorta is tortuous. Arthroscopic calcifica tion of the thoracic aorta is seen. Emphysematous changes are seen involving both lungs. What appears to be a skinfold overlies the lateral aspect of the right mid and lower lung. No area of consolidati on is seen. Areas of scarring seen involving both lower lobes, right greater than left the left upper lobe. No pleural effusion or obvious pneumothorax is seen. The osseous structures are unchanged. Impression: No area of consolidation is seen. Electronically signed by: Wilbur Gregg MD (11/21/2020 2:54 PM) [id number]
[2020-11-21] MEDS ORDERED: IV NORMAL SALINE 500ML 500 ML IV ONE (15:00)
[2020-11-21 15:01] LABS: BILIRUBIN,URINE NEG (NEG); CLARITY,URINE CLEAR; COLOR,URINE YELLOW; GLUCOSE,URINE NEG (NEG); NITRITE,URINE NEG (NEG); UROBILINOGEN,URINE 0.2 mg/dL (0.2 mg/dL)
[2020-11-21 15:03] LABS: SQUAMOUS EPITHELIAL CELL,UR FEW /LPF
[2020-11-21 15:05] LABS: BACTERIA,URINE FEW /HPF (0-FEW)
[2020-11-21 15:08] LABS: ALBUMIN 2.5 g/dL (3.4-5.0); ALBUMIN/GLOBULIN RATIO 0.6 (1.0-1.7); CALCIUM 8.1 mg/dL (8.5-10.1); CREATININE 0.6 mg/dL (0.6-1.0); GFR 97.2; MAGNESIUM 1.9 mg/dL (1.8-2.4); POTASSIUM 4.3 mmol/L (3.5-5.1); TOTAL BILIRUBIN 0.4 mg/dL (0.2-1.0); TOTAL PROTEIN 6.6 g/dL (6.4-8.2)
[2020-11-21] MEDS ORDERED: IOHEXOL 300 MG/ML 75 ML VIAL. IV ONE (16:15)
[2020-11-21] MEDS ORDERED: CONTRAST GIVEN. MC PRN (16:15)
--- NOTE | 2020-11-21 17:06 | RAD ---
CT ABDOMEN+PELVIS W History: Reason: low abd pain / Spl. Instructions: / History: Technique: After the administration of intravenous contrast, CT imaging was performed of the abdomen and pelvis. Multiplanar images are reviewed. Exposure: One or more of the following individualized dose reduction techniques were utilized for thi s examination: 1. Automated exposure control 2. Adjustment of the mA and/or kV according to patient size 3. Use of iterative reconstruction technique. Comparison: CT August 04, 2020 Findings: Lower chest: Pulmonary emphysema. Scattered linear atelectasis. Coronary artery calcifications. Lingu lar nodular opacity, decreased compared to prior likely focal atelectasis. Abdomen and pelvis: Cholelithiasis with gallbladder wall thickening. Mild intrahepatic biliary ductal dilatation. No common bile duct dilatation. Patent portal vein. Small left hepatic lobe, unchanged. The spleen and adrenal glands are unremarkable. Calcific effusions within the region of the pancreatic neck, unchanged and may relate to prior pancre atitis. Nonobstructing bilateral renal calculi, right greater than left. No hydronephrosis. No ureteral calcu [place]. Urinary bladder calculus right posterior aspect measures 1.7 x 1.0 cm. Decompressed urinary blad [place]. Suprapubic catheter with balloon in the anterior abdominal wall. Catheter appears within the uri nary bladder. Normal appendix. Moderate colonic stool burden. No evidence of bowel obstruction. Right inguinal greg ia containing loops of nonobstructed small bowel, unchanged. No pathologic lymphadenopathy. No ascite s. Extensive atheromatous plaque throughout the nonaneurysmal abdominal aorta and branch vessels. IVC filter noted at the level of the right renal vein, unchanged. Bones: Multilevel lumbar spondylosis. Grade 1 anterolisthesis L4 on L5. Rightward curvature of the maria esther mbar spine. Impression: 1. Cholelithiasis with gallbladder wall thickening. Ultrasound can further evaluate if concern for r ight upper quadrant pain. 2. Mild intrahepatic biliary ductal dilatation. Recommend correlation with biliary lab values. 3. Bilateral nonobstructing intrarenal calculi. No hydronephrosis. 4. Urinary bladder calculus. 5. Suprapubic catheter with balloon in the tract at the level of the anterior abdominal wall. 6. Pancreatic calcifications, may relate to prior pancreatitis. Electronically signed by: Ye Mccormick DO (11/21/2020 5:04 PM) [facility]
[2020-11-21] MEDS ORDERED: CIPR500T94 PO (17:35)
[2020-11-21] MEDS ORDERED: ONDA4TAB12 PO (17:35)
--- NOTE | 2020-11-22 04:21 | EKG ---
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
== END 2020-11-21 19:02 | disposition home or self-care (01) ==
LOC: ER 13:59
DX: T83.518A Infection and inflammatory reaction due to other urinary catheter, initial encounter (principal); F41.9 Anxiety disorder, unspecified; I25.10 Atherosclerotic heart disease of native coronary artery without angina pectoris; E78.00 Pure hypercholesterolemia, unspecified; I10 Essential (primary) hypertension; F17.210 Nicotine dependence, cigarettes, uncomplicated; G35 Multiple sclerosis; Z87.440 Personal history of urinary (tract) infections; Z88.8 Allergy status to other drugs, medicaments and biological substances
CPT/HCPCS: 36415; 71045; 74177; 80053; 81001; 83605; 83735; 83880; 84484; 85025; 87086; 93005; 96361; 96374; 99285; J2405; J7040; Q9967

== ENCOUNTER 2020-12-16 11:12 | Emergency (ER) | payer MEDICARE ==
[~2020-12-16] VITALS: Ht 175.3 cm; Wt 57.3 kg
[~2020-12-16 11:12] MED LIST changes: +CIPR500T94 PO; +OLAN5TAB67 PO; -OLAN5TAB9 PO
[2020-12-16] MEDS ORDERED: IV NORMAL SALINE 1,000ML 1,000 ML IV ONE (11:30)
--- NOTE | 2020-12-16 11:51 | PHYS DOC ---
Past History Past Medical History: Anxiety, CAD, High Cholesterol, Hypertension, Seizure, UTI, Other Additional Past Medical Histor: MS Past Surgical History: Other Additional Past Surgical Histo: suprapubic cath Smoking: Cigarettes Alcohol Use: None Drug Use: None General Adult EDM: Chief Complaint: RECTAL BLEED HPI: HPI: 75-year-old female presents via EMS from the medical [facility] for rectal bleeding. The patient tells me that she had a similar episode about a month ago that resolved on its own. She is on Eliquis due to blood clots. She believes she is only had bleeding today. She denies dizziness, shortness of breath, chest pain, increased weakness. No fever or chills. She has some mild left lower quadrant abdominal cramping Review of Systems: Review of Systems: Constitutional: Denies fever or chills Eyes: Denies change in visual acuity HENT: Denies nasal congestion or sore throat Respiratory: Denies cough or shortness of breath Cardiovascular: Denies chest pain or edema GI: Left lower quadrant abdominal pain, rectal bleeding : Denies dysuria Musculoskeletal: Denies back pain or joint pain Integument: Denies rash Neurologic: Denies headache, focal weakness or sensory changes Endocrine: Denies polyuria or polydipsia Lymphatic: Denies swollen glands Psychiatric: Denies depression or anxiety Current Medications: Current Meds: Current Medications Medications (Trade) Dose Ordered Sig/Riki Start Time Stop Time Status Last Admin Dose Admin Pantoprazole Sodium (Protonix Vial) 40 mg 1X ONCE 12/16/20 12:00 12/16/20 12:01 UNV Sodium Chloride 1,000 ml @ 1,000 mls/hr 1X ONCE 12/16/20 11:30 12/16/20 12:29 Allergies: Allergies: Allergies Coded Allergies Type Severity Reaction Last Updated Verified I S O L A T I O N *CONTACT* Allergy Unknown 07/30/18 Yes NKMA Allergy Unknown 11/21/20 Yes Physical Exam: PE: Constitutional: Well developed, well nourished, no acute distress, non-toxic appearance. [] HENT: Normocephalic, atraumatic, bilateral external ears normal, oropharynx moist, no oral exudates, nose normal. [] Eyes: PERRLA, EOMI, conjunctiva normal, no discharge. [] Neck: Normal range of motion, no tenderness, supple, no stridor. [] Cardiovascular:Heart rate regular rhythm, no murmur [] Lungs & Thorax: Bilateral breath sounds clear to auscultation [] Abdomen: Bowel sounds normal, soft, mild left lower quadrant tenderness, no masses, no pulsatile masses. [] Skin: Warm, dry, no erythema, no rash. [] Back: No tenderness, no CVA tenderness. [] Extremities: No tenderness, no cyanosis, no clubbing, ROM intact, no edema. [] Neurologic: Alert and oriented X 3, normal motor function, normal sensory function, no focal deficits noted. [] Psychologic: Affect normal, judgement normal, mood normal. [] Current Patient Data: Vital Signs: Vital Signs Date Time Temp Pulse Resp B/P (MAP) Pulse Ox O2 Delivery O2 Flow Rate FiO2 12/16/20 11:15 97.6 63 16 135/69 93 Room Air EKG: EKG: [] Radiology/Procedures: Radiology/Procedures: [] Impressions: Exam: CT abdomen/pelvis with intravenous contrast Indication: Left lower quadrant pain Comparison: CT abdomen pelvis 11/21/2020 Technique: Helical CT imaging performed of the abdomen and pelvis after the intravenous administration of 75 mL Omnipaque 300 contrast. Sagittal and coronal reformats were obtained. One or more of the following individualized dose reduction techniques were utilized for this examination: 1. Automated exposure control 2. Adjustment of the mA and/or kV according to patient size 3. Use of iterative reconstruction technique. Findings: Lower chest: Subpleural reticular and pelvic opacities in the lung bases are unchanged. Heart is normal in size. Liver: Normal. No focal liver lesion. Gallbladder/Biliary Tree: There is cholelithiasis. The gallbladder is elongated, unchanged. Mild intrahepatic biliary duct dilatation. Common bile duct is normal. Pancreas: Normal. Spleen: Normal. Adrenal Glands: Normal. Kidneys/Ureters/Bladder: Kidneys are normal in size. Bilateral nephrolithiasis is unchanged. No hydronephrosis. There is a suprapubic catheter. Large bladder calcification on the right is unchanged. Reproductive Organs: Uterus is not well visualized . No adnexal mass. Stomach, small bowel, and colon: The stomach is unremarkable. There is no small bowel obstruction. There is a large volume of stool in the colon and rectum. Vasculature: No aortic aneurysm. There is severe calcified aortoiliac atherosclerosis. An IVC filter is unchanged. Lymph Nodes: No lymphadenopathy. Peritoneum and retroperitoneum: Small amount of ascites is unchanged. No free air. Bones: No acute osseous abnormality. There is unchanged dextroscoliosis of the thoracolumbar spine. Unchanged degenerative disc disease and osteopenia. Impression: 1. No acute abnormality in the abdomen and pelvis. Large volume of stool. 2. Unchanged suprapubic catheter and calcification in the bladder on the right. 3. Unchanged bilateral nephrolithiasis. 4. Unchanged cholelithiasis. 5. Small amount of ascites. 6. Unchanged chronic appearing opacities in the lung bases. Electronically signed by: Patsy Artis MD (12/16/2020 1:39 PM) [id number] DICTATED AND SIGNED BY: PTASY ARTIS MD DATE: 12/16/20 1321 CC: ROEL BEE DO; TEDDY BARRERA ~MTH0 0 Heart Score: C/O Chest Pain: N/A Risk Factors: Risk Factors: DM, Current or recent (<one month) smoker, HTN, HLP, family history of CAD, obesity. Risk Scores: Score 0 - 3: 2.5% MACE over next 6 weeks - Discharge Home Score 4 - 6: 20.3% MACE over next 6 weeks - Admit for Clinical Observation Score 7 - 10: 72.7% MACE over next 6 weeks - Early Invasive Strategies Course & Med Decision Making: Course & Med Decision Making Pertinent Labs and Imaging studies reviewed. (See chart for details) Patient's labs are unremarkable. Her stool occult is negative. She does have a UTI. I will treat her with Rocephin in the ED and Keflex at discharge. Her CT of the abdomen and pelvis is negative for acute findings. She does have a large amount of stool. As they work on her constipation at the care facility. She also has some chronic findings. See official read for more details. She is stable for discharge at this time. [] Hugo Disclaimer: Hugo Disclaimer: This electronic medical record was generated, in whole or in part, using a voice recognition dictation system. Departure Departure: Impression: Primary Impression: UTI (urinary tract infection) Qualified Codes: N30.01 - Acute cystitis with hematuria Additional Impression: Constipation Qualified Codes: K59.00 - Constipation, unspecified Disposition: HOME / SELF CARE / HOMELESS Condition: STABLE Referrals: GRACIE OLIVARES MD (PCP) Patient Instructions: Constipation, Adult, [id number], Urinary Tract Inf ection, [id number]-[id number] Scripts Cephalexin (CEPHALEXIN) 500 Mg Tablet 1 TAB PO TID for UTI for 3 Days, #9 TAB Prov: ROEL BEE DO 12/16/20 ROEL BEE DO Dec 16, 2020 11:51
[2020-12-16] MEDS ORDERED: PANTOPRAZOLE IV 40 MG VIAL. IVP ONE (12:00)
[2020-12-16] MEDS ORDERED: IOHEXOL 300 MG/ML 75 ML VIAL. IV ONE (12:15)
[2020-12-16 12:17] LABS: BASO # 0.1 x10^3/uL (0.0-0.2); BASO % 1 % (0-3); EOS # 0.5 x10^3/uL (0.0-0.7); EOS % 7 % (0-3); LYMPH # 1.3 x10^3/uL (1.0-4.8); LYMPH % 17 % (24-48); MEAN CORPUSCULAR HEMOGLOBIN 27 pg (25-35); MEAN CORPUSCULAR HGB CONC 33 g/dL (31-37); MEAN CORPUSCULAR VOLUME 84 fL (79-100); MONO # 0.5 x10^3/uL (0.0-1.1); MONO % 6 % (0-9); NEUT # 5.4 x10^3uL (1.8-7.7); NEUT % 69 % (31-73); PLATELET COUNT 383 x10^3/uL (140-400); RED CELL DISTRIBUTION WIDTH 16.8 % (11.5-14.5); WHITE BLOOD COUNT 7.8 x10^3/uL (4.0-11.0)
[2020-12-16 12:20] LABS: FECAL OB PT NEGATIVE (NEG)
[2020-12-16 12:21] LABS: CALCIUM 8.3 mg/dL (8.5-10.1); CREATININE 0.5 mg/dL (0.6-1.0); POTASSIUM 3.5 mmol/L (3.5-5.1)
[2020-12-16 12:22] LABS: BILIRUBIN,URINE NEG (NEG); CLARITY,URINE CLOUDY; COLOR,URINE STRAW; GLUCOSE,URINE NEG (NEG); NITRITE,URINE POS (NEG); UROBILINOGEN,URINE 0.2 mg/dL (0.2 mg/dL)
[2020-12-16 12:23] LABS: BACTERIA,URINE MOD /HPF (0-FEW); WBC,URINE RARE /HPF (0-4)
[2020-12-16 12:27] LABS: ALBUMIN 2.9 g/dL (3.4-5.0); ALBUMIN/GLOBULIN RATIO 0.9 (1.0-1.7); TOTAL BILIRUBIN 0.4 mg/dL (0.2-1.0); TOTAL PROTEIN 6.3 g/dL (6.4-8.2)
--- NOTE | 2020-12-16 13:41 | RAD ---
Exam: CT abdomen/pelvis with intravenous contrast Indication: Left lower quadrant pain Comparison: CT abdomen pelvis 11/21/2020 Technique: Helical CT imaging performed of the abdomen and pelvis after the intravenous administratio n of 75 mL Omnipaque 300 contrast. Sagittal and coronal reformats were obtained. One or more of the following individualized dose reduction techniques were utilized for this examinat ion: 1. Automated exposure control 2. Adjustment of the mA and/or kV according to patient size 3. Use of iterative reconstruction technique. Findings: Lower chest: Subpleural reticular and pelvic opacities in the lung bases are unchanged. Heart is norm al in size. Liver: Normal. No focal liver lesion. Gallbladder/Biliary Tree: There is cholelithiasis. The gallbladder is elongated, unchanged. Mild intr ahepatic biliary duct dilatation. Common bile duct is normal. Pancreas: Normal. Spleen: Normal. Adrenal Glands: Normal. Kidneys/Ureters/Bladder: Kidneys are normal in size. Bilateral nephrolithiasis is unchanged. No hydro nephrosis. There is a suprapubic catheter. Large bladder calcification on the right is unchanged. Reproductive Organs: Uterus is not well visualized . No adnexal mass. Stomach, small bowel, and colon: The stomach is unremarkable. There is no small bowel obstruction. Th ere is a large volume of stool in the colon and rectum. Vasculature: No aortic aneurysm. There is severe calcified aortoiliac atherosclerosis. An IVC filter is unchanged. Lymph Nodes: No lymphadenopathy. Peritoneum and retroperitoneum: Small amount of ascites is unchanged. No free air. Bones: No acute osseous abnormality. There is unchanged dextroscoliosis of the thoracolumbar spine. U nchanged degenerative disc disease and osteopenia. Impression: 1. No acute abnormality in the abdomen and pelvis. Large volume of stool. 2. Unchanged suprapubic catheter and calcification in the bladder on the right. 3. Unchanged bilateral nephrolithiasis. 4. Unchanged cholelithiasis. 5. Small amount of ascites. 6. Unchanged chronic appearing opacities in the lung bases. Electronically signed by: Patsy Artis MD (12/16/2020 1:39 PM) [id number]
[2020-12-16] MEDS ORDERED: IV NORMAL SALINE 50ML 50 ML ONE (13:49)
[2020-12-16] MEDS ORDERED: cefTRIAXone SODIUM 1 GM VIAL ONE (13:49)
[2020-12-16] MEDS ORDERED: CEPH500T PO (13:53)
[2020-12-16 14:03] VITALS: BP 132/70
== END 2020-12-16 14:12 | disposition home or self-care (01) ==
LOC: ER 11:12
DX: N30.01 Acute cystitis with hematuria (principal); K59.00 Constipation, unspecified; F41.9 Anxiety disorder, unspecified; I25.10 Atherosclerotic heart disease of native coronary artery without angina pectoris; E78.00 Pure hypercholesterolemia, unspecified; I10 Essential (primary) hypertension; F17.210 Nicotine dependence, cigarettes, uncomplicated; Z87.440 Personal history of urinary (tract) infections; Z79.01 Long term (current) use of anticoagulants; Z88.8 Allergy status to other drugs, medicaments and biological substances
CPT/HCPCS: 36415; 74177; 80053; 81001; 82274; 85025; 87086; 96361; 96365; 96375; 99285; C9113; J0696; J7030

== ENCOUNTER 2020-12-17 09:44 | Emergency (ER) | payer MEDICARE ==
[~2020-12-17] VITALS: Ht 175.3 cm; Wt 57.3 kg
[~2020-12-17 09:44] MED LIST changes: +CEPH500T PO
[2020-12-17 10:41] LABS: BASO # 0.1 x10^3/uL (0.0-0.2); BASO % 1 % (0-3); EOS # 0.4 x10^3/uL (0.0-0.7); EOS % 6 % (0-3); HEMATOCRIT 38.7 % (36.0-47.0); HEMOGLOBIN 12.5 g/dL (12.0-15.5); LYMPH # 1.3 x10^3/uL (1.0-4.8); LYMPH % 18 % (24-48); MEAN CORPUSCULAR HEMOGLOBIN 27 pg (25-35); MEAN CORPUSCULAR HGB CONC 32 g/dL (31-37); MEAN CORPUSCULAR VOLUME 84 fL (79-100); MONO # 0.5 x10^3/uL (0.0-1.1); MONO % 7 % (0-9); NEUT # 4.9 x10^3uL (1.8-7.7); NEUT % 68 % (31-73); PLATELET COUNT 337 x10^3/uL (140-400); RED BLOOD COUNT 4.61 x10^6/uL (3.50-5.40); RED CELL DISTRIBUTION WIDTH 17.2 % (11.5-14.5); WHITE BLOOD COUNT 7.2 x10^3/uL (4.0-11.0)
[2020-12-17 10:45] LABS: CALCIUM 8.2 mg/dL (8.5-10.1); CREATININE 0.5 mg/dL (0.6-1.0); POTASSIUM 3.5 mmol/L (3.5-5.1)
[2020-12-17 10:46] VITALS: BP 129/59
[2020-12-17 10:48] LABS: ALBUMIN 2.7 g/dL (3.4-5.0); ALBUMIN/GLOBULIN RATIO 0.8 (1.0-1.7); TOTAL BILIRUBIN 0.4 mg/dL (0.2-1.0); TOTAL PROTEIN 5.9 g/dL (6.4-8.2)
--- NOTE | 2020-12-17 10:50 | RAD ---
INDICATION: Reason: constipation / Spl. Instructions: / History: COMPARISON: One day prior IMPRESSION: Abdomen: 2 views obtained. Scoliotic curvature the spine with degenerative changes. Calcification right upper quadrant could be from the patient's gallstone. Inferior vena cava filter. Moderate stool in colon with a grossly nonobstructive bowel gas pattern degenerative changes of the h ips. Repeat demonstration of calcification projecting over the bladder measuring 18 mm which could be from causes such as bladder stone Electronically signed by: Ramirez Thomas MD (12/17/2020 10:48 AM) [id number]
--- NOTE | 2020-12-17 11:07 | PHYS DOC ---
Past History Past Medical History: Anxiety, CAD, High Cholesterol, Hypertension, Seizure, UTI, Other Additional Past Medical Histor: MS Past Surgical History: Other Additional Past Surgical Histo: suprapubic cath Smoking: Cigarettes Alcohol Use: None Drug Use: None General Adult EDM: Chief Complaint: RECTAL BLEED HPI: HPI: 75-year-old female returns from her care facility with rectal bleeding. The nurse reports states that she had 2 or 3 more episodes of bleeding and they were concerned and decided to send her back to the emergency room. The patient tells me they did not give her an enema last night as I directed them. They have not given her anything for her constipation. She has no new complaints. Review of Systems: Review of Systems: Constitutional: Denies fever or chills Eyes: Denies change in visual acuity HENT: Denies nasal congestion or sore throat Respiratory: Denies cough or shortness of breath Cardiovascular: Denies chest pain or edema GI: Rectal bleeding, constipation : Denies dysuria Musculoskeletal: Denies back pain or joint pain Integument: Denies rash Neurologic: Denies headache, focal weakness or sensory changes Endocrine: Denies polyuria or polydipsia Lymphatic: Denies swollen glands Psychiatric: Denies depression or anxiety Allergies: Allergies: Allergies Coded Allergies Type Severity Reaction Last Updated Verified I S O L A T I O N *CONTACT* Allergy Unknown 07/30/18 Yes NKMA Allergy Unknown 11/21/20 Yes Physical Exam: PE: Constitutional: Well developed, well nourished, no acute distress, non-toxic appearance. [] HENT: Normocephalic, atraumatic, bilateral external ears normal, oropharynx moist, no oral exudates, nose normal. [] Eyes: PERRLA, EOMI, conjunctiva normal, no discharge. [] Neck: Normal range of motion, no tenderness, supple, no stridor. [] Cardiovascular:Heart rate regular rhythm, no murmur [] Lungs & Thorax: Bilateral breath sounds clear to auscultation [] Abdomen: Bowel sounds normal, soft, no tenderness, no masses, no pulsatile masses. [] Skin: Warm, dry, no erythema, no rash. [] Back: No tenderness, no CVA tenderness. [] Extremities: No tenderness, no cyanosis, no clubbing, ROM intact, no edema. [] Neurologic: Alert and oriented X 3, normal motor function, normal sensory function, no focal deficits noted. [] Psychologic: Affect normal, judgement normal, mood normal. [] Current Patient Data: Labs: Laboratory Tests Test 12/17/20 10:06 White Blood Count 7.2 x10^3/uL (4.0-11.0) Red Blood Count 4.61 x10^6/uL (3.50-5.40) Hemoglobin 12.5 g/dL (12.0-15.5) Hematocrit 38.7 % (36.0-47.0) Mean Corpuscular Volume 84 fL (79-100) Mean Corpuscular Hemoglobin 27 pg (25-35) Mean Corpuscular Hemoglobin Concent 32 g/dL (31-37) Red Cell Distribution Width 17.2 % (11.5-14.5) H Platelet Count 337 x10^3/uL (140-400) Neutrophils (%) (Auto) 68 % (31-73) Lymphocytes (%) (Auto) 18 % (24-48) L Monocytes (%) (Auto) 7 % (0-9) Eosinophils (%) (Auto) 6 % (0-3) H Basophils (%) (Auto) 1 % (0-3) Neutrophils # (Auto) 4.9 x10^3uL (1.8-7.7) Lymphocytes # (Auto) 1.3 x10^3/uL (1.0-4.8) Monocytes # (Auto) 0.5 x10^3/uL (0.0-1.1) Eosinophils # (Auto) 0.4 x10^3/uL (0.0-0.7) Basophils # (Auto) 0.1 x10^3/uL (0.0-0.2) Sodium Level 145 mmol/L (136-145) Potassium Level 3.5 mmol/L (3.5-5.1) Chloride Level 109 mmol/L (98-107) H Carbon Dioxide Level 30 mmol/L (21-32) Anion Gap 6 (6-14) Blood Urea Nitrogen 18 mg/dL (7-20) Creatinine 0.5 mg/dL (0.6-1.0) L Estimated GFR (Cockcroft-Gault) 120.0 BUN/Creatinine Ratio 36 (6-20) H Glucose Level 91 mg/dL (70-99) Calcium Level 8.2 mg/dL (8.5-10.1) L Total Bilirubin 0.4 mg/dL (0.2-1.0) Aspartate Amino Transferase (AST) 20 U/L (15-37) Alanine Aminotransferase (ALT) 22 U/L (14-59) Alkaline Phosphatase 72 U/L (46-116) Total Protein 5.9 g/dL (6.4-8.2) L Albumin 2.7 g/dL (3.4-5.0) L Albumin/Globulin Ratio 0.8 (1.0-1.7) L EKG: EKG: [] Radiology/Procedures: Radiology/Procedures: [] Heart Score: C/O Chest Pain: N/A Risk Factors: Risk Factors: DM, Current or recent (<one month) smoker, HTN, HLP, family history of CAD, obesity. Risk Scores: Score 0 - 3: 2.5% MACE over next 6 weeks - Discharge Home Score 4 - 6: 20.3% MACE over next 6 weeks - Admit for Clinical Observation Score 7 - 10: 72.7% MACE over next 6 weeks - Early Invasive Strategies Course & Med Decision Making: Course & Med Decision Making Pertinent Labs and Imaging studies reviewed. (See chart for details) Evaluation of the patient this time is different than yesterday. She is having dark blood from the rectum. She is also requiring nasal cannula oxygen. Her hemoglobin is within normal limits. Her labs are unremarkable. I have discussed the patient with Dr. Nuno and he has accepted her for transfer and admission to [facility]. She will transfer by ambulance. We have informed GI of the patient and the need to see her sooner rather than later. Have given her 80 mg of Protonix and a liter of NS. [] Dragon Disclaimer: Dragon Disclaimer: This electronic medical record was generated, in whole or in part, using a voice recognition dictation system. Departure Departure: Impression: Primary Impression: GI bleed Qualified Codes: K92.2 - Gastrointestinal hemorrhage, unspecified Disposition: 02 SHORT TERM HOSPITAL Admitting Physician: Ari Nuno Condition: GUARDED Referrals: TEDDY BARRERA (PCP) ROEL BEE DO Dec 17, 2020 11:07
[2020-12-17] MEDS ORDERED: MAGNESIUM CITRATE 296 ML SOLUTION. PO ONE (11:15)
[2020-12-17] MEDS ORDERED: SODIUM PHOSPHATES 19/7GM 133 ML ENEMA. PR ONE (11:15)
[2020-12-17] MEDS ORDERED: PANTOPRAZOLE IV 40 MG VIAL. IVP ONE (12:30)
[2020-12-17] MEDS ORDERED: MORPHINE SULFATE 2 MG/ML DISP.SYRIN. IV ONE (15:15)
[2020-12-17] MEDS ORDERED: IV NORMAL SALINE 1,000ML 1,000 ML IV ONE (16:45)
== END 2020-12-17 17:55 | disposition short-term general hospital (02) ==
LOC: ER 09:44
DX: K92.2 Gastrointestinal hemorrhage, unspecified (principal); I25.10 Atherosclerotic heart disease of native coronary artery without angina pectoris; E78.00 Pure hypercholesterolemia, unspecified; I10 Essential (primary) hypertension; G35 Multiple sclerosis; F17.210 Nicotine dependence, cigarettes, uncomplicated; Z87.440 Personal history of urinary (tract) infections; Z88.8 Allergy status to other drugs, medicaments and biological substances
CPT/HCPCS: 36415; 74018; 80053; 85025; 86850; 86900; 86901; 96361; 96374; 96375; 99285; C9113; J2270; J7030

== ENCOUNTER 2021-01-23 16:50 | Emergency (ER) | payer MEDICARE ==
[~2021-01-23] VITALS: Ht 172.7 cm; Wt 80.0 kg
[2021-01-23 18:02] LABS: BILIRUBIN,URINE NEG (NEG); CLARITY,URINE CLOUDY; COLOR,URINE YELLOW; GLUCOSE,URINE NEG (NEG); NITRITE,URINE POS (NEG); UROBILINOGEN,URINE 0.2 mg/dL (0.2 mg/dL)
[2021-01-23 18:10] LABS: BACTERIA,URINE MOD /HPF (0-FEW)
[2021-01-23 18:30] VITALS: BP 160/84
[2021-01-23] MEDS ORDERED: CEPHALEXIN 250 MG CAPSULE PO ONE (18:30)
[2021-01-23] MEDS ORDERED: CEPH500T PO (18:30)
--- NOTE | 2021-01-23 18:31 | PHYS DOC ---
Past History Past Medical History: Anxiety, CAD, High Cholesterol, Hypertension, Seizure, UTI, Other Additional Past Medical Histor: MS Past Surgical History: Other Additional Past Surgical Histo: suprapubic cath Smoking: Cigarettes Alcohol Use: None Drug Use: None General Adult EDM: Chief Complaint: URINE CATHETER PROBLEM HPI: HPI: Patient is a [age] year old [sex] who presents with [] Review of Systems: Review of Systems: Constitutional: Denies fever or chills Eyes: Denies change in visual acuity HENT: Denies nasal congestion or sore throat Respiratory: Denies cough or shortness of breath Cardiovascular: Denies chest pain or edema GI: Denies abdominal pain, nausea, vomiting, bloody stools or diarrhea : Denies dysuria Musculoskeletal: Denies back pain or joint pain Integument: Denies rash Neurologic: Denies headache, focal weakness or sensory changes Endocrine: Denies polyuria or polydipsia Lymphatic: Denies swollen glands Psychiatric: Denies depression or anxiety Allergies: Allergies: Allergies Coded Allergies Type Severity Reaction Last Updated Verified I S O L A T I O N *CONTACT* Allergy Unknown 07/30/18 Yes NKMA Allergy Unknown 11/21/20 Yes Physical Exam: PE: Constitutional: Well developed, well nourished, no acute distress, non-toxic appearance. [] HENT: Normocephalic, atraumatic, bilateral external ears normal, oropharynx moist, no oral exudates, nose normal. [] Eyes: PERRLA, EOMI, conjunctiva normal, no discharge. [] Neck: Normal range of motion, no tenderness, supple, no stridor. [] Cardiovascular:Heart rate regular rhythm, no murmur [] Lungs & Thorax: Bilateral breath sounds clear to auscultation [] Abdomen: Bowel sounds normal, soft, no tenderness, no masses, no pulsatile mass es. [] Skin: Warm, dry, no erythema, no rash. [] Back: No tenderness, no CVA tenderness. [] Extremities: No tenderness, no cyanosis, no clubbing, ROM intact, no edema. [] Neurologic: Alert and oriented X 3, normal motor function, normal sensory function, no focal deficits noted. [] Psychologic: Affect normal, judgement normal, mood normal. [] Current Patient Data: Labs: Laboratory Tests Test 8/25/21 17:45 Urine Collection Type Unknown Urine Color Yellow Urine Clarity Cloudy Urine pH 7.0 Urine Specific [place] 1.015 Urine Protein 30 mg/dl (NEG-TRACE) Urine Glucose (UA) Neg mg/dL (NEG) Urine Ketones (Stick) Neg mg/dL (NEG) Urine Blood Large (NEG) Urine Nitrite Pos (NEG) Urine Bilirubin Neg (NEG) Urine Urobilinogen Dipstick 0.2 mg/dL (0.2 mg/dL) Urine Leukocyte Esterase Large (NEG) Urine RBC 3-5 /HPF (0-2) Urine WBC 5-10 /HPF (0-4) Urine Bacteria Mod /HPF (0-FEW) EKG: EKG: [] Radiology/Procedures: Radiology/Procedures: [] Heart Score: Risk Factors: Risk Factors: DM, Current or recent (<one month) smoker, HTN, HLP, family history of CAD, obesity. Risk Scores: Score 0 - 3: 2.5% MACE over next 6 weeks - Discharge Home Score 4 - 6: 20.3% MACE over next 6 weeks - Admit for Clinical Observation Score 7 - 10: 72.7% MACE over next 6 weeks - Early Invasive Strategies Course & Med Decision Making: Course & Med Decision Making Pertinent Labs and Imaging studies reviewed. (See chart for details) [] Dragon Disclaimer: Dragon Disclaimer: This electronic medical record was generated, in whole or in part, using a voice recognition dictation system. Departure Departure: Impression: Primary Impression: Blocked suprapubic catheter Qualified Codes: T83.090A - Other mechanical complication of cystostomy catheter, initial encounter Additional Impression: Complicated UTI (urinary tract infection) Disposition: HOME / SELF CARE / HOMELESS Condition: STABLE Referrals: TEDDY BARRERA (PCP) Patient Instructions: Catheter-Associated Urinary Tract Infection FAQs - PARK, Suprapubic Catheter Replacement, Care After Scripts Cephalexin (CEPHALEXIN) 500 Mg Tablet 1 TAB PO TID for UTI, #30 TAB Prov: AUNDREA ALMEDIA DO 01/23/21 AUNDREA ALMEIDA DO Jan 23, 2021 18:31
== END 2021-01-23 19:15 | disposition home or self-care (01) ==
LOC: ER 16:50
DX: T83.090A Other mechanical complication of cystostomy catheter, initial encounter (principal); N39.0 Urinary tract infection, site not specified; F41.9 Anxiety disorder, unspecified; I25.10 Atherosclerotic heart disease of native coronary artery without angina pectoris; E78.00 Pure hypercholesterolemia, unspecified; I10 Essential (primary) hypertension; F17.210 Nicotine dependence, cigarettes, uncomplicated; Z87.440 Personal history of urinary (tract) infections; Z88.8 Allergy status to other drugs, medicaments and biological substances
CPT/HCPCS: 51702; 81001; 87086; 99284-25

== ENCOUNTER 2021-02-15 16:59 | Emergency (ER) | payer OTHER, MEDICARE ==
[~2021-02-15] VITALS: Ht 172.7 cm; Wt 67.1 kg
[~2021-02-15 16:59] MED LIST changes: +POTA-121 PO; -POTA20TA4 PO
[2021-02-15 17:00] VITALS: BP 160/84
--- NOTE | 2021-02-15 17:12 | PHYS DOC ---
Past History Past Medical History: Anxiety, CAD, High Cholesterol, Hypertension, Seizure, UTI, Other Additional Past Medical Histor: MS, Paraplegia Past Surgical History: No Surgical History Additional Past Surgical Histo: suprapubic cath Smoking: Cigarettes Alcohol Use: None Drug Use: None General Adult EDM: Chief Complaint: URINE CATHETER PROBLEM HPI: HPI: Patient is a 75-year-old female who resides at [facility] [place] is postacute. In by EMS for her suprapubic catheter coming out. Patient has no complaints at this time. She denies any abdominal pain, nausea, vomiting, fevers. She had a suprapubic placed 1 month ago. Her vital signs are stable at this time. Review of Systems: Review of Systems: 14 body systems of the review of systems have been reviewed. See HPI for pertinent positive and negative responses, otherwise all other systems are negative, nonpertinent or noncontributory Allergies: Allergies: Allergies Coded Allergies Type Severity Reaction Last Updated Verified I S O L A T I O N *CONTACT* Allergy Unknown 07/30/18 Yes NKMA Allergy Unknown 11/21/20 Yes Physical Exam: PE: Constitutional: Well developed, well nourished, no acute distress, non-toxic appearance. [] HENT: Normocephalic, atraumatic Eyes: PERRL, EOMI, conjunctiva normal, no discharge. [] Neck: Normal range of motion, no stridor Cardiovascular:Heart rate regular rhythm, no murmur [] Lungs & Thorax: Bilateral breath sounds clear to auscultation [] Abdomen: Bowel sounds normal, soft, no tenderness, no masses, no pulsatile m asses, suprapubic catheter site. [] Skin: Warm, dry, no erythema, no rash. [] Back: No tenderness Extremities: No tenderness, no cyanosis, no clubbing, ROM intact, no edema. [] Neurologic: Alert and oriented X 3, normal motor function, normal sensory function, no focal deficits noted. [] Psychologic: Affect normal, judgement normal, mood normal. [] EKG: EKG: [] Radiology/Procedures: Radiology/Procedures: [] Heart Score: C/O Chest Pain: No Risk Factors: Risk Factors: DM, Current or recent (<one month) smoker, HTN, HLP, family histo ry of CAD, obesity. Risk Scores: Score 0 - 3: 2.5% MACE over next 6 weeks - Discharge Home Score 4 - 6: 20.3% MACE over next 6 weeks - Admit for Clinical Observation Score 7 - 10: 72.7% MACE over next 6 weeks - Early Invasive Strategies Course & Med Decision Making: Course & Med Decision Making Pertinent Labs and Imaging studies reviewed. (See chart for details) Patient is a 75-year-old female being seen in the ER for suprapubic catheter replacement. Urine draining post catheter replacement. Patient has no complaints. She denies abdominal pain, nausea, vomiting, fevers. Suprapubic catheter was replaced in the ER. Patient tolerated procedure. Patient to follow-up with the primary care provider. I discussed with patient all findings as well as the need to follow-up with PCP for further evaluation and treatment or return to the ER if any new or worsening symptoms. Strict return precautions were also discussed at length. Patient voiced understanding and agreement with the plan. Patient is hemodynamically stable at the time of disposition. Hugo Disclaimer: Hugo Disclaimer: This electronic medical record was generated, in whole or in part, using a voice recognition dictation system. Departure Departure: Impression: Primary Impression: Encounter for suprapubic catheter care Disposition: HOME / SELF CARE / HOMELESS Condition: GOOD Referrals: TEDDY BARRERA (PCP) Patient Instructions: Indwelling Urinary Catheter Care-Brief Additional Instructions: You were seen in the ER today for replacement of your suprapubic catheter. A new suprapubic catheter was placed while in the ER. Please follow-up with your primary care provider tomorrow regarding your ER visit. If you develop abdominal pain, nausea/vomiting, high fevers refractory to treatment, obstruction of the catheter or any new or worsening concerns please return to the ER. EMERGENCY DEPARTMENT GENERAL DISCHARGE INSTRUCTIONS Thank you for coming to [facility] (ED) today and trusting us with you care. We trust that you had a positivie experience in our Emergency Department. If you wish to speak to the department management, you may call the director at [phone]. YOUR FOLLOW UP INSTRUCTIONS ARE FOLLOWS: 1. Do you have a private Doctor? If you do not have a private doctor, please ask for a resource list of physicians or clinics that may be able to assist you with follow up care. 2. The Emergency Physician has interpreted your x-rays. The X-Ray specialist will also review them. If there is a change in the findings, you will be notified in 48 hours when at all possible. 3. A lab test or culture has been done, your results will be reviewed and you will be notified if you need a change in treatment. ADDITIONAL INSTRUCTIONS AND INFORMATION: 1. Your care today has been supervised by a physician who is specially trained in emergency care. Many problems require more than one evaluation for a complete diagnosis and treatment. We recommend that you schedule your follow up appointment as recommended to ensure complete treatment of you illness or injury. If you are unable to obtain follow up care and continue to have a problem, or if your condition worsens, we recommend that you return to the ED. 2. We are not able to safely determine your condition over the phone nor are we able to give sound medical advice over the phone. For these safety reasons, if you call for medical advice we will ask you to come to the ED for further evaluation. 3. If you have any questions regarding these discharge instructions please call the ED at [phone]. SAFETY INFORMATION: In the interest of safety, wellness, and injury prevention; we encourage you to wear your sealbelt, if you smoke; quite smoking, and we encourage family to use a protective helmet for bicycling and other sporting events that present an increased risk for head injury. IF YOUR SYMPTOMS WORSEN OR NEW SYMPTOMS DEVELOP, OR YOU HAVE CONCERNS ABOUT YOUR CONDITION; OR IF YOUR CONDITION WORSENS WHILE YOU ARE WAITING FOR YOUR FOLLOW UP A PPOINTMENT; EITHER CONTACT YOUR PRIMARY CARE DOCTOR, THE PHYSICIAN WHOSE NAME AND NUMBER YOU WERE GIVEN, OR RETURN TO THE ED IMMEDIATELY. JASWINDER PATRICK BINDERY ASSISTANT Feb 15, 2021 17:12
[2021-02-15] MEDS ORDERED: ACETAMINOPHEN 325 MG TABLET PO ONE (19:45)
[2021-02-15] MEDS ORDERED: HYDROcodone/APAP 5/325MG 1 TAB TABLET PO ONE (20:00)
== END 2021-02-15 20:32 | disposition home or self-care (01) ==
LOC: ER 16:59
DX: Z43.6 Encounter for attention to other artificial openings of urinary tract (principal); I25.10 Atherosclerotic heart disease of native coronary artery without angina pectoris; E78.00 Pure hypercholesterolemia, unspecified; I10 Essential (primary) hypertension; G35 Multiple sclerosis; G82.20 Paraplegia, unspecified; F17.210 Nicotine dependence, cigarettes, uncomplicated; Z87.440 Personal history of urinary (tract) infections; Z91.041 Radiographic dye allergy status
CPT/HCPCS: 51705; 99284

== ENCOUNTER 2021-03-16 09:15 | Emergency (ER) | payer MEDICARE, OTHER ==
[~2021-03-16] VITALS: Ht 172.7 cm; Wt 67.1 kg
--- NOTE | 2021-03-16 09:21 | PHYS DOC ---
Past History Past Medical History: Anxiety, CAD, High Cholesterol, Hypertension, Seizure, UTI, Other Additional Past Medical Histor: MS, Paraplegia Past Surgical History: Other Additional Past Surgical Histo: suprapubic cath Smoking: Cigarettes Alcohol Use: None Drug Use: None Adult General Chief Complaint Chief Complaint: ABDOMINAL PAIN HPI HPI Patient is a 75-year-old female presenting via EMS from [facility] for nausea. Reports this is an acute on chronic issue. Nothing known makes better, p.o. intake makes worse. Denies being in any actual pain just states she has been nauseous and more fatigued than usual over past 48 hours without any major change in health or medication. Does admit she was diagnosed with a UTI 3 weeks prior, she is unsure of where she was diagnosed with this and was subsequently prescribed Keflex. States she took this but stopped prematurely prior to completion of the antibiotic course. She has a suprapubic indwelling catheter that was changed last week, denies any recent fevers, she is fully vaccinated against COVID-19 Review of Systems Review of Systems Fourteen body systems of review of systems have been reviewed. See HPI for pertinent positives and negative responses, other reis all other systems are n egative, non-pertinent or non-contributory Allergies Allergies Allergies Coded Allergies Type Severity Reaction Last Updated Verified I S O L A T I O N *CONTACT* Allergy Unknown 07/30/18 Yes NKMA Allergy Unknown 11/21/20 Yes Physical Exam Physical Exam Constitutional: Well developed, age-appropriate female who is tearful and nontoxic on arrival HENT: Normocephalic, atraumatic, bilateral external ears normal, oropharynx moist, no oral exudates, nose normal. Eyes: PERRLA, EOMI, conjunctiva normal, no discharge. Neck: Normal range of motion, no tenderness, supple, no stridor. Cardiovascular: Heart rate regular, sinus rhythm, no murmurs rubs or gallops Lungs & Thorax: Bilateral breath sounds clear to auscultation Abdomen: Bowel sounds normal, soft, no tenderness, no masses, no pulsatile masses. Well-appearing suprapubic catheter in place, diaper on, nonsurgical abdomen, no peritoneal signs Skin: Warm, dry, no erythema, no rash. Back: No tenderness, no CVA tenderness. Extremities: No tenderness, no cyanosis, no clubbing, ROM intact, no edema. Neurologic: Alert and oriented X 3, grossly normal motor & sensory function, no focal deficits noted. Psychologic: Tearful affect, depressed mood Current Patient Data Vital Signs Vital Signs Date Time Temp Pulse Resp B/P (MAP) Pulse Ox O2 Delivery O2 Flow Rate FiO2 03/16/21 09:17 98.9 78 16 189/89 (122) 94 Room Air Vital Signs Date Time Temp Pulse Resp B/P (MAP) Pulse Ox O2 Delivery O2 Flow Rate FiO2 03/16/21 12:10 77 16 179/95 (123) 94 Room Air 03/16/21 09:17 98.9 Lab Results Laboratory Tests Test 03/16/21 09:49 03/16/21 10:40 White Blood Count 9.0 x10^3/uL Red Blood Count 5.44 x10^6/uL Hemoglobin 14.1 g/dL Hematocrit 43.8 % Mean Corpuscular Volume 81 fL Mean Corpuscular Hemoglobin 26 pg Mean Corpuscular Hemoglobin Concent 32 g/dL Red Cell Distribution Width 23.8 % Platelet Count 450 x10^3/uL Neutrophils (%) (Auto) 77 % Lymphocytes (%) (Auto) 13 % Monocytes (%) (Auto) 7 % Eosinophils (%) (Auto) 2 % Basophils (%) (Auto) 1 % Neutrophils # (Auto) 7.0 x10^3uL Lymphocytes # (Auto) 1.1 x10^3/uL Monocytes # (Auto) 0.6 x10^3/uL Eosinophils # (Auto) 0.2 x10^3/uL Basophils # (Auto) 0.1 x10^3/uL Platelet Estimate Increased Anisocytosis Mod Sodium Level 131 mmol/L Potassium Level 4.1 mmol/L Chloride Level 98 mmol/L Carbon Dioxide Level 24 mmol/L Anion Gap 9 Blood Urea Nitrogen 7 mg/dL Creatinine 0.4 mg/dL Estimated GFR (Cockcroft-Gault) 155.2 BUN/Creatinine Ratio 18 Glucose Level 105 mg/dL Calcium Level 8.8 mg/dL Total Bilirubin 0.3 mg/dL Aspartate Amino Transf (AST/SGOT) 21 U/L Alanine Aminotransferase (ALT/SGPT) 24 U/L Alkaline Phosphatase 75 U/L Troponin I Quantitative < 0.017 ng/mL Total Protein 6.9 g/dL Albumin 3.3 g/dL Albumin/Globulin Ratio 0.9 Urine Collection Type Unknown Urine Color Yellow Urine Clarity Cloudy Urine pH >8.5 Urine Specific [place] 1.010 Urine Protein 100 mg/dl Urine Glucose (UA) 100 mg/dL Urine Ketones (Stick) Neg mg/dL Urine Blood Neg Urine Nitrite Pos Urine Bilirubin Neg Urine Urobilinogen Dipstick 0.2 mg/dL Urine Leukocyte Esterase Small Urine RBC 1-2 /HPF Urine WBC 1-4 /HPF Urine Amorphous Sediment Present /HPF Urine Bacteria Many /HPF Current Medications Medications (Trade) Dose Ordered Sig/Riki Route PRN Reason Start Time Stop Time Status Last Admin Dose Admin Ondansetron HCl (Zofran) 4 mg 1X ONCE IVP 03/16/21 10:30 03/16/21 10:31 DC 03/16/21 10:30 EKG EKG EKG ordered and interpreted by myself at 1021 hrs. as sinus rhythm at 72 bpm, unremarkable intervals, left axis deviation, no obvious ischemic findings, no STEMI Radiology/Procedures Radiology/Procedures EXAM: AP View of the chest DATE: 03/16/2021 9:36 AM INDICATION: Reason: nausea / Spl. Instructions: / History: COMPARISON: No Prior FINDINGS: Cardiomediastinal silhouette is grossly stable. Background of interstitial opacities. No definite superimposed lobar consolidation. Minimal patchy opacities left lung base likely atelectasis. No pleural effusion or pneumothorax. IMPRESSION: Bilateral interstitial opacities, possibly from chronic interstitial lung disease. Minimal patchy left lung base opacities likely atelectasis. No superimposed lobar consolidation. Electronically signed by: Abhijit Cooley MD (03/16/2021 9:57 AM) [facility] Heart Score C/O Chest Pain: No Risk Factors: Risk Factors: DM, Current or recent (<one month) smoker, HTN, HLP, family history of CAD, obesity. Risk Scores: Risk Factors: DM, Current or recent (<one month) smoker, HTN, HLP, family history of CAD, obesity. Course & Med Decision Making Course & Med Decision Making Airway patent, breathing unlabored, IV access and vitals obtained concerning for hypertension only HPI physical exam and comprehensive ER work-up nonconcerning for any emergent or surgical issues Patient complaining of chronic nausea of unknown etiology, this improved with administered Zofran. She reports she has Zofran at snf but has not been given this, I advised her to request it Also discussed issues with her urine catheter. She is unaware of where she was tested for recent UTI and for what organism was cultured. UA obtained today concerning for positive nitrites in the setting of patient with suprapubic cath. Joint decision made to defer antibiotic treatment until culture results in an otherwise afebrile patient with no systemic signs or symptoms of disease Patient also complaining of depressed mood. No SI or HI. Primary stressor is living in [facility] in her overall state of health. I discussed there is no further diagnostic work-up or intervention that I could perform in ER setting for this, snf physician follow-up advised Strict return precautions were discussed with good understanding by patient, she is aware of need to follow-up on urine cultures and this will be communicated to snf on ER departure. Strict return precautions discussed with good understanding by patient, all questions and concerns addressed prior to ER departure Hugo Disclaimer Dragon Disclaimer This electronic medical record was generated, in whole or in part, using a voice recognition dictation system. Departure Departure: Impression: Primary Impression: Nausea Additional Impressions: Fatigue Major depressive disorder, recurrent episode Presence of indwelling urinary catheter Disposition: 01 HOME / SELF CARE / HOMELESS Condition: STABLE Referrals: TEDDY BARRERA (PCP) Additional Instructions: You were seen for nausea and and fatigue. The etiology of your symptoms are unclear. As disclosed there is no indication for further diagnostic work-up in ER setting based on your completely benign physical examination. I recommended that you be tested for COVID-19 given your unvaccinated status but you deferred. I disclosed that often times individuals that have urinary catheters are often colonized with bacteria and so, we will not jump to antibiotic therapy immed iately and will fully evaluate and wait for cultures to return. Results will be communicated to your [facility] physician. In the meantime, please continue supportive care practices and use of Zofran as needed for nausea. You should return to the ED if you develop abdominal pain, fever > 100.3, black/bloody stools, black/bloody vomiting, cannot keep water down, or any other new or concerning symptoms. Problem Qualifiers SONAM LICONA DO Mar 16, 2021 09:21
--- NOTE | 2021-03-16 09:59 | RAD ---
EXAM: AP View of the chest DATE: 03/16/2021 9:36 AM INDICATION: Reason: nausea / Spl. Instructions: / History: COMPARISON: No Prior FINDINGS: Cardiomediastinal silhouette is grossly stable. Background of interstitial opacities. No definite superimposed lobar consolidation. Minimal patchy op acities left lung base likely atelectasis. No pleural effusion or pneumothorax. IMPRESSION: Bilateral interstitial opacities, possibly from chronic interstitial lung disease. Minimal patchy lef t lung base opacities likely atelectasis. No superimposed lobar consolidation. Electronically signed by: Abhijit Cooley MD (03/16/2021 9:57 AM) [facility]
[2021-03-16 10:21] LABS: BASO # 0.1 x10^3/uL (0.0-0.2); BASO % 1 % (0-3); EOS # 0.2 x10^3/uL (0.0-0.7); EOS % 2 % (0-3); HEMATOCRIT 43.8 % (36.0-47.0); HEMOGLOBIN 14.1 g/dL (12.0-15.5); LYMPH # 1.1 x10^3/uL (1.0-4.8); LYMPH % 13 % (24-48); MEAN CORPUSCULAR HEMOGLOBIN 26 pg (25-35); MEAN CORPUSCULAR HGB CONC 32 g/dL (31-37); MEAN CORPUSCULAR VOLUME 81 fL (79-100); MONO # 0.6 x10^3/uL (0.0-1.1); MONO % 7 % (0-9); NEUT % 77 % (31-73); PLATELET COUNT 450 x10^3/uL (140-400); RED BLOOD COUNT 5.44 x10^6/uL (3.50-5.40); RED CELL DISTRIBUTION WIDTH 23.8 % (11.5-14.5)
[2021-03-16] MEDS ORDERED: ONDANSETRON PF 4 MG/2 ML VIAL. IVP ONE (10:30)
--- NOTE | 2021-03-16 10:39 | EKG ---
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
[2021-03-16 10:40] LABS: CALCIUM 8.8 mg/dL (8.5-10.1); CREATININE 0.4 mg/dL (0.6-1.0); GFR 155.2; POTASSIUM 4.1 mmol/L (3.5-5.1)
[2021-03-16 10:46] LABS: ALBUMIN 3.3 g/dL (3.4-5.0); ALBUMIN/GLOBULIN RATIO 0.9 (1.0-1.7); TOTAL BILIRUBIN 0.3 mg/dL (0.2-1.0); TOTAL PROTEIN 6.9 g/dL (6.4-8.2)
[2021-03-16 11:00] LABS: BILIRUBIN,URINE NEG (NEG); CLARITY,URINE CLOUDY; COLOR,URINE YELLOW; GLUCOSE,URINE 100 mg/dL (NEG)
[2021-03-16 11:01] LABS: AMORPHOUS SEDIMENT,UR PRESENT /HPF; BACTERIA,URINE MANY /HPF (0-FEW); NITRITE,URINE POS (NEG); UROBILINOGEN,URINE 0.2 mg/dL (0.2 mg/dL)
[2021-03-16 12:02] LABS: ANISOCYTOSIS MOD; PLT ESTIMATE INCREASED (ADEQUATE)
[2021-03-16 12:10] VITALS: BP 179/95
== END 2021-03-16 12:17 | disposition home or self-care (01) ==
LOC: ER 09:15
DX: R53.83 Other fatigue (principal); F32.9 Major depressive disorder, single episode, unspecified; E78.5 Hyperlipidemia, unspecified; I10 Essential (primary) hypertension; F17.210 Nicotine dependence, cigarettes, uncomplicated
CPT/HCPCS: 36415; 71045; 80053; 81001; 84484; 85025; 87086; 93005; 96374; 99285; J2405; 87077; 87186

== ENCOUNTER 2021-06-19 09:19 | Inpatient (IN) | payer OTHER ==
[~2021-06-19] VITALS: Ht 172.7 cm; Wt 64.2 kg
[~2021-06-19 09:19] MED LIST changes: -GUAI600T6 PO; +GUAI600T93 PO; -LISI-517 PO; +LISI5TAB15 PO
--- NOTE | 2021-06-19 10:04 | RAD ---
EXAM: CHEST 1 VIEW History: Shortness of breath COMPARISON: 03/16/2021 TECHNIQUE: Single portable radiograph of the chest FINDINGS: Mild cardiomegaly. Mild patchy bibasilar lung airspace opacities likely atelectasis or inf iltrates. Trace left pleural effusion. Mild emphysematous changes bilateral lungs. IMPRESSION: 1.Mild bibasilar lung airspace opacities likely atelectasis or infiltrates, follow-up to resolution 2. Small left pleural effusion.. Electronically signed by: Tony Lujan MD (06/19/2021 10:02 AM) [id number]
[2021-06-19 10:30] LABS: BASO % 1 % (0-3); EOS # 0.2 x10^3/uL (0.0-0.7); EOS % 3 % (0-3); HEMATOCRIT 43.2 % (36.0-47.0); HEMOGLOBIN 14.2 g/dL (12.0-15.5); LYMPH # 0.8 x10^3/uL (1.0-4.8); LYMPH % 9 % (24-48); MEAN CORPUSCULAR HEMOGLOBIN 30 pg (25-35); MEAN CORPUSCULAR HGB CONC 33 g/dL (31-37); MEAN CORPUSCULAR VOLUME 90 fL (79-100); MONO # 0.5 x10^3/uL (0.0-1.1); MONO % 5 % (0-9); NEUT # 7.2 x10^3uL (1.8-7.7); NEUT % 83 % (31-73); PLATELET COUNT 235 x10^3/uL (140-400); RED BLOOD COUNT 4.82 x10^6/uL (3.50-5.40); RED CELL DISTRIBUTION WIDTH 16.7 % (11.5-14.5); WHITE BLOOD COUNT 8.6 x10^3/uL (4.0-11.0)
--- NOTE | 2021-06-19 10:38 | PHYS DOC ---
Past History Past Medical History: Anxiety, CAD, High Cholesterol, Hypertension, Seizure, UTI, Other Additional Past Medical Histor: MS, paraplegia Past Surgical History: Other Additional Past Surgical Histo: suprapubic cath Smoking: Cigarettes Alcohol Use: None Drug Use: None General Adult EDM: Chief Complaint: SHORTNESS OF BREATH HPI: HPI: Patient is a 75-year-old female that presents today via [facility] from [facility] with complaint of increased weakness in the midst of COVID positive. According to staff at the [facility] patient was tested positive for COVID 19 3 days ago she has been on oxygen at the nursing facility she has been requiring 5 L of oxygen and they stated today that her oxygenation went down to 90% in the midst of even being on 5 L of oxygen they sent her here for evaluation of that. Patient has no complaints at this time she says she has generalized weakness all the time she says she has been coughing more than normal but she says she knows that due to the COVID-19 diagnoses. Review of Systems: Review of Systems: Constitutional: Denies fever or chills Eyes: Denies change in visual acuity HENT: Denies nasal congestion or sore throat Respiratory: Denies cough or shortness of breath Cardiovascular: Denies chest pain or edema GI: Denies abdominal pain, nausea, vomiting, bloody stools or diarrhea : Denies dysuria Musculoskeletal: Denies back pain or joint pain Integument: Denies rash Neurologic: Denies headache, focal weakness or sensory changes Endocrine: Denies polyuria or polydipsia Lymphatic: Denies swollen glands Psychiatric: Denies depression or anxiety Current Medications: Current Meds: Albuterol 2 puffs every 6 hours as needed for wheezing Aspirin 81 mg daily Baclofen 20 mg three times daily Coreg 25 mg 1 tablet twice daily Dexamethasone 6 mg one time daily Eliquis 5 mg twice daily Lasix 40 mg once daily Hiprex 1 g tablet take 1 tablet twice daily Hydralazine 25 mg four times daily Iron 325 mg take 1 tablet every other day Lisinopril 10 mg 1 tablet daily Meclizine 12.5 mg three times daily for nausea and vomiting MiraLAX twice daily for constipation Mucinex every 12 hours as needed for cough nicotine patch 21 mg daily Paxil 30 mg daily Reglan 10 mg once daily for nausea and vomiting Singulair 10 mg 1 tablet daily Carafate 1 g before meals and at bedtime Tessalon Perles as needed for cough Trazodone 50 mg 1 tablet at bedtime Zofran 8 mg four times daily Allergies: Allergies: Allergies Coded Allergies Type Severity Reaction Last Updated Verified I S O L A T I O N *CONTACT* Allergy Unknown 07/30/18 Yes NKMA Allergy Unknown 11/21/20 Yes Physical Exam: PE: Constitutional: Well developed, well nourished, no acute distress, non-toxic appearance. [] HENT: Normocephalic, atraumatic, bilateral external ears normal, oropharynx moist, no oral exudates, nose normal. [] Eyes: PERRLA, EOMI, conjunctiva normal, no discharge. [] Neck: Normal range of motion, no tenderness, supple, no stridor. [] Cardiovascular:Heart rate regular rhythm, no murmur [] Lungs & Thorax: Bilateral breath sounds clear to auscultation [] Abdomen: Bowel sounds normal, soft, no tenderness, no masses, no pulsatile masses, suprapubic cathater noted] Skin: Warm, dry, no erythema, no rash. [] Back: No tenderness, no CVA tenderness. [] Extremities: No tenderness, no cyanosis, no clubbing, ROM intact, no edema. [] Neurologic: Alert and oriented X 3, normal motor function, normal sensory function, no focal deficits noted. [] Psychologic: Affect normal, judgement normal, mood normal. [] Current Patient Data: Labs: Laboratory Tests Test 06/19/21 09:45 White Blood Count 8.6 x10^3/uL Red Blood Count 4.82 x10^6/uL Hemoglobin 14.2 g/dL Hematocrit 43.2 % Mean Corpuscular Volume 90 fL Mean Corpuscular Hemoglobin 30 pg Mean Corpuscular Hemoglobin Concent 33 g/dL Red Cell Distribution Width 16.7 % Platelet Count 235 x10^3/uL Neutrophils (%) (Auto) 83 % Lymphocytes (%) (Auto) 9 % Monocytes (%) (Auto) 5 % Eosinophils (%) (Auto) 3 % Basophils (%) (Auto) 1 % Neutrophils # (Auto) 7.2 x10^3uL Lymphocytes # (Auto) 0.8 x10^3/uL Monocytes # (Auto) 0.5 x10^3/uL Eosinophils # (Auto) 0.2 x10^3/uL Basophils # (Auto) 0.0 x10^3/uL D-Dimer (Gladys) 0.25 mg/L Urine Collection Type Unknown Urine Color Yellow Urine Clarity Cloudy Urine pH 7.0 Urine Specific Trinity 1.020 Urine Protein Trace Urine Glucose (UA) Neg mg/dL Urine Ketones (Stick) Neg mg/dL Urine Blood Small Urine Nitrite Pos Urine Bilirubin Neg Urine Urobilinogen Dipstick 0.2 mg/dL Urine Leukocyte Esterase Small Urine RBC 20-40 /HPF Urine WBC 1-4 /HPF Urine Squamous Epithelial Cells Occ /LPF Urine Amorphous Sediment Present /HPF Urine Bacteria Many /HPF Sodium Level 140 mmol/L Potassium Level 2.6 mmol/L Chloride Level 101 mmol/L Carbon Dioxide Level 30 mmol/L Anion Gap 9 Blood Urea Nitrogen 8 mg/dL Creatinine 0.4 mg/dL Estimated GFR (Cockcroft-Gault) 155.2 BUN/Creatinine Ratio 20 Glucose Level 90 mg/dL Lactic Acid Level 0.6 mmol/L Calcium Level 8.0 mg/dL Total Bilirubin 0.4 mg/dL Aspartate Amino Transf (AST/SGOT) 18 U/L Alanine Aminotransferase (ALT/SGPT) 17 U/L Alkaline Phosphatase 83 U/L Total Protein 6.4 g/dL Albumin 2.8 g/dL Albumin/Globulin Ratio 0.8 Current Medications Medications (Trade) Dose Ordered Sig/Riki Route PRN Reason Start Time Stop Time Status Last Admin Dose Admin Ceftriaxone Sodium 1 gm/ Sodium Chloride 50 ml @ 100 mls/hr 1X ONCE IV 06/19/21 11:15 06/19/21 11:44 DC 06/19/21 11:20 Sodium Chloride 50 ml @ As Directed STK-MED ONCE .ROUTE 06/19/21 11:15 06/19/21 11:15 DC Ceftriaxone Sodium (Rocephin) 1 gm STK-MED ONCE .ROUTE 06/19/21 11:15 06/19/21 11:15 DC Potassium Chloride (Klor-Con) 40 meq 1X ONCE PO 06/19/21 12:00 06/19/21 12:01 DC 06/19/21 12:07 Vital Signs: Vital Signs Date Time Temp Pulse Resp B/P (MAP) Pulse Ox O2 Delivery O2 Flow Rate FiO2 06/19/21 10:32 98.5 69 18 153/82 (105) 95 Nasal Cannula 3.0 EKG: EKG: [] Radiology/Procedures: Radiology/Procedures: REASON: SOB PROCEDURE: CHEST AP ONLY EXAM: CHEST 1 VIEW History: Shortness of breath COMPARISON: 03/16/2021 TECHNIQUE: Single portable radiograph of the chest FINDINGS: Mild cardiomegaly. Mild patchy bibasilar lung airspace opacities likely atelectasis or infiltrates. Trace left pleural effusion. Mild emphysematous changes bilateral lungs. IMPRESSION: 1.Mild bibasilar lung airspace opacities likely atelectasis or infiltrates, follow-up to resolution 2. Small left pleural effusion.. Electronically signed by: Tony Lujan MD (06/19/2021 10:02 AM) [id number][] Heart Score: C/O Chest Pain: N/A Risk Factors: Risk Factors: DM, Current or recent (<one month) smoker, HTN, HLP, family history of CAD, obesity. Risk Scores: Score 0 - 3: 2.5% MACE over next 6 weeks - Discharge Home Score 4 - 6: 20.3% MACE over next 6 weeks - Admit for Clinical Observation Score 7 - 10: 72.7% MACE over next 6 weeks - Early Invasive Strategies Course & Med Decision Making: Course & Med Decision Making Pertinent Labs and Imaging studies reviewed. (See chart for details) 1215 reviewed radiological and laboratory results with Dr. Sam, did inform him of the patient's increased need for oxygen supplemental to maintain oxygenation levels above 92%. He is agreeable to admission here at [facility], he did asked that we give patient dexamethasone 12 mg IV now, and he will see her later on this afternoon. Dragon Disclaimer: Dragon Disclaimer: This electronic medical record was generated, in whole or in part, using a voice recognition dictation system. Departure Departure: Impression: Primary Impression: Hypoxia Additional Impressions: COVID-19 Hypokalemia Disposition: ADMITTED INPATIENT Admitting Physician: Alberto Sam Condition: STABLE Referrals: TEDDY BARRERA (PCP) ANITA DEL RIO APRN Jun 19, 2021 10:38
[2021-06-19 10:44] LABS: BILIRUBIN,URINE NEG (NEG); CLARITY,URINE CLOUDY; COLOR,URINE YELLOW; GLUCOSE,URINE NEG (NEG)
[2021-06-19 10:45] LABS: ALBUMIN 2.8 g/dL (3.4-5.0); ALBUMIN/GLOBULIN RATIO 0.8 (1.0-1.7); AMORPHOUS SEDIMENT,UR PRESENT /HPF; BACTERIA,URINE MANY /HPF (0-FEW); CREATININE 0.4 mg/dL (0.6-1.0); GFR 155.2; NITRITE,URINE POS (NEG); RBC,URINE 20-40 /HPF (0-2); SQUAMOUS EPITHELIAL CELL,UR OCC /LPF; TOTAL BILIRUBIN 0.4 mg/dL (0.2-1.0); TOTAL PROTEIN 6.4 g/dL (6.4-8.2); UROBILINOGEN,URINE 0.2 mg/dL (0.2 mg/dL)
[2021-06-19 10:52] LABS: POTASSIUM 2.6 mmol/L (3.5-5.1)
[2021-06-19] MEDS ORDERED: IV NORMAL SALINE 50ML 50 ML ONE (11:15)
[2021-06-19] MEDS ORDERED: cefTRIAXone SODIUM 1 GM VIAL ONE (11:15)
[2021-06-19] MEDS ORDERED: POTASSIUM CHLORIDE 20 MEQ TABLET.ER. PO ONE (12:00)
[2021-06-19] MEDS ORDERED: DEXAMETHASONE SOD PHOS 10 MG/ML VIAL. IVP ONE (12:30)
[2021-06-19] MEDS ORDERED: ACETAMINOPHEN 325 MG TABLET PO PRN (12:30)
[2021-06-19 14:17] VITALS: BP 179/78
--- NOTE | 2021-06-19 15:45 | HP ---
DATE OF SERVICE: 06/19/2021 ADMIT DATE: 06/19/2021 ATTENDING PHYSICIAN: Dr. Sam. CHIEF COMPLAINT: Shortness of breath. HISTORY OF PRESENT ILLNESS: The patient is a 75-year-old female well known to me from multiple previous admissions. About a year ago, she was admitted to a long-term for total care. She has longstanding end-stage multiple sclerosis, old stroke, severe protein-calorie malnutrition, hyperlipidemia, depression, paraplegia, and a neurogenic bladder. She gets frequent urinary tract infections from the chronic indwelling Lynch catheter. She has been vaccinated. She became more short of breath, requiring supplemental oxygen. Her coronavirus swab was indeed positive for most likely the Omicron variant. She is admitted with an increased supplemental oxygen. She is a DNR per advanced directive. Her chest x-ray showed diffuse bilateral infiltrate and no obvious effusion. PAST MEDICAL HISTORY: Significant for the multiple medical issues, seizure disorder, MS, and generalized debilitation. Prior to a year ago, she has been living in the basement of her son's home and they have been caring for her up to a point where they could no longer care for her. ALLERGIES: She has no known medication allergies. CURRENT MEDICATIONS: Include Eliquis, ascorbic acid, aspirin, baclofen, Coreg, cephalexin, Cipro, furosemide, guaifenesin, hydralazine, hydrocodone, lactobacillus, lisinopril, meclizine, loperamide, Remeron, ondansetron, paroxetine, potassium, trazodone, and vancomycin. FAMILY HISTORY: Noncontributory. REVIEW OF SYSTEMS: Significant for the functional quadriplegia, frequent UTIs, neurogenic bladder, protein-calorie malnutrition. She is in decline and looks weaker than the last time I saw her over a year ago. There is also history of deep vein thrombosis from inactivity. PHYSICAL EXAMINATION: GENERAL: When I saw her, this is an elderly white female in no acute distress. VITAL SIGNS: Her initial vital signs showed a blood pressure 153/82, she was afebrile, pulse 70 and regular, oxygen saturation 93% on 3 liters by nasal cannula. HEENT: Head is without trauma. Pupils are reactive. Sclerae nonicteric. Oropharynx clear. NECK: Supple. No bruits identified. LUNGS: Shallow respirations. CARDIOVASCULAR: Regular heart tones. No gallop. ABDOMEN: Soft. EXTREMITIES: Showed significant muscle wasting. She is completely bedridden. NEUROLOGIC: End-stage MS and bedridden with weakness. LABORATORY STUDIES: Hemoglobin is 14.2 g/dL with a white count of 8600. Potassium is 2.6 mEq. Creatinine of 0.4 mg percent. Chest x-ray on admission showed bibasilar airspace opacities consistent with atypical pneumonia. ASSESSMENT: 1. This 75-year-old female has atypical pneumonia consistent with the Omicron variant of COVID. She has been fully vaccinated. 2. Immunocompromised host. 3. End-stage multiple sclerosis. 4. Old seizure disorder. 5. History of deep venous thromboses, on Eliquis. 6. Generalized debilitation. 7. Protein-calorie malnutrition. PLAN: 1. Admit to the inpatient unit. 2. Decadron has been ordered. 3. Supplemental oxygen to be weaned down. 4. Continue home meds. 5. She is a DNR per advanced directive. MIGUEL A DR: Francisco TID: [id number]
--- NOTE | 2021-06-19 15:47 | NUR ---
Nursing note PT was admitted to the floor from the ED by ramsey izquierdo on Thursday the 06/19/2020 at 1515 with a positive result of Covid. Complains of weakness, shortness of breath and UTI. PT was placed in room, admission assessments including vitals, belongings and admission questions done and documented. Doctor was notified of PT admission. PT in bed, class light within reach, PT verbalized no other needs, will continue to monitor.
[2021-06-19] MEDS ORDERED: ONDANSETRON ODT 4 MG TAB.RAPDIS PO PRN (16:30)
[2021-06-19] MEDS: CARVEDILOL 6.25 MG TABLET PO SCH (17:00)
[2021-06-19 19:53] VITALS: BP 180/90
[2021-06-19] MEDS: BACLOFEN 20 MG TABLET PO SCH (20:57)
[2021-06-19] MEDS: APIXABAN 5 MG TABLET. PO SCH (20:57)
[2021-06-19 23:47] VITALS: BP 168/95
[2021-06-20 05:54] VITALS: BP 176/86
[2021-06-20] MEDS: HYDROcodone/APAP 7.5/325MG 1 TAB TABLET PO PRN ×3 (09:54→18:05)
[2021-06-20] MEDS: CARVEDILOL 6.25 MG TABLET PO SCH ×2 (09:56→17:02)
[2021-06-20] MEDS: PARoxetine 20 MG TABLET PO SCH (09:56)
[2021-06-20] MEDS: POTASSIUM CHLORIDE 20 MEQ TABLET.ER. PO SCH (09:58)
[2021-06-20] MEDS: BACLOFEN 20 MG TABLET PO SCH ×3 (09:58→21:03)
[2021-06-20] MEDS: LISINOPRIL 20 MG TABLET PO SCH (09:58)
[2021-06-20] MEDS: ASPIRIN CHEWABLE 81 MG TABLET. PO SCH (09:58)
[2021-06-20] MEDS: APIXABAN 5 MG TABLET. PO SCH ×2 (09:58→21:03)
[2021-06-20 11:30] VITALS: BP 166/79
[2021-06-20] MEDS: DEXAMETHASONE SOD PHOS 10 MG/ML VIAL. IV SCH (13:37)
--- NOTE | 2021-06-20 16:06 | PN ---
DATE: 06/20/2021 ATTENDING PHYSICIAN: Dr. Sam. SUBJECTIVE: The patient is bedridden. She has very little affect. She is asking for hydrocodone. OBJECTIVE FINDINGS: VITAL SIGNS: Blood pressure this morning is 170/66. She is afebrile. Oxygen saturation 92% on room air. HEENT: Head is without trauma. Pupils are reactive. Sclerae nonicteric. Oropharynx clear. NECK: Supple, no bruits. LUNGS: Shallow respirations. CARDIOVASCULAR: Showed regular heart tones. ABDOMEN: Soft. EXTREMITIES: With show muscle wasting. No edema. NEUROLOGIC FINDINGS: Very flat affect. She is bedridden. LABORATORY DATA: Followup chemistry panel is pending. ASSESSMENT: 1. A 75-year-old female with atypical pneumonia consistent with Omicron variant of COVID. She has been fully vaccinated. 2. Immunocompromised host. 3. End-stage multiple sclerosis. 4. Idiopathic seizure disorder. 5. History of deep venous thrombosis, on Eliquis. 6. Asymptomatic hypokalemia. 7. Protein-calorie malnutrition. PLAN: 1. Continue current therapy. 2. Wean down supplemental oxygen. 3. Hydrate colon as ordered. 4. Potassium supplementation. 5. Follow up chemistries in the morning. SIRI DR: Francisco TID: [id number]
[2021-06-20 16:26] VITALS: BP 175/80
[2021-06-20 19:58] VITALS: BP 135/76
[2021-06-20 23:56] VITALS: BP 154/77
[2021-06-21] MEDS: HYDROcodone/APAP 7.5/325MG 1 TAB TABLET PO PRN ×3 (02:09→11:28)
[2021-06-21 06:09] VITALS: BP 179/81
[2021-06-21] MEDS: PARoxetine 20 MG TABLET PO SCH (09:02)
[2021-06-21] MEDS: APIXABAN 5 MG TABLET. PO SCH (09:02)
[2021-06-21] MEDS: ASPIRIN CHEWABLE 81 MG TABLET. PO SCH (09:02)
[2021-06-21] MEDS: BACLOFEN 20 MG TABLET PO SCH (09:02)
[2021-06-21] MEDS: CARVEDILOL 6.25 MG TABLET PO SCH (09:02)
[2021-06-21] MEDS: LISINOPRIL 20 MG TABLET PO SCH (09:02)
[2021-06-21] MEDS: POTASSIUM CHLORIDE 20 MEQ TABLET.ER. PO SCH (09:03)
[2021-06-21] MEDS: DEXAMETHASONE SOD PHOS 10 MG/ML VIAL. IV SCH (09:03)
[2021-06-21 11:00] VITALS: BP 163/78
--- NOTE | 2021-06-21 13:34 | DS ---
DATE OF DISCHARGE: 06/21/2021 ATTENDING PHYSICIAN: Dr. Sam. FINAL DISCHARGE DIAGNOSES: 1. Atypical pneumonia consistent with Omicron variant of COVID. She has been fully vaccinated. 2. Immunocompromised host. 3. End-stage multiple sclerosis with severe neurologic deficit. 4. Functional quadriplegia. 5. Idiopathic seizure disorder. 6. History of deep venous thrombosis, on Eliquis. 7. Asymptomatic hypokalemia. 8. Protein calorie malnutrition. 9. Neurogenic bladder with chronic indwelling Lynch catheter. HISTORY AND PHYSICAL: The patient's age 75, is well known to me from multiple previous admissions for the last year. She has been at [facility]. Previously, she was living in her son's house. They could not manage her. She was admitted with positive COVID test and little more hypoxemia, most likely due to hypoventilation. She is not that much different from previous admission. PHYSICAL EXAMINATION: Please see the dictated note. PERTINENT LABORATORY AND X-RAY STUDIES: Admission hemoglobin was 14.2 g/dL with a white count of 8600. Her chemistry panel showed a potassium of 2.6 mEq. She is on replacement. Her diuretics were held. This will be followed up as an outpatient. Her creatinine was 0.4 mg percent. Chest x-ray showed mild bibasilar lung airspace opacities, small left pleural effusion. COURSE IN HOSPITAL: The patient was admitted. She was administered increased supplemental oxygen and gradually weaned off. We did start her on intravenous Rocephin. She did well. She is back to her baseline. On the third hospital day, I spoke with the nurse practitioner at [facility], they are able to manage her at the custodial. Therefore, she is discharged back with another round of cephalexin 500 mg p.o. t.i.d., Eliquis 5 mg b.i.d., ascorbic acid, aspirin, baclofen, Coreg; furosemide, restarted; guaifenesin, hydralazine, lactobacillus, meclizine, Remeron, potassium supplementation, trazodone, and Zofran p.r.n. She was discharged then in stable condition with explicit drug and followup care. She is a DNR per advanced directive, we will respect her wishes. Total discharge time 41 minutes. OSEAS/COLT DR: OSEAS/beata TID: [id number] CC: Michelle Pagan
[2021-06-21] MEDS ORDERED: LACTOBACILLUS RHAMNOSUS GG 1 CAPSULE. PO SCH (21:00)
== END 2021-06-21 11:40 | DRG 177 ==
LOC: ER 09:19 → ER HOLD 12:19 → 1 SOUTH 14:06
PROVIDERS: ADMIT Hospitalist; ATTEND Hospitalist
DX: U07.1 COVID-19 (principal); J12.82 Pneumonia due to coronavirus disease 2019; R53.2 Functional quadriplegia; D84.9 Immunodeficiency, unspecified; E46 Unspecified protein-calorie malnutrition; E78.00 Pure hypercholesterolemia, unspecified; E78.5 Hyperlipidemia, unspecified; E87.6 Hypokalemia; G35 Multiple sclerosis; G40.909 Epilepsy, unspecified, not intractable, without status epilepticus; I10 Essential (primary) hypertension; I25.10 Atherosclerotic heart disease of native coronary artery without angina pectoris; N31.9 Neuromuscular dysfunction of bladder, unspecified; R09.02 Hypoxemia; Z66 Do not resuscitate; Z74.01 Bed confinement status; Z86.718 Personal history of other venous thrombosis and embolism; Z86.73 Personal history of transient ischemic attack (TIA), and cerebral infarction without residual deficits; Z87.440 Personal history of urinary (tract) infections; Z87.891 Personal history of nicotine dependence; F32.A Depression, unspecified; F41.9 Anxiety disorder, unspecified; Z68.21 Body mass index [BMI] 21.0-21.9, adult
CPT/HCPCS: 36415; 71045; 80053; 81001; 83605; 85025; 85379; 87040; 87086; 87186; 96365; 96375; J0696; J1100; 99285-25

== ENCOUNTER 2021-06-27 07:14 | Emergency (ER) | payer OTHER ==
[~2021-06-27] VITALS: Ht 325.1 cm; Wt 64.2 kg
--- NOTE | 2021-06-27 07:27 | PHYS DOC ---
Past History Past Medical History: Anxiety, CAD, High Cholesterol, Hypertension, Seizure, UTI, Other Additional Past Medical Histor: MS, paraplegia (SONAM LICONA DO) Past Surgical History: Other Additional Past Surgical Histo: suprapubic cath (SONAM LICONA DO) Smoking: Cigarettes Alcohol Use: None Drug Use: None (SONAM LICONA DO) Adult General HPI HPI Patient is a 75-year-old female presenting via EMS from local care home for shortness of breath. Patient has been at baseline health given her numerous comorbid conditions such as multiple sclerosis, severe protein calorie malnutrition, hyperlipidemia, anxiety, depression, history of seizure, CAD, and CVA. Reports she is fully vaccinated against COVID-19 but recently tested + June 15. Patient denied any symptoms but care home, medical lodges, reports that patient's O2 saturations have been worse than usual. She was recently started amoxicillin 500 mg 3 times daily and 2 L of oxygen daily given acute illness but reports for past 12 hours her O2 saturations have been in the 80s which concerned them prompting EMS to be called. On arrival, patient found to be 80% on 2 L oxygen via nasal cannula. She was placed on 15 L nonrebreather and transported to our facility for evaluation. On arrival to ER, patient has no complaints. She denies any upper respiratory symptoms or other concerning symptoms. Reviewing patient's medications and documentation from outlying facility, it appears she is DNR CODE STATUS (SONAM LICONA DO) Review of Systems Review of Systems Fourteen body systems of review of systems have been reviewed. See HPI for pertinent positives and negative responses, other reis all other systems are negative, non-pertinent or non-contributory (SONAM LICONA DO) Allergies Allergies Allergies Coded Allergies Type Severity Reaction Last Updated Verified I S O L A T I O N *CONTACT* Allergy Unknown 07/30/18 Yes NKMA Allergy Unknown 11/21/20 Yes (SONAM LICONA DO) Physical Exam Physical Exam Constitutional: Well developed, thin and age-appropriate, no acute distress, non-toxic appearance. HENT: Normocephalic, atraumatic, bilateral external ears normal, oropharynx dry with poor dentition globally, no oral exudates, nose normal. Eyes: PERRLA, EOMI, conjunctiva normal, no discharge. Neck: Normal range of motion, no tenderness, supple, no stridor. Cardiovascular: Heart rate regular, sinus rhythm, no murmurs rubs or gallops Lungs & Thorax: Bilateral breath sounds clear to auscultation Abdomen: Bowel sounds normal, soft, no tenderness, no masses, no pulsatile masses. Nonsurgical abdomen, no peritoneal signs Skin: Warm, dry, no erythema, no rash. Back: No tenderness, no CVA tenderness. Extremities: No tenderness, no cyanosis, no clubbing, ROM intact, no edema. Neurologic: Alert and oriented X 3, cranial nerves II through XII intact, normal motor & sensory function, no focal deficits noted. Psychologic: Affect normal, judgement normal, depressed mood (SONAM LICONA DO) Current Patient Data Vital Signs Vital Signs Date Time Temp Pulse Resp B/P (MAP) Pulse Ox O2 Delivery O2 Flow Rate FiO2 06/27/21 07:15 98.9 67 18 160/84 (109) 93 Nasal Cannula 4.0 Vital Signs Date Time Temp Pulse Resp B/P (MAP) Pulse Ox O2 Delivery O2 Flow Rate FiO2 06/27/21 09:51 72 18 113/64 (80) 96 Nasal Cannula 4.0 06/27/21 07:15 98.9 Lab Results Laboratory Tests Test 06/27/21 07:50 White Blood Count 12.5 x10^3/uL Red Blood Count 4.72 x10^6/uL Hemoglobin 13.7 g/dL Hematocrit 41.2 % Mean Corpuscular Volume 87 fL Mean Corpuscular Hemoglobin 29 pg Mean Corpuscular Hemoglobin Concent 33 g/dL Red Cell Distribution Width 16.3 % Platelet Count 357 x10^3/uL Neutrophils (%) (Auto) 79 % Lymphocytes (%) (Auto) 9 % Monocytes (%) (Auto) 8 % Eosinophils (%) (Auto) 4 % Basophils (%) (Auto) 1 % Neutrophils # (Auto) 9.9 x10^3uL Lymphocytes # (Auto) 1.1 x10^3/uL Monocytes # (Auto) 1.0 x10^3/uL Eosinophils # (Auto) 0.5 x10^3/uL Basophils # (Auto) 0.1 x10^3/uL Segmented Neutrophils % 67 % Band Neutrophils % 6 % Lymphocytes % 14 % Atypical Lymphocytes % (Manual) 3 % Monocytes % 5 % Eosinophils % 3 % Basophils % 2 % Platelet Estimate Adequate Polychromasia Present Target Cells Occ Piter Cells Present Sodium Level 139 mmol/L Potassium Level 3.4 mmol/L Chloride Level 99 mmol/L Carbon Dioxide Level 28 mmol/L Anion Gap 12 Blood Urea Nitrogen 17 mg/dL Creatinine 0.7 mg/dL Estimated GFR (Cockcroft-Gault) 81.4 Glucose Level 93 mg/dL Lactic Acid Level 0.9 mmol/L Calcium Level 8.4 mg/dL Creatine Kinase 27 U/L Troponin I High Sensitivity 16 ng/L RU-[id number]-[id number]-Type Natriuretic Peptide 663 pg/mL Influenza Type A (Rapid) Negative Influenza Type B (Rapid) Negative SARS-CoV-2 Antigen (Rapid) Negative Current Medications Medications (Trade) Dose Ordered Sig/Riki Route PRN Reason Start Time Stop Time Status Last Admin Dose Admin Iohexol (Omnipaque 350 Mg/ml) 100 ml 1X ONCE IV 06/27/21 07:30 06/27/21 07:40 DC 06/27/21 08:19 Sodium Chloride 500 ml @ 0 mls/hr 1X ONCE IV 06/27/21 09:30 06/27/21 09:31 DC 06/27/21 09:49 Azithromycin 500 mg/Sodium Chloride 250 ml @ 250 mls/hr 1X ONCE IV 06/27/21 10:45 06/27/21 11:44 DC 06/27/21 11:22 Ceftriaxone Sodium 1 gm/ Sodium Chloride 50 ml @ 100 mls/hr 1X ONCE IV 06/27/21 10:45 06/27/21 11:14 DC 06/27/21 11:21 Enoxaparin Sodium (Lovenox 60mg Syringe) 60 mg 1X ONCE SQ 06/27/21 10:45 06/27/21 10:47 DC 06/27/21 11:22 (SONAM LICONA DO) EKG EKG EKG ordered and interpreted by myself at 0731 hrs. of sinus rhythm at 71 bpm, unremarkable intervals, left axis deviation, no acute ischemic findings, no STEMI (SONAM LICONA DO) Radiology/Procedures Radiology/Procedures EXAM: XR CHEST 1V 06/27/2021 7:25 AM CLINICAL INDICATION: Shortness of breath COMPARISON: Chest radiograph 06/19/2021 TECHNIQUE: AP upright view of the chest FINDINGS: The heart is normal in size. There are mild bibasilar opacities, possibly increased in the medial right lung base. Chronic interstitial opacities elsewhere are unchanged from multiple prior exams. No pleural effusion or pneumothorax. No acute osseous abnormality. IMPRESSION: Mild bibasilar opacities suspicious for pneumonia, possibly increased in the medial right lung base. Electronically signed by: Patsy Artis MD (06/27/2021 8:26 AM) [id number] ////////////////////// Study: CT CHEST WITH CONTRAST - PULMONARY ANGIOGRAM History: Shortness of breath, hypoxia, Covid positive Comparison: CTA chest 07/06/2015 Technique: Helical CT of the chest performed after the administration of 90 mL Omnipaque 350 intravenous contrast and timed for angiographic evaluation of the pulmonary arteries per PE protocol. Coronal and sagittal 3D MIP reformations were obtained. One or more of the following individualized dose reduction techniques were utilized for this examination: 1. Automated exposure control 2. Adjustment of the mA and/or kV according to patient size 3. Use of iterative reconstruction technique. Findings: Pulmonary Arteries: Contrast bolus is adequate. There is no acute pulmonary embolism. The medial and lateral segmental pulmonary arteries of the right middle lobe are small and not well opacified, likely due to chronic pulmonary embolism but unchanged from 07/06/2015. Heart/Systemic Vasculature: The heart is normal in size. No pericardial effusion. There are coronary artery and aortic valve calcifications. The thoracic aorta is normal in caliber. Unable to evaluate for aortic dissection due to phase of contrast. Mediastinum: Right hilar lymphadenopathy measuring 3.5 x 1.8 cm, previously 2.4 x 1.3 cm. A precarinal lymph node measures 2.0 x 2.3 cm, previously 1.6 x 1.4 cm. Lungs: There are new consolidations in the posterior medial lower lobes, greater on the right. Severe emphysema is unchanged. Mild groundglass opacities in the lingula and posterior right upper lobe. There is a new 9 x 7 mm nodule in the posterior left upper lobe abutting the fissure (image 71, series 4). Central airways are clear. No pleural effusion. Neck/Axilla/Body Wall: No axillary lymphadenopathy. Thyroid gland is unremarkable. Upper Abdomen: Left nephrolithiasis. Bones: There is lumbar scoliosis. No acute osseous abnormality. IMPRESSION: 1. No acute pulmonary embolism. The medial and lateral segmental pulmonary arteries of the right middle lobe are small and not well opacified, unchanged from 2016 and likely due to chronic pulmonary embolism. 2. New bilateral lower lobe consolidations suspicious for pneumonia. New or slightly increased ground glass opacities in the posterior right upper lobe and lingula. Unchanged severe emphysema. 3. New 9 x 7 mm pulmonary nodule in the left lower lobe. Recommend follow-up CT in 3 months to further evaluate. 4. Mildly increased right hilar and mediastinal lymphadenopathy. 5. Coronary artery and aortic valve calcifications. Electronically signed by: Patsy Artis MD (06/27/2021 9:10 AM) [id number] (SONAM LICONA DO) Heart Score C/O Chest Pain: No HEART Score for Chest Pain: HEART Score for Chest Pain Response (Comments) Value History Slighlty/Non-Suspicious 0 ECG Normal 0 Age > 65 2 Risk Factors >3 Risk Factors or Hx CAD 2 Troponin < Normal Limit 0 Total 4 Risk Factors: Risk Factors: DM, Current or recent (<one month) smoker, HTN, HLP, family history of CAD, obesity. Risk Scores: Risk Factors: DM, Current or recent (<one month) smoker, HTN, HLP, family history of CAD, obesity. (SONAM LICONA DO) Course & Med Decision Making Course & Med Decision Making Airway patent, breathing unlabored, IV access and vitals obtained concerning for hypoxia on room air past recent baseline in light of recent Covid and subsequent bilateral pneumonia HPI physical exam and comprehensive ER work-up obtained concerning for pneumonia in setting of recent COVID in a vaccinated individual, chronic pulmonary emboli, and subsequent infiltrated contrast from PE CT angio I contacted patient's care home physician who also serves as hospitalist who initially recommended hospital admission. Patient amenable. Comprehensive signout given to oncoming physician who will assume care of patient pending hospital admission (SONAM LICONA DO) Course & Med Decision Making Patient care handed off to me at checkout. However patient is DNR and from a care home and stated that she did not want to come to the emergency department to begin with and just wanted to stay at the care home and let nature take its course per her statement. Patient is awake alert oriented cooperative and displays understanding of her condition and her choices. She stated that she is DNR, that is her choice and she wants to be discharged back to her nursing facility and allowing to stay there even if her clinical situation worsens and allowed to pass if that is what can happen. We discussed that she could have increased pain, increased need for oxygen and respiratory distress, nausea and vomiting, disability and if no treatment is provided. Patient verbalized understanding in the presence of ED doc and ED nurse and patient's son. Nursing facility also made aware of patient's decision. Per patient's request she was discharged back to her nursing facility, DNR and requested not to be sent back to the emergency department. (RAISSA BACA MD) Dragon Disclaimer Dragon Disclaimer This electronic medical record was generated, in whole or in part, using a voice recognition dictation system. (SONAM LICONA DO) Departure Departure: Impression: Primary Impression: Pneumonia Additional Impressions: Post-COVID chronic shortness of breath Adverse effect of contrast media Chronic pulmonary embolism Disposition: [facility] Admitting Physician: Ari Nuno (SONAM LICONA DO) Condition: STABLE Referrals: TEDDY BARRERA (PCP) Problem Qualifiers SONAM LICONA DO Jun 27, 2021 07:27 RAISSA BACA MD Jun 27, 2021 20:47
[2021-06-27] MEDS ORDERED: IOHEXOL 350 MG/ML 100 ML VIAL. IV ONE (07:30)
[2021-06-27 08:21] LABS: BASO # 0.1 x10^3/uL (0.0-0.2); BASO % 1 % (0-3); EOS # 0.5 x10^3/uL (0.0-0.7); EOS % 4 % (0-3); HEMATOCRIT 41.2 % (36.0-47.0); HEMOGLOBIN 13.7 g/dL (12.0-15.5); LYMPH # 1.1 x10^3/uL (1.0-4.8); LYMPH % 9 % (24-48); MEAN CORPUSCULAR HEMOGLOBIN 29 pg (25-35); MEAN CORPUSCULAR HGB CONC 33 g/dL (31-37); MEAN CORPUSCULAR VOLUME 87 fL (79-100); MONO % 8 % (0-9); NEUT # 9.9 x10^3uL (1.8-7.7); NEUT % 79 % (31-73); PLATELET COUNT 357 x10^3/uL (140-400); RED BLOOD COUNT 4.72 x10^6/uL (3.50-5.40); RED CELL DISTRIBUTION WIDTH 16.3 % (11.5-14.5); WHITE BLOOD COUNT 12.5 x10^3/uL (4.0-11.0)
--- NOTE | 2021-06-27 08:29 | RAD ---
EXAM: XR CHEST 1V 06/27/2021 7:25 AM CLINICAL INDICATION: Shortness of breath COMPARISON: Chest radiograph 06/19/2021 TECHNIQUE: AP upright view of the chest FINDINGS: The heart is normal in size. There are mild bibasilar opacities, possibly increased in the medial right lung base. Chronic interstitial opacities elsewhere are unchanged from multiple prior e xams. No pleural effusion or pneumothorax. No acute osseous abnormality. IMPRESSION: Mild bibasilar opacities suspicious for pneumonia, possibly increased in the medial righ t lung base. Electronically signed by: Patsy Artis MD (06/27/2021 8:26 AM) [id number]
[2021-06-27 08:37] LABS: INFLUENZA A PATIENT NEGATIVE (NEGATIVE); INFLUENZA B PATIENT NEGATIVE (NEGATIVE)
[2021-06-27 09:11] LABS: CALCIUM 8.4 mg/dL (8.5-10.1); CREATININE 0.7 mg/dL (0.6-1.0); GFR 81.4; POTASSIUM 3.4 mmol/L (3.5-5.1)
--- NOTE | 2021-06-27 09:12 | RAD ---
Study: CT CHEST WITH CONTRAST - PULMONARY ANGIOGRAM History: Shortness of breath, hypoxia, Covid positive Comparison: CTA chest 07/06/2015 Technique: Helical CT of the chest performed after the administration of 90 mL Omnipaque 350 intrave nous contrast and timed for angiographic evaluation of the pulmonary arteries per PE protocol. Gallegos l and sagittal 3D MIP reformations were obtained. One or more of the following individualized dose reduction techniques were utilized for this examinat ion: 1. Automated exposure control 2. Adjustment of the mA and/or kV according to patient size 3. Use of iterative reconstruction technique. Findings: Pulmonary Arteries: Contrast bolus is adequate. There is no acute pulmonary embolism. The medial and lateral segmental pulmonary arteries of the right middle lobe are small and not well opacified, likel y due to chronic pulmonary embolism but unchanged from 07/06/2015. Heart/Systemic Vasculature: The heart is normal in size. No pericardial effusion. There are coronary artery and aortic valve calcifications. The thoracic aorta is normal in caliber. Unable to evaluate f or aortic dissection due to phase of contrast. Mediastinum: Right hilar lymphadenopathy measuring 3.5 x 1.8 cm, previously 2.4 x 1.3 cm. A precarina l lymph node measures 2.0 x 2.3 cm, previously 1.6 x 1.4 cm. Lungs: There are new consolidations in the posterior medial lower lobes, greater on the right. Severe emphysema is unchanged. Mild groundglass opacities in the lingula and posterior right upper lobe. Th ere is a new 9 x 7 mm nodule in the posterior left upper lobe abutting the fissure (image 71, series 4). Central airways are clear. No pleural effusion. Neck/Axilla/Body Wall: No axillary lymphadenopathy. Thyroid gland is unremarkable. Upper Abdomen: Left nephrolithiasis. Bones: There is lumbar scoliosis. No acute osseous abnormality. IMPRESSION: 1. No acute pulmonary embolism. The medial and lateral segmental pulmonary arteries of the right mid dle lobe are small and not well opacified, unchanged from 2016 and likely due to chronic pulmonary em bolism. 2. New bilateral lower lobe consolidations suspicious for pneumonia. New or slightly increased groun d glass opacities in the posterior right upper lobe and lingula. Unchanged severe emphysema. 3. New 9 x 7 mm pulmonary nodule in the left lower lobe. Recommend follow-up CT in 3 months to furth er evaluate. 4. Mildly increased right hilar and mediastinal lymphadenopathy. 5. Coronary artery and aortic valve calcifications. Electronically signed by: Patsy Artis MD (06/27/2021 9:10 AM) [id number]
[2021-06-27] MEDS ORDERED: IV NORMAL SALINE 500ML 500 ML IV ONE (09:30)
[2021-06-27] MEDS ORDERED: AZITHROMYCIN 500 MG in IV NORMAL SALINE 250ML 250 ML IV ONE (10:45)
[2021-06-27] MEDS ORDERED: ENOXAPARIN ** NOTE DOSE ** SYRINGE SQ ONE (10:45)
[2021-06-27] MEDS ORDERED: ACETAMINOPHEN 325 MG TABLET PO PRN (11:00)
[2021-06-27] MEDS ORDERED: NITROGLYCERIN SUBLINGUAL 0.4 MG BOTTLE OF 25. SL PRN (11:00)
[2021-06-27] MEDS ORDERED: IV NORMAL SALINE 50ML 50 ML ONE (11:16)
[2021-06-27] MEDS ORDERED: AZITHROMYCIN 500 MG VIAL. IV ONE (11:16)
[2021-06-27] MEDS ORDERED: IV NORMAL SALINE 250ML 250 ML ONE (11:16)
[2021-06-27] MEDS ORDERED: cefTRIAXone SODIUM 1 GM VIAL ONE (11:17)
[2021-06-27 11:29] LABS: % ATYL 3 % (0-0); % BANDS 6 % (0-9); % BASOS 2 % (0-3); % EOS 3 % (0-5); % LYMPHS 14 % (24-48); % MONOS 5 % (0-10); % SEGS 67 % (35-66)
[2021-06-27 11:55] LABS: BURR CELLS PRESENT; POLYCHROMASIA PRESENT; TARGET CELLS OCC
[2021-06-27 11:56] LABS: PLT ESTIMATE ADEQUATE (ADEQUATE)
[2021-06-27 16:00] VITALS: BP 140/83
[2021-06-27] MEDS ORDERED: MORPHINE SULFATE 4 MG/ML DISP.SYRIN. ONE (20:06)
[2021-06-27] MEDS ORDERED: MORPHINE SULFATE 4 MG/ML DISP.SYRIN. IV ONE (20:15)
--- NOTE | 2021-06-27 22:12 | EKG ---
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
== END 2021-06-27 21:28 ==
LOC: ER 07:14 → ER HOLD 10:55 → UNDOADMIN 10:55 → ER HOLD 16:52 → 1 SOUTH 16:52 → ER 21:28
DX: J18.9 Pneumonia, unspecified organism (principal); U09.9 Post COVID-19 condition, unspecified; T50.8X5A Adverse effect of diagnostic agents, initial encounter; I27.82 Chronic pulmonary embolism; R06.02 Shortness of breath; F41.9 Anxiety disorder, unspecified; I25.10 Atherosclerotic heart disease of native coronary artery without angina pectoris; E78.00 Pure hypercholesterolemia, unspecified; I10 Essential (primary) hypertension; Z87.440 Personal history of urinary (tract) infections; G35 Multiple sclerosis; E78.5 Hyperlipidemia, unspecified; F17.210 Nicotine dependence, cigarettes, uncomplicated; Z88.8 Allergy status to other drugs, medicaments and biological substances; Y92.89 Other specified places as the place of occurrence of the external cause
CPT/HCPCS: 36415; 71045; 71275; 80048; 82550; 83605; 83880; 84484; 85007; 85025; 87040; 87428; 93005; 96365; 96368; 96372; 96375; 99285; J0456; J0696; J1650; J2270; J7040; J7050; Q9967